=== PATIENT | female | born 1975 | race Two or more races ===

== ENCOUNTER 2020-03-31 09:43 | Outpatient (REF) | payer OTHER, SELFPAY ==
[2020-03-31 11:47] LABS: MANUAL DIFF FLAG NO
[2020-03-31 11:53] LABS: Basophils Absolute Auto 0.1 X10*3/uL (0.0-0.2); Basophils Percent Auto 0.8 % (0-2); Eosinophils Absolute Auto 0.2 X10*3/uL (0.0-0.4); Eosinophils Percent Auto 2.6 % (0-4); Hemoglobin 12.5 g/dl (12.0-16.0); Imm Gran Abs Auto 0.05 X10*3/uL (0.00-0.03); Imm Gran Pct Auto 0.7 % (0.0-0.4); Lymphocytes Absolute Auto 2.4 X10*3/uL (1.2-4.9); Lymphocytes Percent Auto 32.2 % (20-40); Mean Corpuscular HGB Conc 32.1 g/dl (31.0-35.0); Mean Corpuscular Hemoglobin 29.3 pg (27.0-33.0); Mean Corpuscular Volume 91.3 fL (80-98); Mean Platelet Volume 10.8 fL (9.4-12.3); Monocytes Absolute Auto 0.6 X10*3/uL (0.1-1.2); Monocytes Percent Auto 7.8 % (2-11); Neutrophils Absolute Auto 4.2 X10*3/uL (2.0-8.3); Neutrophils Percent Auto 55.9 % (45-73); Platelet Count 291 X10*3/uL (160-400); Red Blood Count 4.27 X10*6/uL (4.20-5.50); Red Cell Distribution Width 14.2 % (11.0-16.0); White Blood Count 7.6 X10*3/uL (4.8-10.8)
[2020-03-31 12:13] LABS: Glucose Urine UA NEG (NEG); Leukocyte Esterase Urine NEG (NEG); Nitrite Urine NEG (NEG); Specific Gravity - Urine 1.025 (1.005-1.025); Urine Blood NEG (NEG); Urine Ketones NEG (NEG); Urine Protein NEG (NEG-TRACE)
[2020-03-31 12:30] LABS: Albumin Level 4.3 g/dL (3.5-5.0); Anion Gap 12 (12-20); Blood Urea Nitrogen 9 mg/dL (9-16); Carbon Dioxide 25 mmol/L (22-29); Chloride 106 mmol/L (96-108); Estimated Glomerular Filt Rate > 60; Phosphorus 3.5 mg/dL (2.7-4.5); Potassium 4.1 mmol/l (3.3-5.1); Sodium 139 mmol/L (135-145)
[2020-03-31 12:37] LABS: Vitamin D 25-OH Total 35.5 ng/mL (>30)
[2020-03-31 12:44] LABS: Creatinine Urine 138.68 mg/dL; Protein/Creatinine Ratio, Ur 0.06 (<0.2); Total Protein Urine Random 8 mg/dL (<12)
[2020-03-31 12:46] LABS: Creatinine Urine 137.52 mg/dL; Microalbum/Creatinine Ratio Ur 9.4 ug/mg cr
[2020-03-31 12:49] LABS: Appearance Urine HAZY; Color Urine YELLOW
[2020-03-31 15:06] LABS: Bacteria Urine 1+ /LPF; Mucus Urine 1+ /LPF; RBC Urine 0 /HPF (0); Squamous Epithelial Cell Urine 2+ /LPF; WBC Urine 0-2 /HPF (0-4)
== END 2020-03-31 09:44 | disposition home or self-care (01) ==
LOC: HO.LAB 09:43
PROVIDERS: PCP Internal Medicine; Visit Provider Internal Medicine Nephrology
DX: Z90.5 Acquired absence of kidney (principal)
CPT/HCPCS: 36415; 80051; 81001; 82040; 82043; 82306; 82310; 82565; 83735; 84100; 84156; 84520; 85025

== ENCOUNTER 2020-05-08 15:06 | Outpatient (REF) | payer OTHER, SELFPAY | END 2020-05-08 15:07 | disposition home or self-care (01) | LOC: HO.LAB 15:06 | PROVIDERS: PCP Internal Medicine; Visit Provider Internal Medicine | DX: Z20.828 Contact with and (suspected) exposure to other viral communicable diseases (principal) | CPT/HCPCS: C9803; U0003 ==

== ENCOUNTER 2020-05-28 11:58 | Outpatient (REF) | payer OTHER, SELFPAY ==
[2020-05-28 13:29] LABS: MANUAL DIFF FLAG NO
[2020-05-28 13:40] LABS: Basophils Absolute Auto 0.1 X10*3/uL (0.0-0.2); Basophils Percent Auto 0.7 % (0-2); Eosinophils Absolute Auto 0.2 X10*3/uL (0.0-0.4); Eosinophils Percent Auto 2.3 % (0-4); Hematocrit 38.4 % (37-47); Hemoglobin 12.3 g/dl (12.0-16.0); Imm Gran Abs Auto 0.04 X10*3/uL (0.00-0.03); Imm Gran Pct Auto 0.6 % (0.0-0.4); Lymphocytes Absolute Auto 2.6 X10*3/uL (1.2-4.9); Lymphocytes Percent Auto 36.7 % (20-40); Mean Corpuscular Hemoglobin 29.1 pg (27.0-33.0); Mean Corpuscular Volume 90.8 fL (80-98); Monocytes Absolute Auto 0.6 X10*3/uL (0.1-1.2); Monocytes Percent Auto 8.9 % (2-11); Neutrophils Absolute Auto 3.6 X10*3/uL (2.0-8.3); Neutrophils Percent Auto 50.8 % (45-73); Platelet Count 298 X10*3/uL (160-400); Red Blood Count 4.23 X10*6/uL (4.20-5.50); Red Cell Distribution Width 14.1 % (11.0-16.0); White Blood Count 7.1 X10*3/uL (4.8-10.8)
[2020-05-28 14:10] LABS: Albumin Level 4.1 g/dL (3.5-5.0); Anion Gap 12 (12-20); Blood Urea Nitrogen 10 mg/dL (9-16); Calcium 8.9 mg/dL (8.4-10.2); Carbon Dioxide 26 mmol/L (22-29); Chloride 105 mmol/L (96-108); Estimated Glomerular Filt Rate > 60; Magnesium 1.9 mg/dL (1.6-2.6); Phosphorus 2.5 mg/dL (2.7-4.5); Sodium 139 mmol/L (135-145)
[2020-05-28 14:25] LABS: Glucose Urine UA NEG (NEG); Leukocyte Esterase Urine NEG (NEG); Nitrite Urine NEG (NEG); Specific Gravity - Urine 1.025 (1.005-1.025); Urine Blood NEG (NEG); Urine Ketones NEG (NEG); Urine Protein NEG (NEG-TRACE)
[2020-05-28 14:29] LABS: Appearance Urine HAZY; Color Urine YELLOW
[2020-05-28 14:32] LABS: Vitamin D 25-OH Total 40.2 ng/mL (>30)
[2020-05-28 14:37] LABS: Creatinine Urine 166.14 mg/dL; Microalbum/Creatinine Ratio Ur 40.9 ug/mg cr; Total Protein Urine Random 17 mg/dL (<12)
[2020-05-28 14:45] LABS: Mucus Urine 1+ /LPF; RBC Urine 0 /HPF (0); Squamous Epithelial Cell Urine 1+ /LPF; WBC Urine 0 /HPF (0-4)
[2020-05-28 15:43] LABS: Renal w Reflex Lab Use Only Order verified
[2020-05-29 09:20] LABS: Creatinine Urine 168.43 mg/dL; Total Protein Urine Random 17 mg/dL (<12)
[2020-05-29 18:57] LABS: Calcium (PTHI) 9.2 mg/dL (8.6-10.2); PTHI 29 pg/mL (14-64)
== END 2020-05-28 11:59 | disposition home or self-care (01) ==
LOC: HO.LAB 11:58
PROVIDERS: PCP Internal Medicine; Visit Provider Internal Medicine Nephrology
DX: Z90.5 Acquired absence of kidney (principal)
CPT/HCPCS: 36415; 80051; 81001; 82040; 82043; 82306; 82310; 82565; 83735; 83970; 84100; 84156; 84520; 85025

== ENCOUNTER 2020-06-03 08:52 | Outpatient (REF) | payer OTHER, SELFPAY ==
--- NOTE | 2020-06-03 | US_ITS ---
EXAMINATION: US RENAL ULTRASOUND AND RENAL DOPPLER CLINICAL INFORMATION: Rule out renal vein impingement. Previous right nephrectomy. COMPARISON: None. TECHNIQUE: Routine grayscale imaging of kidneys was performed. In addition arterial color ultrasound and Doppler imaging of the retroperitoneum performed. FINDINGS: The right kidney is surgically absent. The left kidney measures 13.5 cm in length, 6.28 cm in AP and 6.25 cm in transverse dimension. There is compensatory enlargement left kidney. Normal cortical thickness seen. No cardiac stones, cyst or hydronephrosis. On left renal Doppler imaging the left proximal renal vein measures 0.2 cm with and elevated velocity of 165 cm/second. An upright view of the left proximal renal vein is 0.4 cm with 110 cm/second velocity. SMA at the same level measures 0.8 cm in diameter and velocity of 24.7 cm/second The left distal renal vein measures 1.0 cm with velocity of 25.5 cm/second. The left gonadal vein is not seen. The angle estimated at the aorta is approximately 46.1 degrees. US/US renal doppler IMPRESSION: Compensatory enlargement of left kidney following right nephrectomy. The left kidney measures 13.5 cm. Mildly elevated proximal left renal vein velocity measuring 165 cm/second and distal renal vein has normal velocity of 25 cm/second. Compared to recent CT 05/17/2019, no obstructive etiology was seen along the course of the left renal vein. No obstructive etiology seen on the CT. Correlation with CT angiogram can be performed with attention to the left renal vein. The right kidney is surgically absent.
== END 2020-06-03 08:53 | disposition home or self-care (01) ==
LOC: HO.US 08:52
PROVIDERS: Visit Provider Internal Medicine Nephrology
DX: Z90.5 Acquired absence of kidney (principal)
CPT/HCPCS: 76775; 93975

== ENCOUNTER 2020-07-02 10:56 | Outpatient (REF) | payer OTHER, SELFPAY ==
[2020-07-03 09:12] LABS: BV Int Neg Control Negative (Negative); BV Int Pos Control Positive (Positive)
[2020-07-03 21:32] LABS: C. trachomatis RNA TMA NOT DETECTED (NOT DETECTED); N. gonorrhoeae RNA TMA NOT DETECTED (NOT DETECTED)
[2020-07-08 02:32] LABS: HPV mRNA E6/E7 rflx Not Detected (Not Detected)
== END 2020-07-02 10:57 | disposition home or self-care (01) ==
LOC: HO.LAB 10:56
PROVIDERS: PCP Internal Medicine; Visit Provider Advanced Practice Midwife
DX: N93.9 Abnormal uterine and vaginal bleeding, unspecified (principal); N92.6 Irregular menstruation, unspecified; R23.2 Flushing; R10.2 Pelvic and perineal pain; Z90.5 Acquired absence of kidney
CPT/HCPCS: 36415; 87480; 87491; 87510; 87591; 87624; 87660; 88141; 88142; 99212

== ENCOUNTER 2020-07-07 12:12 | Outpatient (REF) | payer OTHER, SELFPAY | END 2020-07-07 12:13 | disposition home or self-care (01) | LOC: HO.MAMMO 12:12 | PROVIDERS: Visit Provider Obstetrics & Gynecology | DX: Z13.89 Encounter for screening for other disorder (principal) ==

== ENCOUNTER 2020-07-07 15:19 | Emergency (ER) | payer OTHER, SELFPAY ==
[2020-07-07 18:14] VITALS: BP 126/68; PULSE 83; RESP 18; TEMP 36.1; O2SAT 96; BMI 34.9
[2020-07-07 18:39] LABS: MANUAL DIFF FLAG NO
[2020-07-07 18:41] LABS: Basophils Absolute Auto 0.1 X10*3/uL (0.0-0.2); Basophils Percent Auto 0.5 % (0-2); Eosinophils Absolute Auto 0.2 X10*3/uL (0.0-0.4); Eosinophils Percent Auto 1.8 % (0-4); Hematocrit 39.9 % (37-47); Hemoglobin 12.9 g/dl (12.0-16.0); Imm Gran Abs Auto 0.03 X10*3/uL (0.00-0.03); Imm Gran Pct Auto 0.3 % (0.0-0.4); Lymphocytes Absolute Auto 3.4 X10*3/uL (1.2-4.9); Lymphocytes Percent Auto 35.4 % (20-40); Mean Corpuscular HGB Conc 32.3 g/dl (31.0-35.0); Mean Corpuscular Hemoglobin 29.3 pg (27.0-33.0); Mean Corpuscular Volume 90.7 fL (80-98); Mean Platelet Volume 10.6 fL (9.4-12.3); Monocytes Absolute Auto 0.7 X10*3/uL (0.1-1.2); Monocytes Percent Auto 7.5 % (2-11); Neutrophils Absolute Auto 5.2 X10*3/uL (2.0-8.3); Neutrophils Percent Auto 54.5 % (45-73); Platelet Count 285 X10*3/uL (160-400); Red Cell Distribution Width 13.7 % (11.0-16.0); White Blood Count 9.5 X10*3/uL (4.8-10.8)
[2020-07-07 18:45] LABS: Glucose Urine UA NEG (NEG); Leukocyte Esterase Urine NEG (NEG); Nitrite Urine NEG (NEG); Urine Blood 1+ (NEG); Urine Ketones NEG (NEG); Urine Protein NEG (NEG-TRACE)
[2020-07-07 18:46] LABS: Appearance Urine CLEAR; Color Urine STRAW
[2020-07-07 18:51] LABS: Bacteria Urine 1+ /LPF; Squamous Epithelial Cell Urine 3+ /LPF; WBC Urine 0 /HPF (0-4)
[2020-07-07 19:02] LABS: Alanine Aminotransferase 57 U/L (0-31); Albumin Level 4.7 g/dL (3.5-5.0); Alkaline Phosphatase 75 U/L (39-117); Anion Gap 14 (12-20); Aspartate Amino Transferase 50 U/L (5-31); Bilirubin Total 0.3 mg/dL (0.0-1.0); Blood Urea Nitrogen 12 mg/dL (9-16); Calcium 9.5 mg/dL (8.4-10.2); Carbon Dioxide 25 mmol/L (22-29); Chloride 105 mmol/L (96-108); Creatinine Clr Calc Pharmacy 112.5; Estimated Glomerular Filt Rate > 60; Glucose Random 92 mg/dL (60-115); Sodium 140 mmol/L (135-145); Total Protein 8.1 g/dL (6.5-8.0)
[2020-07-07 21:44] VITALS: BP 113/55; PULSE 78; RESP 16; TEMP 36.5; O2SAT 99
--- NOTE | 2020-07-07 21:52 | ED_ITS ---
HPI - Abdominal Pain General Chief Complaint: Abdominal Pain Stated Complaint: dizziness Time Seen by Provider: 07/07/20 21:48 Source: patient Mode of arrival: ambulatory Limitations: no limitations History of Present Illness HPI narrative: 44-year-old female with a solitary left kidney (surgical right nephrectomy), patient with chronic left flank pain of unclear etiology, patient was seen by a residential treatment specialist who recommended to be seen by pain management. 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 Related Data Home Medications Medication Instructions Recorded Confirmed clonazepam 2 mg tablet 2 mg PO DAILY 06/30/20 potassium citrate 10 mEq (1,080 20 meq PO BID 06/30/20 mg) tablet,extended release tamsulosin 0.4 mg capsule 0.4 mg PO DAILY 06/30/20 Allergies Allergy/AdvReac Type Severity Reaction Status Date / Time citalopram Allergy Unknown palpitation Verified 07/07/20 18:13 s doxepin Allergy Unknown palpitation Verified 07/07/20 18:13 s quetiapine [Seroquel] Allergy Unknown weight gain Verified 07/07/20 18:13 trazodone Allergy Unknown palpitation Verified 07/07/20 18:13 s No Known Allergies Allergy Unverified 03/13/20 15:53 Review of Systems Review of Systems All other systems are reviewed and are negative Constitutional: Reports as per HPI and Reports no additional constitutional complaints Eyes: Reports as per HPI and Reports no additional eye complaints Reports system reviewed and no additional complaints, except as documented Cardiovascular: Reports as per HPI and Reports no additional cardiovascular complaints Respiratory: Reports as per HPI and Reports no additional respiratory complaints Gastrointestinal: Reports as per HPI and Reports no additional gastrointestinal complaints Genitourinary: Reports no additional female genitourinary complaints Musculoskeletal: Reports no additional musculoskeletal complaints Skin/Breast: Reports system reviewed and no additional complaints, except as d ocu Psychiatric: Reports no additional psychiatric complaints Endocrine: Reports no additional endocrine complaints Hematologic/Lymphatic: Reports no additional hematologic/lymphatic complaints Allergic/Immunologic: Reports no additional allergic/immunologic complaints Reports system reviewed and no additional complaints, except as documented and Reports Abnormal speech present Physical Exam Vital Signs: Vital Signs: Last Vital Signs Temp 97.7 F 07/07/20 21:44 Pulse 78 07/07/20 21:44 Resp 16 07/07/20 21:44 BP 113/55 L 07/07/20 21:44 Pulse Ox 99 07/07/20 21:44 Body Mass Index 34.9 Vital signs have been reviewed as normal and appeared to be correct. Blood pressure normal. Heart rate normal. Respiration rate normal. Temperature normal. Oxygen saturation normal. Appearance: Alert. Oriented X3. No acute distress. Head: Normal external exam. Normocephalic. Atraumatic. No Madden signs noted. No raccoon eyes noted Eyes: PERRLA. EOMI. Conjunctiva and sclera normal. Eyelids normal. ENT: EAC normal. TM's Normal. Pharynx normal. Uvula midline. Moist mucous membranes. No trismus noted. No drooling noted. No muffled voice noted. Neck: Normal inspection. Neck supple. FROM. No adenopathy. Thyroid Normal. No meningeal signs. No neck mass noted. CVS: Normal heart rate and rhythm. Heart sound normal. No murmurs noted. Pulses normal throughout. Respiratory: No respiratory distress. Painless inspiration. Breath sounds normal. No wheezes/rales/rhonchi noted. Chest nontender. No accessory muscle usage noted or decreased air movement noted. Abdomen: Soft and nontender. Bowel sounds normal in all 4 quadrants. No distention noted. No organomegaly noted. No visible injury noted. Back: No CVA tenderness. Full range of motion noted. Skin: Skin warm and dry. Normal skin color. Normal skin turgor. No rashes/lesions/lacerations noted. Extremities: No lower extremity edema. Extremities exhibit normal range of motion. Extremities nontender. Neuro: Oriented X 3. No motor deficit. No sensory deficit. Reflexes normal. Course Course Course Narrative: 44-year-old female with chronic left flank pain of unclear etiologies patient was evaluated by residential treatment specialist who recommended to follow-up with pain management to control his chronic pain, patient was driving her car when she started to have severe left flank pain made her feel dizzy symptoms improved after patient open the car window and had fresh air. Patient decided to come in for evaluation. Patient has unremarkable vital sign/physical exam, labs are unremarkable +1 rbc's in the urine. Impression: Chronic left flank pain cause the patient to feel dizzy all symptoms resolved no acute medical intervention is needed at this point findings were explained to the patient and patient was reassured. MDM - Abdominal Pain Lab Data Result diagrams: 07/07/20 18:33 07/07/20 18:33 Labs: Lab Results 07/07/20 07/07/20 07/07/20 Range/Units 18:33 18:33 18:33 WBC 9.5 (4.8-10.8) X10*3/uL RBC 4.40 (4.20-5.50) X10*6/uL Hgb 12.9 (12.0-16.0) g/dl Hct 39.9 (37-47) % MCV 90.7 (80-98) fL MCH 29.3 (27.0-33.0) pg MCHC 32.3 (31.0-35.0) g/dl RDW 13.7 (11.0-16.0) % Plt Count 285 (160-400) X10*3/uL MPV 10.6 (9.4-12.3) fL Immature Gran % (Auto) 0.3 (0.0-0.4) % Neut % (Auto) 54.5 (45-73) % Lymph % (Auto) 35.4 (20-40) % [place] % (Auto) 7.5 (2-11) % Eos % (Auto) 1.8 (0-4) % Baso % (Auto) 0.5 (0-2) % Lymph # (Auto) 3.4 (1.2-4.9) X10*3/uL [place] # (Auto) 0.7 (0.1-1.2) X10*3/uL Eos # (Auto) 0.2 (0.0-0.4) X10*3/uL Baso # (Auto) 0.1 (0.0-0.2) X10*3/uL Abs Immat Gran (auto) 0.03 (0.00-0.03) X10*3/uL Absolute Neuts (auto) 5.2 (2.0-8.3) X10*3/uL Absolute Nucleated RBC 0.000 (0.0-0.012) X10*3/uL Nucleated RBC % (auto) 0.0 (0.0-0.2) /100WBC Hold Blue Top SEE NOTE Sodium 140 (135-145) mmol/L Potassium 4.0 (3.3-5.1) mmol/l Chloride 105 (96-108) mmol/L Carbon Dioxide 25 (22-29) mmol/L Anion Gap 14 (12-20) BUN 12 (9-16) mg/dL Creatinine 0.72 (0.5-1.4) mg/dL Estim Creat Clear Calc 112.5 Estimated GFR > 60 Random Glucose 92 (60-115) mg/dL Calcium 9.5 D (8.4-10.2) mg/dL Total Bilirubin 0.3 (0.0-1.0) mg/dL AST 50 H (5-31) U/L ALT 57 H (0-31) U/L Alkaline Phosphatase 75 (39-117) U/L Total Protein 8.1 H (6.5-8.0) g/dL Albumin 4.7 (3.5-5.0) g/dL Urine Color Urine Appearance Urine pH (5.0-8.0) Ur Specific Gilbert (1.005-1.025) Urine Protein (NEG-TRACE) MG/DL Urine Glucose (UA) (NEG) MG/DL Urine Ketones (NEG) MG/DL Urine Blood (NEG) Urine Nitrite (NEG) Ur Leukocyte Esterase (NEG) Urine RBC (0) /HPF Urine WBC (0-4) /HPF Ur Squamous Epith Cells /LPF Urine Bacteria /LPF 07/07/20 Range/Units 18:33 WBC (4.8-10.8) X10*3/uL RBC (4.20-5.50) X10*6/uL Hgb (12.0-16.0) g/dl Hct (37-47) % MCV (80-98) fL MCH (27.0-33.0) pg MCHC (31.0-35.0) g/dl RDW (11.0-16.0) % Plt Count (160-400) X10*3/uL MPV (9.4-12.3) fL Immature Gran % (Auto) (0.0-0.4) % Neut % (Auto) (45-73) % Lymph % (Auto) (20-40) % [place] % (Auto) (2-11) % Eos % (Auto) (0-4) % Baso % (Auto) (0-2) % Lymph # (Auto) (1.2-4.9) X10*3/uL [place] # (Auto) (0.1-1.2) X10*3/uL Eos # (Auto) (0.0-0.4) X10*3/uL Baso # (Auto) (0.0-0.2) X10*3/uL Abs Immat Gran (auto) (0.00-0.03) X10*3/uL Absolute Neuts (auto) (2.0-8.3) X10*3/uL Absolute Nucleated RBC (0.0-0.012) X10*3/uL Nucleated RBC % (auto) (0.0-0.2) /100WBC Hold Blue Top Sodium (135-145) mmol/L Potassium (3.3-5.1) mmol/l Chloride (96-108) mmol/L Carbon Dioxide (22-29) mmol/L Anion Gap (12-20) BUN (9-16) mg/dL Creatinine (0.5-1.4) mg/dL Estim Creat Clear Calc Estimated GFR Random Glucose (60-115) mg/dL Calcium (8.4-10.2) mg/dL Total Bilirubin (0.0-1.0) mg/dL AST (5-31) U/L ALT (0-31) U/L Alkaline Phosphatase (39-117) U/L Total Protein (6.5-8.0) g/dL Albumin (3.5-5.0) g/dL Urine Color STRAW Urine Appearance CLEAR Urine pH 6.0 (5.0-8.0) Ur Specific Gilbert 1.010 (1.005-1.025) Urine Protein NEG (NEG-TRACE) MG/DL Urine Glucose (UA) NEG (NEG) MG/DL Urine Ketones NEG (NEG) MG/DL Urine Blood 1+ H (NEG) Urine Nitrite NEG (NEG) Ur Leukocyte Esterase NEG (NEG) Urine RBC 1-4 (0) /HPF Urine WBC 0 (0-4) /HPF Ur Squamous Epith Cells 3+ /LPF Urine Bacteria 1+ /LPF Discharge Plan Discharge Clinical Impression: History of right nephrectomy, Chronic flank pain Patient Disposition: Home, Self-Care Instructions: Flank Pain (ED) Referrals: Fallon Doyle MD [Primary Care Provider] - 2 days PMF Past Medical History Medical History Carpal tunnel syndrome Depression FH: throat cancer Insomnia Numerous moles Obesity Ovarian cyst Physical exam Surgical History History of loop electrical excision procedure (LEEP) History of removal of ovarian cyst History of right nephrectomy Family History Family History Maternal Grandmother Diabetes mellitus Maternal Grandfather Heart disease CVD (cardiovascular disease) Social History Social History Smoking Status: Never smoker Advance Directives: No Advance Directives Information Provided: Yes Gender identity: female
== END 2020-07-07 22:26 | disposition home or self-care (01) ==
PROVIDERS: Emergency Provider Emergency Medicine; PCP Internal Medicine
DX: R10.9 Unspecified abdominal pain (principal); Z90.5 Acquired absence of kidney
CPT/HCPCS: 36415; 80053; 81001; 85025; 99283

== ENCOUNTER 2020-07-14 11:20 | Outpatient (REF) | payer OTHER, SELFPAY ==
--- NOTE | 2020-07-14 | US_ITS ---
EXAMINATION: ULTRASOUND PELVIS COMPLETE CLINICAL INFORMATION: Right ovarian cyst. COMPARISON: Ultrasound pelvis 02/13/2019. TECHNIQUE: Transabdominal and transvaginal ultrasound of the pelvis is performed. FINDINGS: The uterus is anteverted and anteflexed measuring 12.1 cm in length, 6.2 cm in AP and 7.0 cm in transverse dimension. Previously visualized fibroid is not visualized at this time. The uterus is homogeneous in echotexture. The endometrial thickness is 1.4 cm. There are several nabothian cysts seen in the cervix. The right ovary measures 3.5 x 1.2 x 1.1 cm and volume 2.4 cm. It is unremarkable. The left ovary measures 2.7 x 1.5 x 3.4 cm and volume 7.2 mL. There are 2 anechoic cysts. The largest cyst measures 1.9 x 1.3 x by 1.5 cm and second lesion measures 1.3 x 0.6 x 1.0 cm. There is a trace amount of free fluid in the pelvis. US/US transvaginal IMPRESSION: Unremarkable anteverted uterus. No fibroids seen at this time. Nabothian cysts seen in the cervix. Two simple cysts in the left ovary.
--- NOTE | 2020-07-14 11:26 | US_ITS ---
EXAMINATION: ULTRASOUND PELVIS COMPLETE CLINICAL INFORMATION: Right ovarian cyst. COMPARISON: Ultrasound pelvis 02/13/2019. TECHNIQUE: Transabdominal and transvaginal ultrasound of the pelvis is performed. FINDINGS: The uterus is anteverted and anteflexed measuring 12.1 cm in length, 6.2 cm in AP and 7.0 cm in transverse dimension. Previously visualized fibroid is not visualized at this time. The uterus is homogeneous in echotexture. The endometrial thickness is 1.4 cm. There are several nabothian cysts seen in the cervix. The right ovary measures 3.5 x 1.2 x 1.1 cm and volume 2.4 cm. It is unremarkable. The left ovary measures 2.7 x 1.5 x 3.4 cm and volume 7.2 mL. There are 2 anechoic cysts. The largest cyst measures 1.9 x 1.3 x by 1.5 cm and second lesion measures 1.3 x 0.6 x 1.0 cm. There is a trace amount of free fluid in the pelvis. US/US pelvic complete IMPRESSION: Unremarkable anteverted uterus. No fibroids seen at this time. Nabothian cysts seen in the cervix. Two simple cysts in the left ovary.
== END 2020-07-14 11:21 | disposition home or self-care (01) ==
LOC: HO.US 11:20
PROVIDERS: Visit Provider Advanced Practice Midwife
DX: N83.201 Unspecified ovarian cyst, right side (principal)
CPT/HCPCS: 76830; 76856

== ENCOUNTER → 2020-07-17 09:26 | Outpatient (BNVA) | payer OTHER, SELFPAY | PROVIDERS: PCP Internal Medicine; Visit Provider Surgery Vascular Surgery | DX: I87.1 Compression of vein (principal) | CPT/HCPCS: 99202 ==

== ENCOUNTER 2020-07-17 23:39 | Emergency (ER) | payer OTHER, SELFPAY ==
[2020-07-17 23:58] VITALS: BP 142/53; PULSE 84; RESP 18; TEMP 36.4; O2SAT 99; BMI 42.2
--- NOTE | 2020-07-17 23:58 | ED.ABDPAIN ---
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 Pain is intermittent at times. Of note, the pain was seen for the same July 04 and had an unremarkable workup including ultrasound, labs, urine. Has been seen multiple times by nephrology in the past and had been referred to pain management. Seen [facility] and there was concern for left renal vein impingement on repeat US. Referred to vascular. Seen today in office by Dr Guzman at 930am. Noted to not have pain in the office their. CT angio abdomen ordered which patient is scheduled to have 07/29/20. Patient tells me at 1145 she started to have severe pain which feels just like previous episodes of pain unrelieved with home APAP. No associated nausea, vomiting, diarhea, urinary symptoms, fevers, chills. Currently on her menses. <SOMMER Brock Last Filed: 07/18/20 01:36> MD elicited complaint: abdominal pain <SOMMER Brock Last Filed: 07/18/20 01:36> Pain Consistency: intermittent <SOMMER Brock Last Filed: 07/18/20 01:36> Related Data Home Medications: Home Medications Medication Instructions Recorded Confirmed clonazepam 2 mg tablet 2 mg PO DAILY 06/30/20 07/09/20 potassium citrate 10 mEq (1,080 20 meq PO BID 06/30/20 07/09/20 mg) tablet,extended release tamsulosin 0.4 mg capsule 0.4 mg PO DAILY 06/30/20 07/09/20 cholecalciferol (vitamin D3) 10 10 mcg PO DAILY 07/22/20 mcg (400 unit) tablet <SOMMER Brock Last Filed: 07/18/20 01:36> Allergies/Adverse Reactions: Allergies Allergy/AdvReac Type Severity Reaction Status Date / Time citalopram Allergy Unknown palpitation Verified 07/24/20 14:31 s doxepin Allergy Unknown palpitation Verified 07/24/20 14:31 s quetiapine [Seroquel] Allergy Unknown weight gain Verified 07/24/20 14:31 trazodone Allergy Unknown palpitation Verified 07/24/20 14:31 s <SOMMER Brock Last Filed: 07/18/20 01:36> Review of Systems Review of Systems Yes all other systems are reviewed and are negative <SOMMER Brock Last Filed: 07/18/20 01:36> Constitutional: Reports no additional constitutional complaints, Denies body ache(s), Denies chills, Denies fever(s), Denies headache(s) and Denies weakness <SOMMER Brock Last Filed: 07/18/20 01:36> Eyes: Reports no additional eye complaints and Denies change in vision <SOMMER Brock Last Filed: 07/18/20 01:36> Reports system reviewed and no additional complaints, except as documented, Denies dizziness, Denies headache(s), Denies nasal congestion, Denies nasal discharge and Denies neck pain <SOMMER Brock Last Filed: 07/18/20 01:36> Cardiovascular: Reports no additional cardiovascular complaints, Denies chest pain, Denies leg edema and Denies dyspnea <SOMMER Brock Last Filed: 07/18/20 01:36> Respiratory: Reports no additional respiratory complaints, Denies cough and Denies dyspnea <SOMMER Brock Last Filed: 07/18/20 01:36> Gastrointestinal: Reports no additional gastrointestinal complaints, Reports abdominal pain, Denies diarrhea, Denies nausea and Denies vomiting <Jasmine Muller NP - Last Filed: 07/18/20 01:36> Genitourinary: Reports no additional female genitourinary complaints and Denies urinary incontinence <Jasmine Muller NP - Last Filed: 07/18/20 01:36> Musculoskeletal: Reports no additional musculoskeletal complaints, Reports back pain, Denies arthralgias, Denies joint swelling, Denies neck pain, Denies numbness and Denies tingling <Jasmine Muller NP - Last Filed: 07/18/20 01:36> Skin/Breast: Reports system reviewed and no additional complaints, except as docu and Denies rash <Jasmine Muller NP - Last Filed: 07/18/20 01:36> Reports system reviewed and no additional complaints, except as documented, Denies Abnormal speech present, Denies dizziness, Denies headache(s), Denies numbness, Denies tingling and Denies weakness <Jasmine Mulelr NP - Last Filed: 07/18/20 01:36> Physical Exam Vital Signs: Vital Signs: Last Vital Signs Temp 97.6 F 07/17/20 23:58 Pulse 81 07/18/20 01:09 Resp 18 07/18/20 01:09 BP 140/58 H 07/18/20 01:09 Pulse Ox 98 07/18/20 01:09 Body Mass Index 42.2 <Jasmine Muller NP - Last Filed: 07/18/20 01:36> Vital Signs: Last Vital Signs Temp 97.6 F 07/17/20 23:58 Pulse 81 07/18/20 01:09 Resp 18 07/18/20 01:09 BP 140/58 H 07/18/20 01:09 Pulse Ox 98 07/18/20 01:09 Body Mass Index 42.2 <Mckenzie Rubio MD - Last Filed: 07/18/20 03:25> Vital Signs: Last Vital Signs Temp 97.6 F 07/17/20 23:58 Pulse 81 07/18/20 01:09 Resp 18 07/18/20 01:09 BP 140/58 H 07/18/20 01:09 Pulse Ox 98 07/18/20 01:09 Body Mass Index 42.2 <James La MD - Last Filed: 07/30/20 07:46> Const: General: cooperative, healthy appearing, comfortable and no acute distress <Jasmine Muller NP - Last Filed: 07/18/20 01:36> Orientation/consciousness: patient oriented x3 <Jasmine Muller NP - Last Filed: 07/18/20 01:36> Limitations: no limitations <Jasmine Muller NP - Last Filed: 07/18/20 01:36> HENMT: Head: Yes normal to inspection <Jasmine Muller NP - Last Filed: 07/18/20 01:36> Ears: hearing grossly normal bilaterally <Jasmine Muller NP - Last Filed: 07/18/20 01:36> General nose exam: Normal external nose present <Jasmine Muller NP - Last Filed: 07/18/20 01:36> Face and sinus: Yes normal facial exam <Jasmine Muller NP - Last Filed: 07/18/20 01:36> Mouth: Normal oral and palatal mucosa present <Jasmine Muller NP - Last Filed: 07/18/20 01:36> Throat: Yes posterior oropharynx normal <Jasmine Muller NP - Last Filed: 07/18/20 01:36> Eyes: General: appearance normal, both eyes and all related structures <Jasmine Muller NP - Last Filed: 07/18/20 01:36> Pupils: Equal, round and reactive pupils present <Jasmine Muller NP - Last Filed: 07/18/20 01:36> Neck: Neck: Yes normal visual inspection <Jasmine Muller NP - Last Filed: 07/18/20 01:36> Chest: Chest palpation & inspection: normal inspection of the chest <Jasmine Muller NP - Last Filed: 07/18/20 01:36> Resp: Effort & Inspection: normal respiratory effort <SOMMER Brock Last Filed: 07/18/20 01:36> Auscultation: clear to auscultation bilaterally <Jasmine Muller NP - Last Filed: 07/18/20 01:36> Cardio: Rate: regular rate <Jasmine Muller NP - Last Filed: 07/18/20 01:36> Rhythm: regular rhythm <Jasmine Muller NP - Last Filed: 07/18/20 01:36> Peripheral pulses: Peripheral pulses 2+ throughout <Jasmine Muller NP - Last Filed: 07/18/20 01:36> GI: Inspection: Yes normal to inspection <Jasmine Muller NP - Last Filed: 07/18/20 01:36> Palpation (GI): Soft to palpation, Tenderness to palpation present (GI) in the LUQ; with no rebound tenderness and no guarding <Jasmine Muller NP - Last Filed: 07/18/20 01:36> Auscultation: normal bowel sounds <Jasmine Muller NP - Last Filed: 07/18/20 01:36> : General: Yes CVA tenderness (moderate) <Jasmine Muller NP - Last Filed: 07/18/20 01:36> Back/Spine/Pelvis: Back: CVA tenderness (moderate) <Jasmine Muller NP - Last Filed: 07/18/20 01:36> Thoracic/Lumbar Spine: thoracic and lumbar spine normal to inspection <Jasmine Muller NP - Last Filed: 07/18/20 01:36> Skin: General skin exam: no rashes or lesions noted <Jasmine Muller NP - Last Filed: 07/18/20 01:36> Neuro: General: patient oriented x3, no focal motor deficits and normal sensation to monofilament <Jasmine Muller NP - Last Filed: 07/18/20 01:36> Cranial nerves: Yes Equal, round and reactive pupils present <Jasmine Muller NP - Last Filed: 07/18/20 01:36> Cognition (Neuro): normal cognition <Jasmine Muller NP - Last Filed: 07/18/20 01:36> Speech: No Abnormal speech present <Jasmine Muller NP - Last Filed: 07/18/20 01:36> Gait exam (Neuro): Normal gait present <Jasmine Muller NP - Last Filed: 07/18/20 01:36> Motor exam (neuro): 5/5 motor strength present throughout <Jasmine Muller NP - Last Filed: 07/18/20 01:36> Extrem: General: Yes normal to inspection <Jasmine Muller NP - Last Filed: 07/18/20 01:36> Course Course Course Narrative: 44 yo female here with acute on chronic left abdomen/flank pain. Currently being worked up for left renal vein impingement by nephrology and vascular. Has upcoming CT angio abdomen. Pt here for worsening pain today. LUQ/left flank pain on exam. Will check labs, UA, CT angio. 0050-Per radiologist to eval renal vein Ct A/P with IV contrast is needed. 0130-Sign out to Dr Rubio pending above. <Jasmine Muller NP - Last Filed: 07/18/20 01:36> I received sign-out from SOMMER Deng, CT scan was limited due to motion artifact, however there is no appreciable abnormality of the left renal vein. Patient was instructed to call Dr. Guzman office this morning and follow-up with him as well. <Mckenzie Rubio MD - Last Filed: 07/18/20 03:25> I have reviewed the chart <James La MD - Last Filed: 07/30/20 07:46> MDM - Abdominal Pain Medical Records Attestation: I reviewed the patient's medical records. <Jasmine Muller NP - Last Filed: 07/18/20 01:36> Lab Data Attestation: I reviewed the patient's lab results. <Jasmine Muller NP - Last Filed: 07/18/20 01:36> Result diagrams: : 07/18/20 00:39 07/18/20 00:39 <Jasmine Muller NP - Last Filed: 07/18/20 01:36> Labs: Lab Results 07/18/20 07/18/20 07/18/20 Range/Units 00:39 00:39 00:39 WBC 9.0 (4.8-10.8) X10*3/uL RBC 3.93 L (4.20-5.50) X10*6/uL Hgb 11.6 L (12.0-16.0) g/dl Hct 35.7 L (37-47) % MCV 90.8 (80-98) fL MCH 29.5 (27.0-33.0) pg MCHC 32.5 (31.0-35.0) g/dl RDW 13.8 (11.0-16.0) % Plt Count 246 (160-400) X10*3/uL MPV 10.7 (9.4-12.3) fL Immature Gran % (Auto) 0.2 (0.0-0.4) % Neut % (Auto) 46.0 (45-73) % Lymph % (Auto) 41.6 H (20-40) % [place] % (Auto) 8.8 (2-11) % Eos % (Auto) 2.7 (0-4) % Baso % (Auto) 0.7 (0-2) % Lymph # (Auto) 3.7 (1.2-4.9) X10*3/uL [place] # (Auto) 0.8 (0.1-1.2) X10*3/uL Eos # (Auto) 0.2 (0.0-0.4) X10*3/uL Baso # (Auto) 0.1 (0.0-0.2) X10*3/uL Abs Immat Gran (auto) 0.02 (0.00-0.03) X10*3/uL Absolute Neuts (auto) 4.1 (2.0-8.3) X10*3/uL Absolute Nucleated RBC 0.000 (0.0-0.012) X10*3/uL Nucleated RBC % (auto) 0.0 (0.0-0.2) /100WBC Hold Blue Top SEE NOTE Sodium 138 (135-145) mmol/L Potassium 4.0 (3.3-5.1) mmol/l Chloride 104 (96-108) mmol/L Carbon Dioxide 25 (22-29) mmol/L Anion Gap 13 (12-20) BUN 11 (9-16) mg/dL Creatinine 0.71 (0.5-1.4) mg/dL Estim Creat Clear Calc 122.3 Estimated GFR > 60 Random Glucose 97 (60-115) mg/dL Calcium 8.9 D (8.4-10.2) mg/dL Total Bilirubin 0.3 (0.0-1.0) mg/dL Direct Bilirubin 0.2 (0.0-0.5) mg/dL AST 22 D (5-31) U/L ALT 24 (0-31) U/L Alkaline Phosphatase 65 (39-117) U/L Total Protein 7.0 (6.5-8.0) g/dL Albumin 4.1 (3.5-5.0) g/dL Urine Color Urine Appearance Urine pH (5.0-8.0) Ur Specific [place] (1.005-1.025) Urine Protein (NEG-TRACE) MG/DL Urine Glucose (UA) (NEG) MG/DL Urine Ketones (NEG) MG/DL Urine Blood (NEG) Urine Nitrite (NEG) Ur Leukocyte Esterase (NEG) Urine RBC (0) /HPF Urine WBC (0-4) /HPF Ur Squamous Epith Cells /LPF Urine Bacteria /LPF Urine Test (NEGATIVE) 07/18/20 Range/Units 00:41 WBC (4.8-10.8) X10*3/uL RBC (4.20-5.50) X10*6/uL Hgb (12.0-16.0) g/dl Hct (37-47) % MCV (80-98) fL MCH (27.0-33.0) pg MCHC (31.0-35.0) g/dl RDW (11.0-16.0) % Plt Count (160-400) X10*3/uL MPV (9.4-12.3) fL Immature Gran % (Auto) (0.0-0.4) % Neut % (Auto) (45-73) % Lymph % (Auto) (20-40) % [place] % (Auto) (2-11) % Eos % (Auto) (0-4) % Baso % (Auto) (0-2) % Lymph # (Auto) (1.2-4.9) X10*3/uL [place] # (Auto) (0.1-1.2) X10*3/uL Eos # (Auto) (0.0-0.4) X10*3/uL Baso # (Auto) (0.0-0.2) X10*3/uL Abs Immat Gran (auto) (0.00-0.03) X10*3/uL Absolute Neuts (auto) (2.0-8.3) X10*3/uL Absolute Nucleated RBC (0.0-0.012) X10*3/uL Nucleated RBC % (auto) (0.0-0.2) /100WBC Hold Blue Top Sodium (135-145) mmol/L Potassium (3.3-5.1) mmol/l Chloride (96-108) mmol/L Carbon Dioxide (22-29) mmol/L Anion Gap (12-20) BUN (9-16) mg/dL Creatinine (0.5-1.4) mg/dL Estim Creat Clear Calc Estimated GFR Random Glucose (60-115) mg/dL Calcium (8.4-10.2) mg/dL Total Bilirubin (0.0-1.0) mg/dL Direct Bilirubin (0.0-0.5) mg/dL AST (5-31) U/L ALT (0-31) U/L Alkaline Phosphatase (39-117) U/L Total Protein (6.5-8.0) g/dL Albumin (3.5-5.0) g/dL Urine Color YELLOW Urine Appearance CLEAR Urine pH 6.0 (5.0-8.0) Ur Specific [place] 1.010 (1.005-1.025) Urine Protein NEG (NEG-TRACE) MG/DL Urine Glucose (UA) NEG (NEG) MG/DL Urine Ketones NEG (NEG) MG/DL Urine Blood TRACE (NEG) Urine Nitrite NEG (NEG) Ur Leukocyte Esterase NEG (NEG) Urine RBC 0-2 (0) /HPF Urine WBC 0-2 (0-4) /HPF Ur Squamous Epith Cells 1+ /LPF Urine Bacteria 1+ /LPF Urine Test NEGATIVE (NEGATIVE) <Jasmine Muller NP - Last Filed: 07/18/20 01:36> Lab Results 07/18/20 07/18/20 07/18/20 Range/Units 00:39 00:39 00:39 WBC 9.0 (4.8-10.8) X10*3/uL RBC 3.93 L (4.20-5.50) X10*6/uL Hgb 11.6 L (12.0-16.0) g/dl Hct 35.7 L (37-47) % MCV 90.8 (80-98) fL MCH 29.5 (27.0-33.0) pg MCHC 32.5 (31.0-35.0) g/dl RDW 13.8 (11.0-16.0) % Plt Count 246 (160-400) X10*3/uL MPV 10.7 (9.4-12.3) fL Immature Gran % (Auto) 0.2 (0.0-0.4) % Neut % (Auto) 46.0 (45-73) % Lymph % (Auto) 41.6 H (20-40) % [place] % (Auto) 8.8 (2-11) % Eos % (Auto) 2.7 (0-4) % Baso % (Auto) 0.7 (0-2) % Lymph # (Auto) 3.7 (1.2-4.9) X10*3/uL [place] # (Auto) 0.8 (0.1-1.2) X10*3/uL Eos # (Auto) 0.2 (0.0-0.4) X10*3/uL Baso # (Auto) 0.1 (0.0-0.2) X10*3/uL Abs Immat Gran (auto) 0.02 (0.00-0.03) X10*3/uL Absolute Neuts (auto) 4.1 (2.0-8.3) X10*3/uL Absolute Nucleated RBC 0.000 (0.0-0.012) X10*3/uL Nucleated RBC % (auto) 0.0 (0.0-0.2) /100WBC Hold Blue Top SEE NOTE Sodium 138 (135-145) mmol/L Potassium 4.0 (3.3-5.1) mmol/l Chloride 104 (96-108) mmol/L Carbon Dioxide 25 (22-29) mmol/L Anion Gap 13 (12-20) BUN 11 (9-16) mg/dL Creatinine 0.71 (0.5-1.4) mg/dL Estim Creat Clear Calc 122.3 Estimated GFR > 60 Random Glucose 97 (60-115) mg/dL Calcium 8.9 D (8.4-10.2) mg/dL Total Bilirubin 0.3 (0.0-1.0) mg/dL Direct Bilirubin 0.2 (0.0-0.5) mg/dL AST 22 D (5-31) U/L ALT 24 (0-31) U/L Alkaline Phosphatase 65 (39-117) U/L Total Protein 7.0 (6.5-8.0) g/dL Albumin 4.1 (3.5-5.0) g/dL Urine Color Urine Appearance Urine pH (5.0-8.0) Ur Specific [place] (1.005-1.025) Urine Protein (NEG-TRACE) MG/DL Urine Glucose (UA) (NEG) MG/DL Urine Ketones (NEG) MG/DL Urine Blood (NEG) Urine Nitrite (NEG) Ur Leukocyte Esterase (NEG) Urine RBC (0) /HPF Urine WBC (0-4) /HPF Ur Squamous Epith Cells /LPF Urine Bacteria /LPF Urine Test (NEGATIVE) 07/18/20 Range/Units 00:41 WBC (4.8-10.8) X10*3/uL RBC (4.20-5.50) X10*6/uL Hgb (12.0-16.0) g/dl Hct (37-47) % MCV (80-98) fL MCH (27.0-33.0) pg MCHC (31.0-35.0) g/dl RDW (11.0-16.0) % Plt Count (160-400) X10*3/uL MPV (9.4-12.3) fL Immature Gran % (Auto) (0.0-0.4) % Neut % (Auto) (45-73) % Lymph % (Auto) (20-40) % [place] % (Auto) (2-11) % Eos % (Auto) (0-4) % Baso % (Auto) (0-2) % Lymph # (Auto) (1.2-4.9) X10*3/uL [place] # (Auto) (0.1-1.2) X10*3/uL Eos # (Auto) (0.0-0.4) X10*3/uL Baso # (Auto) (0.0-0.2) X10*3/uL Abs Immat Gran (auto) (0.00-0.03) X10*3/uL Absolute Neuts (auto) (2.0-8.3) X10*3/uL Absolute Nucleated RBC (0.0-0.012) X10*3/uL Nucleated RBC % (auto) (0.0-0.2) /100WBC Hold Blue Top Sodium (135-145) mmol/L Potassium (3.3-5.1) mmol/l Chloride (96-108) mmol/L Carbon Dioxide (22-29) mmol/L Anion Gap (12-20) BUN (9-16) mg/dL Creatinine (0.5-1.4) mg/dL Estim Creat Clear Calc Estimated GFR Random Glucose (60-115) mg/dL Calcium (8.4-10.2) mg/dL Total Bilirubin (0.0-1.0) mg/dL Direct Bilirubin (0.0-0.5) mg/dL AST (5-31) U/L ALT (0-31) U/L Alkaline Phosphatase (39-117) U/L Total Protein (6.5-8.0) g/dL Albumin (3.5-5.0) g/dL Urine Color YELLOW Urine Appearance CLEAR Urine pH 6.0 (5.0-8.0) Ur Specific [place] 1.010 (1.005-1.025) Urine Protein NEG (NEG-TRACE) MG/DL Urine Glucose (UA) NEG (NEG) MG/DL Urine Ketones NEG (NEG) MG/DL Urine Blood TRACE (NEG) Urine Nitrite NEG (NEG) Ur Leukocyte Esterase NEG (NEG) Urine RBC 0-2 (0) /HPF Urine WBC 0-2 (0-4) /HPF Ur Squamous Epith Cells 1+ /LPF Urine Bacteria 1+ /LPF Urine Test NEGATIVE (NEGATIVE) <Mckenzie Rubio MD - Last Filed: 07/18/20 03:25> Lab Results 07/18/20 07/18/2007/18/21 Range/Units 00:39 00:39 00:39 WBC 9.0 (4.8-10.8) X10*3/uL RBC 3.93 L (4.20-5.50) X10*6/uL Hgb 11.6 L (12.0-16.0) g/dl Hct 35.7 L (37-47) % MCV 90.8 (80-98) fL MCH 29.5 (27.0-33.0) pg MCHC 32.5 (31.0-35.0) g/dl RDW 13.8 (11.0-16.0) % Plt Count 246 (160-400) X10*3/uL MPV 10.7 (9.4-12.3) fL Immature Gran % (Auto) 0.2 (0.0-0.4) % Neut % (Auto) 46.0 (45-73) % Lymph % (Auto) 41.6 H (20-40) % [place] % (Auto) 8.8 (2-11) % Eos % (Auto) 2.7 (0-4) % Baso % (Auto) 0.7 (0-2) % Lymph # (Auto) 3.7 (1.2-4.9) X10*3/uL [place] # (Auto) 0.8 (0.1-1.2) X10*3/uL Eos # (Auto) 0.2 (0.0-0.4) X10*3/uL Baso # (Auto) 0.1 (0.0-0.2) X10*3/uL Abs Immat Gran (auto) 0.02 (0.00-0.03) X10*3/uL Absolute Neuts (auto) 4.1 (2.0-8.3) X10*3/uL Absolute Nucleated RBC 0.000 (0.0-0.012) X10*3/uL Nucleated RBC % (auto) 0.0 (0.0-0.2) /100WBC Hold Blue Top SEE NOTE Sodium 138 (135-145) mmol/L Potassium 4.0 (3.3-5.1) mmol/l Chloride 104 (96-108) mmol/L Carbon Dioxide 25 (22-29) mmol/L Anion Gap 13 (12-20) BUN 11 (9-16) mg/dL Creatinine 0.71 (0.5-1.4) mg/dL Estim Creat Clear Calc 122.3 Estimated GFR > 60 Random Glucose 97 (60-115) mg/dL Calcium 8.9 D (8.4-10.2) mg/dL Total Bilirubin 0.3 (0.0-1.0) mg/dL Direct Bilirubin 0.2 (0.0-0.5) mg/dL AST 22 D (5-31) U/L ALT 24 (0-31) U/L Alkaline Phosphatase 65 (39-117) U/L Total Protein 7.0 (6.5-8.0) g/dL Albumin 4.1 (3.5-5.0) g/dL Urine Color Urine Appearance Urine pH (5.0-8.0) Ur Specific [place] (1.005-1.025) Urine Protein (NEG-TRACE) MG/DL Urine Glucose (UA) (NEG) MG/DL Urine Ketones (NEG) MG/DL Urine Blood (NEG) Urine Nitrite (NEG) Ur Leukocyte Esterase (NEG) Urine RBC (0) /HPF Urine WBC (0-4) /HPF Ur Squamous Epith Cells /LPF Urine Bacteria /LPF Urine Test (NEGATIVE) 07/18/20 Range/Units 00:41 WBC (4.8-10.8) X10*3/uL RBC (4.20-5.50) X10*6/uL Hgb (12.0-16.0) g/dl Hct (37-47) % MCV (80-98) fL MCH (27.0-33.0) pg MCHC (31.0-35.0) g/dl RDW (11.0-16.0) % Plt Count (160-400) X10*3/uL MPV (9.4-12.3) fL Immature Gran % (Auto) (0.0-0.4) % Neut % (Auto) (45-73) % Lymph % (Auto) (20-40) % [place] % (Auto) (2-11) % Eos % (Auto) (0-4) % Baso % (Auto) (0-2) % Lymph # (Auto) (1.2-4.9) X10*3/uL [place] # (Auto) (0.1-1.2) X10*3/uL Eos # (Auto) (0.0-0.4) X10*3/uL Baso # (Auto) (0.0-0.2) X10*3/uL Abs Immat Gran (auto) (0.00-0.03) X10*3/uL Absolute Neuts (auto) (2.0-8.3) X10*3/uL Absolute Nucleated RBC (0.0-0.012) X10*3/uL Nucleated RBC % (auto) (0.0-0.2) /100WBC Hold Blue Top Sodium (135-145) mmol/L Potassium (3.3-5.1) mmol/l Chloride (96-108) mmol/L Carbon Dioxide (22-29) mmol/L Anion Gap (12-20) BUN (9-16) mg/dL Creatinine (0.5-1.4) mg/dL Estim Creat Clear Calc Estimated GFR Random Glucose (60-115) mg/dL Calcium (8.4-10.2) mg/dL Total Bilirubin (0.0-1.0) mg/dL Direct Bilirubin (0.0-0.5) mg/dL AST (5-31) U/L ALT (0-31) U/L Alkaline Phosphatase (39-117) U/L Total Protein (6.5-8.0) g/dL Albumin (3.5-5.0) g/dL Urine Color YELLOW Urine Appearance CLEAR Urine pH 6.0 (5.0-8.0) Ur Specific [place] 1.010 (1.005-1.025) Urine Protein NEG (NEG-TRACE) MG/DL Urine Glucose (UA) NEG (NEG) MG/DL Urine Ketones NEG (NEG) MG/DL Urine Blood TRACE (NEG) Urine Nitrite NEG (NEG) Ur Leukocyte Esterase NEG (NEG) Urine RBC 0-2 (0) /HPF Urine WBC 0-2 (0-4) /HPF Ur Squamous Epith Cells 1+ /LPF Urine Bacteria 1+ /LPF Urine Test NEGATIVE (NEGATIVE) <James La MD - Last Filed: 07/30/20 07:46> Discharge Plan Discharge Clinical Impression: Abdominal pain <Jasmine Muller NP - Last Filed: 07/18/20 01:36> Patient Disposition: Home, Self-Care <Jasmine Muller NP - Last Filed: 07/18/20 01:36> Instructions: Abdominal Pain (ED) <Jasmine Muller NP - Last Filed: 07/18/20 01:36> Additional Instructions: Please call Dr. Guzman office this morning. Please set him know about the CT scan that was done this morning. Please follow-up with your primary care physician tomorrow. If you have any worsening or new symptoms, please return to the emergency room or call 911 <Jasmine Muller NP - Last Filed: 07/18/20 01:36> Prescriptions: No Action clonazepam 2 mg tablet 2 mg PO DAILY RF: 0 tamsulosin 0.4 mg capsule 0.4 mg PO DAILY RF: 0 potassium citrate 10 mEq (1,080 mg) tablet extended release 20 meq PO BID RF: 0 cholecalciferol (vitamin D3) 10 mcg (400 unit) tablet 10 mcg PO DAILY RF: 0 <Jasmine Muller NP - Last Filed: 07/18/20 01:36> Stand Alone Forms: Work/School Release <Jasmine Muller NP - Last Filed: 07/18/20 01:36> Interventions: ED Discharge Assessment Last Done: 07/18/20 03:39 <Jasmine Muller NP - Last Filed: 07/18/20 01:36> Discharge Date/Time: 07/18/20 03:40 <Jasmine Muller NP - Last Filed: 07/18/20 01:36> Print Language: Urdu <Jasmine Muller NP - Last Filed: 07/18/20 01:36> PMFSH Past Medical History Source: old records reviewed and nursing notes reviewed <Jasmine Muller NP - Last Filed: 07/18/20 01:36> Medical History: Medical History (Updated 07/24/20 @ 16:59 by Fallon Garsia MD) Abdominal pain Abnormal abdominal ultrasound Carpal tunnel syndrome Depression FH: throat cancer Insomnia Numerous moles Obesity Ovarian cyst Pelvic pain Physical exam Transaminitis <SOMMER Brock Last Filed: 07/18/20 01:36> Surgical History: Surgical History History of loop electrical excision procedure (LEEP) History of removal of ovarian cyst History of right nephrectomy <Jasmine Muller NP - Last Filed: 07/18/20 01:36> Family History Family History: Family History Maternal Grandmother Diabetes mellitus Maternal Grandfather Heart disease CVD (cardiovascular disease) <Jasmine Muller NP - Last Filed: 07/18/20 01:36> Social History Social History: Social History Alcohol intake: never Smoking Status: Never smoker Gender identity: female <Jasmine Muller NP - Last Filed: 07/18/20 01:36>
[2020-07-18 00:48] LABS: Glucose Urine UA NEG (NEG); Leukocyte Esterase Urine NEG (NEG); Nitrite Urine NEG (NEG); Urine Blood TRACE (NEG); Urine Ketones NEG (NEG); Urine Protein NEG (NEG-TRACE)
--- NOTE | 2020-07-18 00:52 | CT_ITS ---
EXAMINATION: CT ABDOMEN AND PELVIS WITH CONTRAST CLINICAL INFORMATION: Left abdominal/flank pain, history of left renal vein impingement COMPARISON: 05/17/2019 TECHNIQUE: Multidetector volumetric images were obtained from the superior aspect of the liver through the pubic symphysis following administration 85 mL of Omnipaque 350 intravenous contrast. Sagittal and coronal reformatted images were obtained on the technologist's workstation. Oral contrast: No This CT examination was performed using dose optimization techniques as appropriate, variously including the following: *Automated exposure control *Adjustment of mA and/or kV according to patient size (this includes techniques or standardized protocols for targeted exams where dose is matched to indication/reason for exam; i.e. extremities or head) *Use of iterative reconstruction technique DLP: 865 mGy-cm FINDINGS: Limited evaluation in some regions due to motion artifact. LUNG BASES: The visualized lung bases are unremarkable. LIVER, GALLBLADDER, AND BILIARY TREE: The liver is normal in size, shape, and attenuation. No focal hepatic lesion or biliary ductal dilatation is identified. The gallbladder is unremarkable with no evidence of radiopaque gallstones, gallbladder wall thickening, or obvious pericholecystic inflammatory changes. PANCREAS: Unremarkable. SPLEEN: Unremarkable. ADRENAL GLANDS: Unremarkable. KIDNEYS AND URETERS: Status post right nephrectomy. There is compensatory hypertrophy of the left kidney which is suboptimally assessed due to motion artifact. Left renal vein appears patent and otherwise grossly unremarkable, with no significant impingement identified. No hydronephrosis or obstructing calculus. BLADDER: Unremarkable. GASTROINTESTINAL TRACT: The small and large bowel are unremarkable. The appendix is unremarkable. No free fluid or free air is seen. ABDOMINAL WALL: No significant hernia is appreciated. LYMPH NODES: No adenopathy identified. VASCULAR: Suboptimally assessed due to motion artifact. PELVIC VISCERA: Unremarkable. OSSEOUS STRUCTURES: There is degenerative change in the spine at L5-S1 with degenerative disc disease and surrounding endplate irregularity. CT/CT abdomen pelvis w con IMPRESSION: Partially limited assessment due to motion artifact. No appreciable abnormality of the left renal vein. Status post right nephrectomy.
[2020-07-18 00:53] LABS: Appearance Urine CLEAR; Color Urine YELLOW
[2020-07-18 00:54] LABS: UPreg QC Valid YES; Urine Pregnancy NEGATIVE (NEGATIVE)
[2020-07-18] MEDS: Morphine Sulfate 4 MG/ML CARTRIDGE IVPUSH (00:56)
[2020-07-18 00:58] LABS: Bacteria Urine 1+ /LPF; RBC Urine 0-2 /HPF (0); Squamous Epithelial Cell Urine 1+ /LPF; WBC Urine 0-2 /HPF (0-4)
[2020-07-18 00:58] LABS: MANUAL DIFF FLAG NO
[2020-07-18 01:01] LABS: Basophils Absolute Auto 0.1 X10*3/uL (0.0-0.2); Basophils Percent Auto 0.7 % (0-2); Eosinophils Absolute Auto 0.2 X10*3/uL (0.0-0.4); Eosinophils Percent Auto 2.7 % (0-4); Hematocrit 35.7 % (37-47); Hemoglobin 11.6 g/dl (12.0-16.0); Imm Gran Abs Auto 0.02 X10*3/uL (0.00-0.03); Imm Gran Pct Auto 0.2 % (0.0-0.4); Lymphocytes Absolute Auto 3.7 X10*3/uL (1.2-4.9); Lymphocytes Percent Auto 41.6 % (20-40); Mean Corpuscular HGB Conc 32.5 g/dl (31.0-35.0); Mean Corpuscular Hemoglobin 29.5 pg (27.0-33.0); Mean Corpuscular Volume 90.8 fL (80-98); Mean Platelet Volume 10.7 fL (9.4-12.3); Monocytes Absolute Auto 0.8 X10*3/uL (0.1-1.2); Monocytes Percent Auto 8.8 % (2-11); Neutrophils Absolute Auto 4.1 X10*3/uL (2.0-8.3); Platelet Count 246 X10*3/uL (160-400); Red Blood Count 3.93 X10*6/uL (4.20-5.50); Red Cell Distribution Width 13.8 % (11.0-16.0)
--- NOTE | 2020-07-18 01:07 | PC.NURSE ---
HL PLACED TO [facility], LABS DRAWN TO LAB. URINE SENT TO LAB. PT AWAITING FOR CT. PT A&OX3, SKIN W/D, PT C/O PAIN TO LEFT SIDE WHICH RADIATES TO LEFT UPPER BACK AREA. PT DENIES N/V AT THIS TIME.
[2020-07-18 01:09] VITALS: BP 140/58; PULSE 81; RESP 18; O2SAT 98
[2020-07-18 01:25] LABS: Alanine Aminotransferase 24 U/L (0-31); Albumin Level 4.1 g/dL (3.5-5.0); Alkaline Phosphatase 65 U/L (39-117); Anion Gap 13 (12-20); Aspartate Amino Transferase 22 U/L (5-31); Bilirubin Direct 0.2 mg/dL (0.0-0.5); Bilirubin Total 0.3 mg/dL (0.0-1.0); Blood Urea Nitrogen 11 mg/dL (9-16); Calcium 8.9 mg/dL (8.4-10.2); Carbon Dioxide 25 mmol/L (22-29); Chloride 104 mmol/L (96-108); Creatinine Clr Calc Pharmacy 122.3; Estimated Glomerular Filt Rate > 60; Glucose Random 97 mg/dL (60-115); Sodium 138 mmol/L (135-145)
[2020-07-18] MEDS: iohexoL 350 MG/ML 100 ML INFUS..BTL 85 ML IV (01:51)
--- NOTE | 2020-07-18 01:56 | PC.NURSE ---
PT IN CT AND STARTED FEELING HER HEART BEAT AND HER THROAT AND WAS HAVING DIFFICULTY BREATHING. PT STATES I WAS FEELING VERY NERVOUS WHEN THE DYE WENT INTO MY ARM . PT REFUSED TO FINISH THE CT SCAN. PT RETURNS TO ROOM IN NAD. AWARE.
== END 2020-07-18 03:40 | disposition home or self-care (01) ==
PROVIDERS: Nurse Practitioner Family; Emergency Provider Emergency Medicine; PCP Internal Medicine
DX: R10.9 Unspecified abdominal pain (principal)
CPT/HCPCS: 36415; 74177; 80048; 80076; 81001; 81025; 85025; 96374; 96375; 99284; J2270; Q9967

== ENCOUNTER 2020-07-22 15:23 | Outpatient (REF) | payer OTHER, SELFPAY ==
[2020-07-22 18:45] LABS: Blood Urea Nitrogen 8 mg/dL (9-16); Estimated Glomerular Filt Rate > 60
[2020-07-22 18:48] LABS: Alanine Aminotransferase 18 U/L (0-31); Aspartate Amino Transferase 18 U/L (5-31); Blood Urea Nitrogen 8 mg/dL (9-16); Estimated Glomerular Filt Rate > 60
[2020-07-23 09:06] LABS: HBc Num1 0.08 S/CO (0.00-0.79); Hepatitis B Core Antibody Nonreactive (Nonreactive); Hepatitis B Surface Antigen Negative (Negative); ~HepC Num1 0.13 S/CO (0.00-0.79); ~Hepatitis C Antibody Nonreactive (Nonreactive)
[2020-07-23 09:26] LABS: HBS Num1 0.31 mIU/mL (0-7.99); ~Hepatitis B Surface Antibody NONREACTIVE (Nonreactive)
[2020-07-23 09:45] LABS: Hepatitis A Antibody IgM 0.21 Index (0-0.79); ~Hepatitis A Antibody IgM Nonreactive (Nonreactive)
[2020-07-24 14:47] LABS: C. trachomatis RNA TMA NOT DETECTED (NOT DETECTED); N. gonorrhoeae RNA TMA NOT DETECTED (NOT DETECTED)
== END 2020-07-22 15:24 | disposition home or self-care (01) ==
LOC: HO.LAB 15:23
PROVIDERS: Surgery Vascular Surgery; PCP Internal Medicine; Visit Provider Obstetrics & Gynecology
DX: N93.9 Abnormal uterine and vaginal bleeding, unspecified (principal); R74.01 Elevation of levels of liver transaminase levels; I87.1 Compression of vein; N92.1 Excessive and frequent menstruation with irregular cycle
CPT/HCPCS: 36415; 58100; 81003; 81025; 82565; 84450; 84460; 84520; 86704; 86706; 86709; 86803; 87340; 87491; 87591; 88305; 99212

== ENCOUNTER 2020-07-24 13:42 | Outpatient (REF) | payer OTHER, SELFPAY ==
[2020-07-24 14:28] LABS: MANUAL DIFF FLAG NO
[2020-07-24 14:34] LABS: Basophils Absolute Auto 0.1 X10*3/uL (0.0-0.2); Basophils Percent Auto 0.8 % (0-2); Eosinophils Absolute Auto 0.1 X10*3/uL (0.0-0.4); Hematocrit 39.1 % (37-47); Hemoglobin 12.7 g/dl (12.0-16.0); Imm Gran Abs Auto 0.03 X10*3/uL (0.00-0.03); Imm Gran Pct Auto 0.4 % (0.0-0.4); Lymphocytes Absolute Auto 2.8 X10*3/uL (1.2-4.9); Lymphocytes Percent Auto 40.1 % (20-40); Mean Corpuscular HGB Conc 32.5 g/dl (31.0-35.0); Mean Corpuscular Hemoglobin 29.6 pg (27.0-33.0); Mean Corpuscular Volume 91.1 fL (80-98); Mean Platelet Volume 11.1 fL (9.4-12.3); Monocytes Absolute Auto 0.6 X10*3/uL (0.1-1.2); Monocytes Percent Auto 8.5 % (2-11); Neutrophils Absolute Auto 3.4 X10*3/uL (2.0-8.3); Neutrophils Percent Auto 48.2 % (45-73); Platelet Count 262 X10*3/uL (160-400); Red Blood Count 4.29 X10*6/uL (4.20-5.50); Red Cell Distribution Width 13.8 % (11.0-16.0); White Blood Count 7.1 X10*3/uL (4.8-10.8)
[2020-07-24 15:00] LABS: Alanine Aminotransferase 15 U/L (0-31); Albumin Level 4.4 g/dL (3.5-5.0); Alkaline Phosphatase 77 U/L (39-117); Anion Gap 12 (12-20); Aspartate Amino Transferase 16 U/L (5-31); Bilirubin Total 0.4 mg/dL (0.0-1.0); Blood Urea Nitrogen 11 mg/dL (9-16); Calcium 9.6 mg/dL (8.4-10.2); Carbon Dioxide 26 mmol/L (22-29); Chloride 104 mmol/L (96-108); Cholesterol 154 mg/dL; Estimated Glomerular Filt Rate > 60; Glucose Fasting 94 mg/dL (60-99); HDL Cholesterol 39 mg/dL; LDL Cholesterol Calculated 97 mg/dl; Potassium 4.4 mmol/l (3.3-5.1); Sodium 138 mmol/L (135-145); Total Protein 7.9 g/dL (6.5-8.0); Triglycerides 91 mg/dL
[2020-07-24 15:19] LABS: Estimated Average Glucose 105 mg/dL; Hemoglobin A1c % 5.3 %
[2020-07-24 15:23] LABS: TSH reflex Free T4 2.36 mIU/mL (0.32-4.0)
[2020-07-25 15:42] LABS: C. trachomatis RNA TMA NOT DETECTED (NOT DETECTED); N. gonorrhoeae RNA TMA NOT DETECTED (NOT DETECTED)
== END 2020-07-24 13:43 | disposition home or self-care (01) ==
LOC: HO.LAB 13:42
PROVIDERS: Nurse Practitioner Family; PCP Internal Medicine; Referring Provider Advanced Practice Midwife; Visit Provider Obstetrics & Gynecology
DX: Z00.00 Encounter for general adult medical examination without abnormal findings (principal); I87.1 Compression of vein; R10.2 Pelvic and perineal pain; N92.1 Excessive and frequent menstruation with irregular cycle; R10.9 Unspecified abdominal pain; Z88.8 Allergy status to other drugs, medicaments and biological substances; Z11.8 Encounter for screening for other infectious and parasitic diseases; Z11.3 Encounter for screening for infections with a predominantly sexual mode of transmission
CPT/HCPCS: 36415; 80053; 80061; 83036; 84443; 85025; 87491; 87591; 99212

== ENCOUNTER 2020-07-29 09:13 | Outpatient (REF) | payer OTHER, SELFPAY ==
--- NOTE | 2020-07-29 09:19 | US_ITS ---
EXAMINATION: US COMPLETE ABDOMEN WITH LIVER ELASTOGRAPHY CLINICAL INFORMATION: Elevated liver function tests. COMPARISON: CT abdomen and pelvis dated 07/18/2020; renal ultrasound dated 06/03/2020. TECHNIQUE: Real-time imaging of the abdominal viscera. Noninvasive ultrasound liver fibrosis assessment is performed using [place] ElastPQ point quantification shear wave elastography (pSWE) with a 5 MHz transducer. Multiple elastography samples are obtained. FINDINGS: PANCREAS: Normal. The visualized pancreatic head and body are normal in appearance. The remainder of the pancreas is obscured from visualization by the overlying bowel gas. LIVER: The liver demonstrates normal size, contour and is generally increased echogenicity. No focal lesion or intrahepatic biliary duct dilatation. The right lobe measures 17.1 cm in length. The left lobe measures 11.8 cm in length. There is hepatopedal portal venous flow. Shear wave elastography provides a median stiffness of 1.39 m/s (reference: normal median stiffness is 0.81 - 1.22 m/s). The IQR/median stiffness to assess sampling precision is 0.20 (reference: optimal IQR/median stiffness is under 0.3). GALLBLADDER: Normal. The gallbladder is physiologically distended without evidence of stones, sludge, polyps, wall thickening or pericholecystic fluid. COMMON BILE DUCT: Normal in caliber measuring 0.5 cm in diameter. RIGHT KIDNEY: Surgically absent. No abnormal mass or fluid collection is seen within the right renal bed. FREE FLUID: None. US/US abdomen plascencia w elastography IMPRESSION: 1. There is generalized increase in hepatic echotexture, consistent with fatty infiltration or hepatocellular disease. Please correlate clinically. No focal hepatic mass or intrahepatic biliary dilatation is seen. 2. Elastography: Liver elastography measurements are consistent with a moderate risk for clinically significant liver fibrosis (METAVIR Stage F2-F3). 3. The right kidney is surgically absent. No abnormal mass or fluid collection is seen within the right renal bed.
== END 2020-07-29 09:14 | disposition home or self-care (01) ==
LOC: HO.US 09:13
PROVIDERS: Visit Provider Internal Medicine
DX: R74.01 Elevation of levels of liver transaminase levels (principal)
CPT/HCPCS: 76705; 76981

== ENCOUNTER → 2020-08-05 11:17 | Outpatient (BNVA) | payer OTHER, SELFPAY | PROVIDERS: PCP Internal Medicine; Visit Provider Obstetrics & Gynecology ==

== ENCOUNTER 2020-08-13 13:41 | Emergency (ER) | payer OTHER, SELFPAY ==
--- NOTE | ~2020-08-13 | US_ITS ---
EXAMINATION: ULTRASOUND OF THE PELVIS CLINICAL INFORMATION: Pelvic pain.. COMPARISON: CT 07/18/2020. Ultrasound 07/14/2020.. TECHNIQUE: Transabdominal and transvaginal pelvic ultrasound. Doppler evaluation with spectral analysis was performed. A transvaginal study was performed in addition to the transabdominal study which did not yield an adequate examination of the uterus and ovaries due to superimposed distended gas-filled loops of bowel. FINDINGS: The uterus is normal in size and appearance, measuring 11.4 x 6.1 x 8 cm longitudinally, anteroposteriorly and transversely. The endometrial stripe thickness is prominent, measuring 1.7 cm in thickness. No focal myometrial mass is seen. Nabothian cysts at the cervix. The ovaries bilaterally are visualized, with the right ovary measuring 5.5 x 5.5 x 4.5 cm and the left ovary measuring 3.4 x 2.3 x 2.4 cm. There is a right ovarian cyst measuring 5.1 x 3.8 x 4.9 cm. There are normal arterial and venous spectral waveforms bilaterally. No adnexal mass or free fluid collection seen. US/US pelvic ovarian doppler IMPRESSION: No evidence of active ovarian torsion at this time. 5.1 cm right ovarian cyst..
--- NOTE | ~2020-08-13 | US_ITS ---
EXAMINATION: ULTRASOUND OF THE PELVIS CLINICAL INFORMATION: Pelvic pain.. COMPARISON: CT 07/18/2020. Ultrasound 07/14/2020.. TECHNIQUE: Transabdominal and transvaginal pelvic ultrasound. Doppler evaluation with spectral analysis was performed. A transvaginal study was performed in addition to the transabdominal study which did not yield an adequate examination of the uterus and ovaries due to superimposed distended gas-filled loops of bowel. FINDINGS: The uterus is normal in size and appearance, measuring 11.4 x 6.1 x 8 cm longitudinally, anteroposteriorly and transversely. The endometrial stripe thickness is prominent, measuring 1.7 cm in thickness. No focal myometrial mass is seen. Nabothian cysts at the cervix. The ovaries bilaterally are visualized, with the right ovary measuring 5.5 x 5.5 x 4.5 cm and the left ovary measuring 3.4 x 2.3 x 2.4 cm. There is a right ovarian cyst measuring 5.1 x 3.8 x 4.9 cm. There are normal arterial and venous spectral waveforms bilaterally. No adnexal mass or free fluid collection seen. US/US pelvic complete IMPRESSION: No evidence of active ovarian torsion at this time. 5.1 cm right ovarian cyst..
--- NOTE | ~2020-08-13 | US_ITS ---
EXAMINATION: ULTRASOUND OF THE PELVIS CLINICAL INFORMATION: Pelvic pain.. COMPARISON: CT 07/18/2020. Ultrasound 07/14/2020.. TECHNIQUE: Transabdominal and transvaginal pelvic ultrasound. Doppler evaluation with spectral analysis was performed. A transvaginal study was performed in addition to the transabdominal study which did not yield an adequate examination of the uterus and ovaries due to superimposed distended gas-filled loops of bowel. FINDINGS: The uterus is normal in size and appearance, measuring 11.4 x 6.1 x 8 cm longitudinally, anteroposteriorly and transversely. The endometrial stripe thickness is prominent, measuring 1.7 cm in thickness. No focal myometrial mass is seen. Nabothian cysts at the cervix. The ovaries bilaterally are visualized, with the right ovary measuring 5.5 x 5.5 x 4.5 cm and the left ovary measuring 3.4 x 2.3 x 2.4 cm. There is a right ovarian cyst measuring 5.1 x 3.8 x 4.9 cm. There are normal arterial and venous spectral waveforms bilaterally. No adnexal mass or free fluid collection seen. US/US transvaginal IMPRESSION: No evidence of active ovarian torsion at this time. 5.1 cm right ovarian cyst..
[2020-08-13 19:24] VITALS: BP 144/80; PULSE 88; RESP 16; TEMP 37.1; O2SAT 99; BMI 40.4
[2020-08-14 00:20] VITALS: BP 126/78; PULSE 94; RESP 18; O2SAT 97
[2020-08-14 00:49] LABS: MANUAL DIFF FLAG NO
[2020-08-14 00:51] LABS: Basophils Absolute Auto 0.1 X10*3/uL (0.0-0.2); Basophils Percent Auto 0.6 % (0-2); Eosinophils Absolute Auto 0.2 X10*3/uL (0.0-0.4); Eosinophils Percent Auto 1.6 % (0-4); Hematocrit 38.7 % (37-47); Hemoglobin 12.5 g/dl (12.0-16.0); Imm Gran Abs Auto 0.04 X10*3/uL (0.00-0.03); Imm Gran Pct Auto 0.4 % (0.0-0.4); Lymphocytes Absolute Auto 3.4 X10*3/uL (1.2-4.9); Lymphocytes Percent Auto 34.1 % (20-40); Mean Corpuscular HGB Conc 32.3 g/dl (31.0-35.0); Mean Corpuscular Hemoglobin 29.1 pg (27.0-33.0); Mean Corpuscular Volume 90.2 fL (80-98); Mean Platelet Volume 10.2 fL (9.4-12.3); Monocytes Absolute Auto 0.7 X10*3/uL (0.1-1.2); Monocytes Percent Auto 6.7 % (2-11); Neutrophils Absolute Auto 5.7 X10*3/uL (2.0-8.3); Neutrophils Percent Auto 56.6 % (45-73); Platelet Count 285 X10*3/uL (160-400); Red Blood Count 4.29 X10*6/uL (4.20-5.50); Red Cell Distribution Width 14.1 % (11.0-16.0); White Blood Count 10.1 X10*3/uL (4.8-10.8)
[2020-08-14 00:54] LABS: Glucose Urine UA NEG (NEG); Leukocyte Esterase Urine NEG (NEG); Nitrite Urine NEG (NEG); PH 5.5 (5.0-8.0); Urine Blood 3+ (NEG); Urine Ketones NEG (NEG); Urine Protein NEG (NEG-TRACE)
[2020-08-14 00:58] LABS: UPreg QC Valid YES; Urine Pregnancy NEGATIVE (NEGATIVE)
[2020-08-14 00:58] LABS: Appearance Urine HAZY; Color Urine YELLOW
[2020-08-14 01:15] LABS: Alanine Aminotransferase 15 U/L (0-31); Albumin Level 4.3 g/dL (3.5-5.0); Alkaline Phosphatase 70 U/L (39-117); Anion Gap 14 (12-20); Aspartate Amino Transferase 18 U/L (5-31); Bilirubin Total 0.4 mg/dL (0.0-1.0); Blood Urea Nitrogen 7 mg/dL (9-16); Calcium 8.7 mg/dL (8.4-10.2); Carbon Dioxide 22 mmol/L (22-29); Chloride 105 mmol/L (96-108); Creatinine Clr Calc Pharmacy 127.2; Estimated Glomerular Filt Rate > 60; Glucose Random 86 mg/dL (60-115); Potassium 3.7 mmol/L (3.3-5.1); Sodium 137 mmol/L (135-145); Total Protein 7.5 g/dL (6.5-8.0)
[2020-08-14 01:19] LABS: Delay - Chemistry DELAY
[2020-08-14 01:33] VITALS: BP 134/58; PULSE 90; RESP 18; O2SAT 97
--- NOTE | 2020-08-14 01:34 | ED_ITS ---
HPI - Abdominal Pain General Chief Complaint: Abdominal Pain <KEVIN Xavier Last Filed: 08/14/20 01:50> Stated Complaint: vaginal bleeding <KEVIN Xavier Last Filed: 08/14/20 01:50> Time Seen by Provider: 08/14/20 00:04 <KEVIN Xavier Last Filed: 08/14/20 01:50> Source: patient <KEVIN Xvaier Last Filed: 08/14/20 01:50> Mode of arrival: ambulatory <KEVIN Xavier Last Filed: 08/14/20 01:50> Limitations: no limitations <KEVIN Xavier Last Filed: 08/14/20 01:50> History of Present Illness HPI narrative: Patient presents to the ED for vaginal bleeding AND LOWER ABDOMINAL PAIN for 3 days. PATIENT STATES PRESENTLY SHE SHOULD NOT BE ON HER MENSTRUATION. Patient stays having dark blood clots from vaginal area. Patient states she is not . Patient states she has not been sexually active in years. Patient was referred by PCP for evaluation for ultrasound due to severe pain and left adnexal tenderness on evaluation today at [facility]. <KEVIN Xavier Last Filed: 08/14/20 01:50> Related Data Home Medications: Home Medications Medication Instructions Recorded Confirmed clonazepam 2 mg tablet 2 mg PO DAILY 06/30/20 07/09/20 potassium citrate 10 mEq (1,080 20 meq PO BID 06/30/20 07/09/20 mg) tablet,extended release tamsulosin 0.4 mg capsule 0.4 mg PO DAILY 06/30/20 07/09/20 cholecalciferol (vitamin D3) 10 10 mcg PO DAILY 07/22/20 mcg (400 unit) tablet Previous Rx's Medication Instructions Recorded medroxyprogesterone 10 mg tablet 10 mg PO DAILY 10 Days #10 tab 08/06/20 naproxen 500 mg PO BID PRN #20 tab 08/14/20 <KEVIN Xavier Last Filed: 08/14/20 01:50> Allergies/Adverse Reactions: Allergies Allergy/AdvReac Type Severity Reaction Status Date / Time citalopram Allergy Unknown palpitation Verified 08/05/20 11:18 s doxepin Allergy Unknown palpitation Verified 08/05/20 11:18 s quetiapine [Seroquel] Allergy Unknown weight gain Verified 08/05/20 11:18 trazodone Allergy Unknown palpitation Verified 08/05/20 11:18 s <KEVIN Xavier Last Filed: 08/14/20 01:50> Review of Systems Review of Systems Yes all other systems are reviewed and are negative <KEVIN Xavier Last Filed: 08/14/20 01:50> Constitutional: Reports as per HPI and Reports no additional constitutional complaints <KEVIN Xavier Last Filed: 08/14/20 01:50> Eyes: Reports as per HPI and Reports no additional eye complaints <KEVIN Xavier Last Filed: 08/14/20 01:50> Reports system reviewed and no additional complaints, except as documented and Reports as per HPI <KEVIN Xavier Last Filed: 08/14/20 01:50> Cardiovascular: Reports as per HPI and Reports no additional cardiovascular complaints <KEVIN Xavier Last Filed: 08/14/20 01:50> Respiratory: Reports as per HPI and Reports no additional respiratory complaints <KEVIN Xavier Last Filed: 08/14/20 01:50> Gastrointestinal: Reports as per HPI and Reports no additional gastrointestinal complaints <KEVIN Xavier Last Filed: 08/14/20 01:50> Genitourinary: Reports no additional female genitourinary complaints, Reports as per HPI and Reports abnormal vaginal bleeding <KEVIN Xavier Last Filed: 08/14/20 01:50> Comments: Pelvic pain <KEVIN Xavier Last Filed: 08/14/20 01:50> Musculoskeletal: Reports no additional musculoskeletal complaints and Reports as per HPI <KEVIN Xavier Last Filed: 08/14/20 01:50> Reports system reviewed and no additional complaints, except as documented and Reports as per HPI <KEVIN Xavier Last Filed: 08/14/20 01:50> Psychiatric: Reports no additional psychiatric complaints and Reports as per HPI <KEVIN Xavier Last Filed: 08/14/20 01:50> Physical Exam Vital Signs: Vital Signs: Last Vital Signs Temp 97.9 F 08/14/20 03:06 Pulse 80 08/14/20 03:06 Resp 16 08/14/20 03:06 BP 109/53 L 08/14/20 03:06 Pulse Ox 97 08/14/20 03:06 Body Mass Index 40.4 <KEVIN Xavier Last Filed: 08/14/20 01:50> Vital Signs: Last Vital Signs Temp 97.9 F 08/14/20 03:06 Pulse 80 08/14/20 03:06 Resp 16 08/14/20 03:06 BP 109/53 L 08/14/20 03:06 Pulse Ox 97 08/14/20 03:06 Body Mass Index 40.4 <Kirk Wong MD - Last Filed: 08/14/20 03:40> Const: General: cooperative, healthy appearing, comfortable, no acute distress, well developed, alert, awake and Physically active <KEVIN Xavier Last Filed: 08/14/20 01:50> Orientation/consciousness: patient oriented x3 <KEVIN Xavier Last Filed: 08/14/20 01:50> HENMT: Head: Yes normal to inspection and Yes No palpable skull fracture present <KEVIN Xavier Last Filed: 08/14/20 01:50> Eyes: General: appearance normal, both eyes and all related structures <KEVIN Xavier Last Filed: 08/14/20 01:50> Neck: Neck: Yes normal visual inspection, Yes full ROM, Yes no lymphadenopathy, Yes trachea midline, Yes supple and No tender <KEVNI Xavier Last Filed: 08/14/20 01:50> Chest: Chest palpation & inspection: normal inspection of the chest and normal palpation of entire chest wall <KEVIN Xavier Last Filed: 08/14/20 01:50> Resp: Effort & Inspection: normal respiratory effort and able to speak in complete sentences <KEVIN Xavier Last Filed: 08/14/20 01:50> Auscultation: clear to auscultation bilaterally <KEVIN Xavier Last Filed: 08/14/20 01:50> Cardio: Jugular venous distension: no JVD <KEVIN Xavier Last Filed: 08/14/20 01:50> Heart sounds: S1 normal heart sound present and S2 normal heart sound present <KEVIN Xavier Last Filed: 08/14/20 01:50> GI: Inspection: Yes normal to inspection <KEVIN Xavier Last Filed: 08/14/20 01:50> Palpation (GI): Soft to palpation, not firm, nontender, no guarding and not rigid <KEVIN Xavier - Last Filed: 08/14/20 01:50> : Other: pelvic exam: POSITIVE FOR RESIDUAL DARK BLOOD IN VAGINAL VAULT. NEGATIVE FOR ANY ACTIVE VAGINAL BLEEDING. NEGATIVE FOR ANY YELLOW/GREEN DISCHARGE FROM CERVIX. NEGATIVE CMT. POSITIVE FOR LEFT ADNEXA. NEGATIVE FOR ANY VAGINAL LESIONS. <KEVIN Xavier - Last Filed: 08/14/20 01:50> General: No CVA tenderness and Yes no CVA tenderness <KEVIN Xavier - Last Filed: 08/14/20 01:50> Back/Spine/Pelvis: Back: no CVA tenderness, No CVA tenderness and No back tenderness <KEVIN Xavier Last Filed: 08/14/20 01:50> Skin: General skin exam: no rashes or lesions noted and elasticity normal <KEVIN Xavier Last Filed: 08/14/20 01:50> Neuro: General: patient oriented x3, gait normal and CN's II-XI intact bilaterally <KEVIN Xavier - Last Filed: 08/14/20 01:50> Cranial nerves: Yes CN's II-XII intact bilaterally <KEVIN Xavier Last Filed: 08/14/20 01:50> Extrem: General: Yes normal to inspection and Yes full ROM <KEVIN Xavier Last Filed: 08/14/20 01:50> Psych: Appearance: grossly normal, well kempt and not disheveled <KEVIN Xavier Last Filed: 08/14/20 01:50> Course Course Course Narrative: PATIENT WILL BE SENT FOR ULTRASOUND TO RULE OUT ANY FIBROIDS, RUPTURE OVARIAN CYST, OR OVARIAN TORSION. PATIENT WILL HAVE BASIC LABS DRAWN. PATIENT WILL BE GIVEN FOR PELVIC PAIN. <KEVIN Xavier Last Filed: 08/14/20 01:50> Reevaluation(s) Reevaluation #1: PATIENT GIVEN TORADOL FOR PELVIC PAIN. sIGNED OUT TO dR. Wong <KEVIN Xavier - Last Filed: 08/14/20 01:50> Time: 01:41 <KEVIN Xavier - Last Filed: 08/14/20 01:50> MDM - Abdominal Pain MDM Narrative Medical decision making narrative: Pelvic pain <KEVIN Xavier - Last Filed: 08/14/20 01:50> Lab Data Result diagrams: : 08/14/20 00:40 08/14/20 00:40 <KEVIN Xavier - Last Filed: 08/14/20 01:50> Labs: Lab Results 08/14/20 08/14/20 08/14/20 Range/Units 00:24 00:33 00:40 WBC 10.1 (4.8-10.8) X10*3/uL RBC 4.29 (4.20-5.50) X10*6/uL Hgb 12.5 (12.0-16.0) g/dl Hct 38.7 (37-47) % MCV 90.2 (80-98) fL MCH 29.1 (27.0-33.0) pg MCHC 32.3 (31.0-35.0) g/dl RDW 14.1 (11.0-16.0) % Plt Count 285 (160-400) X10*3/uL MPV 10.2 (9.4-12.3) fL Immature Gran % (Auto) 0.4 (0.0-0.4) % Neut % (Auto) 56.6 (45-73) % Lymph % (Auto) 34.1 (20-40) % [place] % (Auto) 6.7 (2-11) % Eos % (Auto) 1.6 (0-4) % Baso % (Auto) 0.6 (0-2) % Lymph # (Auto) 3.4 (1.2-4.9) X10*3/uL [place] # (Auto) 0.7 (0.1-1.2) X10*3/uL Eos # (Auto) 0.2 (0.0-0.4) X10*3/uL Baso # (Auto) 0.1 (0.0-0.2) X10*3/uL Abs Immat Gran (auto) 0.04 H (0.00-0.03) X10*3/uL Absolute Neuts (auto) 5.7 (2.0-8.3) X10*3/uL Absolute Nucleated RBC 0.000 (0.0-0.012) X10*3/uL Nucleated RBC % (auto) 0.0 (0.0-0.2) /100WBC PT (10.8-13.0) SEC INR (0.9-1.1) APTT (24.1-38.0) SEC Sodium (135-145) mmol/L Potassium (3.3-5.1) mmol/L Chloride (96-108) mmol/L Carbon Dioxide (22-29) mmol/L Anion Gap (12-20) BUN (9-16) mg/dL Creatinine (0.5-1.4) mg/dL Estim Creat Clear Calc Estimated GFR Random Glucose (60-115) mg/dL Calcium (8.4-10.2) mg/dL Total Bilirubin (0.0-1.0) mg/dL AST (5-31) U/L ALT (0-31) U/L Alkaline Phosphatase (39-117) U/L Total Protein (6.5-8.0) g/dL Albumin (3.5-5.0) g/dL Beta HCG, Quant mIU/mL Specimen Comment Urine Color YELLOW Urine Appearance HAZY Urine pH 5.5 (5.0-8.0) Ur Specific [place] 1.020 (1.005-1.025) Urine Protein NEG (NEG-TRACE) MG/DL Urine Glucose (UA) NEG (NEG) MG/DL Urine Ketones NEG (NEG) MG/DL Urine Blood 3+ H (NEG) Urine Nitrite NEG (NEG) Ur Leukocyte Esterase NEG (NEG) Urine RBC 0-2 (0) /HPF Urine WBC 1-4 (0-4) /HPF Ur Squamous Epith Cells 2+ /LPF Urine Bacteria 1+ /LPF Urine Mucus 1+ /LPF Urine Test NEGATIVE (NEGATIVE) 08/14/20 08/14/20 08/14/20 Range/Units 00:40 00:40 01:19 WBC (4.8-10.8) X10*3/uL RBC (4.20-5.50) X10*6/uL Hgb (12.0-16.0) g/dl Hct (37-47) % MCV (80-98) fL MCH (27.0-33.0) pg MCHC (31.0-35.0) g/dl RDW (11.0-16.0) % Plt Count (160-400) X10*3/uL MPV (9.4-12.3) fL Immature Gran % (Auto) (0.0-0.4) % Neut % (Auto) (45-73) % Lymph % (Auto) (20-40) % [place] % (Auto) (2-11) % Eos % (Auto) (0-4) % Baso % (Auto) (0-2) % Lymph # (Auto) (1.2-4.9) X10*3/uL [place] # (Auto) (0.1-1.2) X10*3/uL Eos # (Auto) (0.0-0.4) X10*3/uL Baso # (Auto) (0.0-0.2) X10*3/uL Abs Immat Gran (auto) (0.00-0.03) X10*3/uL Absolute Neuts (auto) (2.0-8.3) X10*3/uL Absolute Nucleated RBC (0.0-0.012) X10*3/uL Nucleated RBC % (auto) (0.0-0.2) /100WBC PT (10.8-13.0) SEC INR (0.9-1.1) APTT (24.1-38.0) SEC Sodium 137 (135-145) mmol/L Potassium 3.7 (3.3-5.1) mmol/L Chloride 105 (96-108) mmol/L Carbon Dioxide 22 (22-29) mmol/L Anion Gap 14 (12-20) BUN 7 L (9-16) mg/dL Creatinine 0.69 (0.5-1.4) mg/dL Estim Creat Clear Calc 127.2 Estimated GFR > 60 Random Glucose 86 (60-115) mg/dL Calcium 8.7 D (8.4-10.2) mg/dL Total Bilirubin 0.4 (0.0-1.0) mg/dL AST 18 (5-31) U/L ALT 15 (0-31) U/L Alkaline Phosphatase 70 (39-117) U/L Total Protein 7.5 (6.5-8.0) g/dL Albumin 4.3 (3.5-5.0) g/dL Beta HCG, Quant < 2 mIU/mL Specimen Comment DELAY Urine Color Urine Appearance Urine pH (5.0-8.0) Ur Specific [place] (1.005-1.025) Urine Protein (NEG-TRACE) MG/DL Urine Glucose (UA) (NEG) MG/DL Urine Ketones (NEG) MG/DL Urine Blood (NEG) Urine Nitrite (NEG) Ur Leukocyte Esterase (NEG) Urine RBC (0) /HPF Urine WBC (0-4) /HPF Ur Squamous Epith Cells /LPF Urine Bacteria /LPF Urine Mucus /LPF Urine Test (NEGATIVE) 08/14/20 Range/Units 01:34 WBC (4.8-10.8) X10*3/uL RBC (4.20-5.50) X10*6/uL Hgb (12.0-16.0) g/dl Hct (37-47) % MCV (80-98) fL MCH (27.0-33.0) pg MCHC (31.0-35.0) g/dl RDW (11.0-16.0) % Plt Count (160-400) X10*3/uL MPV (9.4-12.3) fL Immature Gran % (Auto) (0.0-0.4) % Neut % (Auto) (45-73) % Lymph % (Auto) (20-40) % [place] % (Auto) (2-11) % Eos % (Auto) (0-4) % Baso % (Auto) (0-2) % Lymph # (Auto) (1.2-4.9) X10*3/uL [place] # (Auto) (0.1-1.2) X10*3/uL Eos # (Auto) (0.0-0.4) X10*3/uL Baso # (Auto) (0.0-0.2) X10*3/uL Abs Immat Gran (auto) (0.00-0.03) X10*3/uL Absolute Neuts (auto) (2.0-8.3) X10*3/uL Absolute Nucleated RBC (0.0-0.012) X10*3/uL Nucleated RBC % (auto) (0.0-0.2) /100WBC PT 13.8 H (10.8-13.0) SEC INR 1.2 H (0.9-1.1) APTT 41.0 H (24.1-38.0) SEC Sodium (135-145) mmol/L Potassium (3.3-5.1) mmol/L Chloride (96-108) mmol/L Carbon Dioxide (22-29) mmol/L Anion Gap (12-20) BUN (9-16) mg/dL Creatinine (0.5-1.4) mg/dL Estim Creat Clear Calc Estimated GFR Random Glucose (60-115) mg/dL Calcium (8.4-10.2) mg/dL Total Bilirubin (0.0-1.0) mg/dL AST (5-31) U/L ALT (0-31) U/L Alkaline Phosphatase (39-117) U/L Total Protein (6.5-8.0) g/dL Albumin (3.5-5.0) g/dL Beta HCG, Quant mIU/mL Specimen Comment Urine Color Urine Appearance Urine pH (5.0-8.0) Ur Specific [place] (1.005-1.025) Urine Protein (NEG-TRACE) MG/DL Urine Glucose (UA) (NEG) MG/DL Urine Ketones (NEG) MG/DL Urine Blood (NEG) Urine Nitrite (NEG) Ur Leukocyte Esterase (NEG) Urine RBC (0) /HPF Urine WBC (0-4) /HPF Ur Squamous Epith Cells /LPF Urine Bacteria /LPF Urine Mucus /LPF Urine Test (NEGATIVE) <KEVIN Xavier - Last Filed: 08/14/20 01:50> Lab Results 08/14/20 08/14/20 08/14/20 Range/Units 00:24 00:33 00:40 WBC 10.1 (4.8-10.8) X10*3/uL RBC 4.29 (4.20-5.50) X10*6/uL Hgb 12.5 (12.0-16.0) g/dl Hct 38.7 (37-47) % MCV 90.2 (80-98) fL MCH 29.1 (27.0-33.0) pg MCHC 32.3 (31.0-35.0) g/dl RDW 14.1 (11.0-16.0) % Plt Count 285 (160-400) X10*3/uL MPV 10.2 (9.4-12.3) fL Immature Gran % (Auto) 0.4 (0.0-0.4) % Neut % (Auto) 56.6 (45-73) % Lymph % (Auto) 34.1 (20-40) % [place] % (Auto) 6.7 (2-11) % Eos % (Auto) 1.6 (0-4) % Baso % (Auto) 0.6 (0-2) % Lymph # (Auto) 3.4 (1.2-4.9) X10*3/uL [place] # (Auto) 0.7 (0.1-1.2) X10*3/uL Eos # (Auto) 0.2 (0.0-0.4) X10*3/uL Baso # (Auto) 0.1 (0.0-0.2) X10*3/uL Abs Immat Gran (auto) 0.04 H (0.00-0.03) X10*3/uL Absolute Neuts (auto) 5.7 (2.0-8.3) X10*3/uL Absolute Nucleated RBC 0.000 (0.0-0.012) X10*3/uL Nucleated RBC % (auto) 0.0 (0.0-0.2) /100WBC PT (10.8-13.0) SEC INR (0.9-1.1) APTT (24.1-38.0) SEC Sodium (135-145) mmol/L Potassium (3.3-5.1) mmol/L Chloride (96-108) mmol/L Carbon Dioxide (22-29) mmol/L Anion Gap (12-20) BUN (9-16) mg/dL Creatinine (0.5-1.4) mg/dL Estim Creat Clear Calc Estimated GFR Random Glucose (60-115) mg/dL Calcium (8.4-10.2) mg/dL Total Bilirubin (0.0-1.0) mg/dL AST (5-31) U/L ALT (0-31) U/L Alkaline Phosphatase (39-117) U/L Total Protein (6.5-8.0) g/dL Albumin (3.5-5.0) g/dL Beta HCG, Quant mIU/mL Specimen Comment Urine Color YELLOW Urine Appearance HAZY Urine pH 5.5 (5.0-8.0) Ur Specific [place] 1.020 (1.005-1.025) Urine Protein NEG (NEG-TRACE) MG/DL Urine Glucose (UA) NEG (NEG) MG/DL Urine Ketones NEG (NEG) MG/DL Urine Blood 3+ H (NEG) Urine Nitrite NEG (NEG) Ur Leukocyte Esterase NEG (NEG) Urine RBC 0-2 (0) /HPF Urine WBC 1-4 (0-4) /HPF Ur Squamous Epith Cells 2+ /LPF Urine Bacteria 1+ /LPF Urine Mucus 1+ /LPF Urine Test NEGATIVE (NEGATIVE) 08/14/20 08/14/20 08/14/20 Range/Units 00:40 00:40 01:19 WBC (4.8-10.8) X10*3/uL RBC (4.20-5.50) X10*6/uL Hgb (12.0-16.0) g/dl Hct (37-47) % MCV (80-98) fL MCH (27.0-33.0) pg MCHC (31.0-35.0) g/dl RDW (11.0-16.0) % Plt Count (160-400) X10*3/uL MPV (9.4-12.3) fL Immature Gran % (Auto) (0.0-0.4) % Neut % (Auto) (45-73) % Lymph % (Auto) (20-40) % [place] % (Auto) (2-11) % Eos % (Auto) (0-4) % Baso % (Auto) (0-2) % Lymph # (Auto) (1.2-4.9) X10*3/uL [place] # (Auto) (0.1-1.2) X10*3/uL Eos # (Auto) (0.0-0.4) X10*3/uL Baso # (Auto) (0.0-0.2) X10*3/uL Abs Immat Gran (auto) (0.00-0.03) X10*3/uL Absolute Neuts (auto) (2.0-8.3) X10*3/uL Absolute Nucleated RBC (0.0-0.012) X10*3/uL Nucleated RBC % (auto) (0.0-0.2) /100WBC PT (10.8-13.0) SEC INR (0.9-1.1) APTT (24.1-38.0) SEC Sodium 137 (135-145) mmol/L Potassium 3.7 (3.3-5.1) mmol/L Chloride 105 (96-108) mmol/L Carbon Dioxide 22 (22-29) mmol/L Anion Gap 14 (12-20) BUN 7 L (9-16) mg/dL Creatinine 0.69 (0.5-1.4) mg/dL Estim Creat Clear Calc 127.2 Estimated GFR > 60 Random Glucose 86 (60-115) mg/dL Calcium 8.7 D (8.4-10.2) mg/dL Total Bilirubin 0.4 (0.0-1.0) mg/dL AST 18 (5-31) U/L ALT 15 (0-31) U/L Alkaline Phosphatase 70 (39-117) U/L Total Protein 7.5 (6.5-8.0) g/dL Albumin 4.3 (3.5-5.0) g/dL Beta HCG, Quant < 2 mIU/mL Specimen Comment DELAY Urine Color Urine Appearance Urine pH (5.0-8.0) Ur Specific [place] (1.005-1.025) Urine Protein (NEG-TRACE) MG/DL Urine Glucose (UA) (NEG) MG/DL Urine Ketones (NEG) MG/DL Urine Blood (NEG) Urine Nitrite (NEG) Ur Leukocyte Esterase (NEG) Urine RBC (0) /HPF Urine WBC (0-4) /HPF Ur Squamous Epith Cells /LPF Urine Bacteria /LPF Urine Mucus /LPF Urine Test (NEGATIVE) 08/14/20 Range/Units 01:34 WBC (4.8-10.8) X10*3/uL RBC (4.20-5.50) X10*6/uL Hgb (12.0-16.0) g/dl Hct (37-47) % MCV (80-98) fL MCH (27.0-33.0) pg MCHC (31.0-35.0) g/dl RDW (11.0-16.0) % Plt Count (160-400) X10*3/uL MPV (9.4-12.3) fL Immature Gran % (Auto) (0.0-0.4) % Neut % (Auto) (45-73) % Lymph % (Auto) (20-40) % [place] % (Auto) (2-11) % Eos % (Auto) (0-4) % Baso % (Auto) (0-2) % Lymph # (Auto) (1.2-4.9) X10*3/uL [place] # (Auto) (0.1-1.2) X10*3/uL Eos # (Auto) (0.0-0.4) X10*3/uL Baso # (Auto) (0.0-0.2) X10*3/uL Abs Immat Gran (auto) (0.00-0.03) X10*3/uL Absolute Neuts (auto) (2.0-8.3) X10*3/uL Absolute Nucleated RBC (0.0-0.012) X10*3/uL Nucleated RBC % (auto) (0.0-0.2) /100WBC PT 13.8 H (10.8-13.0) SEC INR 1.2 H (0.9-1.1) APTT 41.0 H (24.1-38.0) SEC Sodium (135-145) mmol/L Potassium (3.3-5.1) mmol/L Chloride (96-108) mmol/L Carbon Dioxide (22-29) mmol/L Anion Gap (12-20) BUN (9-16) mg/dL Creatinine (0.5-1.4) mg/dL Estim Creat Clear Calc Estimated GFR Random Glucose (60-115) mg/dL Calcium (8.4-10.2) mg/dL Total Bilirubin (0.0-1.0) mg/dL AST (5-31) U/L ALT (0-31) U/L Alkaline Phosphatase (39-117) U/L Total Protein (6.5-8.0) g/dL Albumin (3.5-5.0) g/dL Beta HCG, Quant mIU/mL Specimen Comment Urine Color Urine Appearance Urine pH (5.0-8.0) Ur Specific [place] (1.005-1.025) Urine Protein (NEG-TRACE) MG/DL Urine Glucose (UA) (NEG) MG/DL Urine Ketones (NEG) MG/DL Urine Blood (NEG) Urine Nitrite (NEG) Ur Leukocyte Esterase (NEG) Urine RBC (0) /HPF Urine WBC (0-4) /HPF Ur Squamous Epith Cells /LPF Urine Bacteria /LPF Urine Mucus /LPF Urine Test (NEGATIVE) <Kirk Wong MD - Last Filed: 08/14/20 03:40> Discharge Plan Discharge Clinical Impression: Pelvic pain in female, Abnormal uterine bleeding (AUB) <KEVIN Xavier - Last Filed: 08/14/20 01:50> Patient Disposition: Home, Self-Care <KEVIN Xavier - Last Filed: 08/14/20 01:50> Instructions: Dysfunctional Uterine Bleeding (ED), Pelvic Pain (ED) <KEVIN Xavier - Last Filed: 08/14/20 01:50> Additional Instructions: Return to the ED for worsening pelvic pain, worsening vaginal bleeding, weakness, dizziness, or any other concerning symptoms. <KEVIN Xavier - Last Filed: 08/14/20 01:50> Prescriptions: New naproxen 500 mg tablet 500 mg PO BID PRN (Reason: pain) Qty: 20 RF: 0 No Action medroxyprogesterone [Provera] 10 mg tablet 10 mg PO DAILY 10 Days Qty: 10 RF: 2 clonazepam 2 mg tablet 2 mg PO DAILY RF: 0 tamsulosin 0.4 mg capsule 0.4 mg PO DAILY RF: 0 potassium citrate 10 mEq (1,080 mg) tablet extended release 20 meq PO BID RF: 0 cholecalciferol (vitamin D3) 10 mcg (400 unit) tablet 10 mcg PO DAILY RF: 0 <KEVIN Xavier - Last Filed: 08/14/20 01:50> Referrals: Fallon Doyle MD [Primary Care Provider] - 2 days (Pelvic pain) Bao Sadler MD [Physician] - 2 days (pelvic pain. Dysfunctional uterine bleeding) <KEVIN Xavier - Last Filed: 08/14/20 01:50> Print Language: Syrian <KEVIN Xavier - Last Filed: 08/14/20 01:50> [facility] Past Medical History Medical History: Medical History (Updated 08/14/20 @ 01:45 by KEVIN Xavier) Abdominal pain Abnormal abdominal ultrasound Carpal tunnel syndrome FH: throat cancer Numerous moles Obesity Ovarian cyst Pelvic pain Physical exam Transaminitis <KEVIN Xavier - Last Filed: 08/14/20 01:50> Surgical History: Surgical History History of loop electrical excision procedure (LEEP) History of removal of ovarian cyst History of right nephrectomy <KEVIN Xavier - Last Filed: 08/14/20 01:50> Family History Family History: Family History Maternal Grandmother Diabetes mellitus Maternal Grandfather Heart disease CVD (cardiovascular disease) <KEVIN Xavier - Last Filed: 08/14/20 01:50> Social History Social History: Social History Alcohol intake: never Smoking Status: Never smoker Use of substances other than those prescribed or required for medical reasons: No Advance Directives: No Gender identity: female <KEVIN Xavier - Last Filed: 08/14/20 01:50>
[2020-08-14] MEDS: Ketorolac Tromethamine 30 MG/ML VIAL IVPUSH (01:36)
[2020-08-14 01:55] LABS: INTERNATIONAL NORM RATIO 1.2 (0.9-1.1); Prothrombin Time 13.8 SEC (10.8-13.0)
[2020-08-14 01:59] LABS: Bacteria Urine 1+ /LPF; Mucus Urine 1+ /LPF; RBC Urine 0-2 /HPF (0); Squamous Epithelial Cell Urine 2+ /LPF
[2020-08-14 02:00] LABS: UACC CULT YES
[2020-08-14 03:06] VITALS: BP 109/53; PULSE 80; RESP 16; TEMP 36.6; O2SAT 97
[2020-08-14 03:30] LABS: HCG Quantitative < 2 mIU/mL
== END 2020-08-14 03:57 | disposition home or self-care (01) ==
PROVIDERS: Physician Assistant; Emergency Provider Emergency Medicine Emergency Medical Services; PCP Internal Medicine
DX: N93.8 Other specified abnormal uterine and vaginal bleeding (principal); N83.201 Unspecified ovarian cyst, right side; Z90.5 Acquired absence of kidney
CPT/HCPCS: 36415; 76830; 76856; 80053; 81001; 81025; 84702; 85025; 85610; 85730; 87086; 93975; 96374; 99284; 99285; J1885

== ENCOUNTER → 2020-08-19 10:18 | Outpatient (BNVA) | payer OTHER, SELFPAY | PROVIDERS: PCP Internal Medicine; Visit Provider Obstetrics & Gynecology | DX: N83.209 Unspecified ovarian cyst, unspecified side (principal); N92.1 Excessive and frequent menstruation with irregular cycle; R31.29 Other microscopic hematuria | CPT/HCPCS: 99212 ==

== ENCOUNTER → 2020-08-26 11:28 | Outpatient (BNVA) | payer OTHER, SELFPAY | PROVIDERS: PCP Internal Medicine; Visit Provider Nurse Practitioner | DX: K59.01 Slow transit constipation (principal); A04.8 Other specified bacterial intestinal infections; R13.10 Dysphagia, unspecified; R14.0 Abdominal distension (gaseous); R19.02 Left upper quadrant abdominal swelling, mass and lump | CPT/HCPCS: 99202 ==

== ENCOUNTER → 2020-09-02 08:45 | Outpatient (BNVA) | payer OTHER, SELFPAY | PROVIDERS: PCP Internal Medicine; Visit Provider Physician Assistant | DX: M77.11 Lateral epicondylitis, right elbow (principal) | CPT/HCPCS: 20550; 20600; 99202; J1020 ==

== ENCOUNTER 2020-09-16 08:30 | Outpatient (REF) | payer OTHER, SELFPAY | END 2020-09-16 08:31 | disposition home or self-care (01) | LOC: HO.HOSX 08:30 | PROVIDERS: Visit Provider Physician Assistant | DX: Z13.89 Encounter for screening for other disorder (principal) ==

== ENCOUNTER → 2020-11-03 15:32 | Outpatient (BNVA) | payer OTHER, SELFPAY | PROVIDERS: PCP Internal Medicine; Visit Provider Nurse Practitioner ==

== ENCOUNTER → 2020-11-05 11:11 | Outpatient (BNVA) | payer OTHER, SELFPAY | PROVIDERS: PCP Internal Medicine; Visit Provider Obstetrics & Gynecology ==

== ENCOUNTER 2020-11-15 09:13 | Outpatient (REF) | payer OTHER, SELFPAY ==
--- NOTE | ~2020-11-15 | MM_ITS ---
EXAMINATION: MM SCREENING DIGITAL BREAST TOMOSYNTHESIS, BILATERAL CLINICAL INFORMATION: Screening. Asymptomatic. The lifetime risk of breast cancer based on the Tyrer-Cuzick Model is 6.4%. COMPARISON: Mammography: 02/16/2019 and studies dating back to 12/18/2014. TECHNIQUE: Digital breast tomosynthesis is performed in both the craniocaudal and mediolateral oblique views along with computer-aided detection (CAD). Synthesized 2D images are generated from the tomosynthesis. FINDINGS: The breasts are heterogeneously dense, which may obscure small masses (ACR BI-RADS breast composition Category c). There are now developed be some scattered and grouped calcifications about the right breast similar to left breast calcifications. There is a question of some of them changing in configuration between craniocaudal and mediolateral oblique projections and may represent milk of calcium within microcysts. Recommend patient return for magnification films of the right breast in craniocaudal and 90 degree mediolateral views. There is a stable intramammary lymph node within the deep upper outer aspect of the right breast. MM/MM tomosynthesis screening BI IMPRESSION: New developing right breast calcifications for further evaluation as described. ASSESSMENT: BI-RADS 0: Incomplete - Need Additional Imaging Evaluation RECOMMENDATION: 1. Additional views of the right breast. 2. Radiology department staff will contact the patient for additional imaging.
== END 2020-11-15 09:14 | disposition home or self-care (01) ==
LOC: HO.MAMMO 09:13
PROVIDERS: Visit Provider Internal Medicine
DX: Z12.31 Encounter for screening mammogram for malignant neoplasm of breast (principal)
CPT/HCPCS: 77063; 77067

== ENCOUNTER 2020-11-19 10:55 | Outpatient (REF) | payer OTHER, SELFPAY ==
--- NOTE | ~2020-11-19 | MM_ITS ---
EXAMINATION: MM DIAGNOSTIC DIGITAL MAMMOGRAPHY, RIGHT CLINICAL INFORMATION: Recall from screening for new calcifications right breast, possibly milk of calcium. No family history breast cancer. TC score 6%. COMPARISON: Mammography: 11/15/2020, 02/16/2019, 02/02/2018, 01/12/2017 TECHNIQUE: Digital mammography is performed in the following views: Magnification right ML, magnification right CC x3. FINDINGS: The breasts are heterogeneously dense, which may obscure small masses (ACR BI-RADS breast composition Category c). There are multiple regional calcifications central and central inner right breast. There are increased from prior exams. The calcifications in the central upper breast show layering milk of calcium types while others are mixed round of variable size. The non-layering calcifications are similar to those seen the contralateral left breast. This likely represents similar benign process as seen on the left. Management plan is for short interval six-month follow-up Results are discussed with the patient at time of visit, using an color worker. MM/MM added views RT IMPRESSION: Regional calcifications right breast, some showing milk of calcium layering on ML view. Others are round of variable size similar to calcifications contralateral left breast. ASSESSMENT: BI-RADS 3: Probably Benign RECOMMENDATION: Diagnostic right mammography in 6 months. This patient's information was entered into a reminder system with a target due date for their next mammogram.
== END 2020-11-19 10:56 | disposition home or self-care (01) ==
LOC: HO.MAMMO 10:55
PROVIDERS: PCP Internal Medicine; Visit Provider Internal Medicine
DX: R92.1 Mammographic calcification found on diagnostic imaging of breast (principal)
CPT/HCPCS: 77065

== ENCOUNTER 2020-11-21 06:21 | Day surgery (SDC) | payer OTHER, SELFPAY ==
[2020-09-17 09:11] VITALS: BMI 40.1
--- NOTE | 2020-11-19 12:37 | HO.ANESPROP2 ---
Documented by User: Abigail Buckleyney 11/20/20 12:27 HPI - Anesthesia Eval Consult details Narrative: 45yo F for Upper Endoscopy and Colonoscopy h/o combative with emergence PMFSH Active Problems Active Problems: All Active Problems (Updated 11/11/20 @ 08:41 by Fallon Garsia MD) Essential hypertension (Acute) Shortness of breath (Acute) Pelvic pain in female (Acute) Abnormal uterine bleeding (AUB) (Acute) Renal vein stenosis (Acute) Menometrorrhagia (Acute) Ovarian cyst (Acute) Microscopic hematuria (Acute) H. pylori infection (Acute) Dysphagia (Acute) Abdominal bloating (Acute) Abdominal mass, LUQ (left upper quadrant) (Acute) Lateral epicondylitis, right elbow (Acute) Ankle pain (Acute) Constipation by delayed colonic transit (Acute) Right elbow pain (Acute) Abdominal pain (Acute) Pelvic pain (Acute) Abnormal abdominal ultrasound (Acute) History of right nephrectomy (Acute) Numerous moles (Acute) FH: throat cancer (Acute) Physical exam (Acute) Obesity (Acute) Past Medical History Medical History (Updated 11/11/20 @ 08:41 by Fallon Garsia MD) Abdominal pain Abnormal abdominal ultrasound Carpal tunnel syndrome Constipation by delayed colonic transit Essential hypertension FH: throat cancer Numerous moles Obesity Ovarian cyst Pelvic pain Right elbow pain Transaminitis Family History Family History Maternal Grandmother Diabetes mellitus Maternal Grandfather Heart disease CVD (cardiovascular disease) Father Heart problem Sister Heart murmur Paternal Grandmother Heart problem Surgical History Surgical History History of loop electrical excision procedure (LEEP) History of removal of ovarian cyst (~2017) History of right nephrectomy Social History Social History Alcohol intake: current Alcohol intake frequency: holidays/special occasions only Are you DNR?: No Advance Directives: No Advance Directives Information Provided: No Advance Directives on File: No Current occupational status: employed 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 Gender identity: female Meds Allergies Allergy/AdvReac Type Severity Reaction Status Date / Time citalopram Allergy Intermediate palpitation Verified 11/11/20 08:27 s doxepin Allergy Intermediate palpitation Verified 11/11/20 08:27 s quetiapine [Seroquel] Allergy Intermediate weight gain Verified 11/11/20 08:27 trazodone Allergy Intermediate palpitation Verified 11/11/20 08:27 s Home Medications Medication Instructions Recorded Confirmed Last Taken Type tamsulosin 0.4 mg capsule 0.4 mg PO DAILY 06/30/20 11/11/20 Unknown History omeprazole 20 mg capsule,delayed 20 mg PO DAILY 10/01/20 11/11/20 Unknown History release Exam Exam Date and Time: November 19, 2020 1237 Height,Weight and Vital Signs: Height 5 ft 5 in Weight 109.316 kg Pertinent Lab Results Pertinent Lab Results: Laboratory Tests 08/14/20 08/14/20 00:40 00:40 WBC 10.1 Hgb 12.5 Hct 38.7 Plt Count 285 Sodium 137 Potassium 3.7 Chloride 105 Carbon Dioxide 22 BUN 7 L Creatinine 0.69 Assessment and Plan Assessment Anesthesia Assessment: Chart Reviewed Documented by User: Delores Sinclair 11/21/20 07:27 [facility] Past Medical History Medical History (Updated 11/11/20 @ 08:41 by Fallon Garsia MD) Abdominal pain Abnormal abdominal ultrasound Carpal tunnel syndrome Constipation by delayed colonic transit Essential hypertension FH: throat cancer Numerous moles Obesity Ovarian cyst Pelvic pain Right elbow pain Transaminitis Family History Family History Maternal Grandmother Diabetes mellitus Maternal Grandfather Heart disease CVD (cardiovascular disease) Father Heart problem Sister Heart murmur Paternal Grandmother Heart problem Surgical History Surgical History History of loop electrical excision procedure (LEEP) History of removal of ovarian cyst (~2016) History of right nephrectomy Social History Social History Alcohol intake: current Alcohol intake frequency: holidays/special occasions only Are you DNR?: No Advance Directives: No Advance Directives Information Provided: No Advance Directives on File: No Current occupational status: employed 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 Gender identity: female Meds Allergies Allergy/AdvReac Type Severity Reaction Status Date / Time citalopram Allergy Intermediate palpitation Verified 11/11/20 08:27 s doxepin Allergy Intermediate palpitation Verified 11/11/20 08:27 s quetiapine [Seroquel] Allergy Intermediate weight gain Verified 11/11/20 08:27 trazodone Allergy Intermediate palpitation Verified 11/11/20 08:27 s Home Medications Medication Instructions Recorded Confirmed Last Taken Type tamsulosin 0.4 mg capsule 0.4 mg PO DAILY 06/30/20 11/11/20 Unknown History omeprazole 20 mg capsule,delayed 20 mg PO DAILY 10/01/20 11/11/20 Unknown History release Exam Airway Mallampati Class: II TM Dist: >3cm Neck ROM: Full Heart: RrR Lungs: CTA Assessment and Plan Assessment Anesthesia Assessment: Anesthesia Plan Discussed and Chart Reviewed Final Anesthetic Review NPO: Yes ASA Class: II Final Preanesthetic Review: No Changes in Pt Med Stat and Consent Obtained/Reviewed Patient Risk: Intermediate Procedure Risk: Intermediate Anesthetic Plan Anesthetic Plan: MAC: Disposition: Standard PACU
[2020-11-21 06:45] LABS: UPreg QC Valid YES; Urine Pregnancy NEGATIVE (NEGATIVE)
[2020-11-21 07:00] VITALS: BP 127/63; PULSE 92; RESP 20; TEMP 37.1; O2SAT 97
--- NOTE | 2020-11-21 07:25 | PM.OP ---
Brief Operative Note Date of Service: 11/21/20 Pre-op diagnosis: bloating, abdominal pain, feeling full, constipation, dysphagia to solids and liquids Post-op diagnosis: other (Gastritis, colon polyp, diverticulosis) Procedure: FLEXIBLE TRANSORAL UPPER GASTROINTESTINAL ENDOSCOPY WITH BIOPSIES AND COLONOSCOPY CECUM WITH SNARE POLYPECTOMY UPPER ENDOSCOPY Consent: Indications for the procedure and potential complications of bleeding, perforation, reaction to medications and missed diagnosis were discussed with the patient and informed consent was obtained. Instrument: Olympus GIF H 190 mid size upper endoscope Monitoring: Vital signs and clinical assessment, continuous EKG monitoring, Pulse oximetry, Carbon Dioxide monitoring and blood pressure monitoring were done throughout the procedure. Procedure: The patient was placed in the left lateral decubitis position and pre-procedure medications were administered and a bite block was placed. The endoscope was inserted into the mouth and advanced under direct vision to the third part of duodenum. A careful inspection was made as the upper endoscope was withdrawn including a retroflexed examination of the proximal stomach; Findings and interventions are described below. Findings: Larynx: Normal Esophagus: Tortuous esophagus with increased tertiary contractions without stricture or ring. GE junction at 36 cms. No esophagitis or Kenny's. Stomach: Severe gastric erythema in the fundus and body of the stomach with submucosal hemorrhages - biopsies were obtained the gastric body and antrum. Grade 2 flap valve on retroflexed examination of the cardia. Duodenum: Normal bulb and descending duodenum. Biopsies were obtained from 3rd part of the duodenum to check for celiac sprue Intervention: Biopsies as noted above COLONOSCOPY PROCEDURE NOTE Consent: Indications for the procedure and potential complications of bleeding, perforation, reaction to medications and missed diagnosis were discussed with the patient and informed consent was obtained. Instrument: Olympus PCF H 190 L variable stiffness pediatric colonoscope Monitoring: Vital signs and clinical assessment, intermittent blood pressure monitoring, continuous EKG monitoring, Pulse oximetry and Carbon Dioxide monitoring were done throughout the procedure. Colon withdrawl time was 20 minutes. Procedure: The patient was placed in the left lateral decubitis position and pre-procedure medications were administered. After a digital rectal examination of the ano-rectum, the video colonoscope was inserted into the rectum and advanced through the colon to the cecum. The colonoscope was slowly withdrawn in a retrograde panoramic fashion and the colon mucosa was carefully examined including a retroflexed view of the rectum. Findings and interventions are described below. Procedure Difficulty: : Without difficulty Findings: Terminal Ileum: Not evaluated Cecum: Normal Ascending Colon: A 12-15 mm sessile polyp removed with a hot snare Transverse Colon: Normal Descending Colon: Moderate diverticulosis Sigmoid Colon: Moderate diverticulosis Rectum: Normal Ano-rectum: Moderate internal hemorrhoids Colon preparation: Good after some irrigation Impression and Post Procedure Diagnosis: Endoscopy Findings: ESOPHAGUS: Dysphagia likely due to esophageal motility disorder STOMACH: Severe gastritis. DUODENUM: Normal - biopsied to check for celiac. Colonoscopy Findings: One medium sized polyp removed. Random biopsies were obtained from the colon to check for microscopic colitis Moderate diverticulosis seen in the left colon Plan: Await pathology results Patient has an appointment on 12/11/20 in the GI [facility] with Tangela Fisher NP. If patient has continued dysphagia, consider further evaluation with a barium swallow Repeat Colonoscopy interval based on path results - in 3 years if polyp is adenomatous and 10 years if polyps are hyperplastic. Above findings were reviewed with the patient and Gastritis, colon polyps and diverticulosis handouts were given in the discharge area Surgeon: Gal Duran MD Anesthesia: MAC (Dr Cantu) Was an Public Message Service Supervisor used for this Procedure?: No Public Message Service Supervisor: Marco A Trejo Estimated blood loss (mL): 0 Pathology: other (A- SMALL BOWEL BXS R/O SPRU B- GASTRIC ANTRUM BXS R/O H. PYLORI C- GASTRIC BODY BXS R/O GASTRITIS D- ASCENDING COLON POLYP E RANDOM COLON BXS) Condition: stable Disposition: PACU
--- NOTE | 2020-11-21 07:26 | MHC.SHP ---
Pre-Procedural Eval Section A The patient is an INPATIENT: No The History & Physical has been completed within 30 days and I have reviewed it.: No Section B Chief Complaint: Abd Pain, GERD, Dysphagia Details of Present Illness: bloating, abdominal pain, feeling full, constipation Relevant Family History (Specify if Yes): No Relevant Social History: None Present Medications: see Short Stay Collaborative assessment Medical History: Significant History (Abdominal pain Abnormal abdominal ultrasound Carpal tunnel syndrome Constipation by delayed colonic transit FH: throat cancer Numerous moles Obesity Ovarian cyst Pelvic pain Physical exam Right elbow pain Transaminitis) History of Previous Operations: Relevant previous surgery/procedure and date(s) (History of loop electrical excision procedure (LEEP) History of removal of ovarian cyst (~2016) History of right nephrectomy) Allergies: Allergies Allergy/AdvReac Type Severity Reaction Status Date / Time citalopram Allergy Intermediate palpitation Verified 11/11/20 08:27 s doxepin Allergy Intermediate palpitation Verified 11/11/20 08:27 s quetiapine [Seroquel] Allergy Intermediate weight gain Verified 11/11/20 08:27 trazodone Allergy Intermediate palpitation Verified 11/11/20 08:27 s Review of Systems Sugical H&P ROS: Negative: Constitution, Cardiovascular and Respiratory and Yes, Specify: Gastrointestinal (abdominal pain the, constipation) Exam Surgical H&P Exam: Normal: Heart, Normal: Lungs, Normal: Extremities and Normal: Abdomen Plan Diagnosis/Plan: Unchanged I have reviewed the history and physical and performed a pertinent physical examination on my patient. No changes have occurred unless specified.
[2020-11-21] MEDS: Lactated Ringers 1,000 ML 100 ML IVCONT (07:48)
[2020-11-21 08:38] VITALS: BP 113/52; PULSE 84; RESP 16; TEMP 36.1; O2SAT 98
[2020-11-21 08:53] VITALS: BP 118/49; PULSE 78; RESP 17; TEMP 36.7; O2SAT 98
== END 2020-11-21 09:43 | disposition home or self-care (01) ==
PROVIDERS: Nurse Practitioner; PCP Internal Medicine; Visit Provider Internal Medicine Gastroenterology
PROC: (CPT 45385; principal; 2020-11-21 07:30)
DX: R10.9 Unspecified abdominal pain (principal); D12.2 Benign neoplasm of ascending colon; K57.30 Diverticulosis of large intestine without perforation or abscess without bleeding; K64.8 Other hemorrhoids; K59.00 Constipation, unspecified; K21.9 Gastro-esophageal reflux disease without esophagitis; R13.10 Dysphagia, unspecified; K29.50 Unspecified chronic gastritis without bleeding; B96.81 Helicobacter pylori [H. pylori] as the cause of diseases classified elsewhere; Z90.5 Acquired absence of kidney; Z79.899 Other long term (current) drug therapy; Z88.8 Allergy status to other drugs, medicaments and biological substances
CPT/HCPCS: 45385; 43239; 81025; 88305; 88342

== ENCOUNTER → 2020-12-11 15:12 | Outpatient (BNVA) | payer OTHER, SELFPAY | PROVIDERS: PCP Internal Medicine; Visit Provider Nurse Practitioner ==

== ENCOUNTER 2020-12-15 14:20 | Outpatient (REF) | payer OTHER, SELFPAY ==
--- NOTE | ~2020-12-15 | US_ITS ---
EXAMINATION: US RETROPERITONEAL LIMITED (RENAL ONLY) CLINICAL INFORMATION: Nephrolithiasis. COMPARISON: Ultrasound abdomen limited 07/29/2020. CT abdomen and pelvis 07/18/2020. Renal ultrasound 06/03/2020. TECHNIQUE: Real-time imaging of the solitary left kidney. FINDINGS: RIGHT KIDNEY: Surgically absent. LEFT KIDNEY: 13.5 x 6.8 x 6 cm (SAG x AP x TRV). The kidney is normal in size, contour, and echogenicity. Renal cortical thickness is normal. No calculi or focal parenchymal lesions. No hydronephrosis. US/US renal BI IMPRESSION: Unremarkable left renal ultrasound. The right kidney is surgically absent..
== END 2020-12-15 14:21 | disposition home or self-care (01) ==
LOC: HO.US 14:20
PROVIDERS: PCP Internal Medicine; Visit Provider Urology
DX: N20.0 Calculus of kidney (principal)
CPT/HCPCS: 76775

== ENCOUNTER 2020-12-19 12:16 | Emergency (ER) | payer OTHER, SELFPAY ==
--- NOTE | ~2020-12-19 | CT_ITS ---
EXAMINATION: CT CHEST WITHOUT CONTRAST CLINICAL INFORMATION: Left supraclavicular and upper extremity swelling. Evaluate for mass. COMPARISON: Previous chest x-ray March 2018 TECHNIQUE: Multidetector volumetric CT imaging of the chest was done. Axial MIP volume rendering provided. Sagittal and coronal reformatted images were obtained. This CT examination was performed using dose optimization techniques as appropriate, variously including the following: *Automated exposure control *Adjustment of mA and/or kV according to patient size (this includes techniques or standardized protocols for targeted exams where dose is matched to indication/reason for exam; i.e. 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 MEDIASTINUM: The visualized thyroid gland is unremarkable. There are no enlarged hilar or mediastinal lymph nodes. The heart does not appear enlarged and there is trace pericardial fluid or thickening. The thoracic aorta is normal in caliber. The stomach as is filled with air. PLEURA: There is no pleural effusion. No pleural mass or thickening. AXILLA: There are small left axillary lymph nodes. No enlarged lymph nodes or chest wall mass is seen. UPPER ABDOMEN: The left kidney appears prominent. The right kidney may been removed. OSSEOUS STRUCTURES: Unremarkable. CT/CT chest wo con IMPRESSION: No enlarged left axillary lymph nodes or chest wall mass seen.
--- NOTE | ~2020-12-19 | US_ITS ---
EXAMINATION: US VENOUS WITH DOPPLER UPPER EXTREMITY, LEFT CLINICAL INFORMATION: Swelling COMPARISON: None TECHNIQUE: Ultrasound of the upper extremity is performed using compression sonography and color and pulse Doppler flow with assessment of augmentation of flow. There is also imaging and Doppler assessment of the jugular and subclavian veins. Spectral analysis with color-flow imaging is performed. FINDINGS: Respiratory variation, normal compression, and augmented flow are noted throughout the upper extremity including the axillary, brachial, cubital, and radial and ulnar veins. There is normal flow in the internal jugular and subclavian veins. There is no visible deep or superficial thrombophlebitis. If the patient's symptoms progress, a followup ultrasound in 5 -7 days might be of value to exclude proximal propagation from a nonvisualized distal arm vein. US/US venous duplex UE LT IMPRESSION: No DVT demonstrated in the left upper extremity
[2020-12-19 12:25] VITALS: BP 119/58; PULSE 89; RESP 18; TEMP 36.8; O2SAT 99; BMI 41.5
--- NOTE | 2020-12-19 13:11 | ED.GENADULT ---
HPI - General Adult General Chief complaint: General Medical Stated complaint: left side facial and side pain Time Seen by Provider: 12/19/20 13:06 Source: patient Mode of arrival: ambulatory Limitations: no limitations History of Present Illness HPI narrative: 45 yo female with hx of HTN, h pylori infection (has been on her treatment x 1 week), s/p R nephrectomy here with c/o L neck/chest region and LUE swelling she noticed it 3 days ago and thought maybe it was in her head, her left side of her head started to hurt, her sister saw her today and noted she was swelling, she feels winded and has chest tightness at times MD complaint: L sided swelling of chest and UE Onset (ago): day(s) (3) Location: head, chest, left and upper extremity Radiation: non-radiation Severity: moderate Quality: aching Pain Consistency: constant Relieving factors: none Exacerbating factors: none Associated symptoms: chest pain and shortness of breath Treatments prior to arrival: none Related Data Home Medications Medication Instructions Recorded Confirmed tamsulosin 0.4 mg capsule 0.4 mg PO DAILY 06/30/20 11/11/20 Previous Rx's Medication Instructions Recorded albuterol sulfate 2.5 mg INHALATION Q4-6H PRN 30 10/08/20 Days #75 ml albuterol sulfate 90 mcg/actuation 2 puff INHALATION Q6H PRN 30 Days 10/08/20 aerosol inhaler #6.7 g fluticasone propionate 44 2 puff INHALATION BID 30 Days 10/08/20 mcg/actuation HFA aerosol inhaler #10.6 g clonazepam 1 mg tablet 1 mg PO BEDTIME 30 Days #30 tab 11/11/20 hydrochlorothiazide 12.5 mg tablet 12.5 mg PO DAILY 90 Days #90 tab 11/11/20 loratadine 10 mg tablet 10 mg PO DAILY 90 Days #90 tab 11/11/20 amoxicillin 500 mg capsule 1,000 mg PO Q12H 14 Days #56 cap 12/11/20 bismuth subsalicylate 262 mg 2 tab PO QID 14 Days #112 tab 12/11/20 chewable tablet levofloxacin 500 mg tablet 500 mg PO DAILY 14 Days #14 tab 12/11/20 linaclotide 145 mcg capsule 145 mcg PO QAM 30 Days #30 cap 12/11/20 ondansetron HCl 4 mg tablet 4 mg PO BID-TID PRN 14 Days #10 tab 12/11/20 Allergies Allergy/AdvReac Type Severity Reaction Status Date / Time citalopram Allergy Intermediate palpitation Verified 12/19/20 12:25 s doxepin Allergy Intermediate palpitation Verified 12/19/20 12:25 s quetiapine [Seroquel] Allergy Intermediate weight gain Verified 12/19/20 12:25 trazodone Allergy Intermediate palpitation Verified 12/19/20 12:25 s Review of Systems Review of Systems: Constitutional : No Weight loss, No Fever, No Chills ENT/Mouth : No sore throat, No Rhinorrhea Eyes: No Eye Pain, No Swelling Cardiovascular : pos Chest Pain, pos SOB, no Dyspnea on Exertion, No Orthopnea, pos Edema, No Palpitations Respiratory : No Cough, No Sputum Gastrointestinal : no Nausea, No Vomiting, No Diarrhea, No abdominal Pain, No Hematochezia, No Melena Genitourinary : No Dysuria, No Urinary Frequency Musculoskeletal : No joint pain, No Myalgias, pos Joint Swelling Skin : No Skin Lesions, No rash Neuro : No Weakness, No Numbness, No Dizziness, pos Headache Psych : No Anxiety/Panic, No Depression Heme/Lymph: No Bruising, No Lymphadenopathy Endocrine : No Polyuria, No Polydipsia All other systems reviewed and are negative [facility] Past Medical History Attestation statement: The following information was validated with the patient. Medical History Abdominal pain Abnormal abdominal ultrasound Carpal tunnel syndrome Essential hypertension FH: throat cancer Numerous moles Obesity Ovarian cyst Pelvic pain Right elbow pain Transaminitis Surgical History History of loop electrical excision procedure (LEEP) History of removal of ovarian cyst (~2017) History of right nephrectomy Family History Family History Maternal Grandmother Diabetes mellitus Maternal Grandfather Heart disease CVD (cardiovascular disease) Father Heart problem Sister Heart murmur Paternal Grandmother Heart problem Social History Social History Alcohol intake: current Alcohol intake frequency: does not drink Patient Tobacco Use Status: Never used Tobacco Use of substances other than those prescribed or required for medical reasons: No Advance Directives: Yes Advance Directives Information Provided: No Advance Directives on File: No Patient : No Current occupational status: employed 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 Oriented X3. No acute distress. Eyes: Pupils equal, round and reactive to light. ENT: Pharynx normal. Neck: Normal inspection. Neck supple. no mass seen CVS: Normal heart rate and rhythm. Pulses normal. Chest: swelling in L supraclavicular area Respiratory: No respiratory distress. Breath sounds normal. Abdomen: Soft and nontender. Skin: Skin warm and dry. Normal skin color. Normal skin turgor. Extremities: No lower extremity edema. No calf ttp LUE appears more swollen than R - normal pulses, non pitting Neuro: Oriented X 3. No motor deficit. No sensory deficit. Course Course Course Narrative: during IV insertion her HR went up to 160s improved with time, tried some vagal maneuvers it looked to be a sinus tach on monitor p waves were seen, no prior events for her like this in the past doing better post ativan patient aware we are looking for a mass in chest - refuses IV contrast at this time no mass seen at this time will need US to r/o DVT signed out to Dr. Méndez Medical Decision Making [facility] Narrative Medical decision making narrative: 45 yo female with hx of HTN, h pylori infection (has been on her treatment x 1 week), s/p R nephrectomy here with c/o L neck/chest region and LUE swelling she noticed it 3 days ago and thought maybe it was in her head, her left side of her head started to hurt, her sister saw her today and noted she was swelling, she feels winded and has chest tightness at times at this time there is a noticeable swelling difference in her L supraclavicular area and her LUE she is NV intact, concern is obviously for a compressive lesion - labs, CT chest, EKG ordered, may need possible DVT study of LE if negative Lab Data Result diagrams: 12/19/20 14:13 12/19/20 14:13 Labs: Lab Results 12/19/20 12/19/20 12/19/20 Range/Units 14:02 14:13 14:13 WBC 8.5 (4.8-10.8) X10*3/uL RBC 4.05 L (4.20-5.50) X10*6/uL Hgb 11.5 L (12.0-16.0) g/dl Hct 35.6 L (37-47) % MCV 87.9 (80-98) fL MCH 28.4 (27.0-33.0) pg MCHC 32.3 (31.0-35.0) g/dl RDW 14.0 (11.0-16.0) % Plt Count 288 (160-400) X10*3/uL MPV 10.4 (9.4-12.3) fL Immature Gran % (Auto) 0.7 H (0.0-0.4) % Neut % (Auto) 48.8 (45-73) % Lymph % (Auto) 39.3 (20-40) % [place] % (Auto) 8.8 (2-11) % Eos % (Auto) 2.0 (0-4) % Baso % (Auto) 0.4 (0-2) % Lymph # (Auto) 3.4 (1.2-4.9) X10*3/uL [place] # (Auto) 0.8 (0.1-1.2) X10*3/uL Eos # (Auto) 0.2 (0.0-0.4) X10*3/uL Baso # (Auto) 0.0 (0.0-0.2) X10*3/uL Abs Immat Gran (auto) 0.06 H (0.00-0.03) X10*3/uL Absolute Neuts (auto) 4.2 (2.0-8.3) X10*3/uL Absolute Nucleated RBC 0.000 (0.0-0.012) X10*3/uL Nucleated RBC % (auto) 0.0 (0.0-0.2) /100WBC Sodium 139 (135-145) mmol/L Potassium 4.1 (3.3-5.1) mmol/L Chloride 107 (96-108) mmol/L Carbon Dioxide 22 (22-29) mmol/L Anion Gap 14 (12-20) BUN 7 L (9-16) mg/dL Creatinine 0.63 (0.5-1.4) mg/dL Estim Creat Clear Calc 140.0 Estimated GFR > 60 Random Glucose 87 (60-115) mg/dL Calcium 9.6 D (8.4-10.2) mg/dL Magnesium 2.1 (1.6-2.6) mg/dL Total Bilirubin 0.4 (0.0-1.0) mg/dL Direct Bilirubin 0.2 (0.0-0.5) mg/dL AST 17 (5-31) U/L ALT 8 (0-31) U/L Alkaline Phosphatase 66 (39-117) U/L B-Natriuretic Peptide (<100) pg/mL Total Protein 7.1 (6.5-8.0) g/dL Albumin 4.0 (3.5-5.0) g/dL Lipase 10 (8-78) U/L Urine Test NEGATIVE (NEGATIVE) 12/19/20 Range/Units 14:13 WBC (4.8-10.8) X10*3/uL RBC (4.20-5.50) X10*6/uL Hgb (12.0-16.0) g/dl Hct (37-47) % MCV (80-98) fL MCH (27.0-33.0) pg MCHC (31.0-35.0) g/dl RDW (11.0-16.0) % Plt Count (160-400) X10*3/uL MPV (9.4-12.3) fL Immature Gran % (Auto) (0.0-0.4) % Neut % (Auto) (45-73) % Lymph % (Auto) (20-40) % [place] % (Auto) (2-11) % Eos % (Auto) (0-4) % Baso % (Auto) (0-2) % Lymph # (Auto) (1.2-4.9) X10*3/uL [place] # (Auto) (0.1-1.2) X10*3/uL Eos # (Auto) (0.0-0.4) X10*3/uL Baso # (Auto) (0.0-0.2) X10*3/uL Abs Immat Gran (auto) (0.00-0.03) X10*3/uL Absolute Neuts (auto) (2.0-8.3) X10*3/uL Absolute Nucleated RBC (0.0-0.012) X10*3/uL Nucleated RBC % (auto) (0.0-0.2) /100WBC Sodium (135-145) mmol/L Potassium (3.3-5.1) mmol/L Chloride (96-108) mmol/L Carbon Dioxide (22-29) mmol/L Anion Gap (12-20) BUN (9-16) mg/dL Creatinine (0.5-1.4) mg/dL Estim Creat Clear Calc Estimated GFR Random Glucose (60-115) mg/dL Calcium (8.4-10.2) mg/dL Magnesium (1.6-2.6) mg/dL Total Bilirubin (0.0-1.0) mg/dL Direct Bilirubin (0.0-0.5) mg/dL AST (5-31) U/L ALT (0-31) U/L Alkaline Phosphatase (39-117) U/L B-Natriuretic Peptide 18 (<100) pg/mL Total Protein (6.5-8.0) g/dL Albumin (3.5-5.0) g/dL Lipase (8-78) U/L Urine Test (NEGATIVE) ECG Data Attestation: I personally reviewed and interpreted this ECG as follows: Interpretation: Rate: 83 Rhythm: NSR Stanley: normal Normal P waves. Normal KYAW. Normal QRS complex. ST T wave : normal no COLEEN qTC: normal prior studies: no acute ischemia The study has been interpreted contemporaneously by me. . Discharge Plan Discharge Clinical Impression: Anxiety, Sinus tachycardia, Left upper extremity swelling Prescriptions: No Action albuterol sulfate [ProAir HFA] 90 mcg/actuation HFA aerosol inhaler 2 puff inhalation Q6H PRN (Reason: shortness of breath or wheezing) 30 Days Qty: 6.7 RF: 6 albuterol sulfate 2.5 mg /3 mL (0.083 %) solution for nebulization 2.5 mg inhalation Q4-6H PRN (Reason: shortness of breath or wheezing) 30 Days Qty: 75 RF: 6 Flovent HFA 44 mcg/actuation HFA aerosol inhaler 2 puff inhalation BID 30 Days Qty: 10.6 RF: 6 tamsulosin 0.4 mg capsule 0.4 mg PO DAILY RF: 0 loratadine 10 mg tablet 10 mg PO DAILY 90 Days Qty: 90 RF: 1 clonazepam 1 mg tablet 1 mg PO BEDTIME 30 Days Qty: 30 RF: 0 hydrochlorothiazide 12.5 mg tablet 12.5 mg PO DAILY 90 Days Qty: 90 RF: 0 Linzess 145 mcg capsule 145 mcg PO QAM 30 Days Qty: 30 RF: 3 amoxicillin 500 mg capsule 1,000 mg PO Q12H 14 Days Qty: 56 RF: 0 levofloxacin 500 mg tablet 500 mg PO DAILY 14 Days Qty: 14 RF: 0 bismuth subsalicylate [Bismuth] 262 mg tablet,chewable 2 tab PO QID 14 Days Qty: 112 RF: 0 ondansetron HCl [Zofran] 4 mg tablet 4 mg PO BID-TID PRN (Reason: nausea and vomiting) 14 Days Qty: 10 RF: 0
--- NOTE | 2020-12-19 13:24 | ECG_ITS ---
Test Reason : WEAKNESS Blood Pressure : / mmHG Vent. Rate : 083 BPM Atrial Rate : 083 BPM P-R Int : 176 ms QRS Dur : 094 ms QT Int : 404 ms P-R-T Axes : 055 025 036 degrees QTc Int : 474 ms Normal sinus rhythm Normal ECG When compared with ECG of 17-MAY-2019 17:36, No significant changes seen Referred By: Marika Stein Electronically Signed By:Ariel Fierro
[2020-12-19 14:14] LABS: UPreg QC Valid YES; Urine Pregnancy NEGATIVE (NEGATIVE)
--- NOTE | 2020-12-19 14:17 | PC.NURSE ---
While placing IV this nurse noted HR increasing to 160 with pt reporting not feeling good and head feeling cold. Dr Stein to bedside for assist and vagal maneuvers with effect, HR down to low 100s at this time.
[2020-12-19 14:18] VITALS: BP 142/52; PULSE 103; RESP 22; O2SAT 100
[2020-12-19 14:18] LABS: MANUAL DIFF FLAG NO
[2020-12-19 14:20] LABS: Basophils Percent Auto 0.4 % (0-2); Eosinophils Absolute Auto 0.2 X10*3/uL (0.0-0.4); Hematocrit 35.6 % (37-47); Hemoglobin 11.5 g/dl (12.0-16.0); Imm Gran Abs Auto 0.06 X10*3/uL (0.00-0.03); Imm Gran Pct Auto 0.7 % (0.0-0.4); Lymphocytes Absolute Auto 3.4 X10*3/uL (1.2-4.9); Lymphocytes Percent Auto 39.3 % (20-40); Mean Corpuscular HGB Conc 32.3 g/dl (31.0-35.0); Mean Corpuscular Hemoglobin 28.4 pg (27.0-33.0); Mean Corpuscular Volume 87.9 fL (80-98); Mean Platelet Volume 10.4 fL (9.4-12.3); Monocytes Absolute Auto 0.8 X10*3/uL (0.1-1.2); Monocytes Percent Auto 8.8 % (2-11); Neutrophils Absolute Auto 4.2 X10*3/uL (2.0-8.3); Neutrophils Percent Auto 48.8 % (45-73); Platelet Count 288 X10*3/uL (160-400); Red Blood Count 4.05 X10*6/uL (4.20-5.50); White Blood Count 8.5 X10*3/uL (4.8-10.8)
--- NOTE | 2020-12-19 14:25 | PC.NURSE ---
Pt alert and oriented x3. Pt states she has been having lightheadedness and unbalanced when walking. This started 3 days ago and has gotten progressively worse. She also states that this morning when she woke up this morning she noticed her LUE was swollen, denies pain. No c/o pain at this time. Pt requests medication for anxiety. No apparent distress noted.
[2020-12-19] MEDS: LORazepam 2 MG/ML VIAL 1 MG IVPUSH (14:51)
[2020-12-19 14:53] LABS: Alanine Aminotransferase 8 U/L (0-31); Alkaline Phosphatase 66 U/L (39-117); Anion Gap 14 (12-20); Aspartate Amino Transferase 17 U/L (5-31); Bilirubin Direct 0.2 mg/dL (0.0-0.5); Bilirubin Total 0.4 mg/dL (0.0-1.0); Blood Urea Nitrogen 7 mg/dL (9-16); Calcium 9.6 mg/dL (8.4-10.2); Carbon Dioxide 22 mmol/L (22-29); Chloride 107 mmol/L (96-108); Estimated Glomerular Filt Rate > 60; Glucose Random 87 mg/dL (60-115); Lipase 10 U/L (8-78); Magnesium 2.1 mg/dL (1.6-2.6); Potassium 4.1 mmol/L (3.3-5.1); Sodium 139 mmol/L (135-145); Total Protein 7.1 g/dL (6.5-8.0)
[2020-12-19 14:54] LABS: B Type Natriuretic Peptide 18 pg/mL (<100)
[2020-12-19 17:12] VITALS: BP 116/53; PULSE 91; RESP 18; TEMP 37.1; O2SAT 97
== END 2020-12-19 19:57 | disposition home or self-care (01) ==
PROVIDERS: Emergency Medicine; Emergency Provider Internal Medicine; PCP Internal Medicine
DX: F41.9 Anxiety disorder, unspecified (principal); M79.89 Other specified soft tissue disorders; M79.602 Pain in left arm; R00.0 Tachycardia, unspecified; R06.02 Shortness of breath; A04.8 Other specified bacterial intestinal infections; I10 Essential (primary) hypertension; Z79.899 Other long term (current) drug therapy; Z90.5 Acquired absence of kidney
CPT/HCPCS: 36415; 71250; 80048; 80076; 81025; 83690; 83735; 83880; 85025; 93005; 93971; 96374; 99284; 99285; J2060

== ENCOUNTER → 2020-12-26 08:43 | Outpatient (BNVA) | payer OTHER, SELFPAY | PROVIDERS: Visit Provider Nurse Practitioner ==

== ENCOUNTER → 2021-01-02 09:04 | Outpatient (BNVA) | payer OTHER, SELFPAY | PROVIDERS: Visit Provider Nurse Practitioner ==

== ENCOUNTER → 2021-01-27 14:51 | Outpatient (BNVA) | payer OTHER, SELFPAY | PROVIDERS: PCP Internal Medicine ==

== ENCOUNTER → 2021-03-10 08:43 | Outpatient (BNVA) | payer OTHER, SELFPAY | PROVIDERS: PCP Internal Medicine; Visit Provider Nurse Practitioner ==

== ENCOUNTER 2021-03-31 14:21 | Outpatient (REF) | payer OTHER, SELFPAY ==
--- NOTE | ~2021-03-31 | CT_ITS ---
EXAMINATION: CT HEAD WITHOUT CONTRAST CLINICAL INFORMATION: New onset of headache x 2 months. COMPARISON: None TECHNIQUE: Contiguous axial imaging was performed from the skull base to vertex without intravenous administration of contrast. This CT examination was performed using dose optimization techniques as appropriate, variously including the following: *Automated exposure control *Adjustment of mA and/or kV according to patient size (this includes techniques or standardized protocols for targeted exams where dose is matched to indication/reason for exam; i.e. extremities or head) *Use of iterative reconstruction technique DLP: 666 mGy-cm FINDINGS: There is no evidence of acute intracranial hemorrhage or territorial infarction. No abnormal mass effect or midline shift is seen. Ferreira to white matter differentiation is well preserved. No extra-axial fluid collections are identified. The ventricles are normal in size. There is no abnormal attenuation within the brain parenchyma. The osseous structures and soft tissues are normal. The mastoid air cells and visualized portions of the paranasal sinuses are well aerated. CT/CT head/brain wo con IMPRESSION: No acute intracranial process seen.
== END 2021-03-31 14:22 | disposition home or self-care (01) ==
LOC: HO.CT 14:21
PROVIDERS: PCP Internal Medicine; Visit Provider Psychiatry & Neurology Neurology
DX: G44.209 Tension-type headache, unspecified, not intractable (principal)
CPT/HCPCS: 70450

== ENCOUNTER 2021-04-24 15:12 | Outpatient (REF) | payer OTHER, SELFPAY | END 2021-04-24 15:13 | disposition home or self-care (01) | LOC: HO.LNP 15:12 | PROVIDERS: Visit Provider Nurse Practitioner | DX: A04.8 Other specified bacterial intestinal infections (principal); K59.01 Slow transit constipation; R13.10 Dysphagia, unspecified; R19.02 Left upper quadrant abdominal swelling, mass and lump; N39.0 Urinary tract infection, site not specified | CPT/HCPCS: 87086; 87338 ==

== ENCOUNTER 2021-04-29 13:34 | Outpatient (REF) | payer OTHER, SELFPAY ==
--- NOTE | ~2021-04-29 | US_ITS ---
EXAMINATION: ULTRASOUND OF THE PELVIS CLINICAL INFORMATION: Ovarian cyst. COMPARISON: 08/14/2020. TECHNIQUE: Transabdominal and transvaginal pelvic ultrasound. Doppler evaluation with spectral analysis was performed. A transvaginal study was performed in addition to the transabdominal study which did not yield an adequate examination of the uterus and ovaries due to superimposed distended gas-filled loops of bowel. FINDINGS: The uterus is normal in size and appearance, measuring 11 x 6.5 x 7 cm longitudinally, anteroposteriorly and transversely. The endometrial stripe thickness is normal, measuring 1.2 cm in thickness. No focal myometrial mass is seen. The ovaries bilaterally are visualized and appear normal, with the right ovary measuring 2.7 x 1.7 x 1.5 cm and the left ovary measuring 2.2 x 1.2 x 1.3 cm. Resolution of the previous right ovarian cyst. No adnexal mass or free fluid collection seen. US/US pelvic complete IMPRESSION: Resolution of the prior right ovarian cyst. Normal pelvic ultrasound..
--- NOTE | ~2021-04-29 | US_ITS ---
EXAMINATION: US RETROPERITONEAL LIMITED (RENAL ONLY) CLINICAL INFORMATION: Acquired absence of kidney. COMPARISON: Renal ultrasound 12/15/2020. Ultrasound abdomen limited 07/29/2020. CT abdomen and pelvis 07/18/2020. TECHNIQUE: Real-time imaging of the kidneys. FINDINGS: RIGHT KIDNEY: Surgically absent. LEFT KIDNEY: 12.5 x 6.8 x 6.0 cm (SAG x AP x TRV). The kidney is normal in size, contour, and echogenicity. Renal cortical thickness is normal. No focal parenchymal lesions or hydronephrosis. Multiple small echogenic foci are seen throughout the kidney without posterior shadowing. This may represent renal sinus fat, as no calculi have been seen at this location on previous imaging. US/US renal BI IMPRESSION: Absent right kidney. Unremarkable left kidney..
== END 2021-04-29 13:35 | disposition home or self-care (01) ==
LOC: HO.US 13:34
PROVIDERS: PCP Internal Medicine
DX: N83.209 Unspecified ovarian cyst, unspecified side (principal); Z90.5 Acquired absence of kidney
CPT/HCPCS: 76775; 76856

== ENCOUNTER → 2021-05-06 15:37 | Outpatient (BNVA) | payer OTHER, SELFPAY | PROVIDERS: Visit Provider Obstetrics & Gynecology ==

== ENCOUNTER 2021-06-03 14:34 | Outpatient (REF) | payer OTHER, SELFPAY ==
--- NOTE | ~2021-06-03 | MM_ITS ---
EXAMINATION: MM DIAGNOSTIC DIGITAL BREAST TOMOSYNTHESIS, RIGHT CLINICAL INFORMATION: Six-month follow up right breast calcifications. The lifetime risk of breast cancer based on the Tyrer-Cuzick Model is 6.7%. COMPARISON: Mammography: 11/19/2020 and studies dating back to 12/18/2014. TECHNIQUE: Digital breast tomosynthesis is performed in both the craniocaudal and mediolateral oblique views along with computer-aided detection (CAD). Synthesized 2D images are generated from the tomosynthesis. Additional spot magnification views in craniocaudal and 90-degree mediolateral views performed. FINDINGS: The breasts are heterogeneously dense, which may obscure small masses (ACR BI-RADS breast composition Category c). No new suspicious abnormal dominant mass is appreciated. The calcifications which are seen within the medial superior aspect appear similar to previous study. There does appear to be a change in configuration of many of the calcifications representing milk of calcium within microcysts.Recommend 6 month bilateral mammography with right spot magnification views at that time. Results are provided to the patient at time of visit by the technologist. MM/MM tomosynthesis diagnostic RT IMPRESSION: There are no significant changes from prior study. ASSESSMENT: BI-RADS 3: Probably Benign. RECOMMENDATION: Diagnostic mammography in 6 months. This patient's information was entered into a reminder system with a target due date for their next mammogram.
--- NOTE | 2021-06-03 15:51 | ECG_ITS ---
Test Reason : PALPITATIONS Blood Pressure : / mmHG Vent. Rate : 084 BPM Atrial Rate : 084 BPM P-R Int : 176 ms QRS Dur : 088 ms QT Int : 366 ms P-R-T Axes : 053 029 038 degrees QTc Int : 432 ms Normal sinus rhythm Normal ECG When compared with ECG of 19-DEC-2020 13:34, No significant change was found Referred By: Fallon Garsia Electronically Signed By:Ariel Fierro
== END 2021-06-03 14:35 | disposition home or self-care (01) ==
LOC: HO.MAMMO 14:34
PROVIDERS: PCP Internal Medicine; Visit Provider Internal Medicine
DX: R92.1 Mammographic calcification found on diagnostic imaging of breast (principal); R00.2 Palpitations
CPT/HCPCS: 77061; 77065; 93005

== ENCOUNTER → 2021-06-16 13:20 | Outpatient (BNVA) | payer OTHER, SELFPAY | PROVIDERS: PCP Internal Medicine ==

== ENCOUNTER 2021-06-26 09:20 | Outpatient (REF) | payer OTHER, SELFPAY ==
[2021-06-26 09:38] LABS: MANUAL DIFF FLAG NO
[2021-06-26 09:56] LABS: Basophils Absolute Auto 0.1 X10*3/uL (0.0-0.2); Basophils Percent Auto 0.9 % (0-2); Eosinophils Absolute Auto 0.1 X10*3/uL (0.0-0.4); Eosinophils Percent Auto 2.4 % (0-4); Hematocrit 40.2 % (37.0-47.0); Hemoglobin 12.7 g/dl (12.0-16.0); Imm Gran Abs Auto 0.01 X10*3/uL (0.00-0.03); Imm Gran Pct Auto 0.2 % (0.0-0.4); Lymphocytes Absolute Auto 2.2 X10*3/uL (1.2-4.9); Lymphocytes Percent Auto 37.6 % (20-40); Mean Corpuscular HGB Conc 31.6 g/dl (31.0-35.0); Mean Corpuscular Hemoglobin 28.4 pg (27.0-33.0); Mean Corpuscular Volume 89.9 fL (80.0-98.0); Mean Platelet Volume 10.6 fL (9.4-12.3); Monocytes Absolute Auto 0.5 X10*3/uL (0.1-1.2); Monocytes Percent Auto 7.8 % (2-11); Neutrophils Absolute Auto 2.9 x10*3/uL (2.0-8.3); Neutrophils Percent Auto 51.1 % (45-73); Platelet Count 277 X10*3/uL (160-400); Red Blood Count 4.47 X10*6/uL (4.20-5.50); Red Cell Distribution Width 14.3 % (11.0-16.0); White Blood Count 5.7 X10*3/uL (4.8-10.8)
[2021-06-26 10:22] LABS: Alanine Aminotransferase 11 U/L (0-31); Albumin Level 4.1 g/dL (3.5-5.0); Alkaline Phosphatase 71 U/L (39-117); Anion Gap 9 (12-20); Aspartate Amino Transferase 14 U/L (5-31); Bilirubin Total 0.5 mg/dL (0.0-1.0); Blood Urea Nitrogen 10 mg/dL (9-16); Calcium 9.3 mg/dL (8.4-10.2); Carbon Dioxide 27 mmol/L (22-29); Chloride 107 mmol/L (96-108); Cholesterol 163 mg/dL; Estimated Glomerular Filt Rate > 60; Glucose Fasting 102 mg/dL (60-99); HDL Cholesterol 36 mg/dL; LDL Cholesterol Calculated 105 mg/dl; Potassium 4.1 mmol/L (3.3-5.1); Sodium 139 mmol/L (135-145); Total Protein 7.5 g/dL (6.5-8.0); Triglycerides 112 mg/dL
[2021-06-26 10:40] LABS: Thyroid Stimulating Hormone 1.48 uIU/mL (0.32-4.0)
[2021-06-30 16:36] LABS: Vitamin D 25-OH, D2 <4 ng/mL; Vitamin D 25-OH, D3 26 ng/mL; Vitamin D 25-OH, Total 26 ng/mL (30-100)
== END 2021-06-26 09:21 | disposition home or self-care (01) ==
LOC: HO.LAB 09:20
PROVIDERS: PCP Internal Medicine; Visit Provider Internal Medicine
DX: E78.5 Hyperlipidemia, unspecified (principal); I10 Essential (primary) hypertension; R00.2 Palpitations; E55.9 Vitamin D deficiency, unspecified; D64.9 Anemia, unspecified; K21.9 Gastro-esophageal reflux disease without esophagitis
CPT/HCPCS: 36415; 80053; 80061; 82306; 84443; 85025

== ENCOUNTER → 2021-07-20 14:50 | Outpatient (REF) | payer OTHER, SELFPAY ==
--- NOTE | 2021-07-20 15:21 | HM_ITS ---
Total monitoring time 13 days and 2 hours. Underlying rhythm is sinus. Minimum heart rate 66/Min. Maximum 141/Min. Average 83/min. No atrial fibrillation or flutter or any blocks or pauses. Rare supraventricular ventricular ectopy with minimal burden. No patient events. MTDD
== END ==
LOC: HO.CARD 14:50
PROVIDERS: Visit Provider Internal Medicine
DX: R00.2 Palpitations (principal)
CPT/HCPCS: 93242

== ENCOUNTER 2021-07-21 08:26 | Outpatient (REF) | payer OTHER, SELFPAY ==
[2021-07-21 08:48] LABS: Binax Internal Control QC Valid; Binax Now Covid-19 Ag Negative (Negative)
== END 2021-07-21 08:27 | disposition home or self-care (01) ==
LOC: HO.LAB 08:26
PROVIDERS: PCP Internal Medicine; Visit Provider Internal Medicine
DX: Z20.822 Contact with and (suspected) exposure to COVID-19 (principal)
CPT/HCPCS: C9803

== ENCOUNTER 2021-07-22 13:39 | Outpatient (REF) | payer OTHER, SELFPAY ==
[2021-07-22 14:35] LABS: Appearance Urine CLEAR; Color Urine YELLOW; Glucose Urine UA NEG (NEG); Leukocyte Esterase Urine NEG (NEG); Nitrite Urine NEG (NEG); PH 5.5 (5.0-8.0); Specific Gravity - Urine >= 1.030 (1.005-1.025); Urine Blood NEG (NEG); Urine Ketones NEG (NEG); Urine Protein NEG (NEG-TRACE)
== END 2021-07-22 13:40 | disposition home or self-care (01) ==
LOC: HO.LNP 13:39
PROVIDERS: Nurse Practitioner Family; Visit Provider Nurse Practitioner
DX: M54.9 Dorsalgia, unspecified (principal); A04.8 Other specified bacterial intestinal infections
CPT/HCPCS: 81003; 87338

== ENCOUNTER → 2021-08-25 12:34 | Outpatient (BNVA) | payer OTHER, SELFPAY | PROVIDERS: PCP Nurse Practitioner Family; Referring Provider Internal Medicine; Visit Provider Nurse Practitioner | DX: A04.8 Other specified bacterial intestinal infections (principal); K59.04 Chronic idiopathic constipation; K64.9 Unspecified hemorrhoids | CPT/HCPCS: 99212 ==

== ENCOUNTER 2021-08-31 14:54 | Outpatient (REF) | payer OTHER, SELFPAY ==
--- NOTE | ~2021-08-31 | US_ITS ---
EXAMINATION: ULTRASOUND OF THE SOFT TISSUES EXTREMITY NONVASCULAR CLINICAL INFORMATION: This is a 45-year-old female with localized swelling, mass and lump, unspecified in the left mid back COMPARISON: None TECHNIQUE: Ultrasound was directed towards the left mid lateral lumbar area. This was directed by the patient into the area of concern. FINDINGS: No cyst is seen in the subcutaneous tissues. No masses are seen in the area of concern. No palpable abnormality can be demonstrated by ultrasound. If there is still clinical concern for soft tissue abnormality then MRI would be more sensitive and specific for definition of a mass. US/US extremity nonvascular IMPRESSION: 1. No abnormality is seen by ultrasound.
== END 2021-08-31 14:55 | disposition home or self-care (01) ==
LOC: HO.US 14:54
PROVIDERS: PCP Nurse Practitioner Family; Visit Provider Nurse Practitioner Family
DX: R22.2 Localized swelling, mass and lump, trunk (principal)
CPT/HCPCS: 76882

== ENCOUNTER 2021-09-02 13:26 | Outpatient (REF) | payer OTHER, SELFPAY ==
[2021-09-04 15:37] LABS: TS Negative Control Passed; TS Panel A 0; TS Panel B 0; TS Positive Control Passed; TSpotTB Negative (Negative)
== END 2021-09-02 13:27 | disposition home or self-care (01) ==
LOC: HO.LAB 13:26
PROVIDERS: Absent Provider Internal Medicine; PCP Internal Medicine; Visit Provider Nurse Practitioner
DX: Z11.1 Encounter for screening for respiratory tuberculosis (principal)
CPT/HCPCS: 36415; 86481

== ENCOUNTER 2021-11-04 11:29 | Outpatient (REF) | payer OTHER, SELFPAY ==
--- NOTE | ~2021-11-04 | US_ITS ---
EXAMINATION: US RETROPERITONEAL LIMITED (RENAL ONLY) CLINICAL INFORMATION: Acquired absence of kidney. COMPARISON: US retroperitoneal limited (renal only) 04/29/2021 and 12/15/2020. CT abdomen and pelvis with contrast 07/18/2020. TECHNIQUE: Real-time imaging of the solitary left kidney. FINDINGS: RIGHT KIDNEY: Surgically absent. LEFT KIDNEY: 13.7 x 7.2 x 6.7 cm (SAG x AP x TRV). The kidney is normal in size, contour, and echogenicity. Renal cortical thickness is normal. No calculi or focal parenchymal lesions. No hydronephrosis. US/US renal BI IMPRESSION: Right kidney surgically absent. Unremarkable left kidney..
== END 2021-11-04 11:30 | disposition home or self-care (01) ==
LOC: HO.US 11:29
DX: Z90.5 Acquired absence of kidney (principal)
CPT/HCPCS: 76775

== ENCOUNTER 2021-11-06 12:34 | Outpatient (REF) | payer OTHER, SELFPAY ==
[2021-11-06 13:22] LABS: Alanine Aminotransferase 14 U/L (0-31); Albumin Level 4.4 g/dL (3.5-5.0); Alkaline Phosphatase 78 U/L (39-117); Anion Gap 14 (12-20); Aspartate Amino Transferase 17 U/L (5-31); Bilirubin Total 0.4 mg/dL (0.0-1.0); Blood Urea Nitrogen 10 mg/dL (9-16); Calcium 9.9 mg/dL (8.4-10.2); Carbon Dioxide 25 mmol/L (22-29); Chloride 104 mmol/L (96-108); Estimated Glomerular Filt Rate > 60; Glucose Random 91 mg/dL (60-115); Sodium 139 mmol/L (135-145)
[2021-11-06 13:26] LABS: B Type Natriuretic Peptide < 10 pg/mL (<100)
[2021-11-06 13:45] LABS: TSH reflex Free T4 1.25 uIU/mL (0.32-4.0)
[2021-11-06 13:51] LABS: Erythrocyte Sedimentation Rate 19 MM/HR (0-20)
== END 2021-11-06 12:35 | disposition home or self-care (01) ==
LOC: HO.LAB 12:34
PROVIDERS: PCP Internal Medicine; Visit Provider Nurse Practitioner Family
DX: R60.0 Localized edema (principal)
CPT/HCPCS: 36415; 80053; 83880; 84443; 85652

== ENCOUNTER 2021-11-12 14:44 | Emergency (ER) | payer OTHER, SELFPAY ==
--- NOTE | ~2021-11-12 | XR_ITS ---
EXAMINATION: CHEST 2 VIEWS CLINICAL INFORMATION: sob . COMPARISON: 04/18/2018. TECHNIQUE: PA and lateral views of the chest obtained. FINDINGS: The lungs are well expanded. No focal infiltrate, effusion, edema, or pneumothorax. Cardiac and mediastinal silhouettes are within normal limits for technique. No acute bony abnormality seen XR/XR chest 2V IMPRESSION: No evidence of acute disease
[2021-11-12 15:04] VITALS: BP 123/49; PULSE 74; RESP 20; TEMP 36.9; O2SAT 99; BMI 40.9
[2021-11-12 15:20] LABS: MANUAL DIFF FLAG NO
[2021-11-12 15:25] LABS: Basophils Percent Auto 0.6 % (0-2); Eosinophils Absolute Auto 0.2 X10*3/uL (0.0-0.4); Eosinophils Percent Auto 2.4 % (0-4); Hematocrit 39.9 % (37.0-47.0); Hemoglobin 12.9 g/dl (12.0-16.0); Imm Gran Abs Auto 0.04 X10*3/uL (0.00-0.03); Imm Gran Pct Auto 0.6 % (0.0-0.4); Lymphocytes Absolute Auto 2.6 X10*3/uL (1.2-4.9); Lymphocytes Percent Auto 36.9 % (20-40); Mean Corpuscular HGB Conc 32.3 g/dl (31.0-35.0); Mean Corpuscular Hemoglobin 28.8 pg (27.0-33.0); Mean Corpuscular Volume 89.1 fL (80.0-98.0); Monocytes Absolute Auto 0.7 X10*3/uL (0.1-1.2); Monocytes Percent Auto 9.3 % (2-11); Neutrophils Absolute Auto 3.6 x10*3/uL (2.0-8.3); Neutrophils Percent Auto 50.2 % (45-73); Platelet Count 267 X10*3/uL (160-400); Red Blood Count 4.48 X10*6/uL (4.20-5.50); Red Cell Distribution Width 13.5 % (11.0-16.0); White Blood Count 7.1 X10*3/uL (4.8-10.8)
[2021-11-12 15:38] LABS: Anion Gap 11 (12-20); Blood Urea Nitrogen 11 mg/dL (9-16); Calcium 9.5 mg/dL (8.4-10.2); Carbon Dioxide 23 mmol/L (22-29); Chloride 107 mmol/L (96-108); Creatinine Clr Calc Pharmacy 120.2; Estimated Glomerular Filt Rate > 60; Glucose Random 93 mg/dL (60-115); Potassium 4.2 mmol/L (3.3-5.1); Sodium 137 mmol/L (135-145)
[2021-11-12 15:44] LABS: B Type Natriuretic Peptide 37 pg/mL (<100)
--- NOTE | 2021-11-12 19:07 | ECG_ITS ---
Test Reason : SOB Blood Pressure : / mmHG Vent. Rate : 076 BPM Atrial Rate : 076 BPM P-R Int : 190 ms QRS Dur : 094 ms QT Int : 390 ms P-R-T Axes : 052 015 016 degrees QTc Int : 438 ms Normal sinus rhythm Normal ECG When compared with ECG of 03-JUN-2021 15:57, No significant change was found Referred By: Cornelia Winkler Electronically Signed By:TULIO TIPTON
--- NOTE | 2021-11-12 19:08 | ED_ITS ---
HPI - General Adult General Chief complaint: Dyspnea Stated complaint: face hand feet swelling diff breathing Time Seen by Provider: 11/12/21 14:49 Source: patient Mode of arrival: ambulatory Limitations: language barrier (Gibraltarian-speaking director of medical staff services utilized) History of Present Illness HPI narrative: Patient reports to the emergency department for evaluation of increased edema. She states that she has been noticing swelling to her bilateral lower extremities, bilateral upper extremities and face over the past few months. She spoke to her primary care doctor about this, states that she had blood work done to look at her heart, single kidney, has not received any results from this yet. She reports that she was placed on a water pill but this did not help and she stopped taking it. She is uncertain of the name of this medication, however when reviewing her medication list noted to have hydrochlorothiazide on that, but again she is not certain whether she is currently taking this. She compl ains of an intermittent headache, arthralgias, orthopnea, intermittent shortness of breath. Denies fevers, chills, neck pain, neck stiffness, chest pain, difficulty breathing, nausea, vomiting abdominal pain, dysuria, urinary frequency urgency, numbness or tingling the extremities, generalized weakness. Related Data Home Medications Medication Instructions Recorded Confirmed amitriptyline 25 mg tablet 0 mg PO 06/16/21 11/04/21 Previous Rx's Medication Instructions Recorded albuterol sulfate 2.5 mg (3 mL) INHALATION Q4-6H PRN 10/08/20 30 Days #75 ml albuterol sulfate 90 mcg/actuation 2 puff INHALATION Q6H PRN 30 Days 10/08/20 aerosol inhaler (ProAir HFA) #6.7 g fluticasone propionate 44 2 puff INHALATION BID 30 Days 10/08/20 mcg/actuation HFA aerosol inhaler #10.6 g (Flovent HFA) fluticasone propionate 50 1 spray INTRANASAL DAILY 14 Days 07/15/21 mcg/actuation nasal #150 ml spray,suspension (Flonase Allergy Relief) diclofenac sodium 1 % topical gel 2 g TOPICAL QID PRN #100 g 08/11/21 (Arthritis Pain (diclofenac)) famotidine 40 mg tablet (Pepcid) 40 mg PO BID #60 tab 08/25/21 lubiprostone 24 mcg capsule 24 mcg PO BID 30 Days #60 cap 08/25/21 (Amitiza) Proctosol HC 2.5 % topical cream 1 appl MI BID g NS 08/31/21 perineal applicator (hydrocortisone) hydrochlorothiazide 12.5 mg tablet 12.5 mg PO DAILY 90 Days #90 tab 09/04/21 loratadine 10 mg tablet 10 mg PO DAILY 90 Days #90 tab 09/04/21 clonazepam 1 mg tablet 1 mg PO BEDTIME PRN 30 Days #30 tab 11/09/21 zolpidem 5 mg tablet 5 mg PO BEDTIME PRN 30 Days #30 tab 11/10/21 Allergies Allergy/AdvReac Type Severity Reaction Status Date / Time citalopram Allergy Intermediate palpitation Verified 11/04/21 16:10 s doxepin Allergy Intermediate palpitation Verified 11/04/21 16:10 s quetiapine [Seroquel] Allergy Intermediate weight gain Verified 11/04/21 16:10 trazodone Allergy Intermediate palpitation Verified 11/04/21 16:10 s Review of Systems Review of Systems: Constitutional: No weight loss. No fever. No chills. No w eakness. No fatigue. Eye: No swelling. No redness. ENT: No sore throat. No rhinorrhea. No nasal congestion. No sore throat. No difficulty swallowing. Skin: No rash. No itching. Cardiovascular: No chest pain. No chest pressure. Positive palpitations. Positive pedal edema. Respiratory: Positive shortness of breath. No cough. No sputum production. Gastrointestinal: No anorexia. No nausea. No vomiting. No diarrhea. No abdominal pain. No blood in stool. Genitourinary: No burning micturition. No urinary frequency. No incontinence. Neurologic: Positive headache. No dizziness. No pre-syncope/ syncope. No unilateral weakness. No ataxia. No numbness. No tingling. No change in bowel or bladder control. Musculoskeletal: Positive arthralgias. No back pain. No stiffness. Hematologic: No bleeding. No bruising. Lymphatics: No enlarged lymph nodes. Psychiatric:No depression. No anxiety. Endocrine: No polyuria. No polydipsia. Yes all other systems are reviewed and are negative PMFSH Past Medical History Attestation statement: The following information was validated with the patient. Source: old records reviewed Medical History Abdominal pain Abnormal abdominal ultrasound Absence of kidney Carpal tunnel syndrome Essential hypertension Essential hypertension FH: throat cancer YARITZA (generalized anxiety disorder) Migraines Mild recurrent major depression Moderate asthma Morbidly obese Numerous moles Obesity PATRIC (obstructive sleep apnea) Ovarian cyst Palpitations Pelvic pain Primary insomnia Right elbow pain Transaminitis Surgical History History of loop electrical excision procedure (LEEP) History of removal of ovarian cyst (~2017) History of right nephrectomy Family History Family History Maternal Grandmother Diabetes mellitus Maternal Grandfather Heart disease CVD (cardiovascular disease) Father Heart problem Sister Heart murmur Paternal Grandmother Heart problem Social History Social History Housing: Apartment Alcohol intake: never Patient Tobacco Use Status: Never used Tobacco e-Cigarette/Vaping Use: Never Used Second Hand Smoke Exposure: No Advance Directives: No Advance Directives Information Provided: Yes service: No Current occupational status: unemployed 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 Blood pressure normal.? Heart rate normal.? Respiration rate normal. Temperature normal.? Oxygen saturation normal. Appearance: Alert.?Oriented to person, place and time. No acute distress.?Normal affect. Head: Face appears normal, does not appear swollen, no angioedema, orbital swelling. Eyes: Pupils equal, round and reactive to light.? ENT: Pharynx normal.?? Neck: Normal inspection.? Neck supple.?? CVS: Heart sounds normal. Normal heart rate and rhythm.? Pulses normal.? No JVD. Respiratory: No respiratory distress.? Lung sounds clear to auscultation bilaterally?? Abdomen: Soft and non-tender. Normoactive bowel sounds. Skin: Skin warm and dry.? Normal skin color.? ? Extremities: Bilateral 2+ pitting pedal edema No calf ttp? Neuro: Moves all extremities spontaneously. Sensation intact bilaterally. CN II- XII intact. No focal neuro deficits. Ambulates with normal steady gait. Course Course Course Narrative: Patient is a 46-year-old female with past medical history of solitary kidney, carpal tunnel syndrome, hypertension, anxiety, migraines, depression, asthma, obesity, obstructive sleep apnea presenting to the emergency department for evaluation of generalized edema. This is been ongoing for months, has been seen by her primary care provider for the same, but feels that it is worse over the past few days. There is associated intermittent shortness breath. Will obtain CBC to evaluate for leukocytosis/ anemia, CMP to evaluate for abnormal electrolytes /abnormal renal function/ abnormal hepatic/ function, EKG and troponin to evaluate for ischemia/ACS. Chest x-ray to evaluate for pulmonary congestion. Disposition pending results. Reevaluation(s) Reevaluation #1: CBC and CMP are overall unremarkable. BNP is normal, 37. Chest x-ray reveals no infiltrate, effusion, edema, or pneumothorax. Troponin <3.5, EKG reveals normal sinus rhythm, no acute ischemic changes, unlikely ACS. On physical exam does not appear clinically to be in fluid overload, has no tachycardia hypoxia or tachypnea, No facial swelling, no pitting edema to the upper extremities. Not consistent with congestive heart failure. Discussed with patient that is difficult to consider adjustments to her medications as she is uncertain which medication she is currently taking. Advised patient to contact primary care provider to schedule a follow-up visit regarding concerns of edema over the past few months. Discussed reasons that she should return back to the emergency department. All questions were answered, and patient was discharged home in stable condition. Time: 20:38 Medical Decision Making Medical Records Medical records reviewed: Yes I reviewed the patient's medical records. Lab Data Lab results reviewed: Yes I reviewed the patient's lab results. Result diagrams: 11/12/21 15:16 11/12/21 15:16 Labs: Lab Results 11/12/21 11/12/21 11/12/21 Range/Units 15:16 15:16 15:16 WBC 7.1 (4.8-10.8) X10*3/uL RBC 4.48 (4.20-5.50) X10*6/uL Hgb 12.9 (12.0-16.0) g/dl Hct 39.9 (37.0-47.0) % MCV 89.1 (80.0-98.0) fL MCH 28.8 (27.0-33.0) pg MCHC 32.3 (31.0-35.0) g/dl RDW 13.5 (11.0-16.0) % Plt Count 267 (160-400) X10*3/uL MPV 10.0 (9.4-12.3) fL Immature Gran % (Auto) 0.6 H (0.0-0.4) % Neut % (Auto) 50.2 (45-73) % Lymph % (Auto) 36.9 (20-40) % [place] % (Auto) 9.3 (2-11) % Eos % (Auto) 2.4 (0-4) % Baso % (Auto) 0.6 (0-2) % Lymph # (Auto) 2.6 (1.2-4.9) X10*3/uL [place] # (Auto) 0.7 (0.1-1.2) X10*3/uL Eos # (Auto) 0.2 (0.0-0.4) X10*3/uL Baso # (Auto) 0.0 (0.0-0.2) X10*3/uL Abs Immat Gran (auto) 0.04 H (0.00-0.03) X10*3/uL Absolute Neuts (auto) 3.6 (2.0-8.3) x10*3/uL Absolute Nucleated RBC 0.000 (0.0-0.012) X10*3/uL Nucleated RBC % (auto) 0.0 (0.0-0.2) /100WBC Sodium 137 (135-145) mmol/L Potassium 4.2 (3.3-5.1) mmol/L Chloride 107 (96-108) mmol/L Carbon Dioxide 23 (22-29) mmol/L Anion Gap 11 L (12-20) BUN 11 (9-16) mg/dL Creatinine 0.72 (0.5-1.4) mg/dL Estim Creat Clear Calc 120.2 Estimated GFR > 60 Random Glucose 93 (60-115) mg/dL Calcium 9.5 (8.4-10.2) mg/dL Total Bilirubin 0.3 (0.0-1.0) mg/dL Direct Bilirubin < 0.2 (0.0-0.5) mg/dL AST 19 (5-31) U/L ALT 14 (0-31) U/L Alkaline Phosphatase 74 (39-117) U/L Troponin I High Sens < 3.5 (<3.5-17.0) ng/L B-Natriuretic Peptide 37 (<100) pg/mL Total Protein 7.6 (6.5-8.0) g/dL Albumin 4.1 (3.5-5.0) g/dL Imaging Data Chest x-ray: Radiologist's impression: FINDINGS: The lungs are well expanded. No focal infiltrate, effusion, edema, or pneumothorax. Cardiac and mediastinal silhouettes are within normal limits for technique. No acute bony abnormality seen XR/XR chest 2V IMPRESSION: No evidence of acute disease ECG Data Attestation: I personally reviewed and interpreted this ECG as follows: Prior ECG tracings: not available for review Interpretation: Rate: 76 Rhythm:? Normal sinus rhythm [place]:? Normal Normal P waves.? Normal [place].?? Normal QRS complex.?? ST T wave :??No ST elevation, no ST depression, no T-wave inversion qTC: 438 The study has been interpreted contemporaneously by me. Discharge Plan Discharge Clinical Impression: Edema Patient Disposition: Home, Self-Care Instructions: Leg Edema (ED), Edema (ED) Additional Instructions: As we discussed, it is important to check what medications you are currently taking when you get home. It is unclear whether you are currently taking a diuretic/water pill. Please contact your primary care provider to schedule a follow-up visit, as you may need to have some changes made to your medica tions/dosages. You can return to the emergency department any new or worsening symptoms or concerns. Breanna comentamos, es importante verificar qu? medicamentos est? tomando actualmente cuando llegue a casa. No est? lalo si actualmente est? tomando un diur?tara/p?ldora de agua. Comun?quese con singh proveedor de atenci?n primaria para programar jana visita de seguimiento, ya que es posible que deba realizar algunos cambios en adri medicamentos/dosis. Puede regresar al departamento de rajinder rgencias ante cualquier s?ntoma o inquietud nueva o que empeore. Prescriptions: No Action albuterol sulfate [ProAir HFA] 90 mcg/actuation HFA aerosol inhaler 2 puff inhalation Q6H PRN (Reason: shortness of breath or wheezing) 30 Days Qty: 6.7 6RF albuterol sulfate 2.5 mg /3 mL (0.083 %) solution for nebulization 2.5 mg inhalation Q4-6H PRN (Reason: shortness of breath or wheezing) 30 Days Qty: 75 6RF Flovent HFA 44 mcg/actuation HFA aerosol inhaler 2 puff inhalation BID 30 Days Qty: 10.6 6RF Rx Instructions: administer with spacer diclofenac sodium [Arthritis Pain (diclofenac)] 1 % gel 2 g topical QID PRN (Reason: pain) Qty: 100 0RF Rx Instructions: apply to single elbow, wrist or hand; for hand includes palm/fingers/back of hand hydrocortisone [Proctosol HC] 2.5 % cream with perineal applicator 1 appl MI BID 3RF loratadine 10 mg tablet 10 mg PO DAILY 90 Days Qty: 90 1RF hydrochlorothiazide 12.5 mg tablet 12.5 mg PO DAILY 90 Days Qty: 90 0RF clonazepam 1 mg tablet 1 mg PO BEDTIME PRN (Reason: anxiety) 30 Days Qty: 30 0RF Rx Instructions: administer 30 minutes before bedtime zolpidem 5 mg tablet 5 mg PO BEDTIME PRN (Reason: sleep) 30 Days Qty: 30 0RF fluticasone propionate [Flonase Allergy Relief] 50 mcg/actuation spray,suspension 1 spray intranasal DAILY 14 Days Qty: 150 0RF Rx Instructions: administer into each nostril lubiprostone [Amitiza] 24 mcg capsule 24 mcg PO BID 30 Days Qty: 60 3RF famotidine [Pepcid] 40 mg tablet 40 mg PO BID Qty: 60 6RF amitriptyline 25 mg tablet 0 mg PO 0RF Referrals: Fallon Doyle MD [Primary Care Provider] - 1 week Stand Alone Forms: Work/School Release Interventions: ED Discharge Assessment Last Done: 11/12/21 21:16 Discharge Date/Time: 11/12/21 21:18 Print Language: [place]tarian
[2021-11-12 19:32] VITALS: BP 114/43; PULSE 74; RESP 20; TEMP 36.7; O2SAT 99
[2021-11-12 19:41] LABS: Alanine Aminotransferase 14 U/L (0-31); Albumin Level 4.1 g/dL (3.5-5.0); Alkaline Phosphatase 74 U/L (39-117); Aspartate Amino Transferase 19 U/L (5-31); Bilirubin Direct < 0.2 mg/dL (0.0-0.5); Bilirubin Total 0.3 mg/dL (0.0-1.0); Total Protein 7.6 g/dL (6.5-8.0)
[2021-11-12 19:47] LABS: Troponin-I High Sensitivity < 3.5 ng/L (<3.5-17.0)
== END 2021-11-12 21:18 | disposition home or self-care (01) ==
PROVIDERS: Nurse Practitioner Family; Emergency Provider Internal Medicine; PCP Internal Medicine
DX: R60.0 Localized edema (principal); R06.02 Shortness of breath; I10 Essential (primary) hypertension; F33.1 Major depressive disorder, recurrent, moderate; Z79.899 Other long term (current) drug therapy
CPT/HCPCS: 36415; 71046; 80048; 80076; 83880; 84484; 85025; 93005; 99283; 99284

== ENCOUNTER 2021-12-02 15:35 | Outpatient (REF) | payer OTHER, SELFPAY | END 2021-12-02 15:36 | disposition home or self-care (01) | LOC: HO.LAB 15:35 | PROVIDERS: Visit Provider Obstetrics & Gynecology | DX: R10.2 Pelvic and perineal pain (principal); R35.0 Frequency of micturition; R31.29 Other microscopic hematuria; I10 Essential (primary) hypertension; Z90.5 Acquired absence of kidney; E66.9 Obesity, unspecified; Z68.41 Body mass index [BMI] 40.0-44.9, adult | CPT/HCPCS: 87086; 99212 ==

== ENCOUNTER 2021-12-04 14:53 | Outpatient (REF) | payer OTHER, SELFPAY ==
--- NOTE | ~2021-12-04 | US_ITS ---
EXAMINATION: US PELVIS CLINICAL INFORMATION: Pain COMPARISON: Previous pelvic ultrasound April 2021 TECHNIQUE: Ultrasound of the pelvis is performed using both transabdominal and transvaginal transducers along with Doppler. Transvaginal imaging is performed due to inadequate visualization transabdominally. FINDINGS: The uterus is anteverted and measures 10.5 x 5.6 x 6.4 cm in dimension. There is a 2.1 x 1.65 1.7 cm hyperechoic area in the left fundus of the uterus questionable for a fibroid. No other focal uterine lesion is seen. Endometrial thickness is normal measuring 0.7 cm. There are nabothian cysts in the cervix. The ovaries are normal. The right ovary measures 3.3 x 2.4 x 1.2 cm. The left ovary measures 2.3 x 1.7 x 1.7 cm. There is no fluid in the pelvis. US/US pelvic and transvaginal IMPRESSION: Question small left fundal uterine fibroid. Otherwise unremarkable exam.
== END 2021-12-04 14:54 | disposition home or self-care (01) ==
LOC: HO.US 14:53
PROVIDERS: PCP Internal Medicine; Visit Provider Obstetrics & Gynecology
DX: R10.2 Pelvic and perineal pain (principal)
CPT/HCPCS: 76830; 76856

== ENCOUNTER 2021-12-05 07:32 | Emergency (ER) | payer OTHER, SELFPAY ==
--- NOTE | ~2021-12-05 | CT_ITS ---
EXAMINATION: CT ABDOMEN AND PELVIS WITHOUT CONTRAST CLINICAL INFORMATION: Microscopic hematuria and left flank pain. Mild dilatation of the left renal pelvis on ultrasound from earlier the same day. History of right nephrectomy. COMPARISON: Renal ultrasound from earlier the same day previous CT of the abdomen and pelvis June 2020 TECHNIQUE: Multidetector volumetric imaging was performed from the superior aspect of the liver through the pubic symphysis. Sagittal and coronal reformatted images were obtained on the technologist's workstation. This CT examination was performed using dose optimization techniques as appropriate, variously including the following: *Automated exposure control *Adjustment of mA and/or kV according to patient size (this includes techniques or standardized protocols for targeted exams where dose is matched to indication/reason for exam; i.e. extremities or head) *Use of iterative reconstruction technique DLP: 98 mGy-cm FINDINGS: LUNG BASES: The visualized lung bases are clear. There is a small pericardial effusion. LIVER, GALLBLADDER, AND BILIARY TREE: The liver is normal in size, shape, and attenuation. No focal hepatic lesion or biliary ductal dilatation is present. The gallbladder is unremarkable with no evidence of radiopaque gallstones, gallbladder wall thickening, or obvious pericholecystic inflammatory changes. PANCREAS: Unremarkable. SPLEEN: Unremarkable. ADRENAL GLANDS: Unremarkable. KIDNEYS AND URETERS: The right kidney is been removed. No soft tissue mass in the right renal fossa is seen. There is compensatory hypertrophy of the left kidney. No left renal stone or hydronephrosis is seen. The left ureter does not appear dilated. No left ureteral stone is seen. BLADDER: Unremarkable. GASTROINTESTINAL TRACT: The small and large bowel are unremarkable. The appendix is unremarkable. ABDOMINAL WALL: No significant hernia is appreciated. LYMPH NODES: Normal. VASCULAR: Unremarkable. PELVIC VISCERA: Unremarkable. OSSEOUS STRUCTURES: There is degenerative disc disease at L5-S1.. CT/CT abdomen pelvis wo con IMPRESSION: Compensatory hypertrophy of the left kidney. No left renal stone or hydronephrosis.. Fleischner guidelines were followed.
--- NOTE | ~2021-12-05 | US_ITS ---
EXAMINATION: ULTRASOUND RENAL LEFT CLINICAL INFORMATION: Microscopic hematuria and left flank pain. History of right nephrectomy COMPARISON: Previous renal ultrasound 11/04/[address] of the abdomen and pelvis June 2020 TECHNIQUE: Grayscale color and Doppler imaging of the left kidney FINDINGS: There is compensatory hypertrophy of the left kidney. The left kidney measures 13.6 x 7.4 x 6.7 cm in dimension. No renal stone, or mass is seen. No calyceal dilatation is seen. There is mild dilatation of the left renal pelvis. Left ureteral jet is identified in the bladder. US/US renal LT IMPRESSION: No stone or definite hydronephrosis seen. There is mild dilatation of the left renal pelvis new from previous exams. Left ureteral jet is seen in the bladder.
[2021-12-05 07:40] VITALS: BP 131/62; PULSE 86; RESP 19; TEMP 36.7; O2SAT 98
[2021-12-05 07:47] VITALS: BMI 40.6
--- NOTE | 2021-12-05 08:15 | ED.FEMALEGU ---
HPI - Female Genitourinary General Chief complaint: Urogenital-Female Stated complaint: kidney pain Time Seen by Provider: 12/05/21 08:14 Source: patient Mode of arrival: ambulatory History of Present Illness HPI Narrative: 46-year-old female with a past medical history of solitary kidney function s/p right nephrectomy, chronic left flank pain, kidney stones, HTN, anxiety, depression obesity, sleep apnea, presenting to the ED c/o left flank/low back pain radiating to lower abdomen and down bilateral LE x a few days. Admits pain is acute on chronic however worsening. Admits a OBGYN a few days ago, had outpatient ultrasound yesterday. Reports vaginal spotting previously, none at present. Denies fever, dysuria, hematuria, abdominal pain, numbness, tingling, weakness, vaginal bleeding, vaginal discharge Related Data Home Medications Medication Instructions Recorded Confirmed amitriptyline 25 mg tablet 0 mg PO 06/16/21 11/25/21 Previous Rx's Medication Instructions Recorded albuterol sulfate 2.5 mg (3 mL) inhalation Q4-6H PRN 10/08/20 shortness of breath or wheezing 30 days #75 mL albuterol sulfate 90 mcg/actuation 2 puff inhalation Q6H PRN 10/08/20 aerosol inhaler (ProAir HFA) shortness of breath or wheezing 30 days #6.7 grams fluticasone propionate 44 2 puff inhalation BID 30 days 10/08/20 mcg/actuation HFA aerosol inhaler #10.6 grams (Flovent HFA) fluticasone propionate 50 1 spray intranasal DAILY 14 days 07/15/21 mcg/actuation nasal #150 mL spray,suspension (Flonase Allergy Relief) diclofenac sodium 1 % topical gel 2 g topical QID PRN pain #100 grams 08/11/21 (Arthritis Pain (diclofenac)) famotidine 40 mg tablet (Pepcid) 40 mg PO BID #60 tabs 08/25/21 lubiprostone 24 mcg capsule 24 mcg PO BID 30 days #60 caps 08/25/21 (Amitiza) Proctosol HC 2.5 % topical cream 1 appl [place] BID hemorrhoids 08/31/21 perineal applicator (hydrocortisone) loratadine 10 mg tablet 10 mg PO DAILY 90 days #90 tabs 09/04/21 clonazepam 1 mg tablet 1 mg PO BEDTIME PRN anxiety 30 11/09/21 days #30 tabs zolpidem 5 mg tablet 5 mg PO BEDTIME PRN sleep 30 days 11/10/21 #30 tabs hydrochlorothiazide 12.5 mg tablet 12.5 mg PO DAILY 90 days #90 tabs 12/01/21 cyclobenzaprine 5 mg tablet 5 mg PO Q8H PRN pain (scale score 12/05/21 7-10) 5 days #14 tabs lidocaine 5 % topical patch 1 patch topical DAILY PRN pain #30 12/05/21 (Lidoderm) ea Allergies Allergy/AdvReac Type Severity Reaction Status Date / Time citalopram Allergy Intermediate palpitation Verified 12/02/21 15:28 s doxepin Allergy Intermediate palpitation Verified 12/02/21 15:28 s quetiapine [Seroquel] Allergy Intermediate weight gain Verified 12/02/21 15:28 trazodone Allergy Intermediate palpitation Verified 12/02/21 15:28 s Review of Systems Review of Systems: Constitutional: No Fever, No Chills, No Fatigue, No Malaise ENT/Mouth: No Ear Pain, No Nasal Congestion, No sore throat, No Rhinorrhea, No Swallowing Difficulty Eyes: No Eye Pain, No Swelling, No Redness Cardiovascular: No Chest Pain, No SOB, No Palpitations Respiratory: No Cough, No Sputum, No Dyspnea Gastrointestinal: No Nausea, No Vomiting, No Diarrhea, No Constipation, + Abdominal pain Genitourinary: No Dysuria, No Urinary Frequency, No Hematuria, No Urinary Incontinence/retention, +Flank Pain, No Urinary Flow Changes Musculoskeletal: + back pain, No Myalgias, No Joint Swelling Skin: No Skin Lesions, No rash Neuro: No Weakness, No Numbness, No Paresthesias, No Dizziness, No Headache Yes all other systems are reviewed and are negative Neurologic: Denies Sensory deficit (Neuro) [facility] Past Medical History Attestation statement: The following information was validated with the patient. Medical History Abdominal pain Abnormal abdominal ultrasound Absence of kidney Carpal tunnel syndrome Essential hypertension Essential hypertension FH: throat cancer YARITZA (generalized anxiety disorder) Migraines Mild recurrent major depression Moderate asthma Morbidly obese Numerous moles Obesity PATRIC (obstructive sleep apnea) Ovarian cyst Palpitations Pelvic pain Primary insomnia Right elbow pain Transaminitis Surgical History History of loop electrical excision procedure (LEEP) History of removal of ovarian cyst (~2017) History of right nephrectomy Family History Family History Maternal Grandmother Diabetes mellitus Maternal Grandfather Heart disease CVD (cardiovascular disease) Father Heart problem Sister Heart murmur Paternal Grandmother Heart problem Social History Social History Housing: Apartment Alcohol intake: never Patient Tobacco Use Status: Never used Tobacco e-Cigarette/Vaping Use: Never Used Second Hand Smoke Exposure: No Use of substances other than those prescribed or required for medical reasons: No Advance Directives: No Advance Directives Information Provided: No Patient : No service: No Current occupational status: unemployed 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 Current occupational exposures/hazards: No Gender identity: Female Cognitive needs: No Hearing needs: No Vision needs: No Physical Exam Vital Signs: Vital Signs: Last Vital Signs Temp 98.0 F 12/05/21 07:40 Pulse 69 12/05/21 10:23 Resp 16 12/05/21 10:23 BP 113/42 L 12/05/21 10:23 Pulse Ox 98 12/05/21 10:23 O2 Del Method 12/05/21 10:23 BMI result Body Mass Index 40.6 Const: General: cooperative, healthy appearing, no acute distress, alert and awake Orientation/consciousness: patient oriented x3 Limitations: no limitations HEENT: Head: Yes normal to inspection and Yes atraumatic Ears: hearing grossly normal bilaterally General nose exam: Normal external nose present Face and sinus: Yes normal facial exam Eyes: General: appearance normal, both eyes and all related structures EOM: EOMs intact bilaterally Neck: Neck: Yes normal visual inspection and Yes no meningeal signs Resp: Effort & Inspection: normal respiratory effort and no respiratory distress Auscultation: clear to auscultation bilaterally, no rhonchi and no wheezes Cardio: Rate: regular rate Heart sounds: S1 normal heart sound present and S2 normal heart sound present GI: Inspection: Yes normal to inspection Palpation (GI): Soft to palpation, Tenderness to palpation present (GI) suprapubicly, no guarding and not rigid : General: Yes CVA tenderness on the left Back/Spine/Pelvis: Other: No midline thoracic/lumbar spinous tenderness/step-off or deformity. + left-sided lower lumbar MSK tenderness to palpation Back: CVA tenderness Thoracic/Lumbar Spine: thoracic and lumbar spine normal to inspection Skin: Rashes: no rashes Wounds: no wounds Neuro: Other: Strength intact throughout. No saddle anesthesia. Sensation intact to light touch. Neurovascular intact distally General: patient oriented x3, tone normal, moves all extremities, no meningeal signs and no focal motor deficits Gait exam (Neuro): Normal gait present Sensory Exam: No Sensory deficit (Neuro) Extrem: General: Yes normal to inspection Course Course Course Narrative: -1046--labs unremarkable, UA negative, negative US pelvic and transvaginal IMPRESSION: Question small left fundal uterine fibroid. Otherwise unremarkable exam. US renal LT IMPRESSION: No stone or definite hydronephrosis seen. There is mild dilatation of the left renal pelvis new from previous exams. Left ureteral jet is seen in the bladder.? >>Will obtain CT for further evaluation/rule out obstruction CT abdomen pelvis wo con IMPRESSION: Compensatory hypertrophy of the left kidney. No left renal stone or hydronephrosis..? ? Fleischner guidelines were followed. >> results discussed with patient including needed follow-up with PCP/security systems technician. Discussed worrisome signs and symptoms and strict return precautions. She verbalized understanding and feels safe for discharge home at this time MDM - Female Genitourinary MDM Narrative Medical decision making narrative: 46-year-old female with a past medical history of solitary kidney function s/p right nephrectomy, chronic left flank pain, kidney stones, HTN, anxiety, depression obesity, sleep apnea, presenting to the ED c/o left flank/low back pain radiating to lower abdomen and down bilateral LE x a few days. Admits pain is acute on chronic however worsening. Admits a OBGYN a few days ago, had outpatient ultrasound yesterday. On exam vital signs stable, NAD/nontoxic appearing, abdomen soft with mild suprapubic tenderness, no rebound or guarding, left CVA tenderness noted. Left MSK back pain also elicited, no focal neuro deficits, no red flag symptoms/midline spinous tenderness. Concern for MSK pain/strain/sciatica vs kidney stone vs pyelo/UTI vs uterine pathology. Lower concern for ovarian torsion Plan: Obtain report from pelvic ultrasound that patient had yesterday, labs, UA, renal ultrasound, re-evaluate Differential Diagnosis Differential diagnosis: Likely urinary tract infection Medical Records Attestation: I reviewed the patient's medical records. Lab Data Attestation: I reviewed the patient's lab results. Result diagrams: 12/05/21 09:25 12/05/21 09:25 Labs: Lab Results 12/05/21 12/05/21 12/05/21 Range/Units 08:11 09:19 09:25 WBC 6.2 (4.8-10.8) X10*3/uL RBC 4.54 (4.20-5.50) X10*6/uL Hgb 13.2 (12.0-16.0) g/dl Hct 40.8 (37.0-47.0) % MCV 89.9 (80.0-98.0) fL MCH 29.1 (27.0-33.0) pg MCHC 32.4 (31.0-35.0) g/dl RDW 14.0 (11.0-16.0) % Plt Count 258 (160-400) X10*3/uL MPV 10.2 (9.4-12.3) fL Immature Gran % (Auto) 0.3 (0.0-0.4) % Neut % (Auto) 45.6 (45-73) % Lymph % (Auto) 39.9 (20-40) % [place] % (Auto) 10.5 (2-11) % Eos % (Auto) 2.9 (0-4) % Baso % (Auto) 0.8 (0-2) % Lymph # (Auto) 2.5 (1.2-4.9) X10*3/uL [place] # (Auto) 0.7 (0.1-1.2) X10*3/uL Eos # (Auto) 0.2 (0.0-0.4) X10*3/uL Baso # (Auto) 0.1 (0.0-0.2) X10*3/uL Abs Immat Gran (auto) 0.02 (0.00-0.03) X10*3/uL Absolute Neuts (auto) 2.8 (2.0-8.3) x10*3/uL Absolute Nucleated RBC 0.000 (0.0-0.012) X10*3/uL Nucleated RBC % (auto) 0.0 (0.0-0.2) /100WBC Sodium (135-145) mmol/L Potassium (3.3-5.1) mmol/L Chloride (96-108) mmol/L Carbon Dioxide (22-29) mmol/L Anion Gap (12-20) BUN (9-16) mg/dL Creatinine (0.5-1.4) mg/dL Estim Creat Clear Calc Estimated GFR Random Glucose (60-115) mg/dL Calcium (8.4-10.2) mg/dL Total Bilirubin (0.0-1.0) mg/dL Direct Bilirubin (0.0-0.5) mg/dL AST (5-31) U/L ALT (0-31) U/L Alkaline Phosphatase (39-117) U/L Total Protein (6.5-8.0) g/dL Albumin (3.5-5.0) g/dL Urine Color YELLOW Urine Appearance CLEAR Urine pH 6.0 (5.0-8.0) Ur Specific [place] 1.025 (1.005-1.025) Urine Protein NEG (NEG-TRACE) MG/DL Urine Glucose (UA) NEG (NEG) MG/DL Urine Ketones NEG (NEG) MG/DL Urine Blood NEG (NEG) Urine Nitrite NEG (NEG) Ur Leukocyte Esterase NEG (NEG) Urine Test NEGATIVE (NEGATIVE) 12/05/21 Range/Units 09:25 WBC (4.8-10.8) X10*3/uL RBC (4.20-5.50) X10*6/uL Hgb (12.0-16.0) g/dl Hct (37.0-47.0) % MCV (80.0-98.0) fL MCH (27.0-33.0) pg MCHC (31.0-35.0) g/dl RDW (11.0-16.0) % Plt Count (160-400) X10*3/uL MPV (9.4-12.3) fL Immature Gran % (Auto) (0.0-0.4) % Neut % (Auto) (45-73) % Lymph % (Auto) (20-40) % Norman % (Auto) (2-11) % Eos % (Auto) (0-4) % Baso % (Auto) (0-2) % Lymph # (Auto) (1.2-4.9) X10*3/uL [place] # (Auto) (0.1-1.2) X10*3/uL Eos # (Auto) (0.0-0.4) X10*3/uL Baso # (Auto) (0.0-0.2) X10*3/uL Abs Immat Gran (auto) (0.00-0.03) X10*3/uL Absolute Neuts (auto) (2.0-8.3) x10*3/uL Absolute Nucleated RBC (0.0-0.012) X10*3/uL Nucleated RBC % (auto) (0.0-0.2) /100WBC Sodium 140 (135-145) mmol/L Potassium 4.2 (3.3-5.1) mmol/L Chloride 107 (96-108) mmol/L Carbon Dioxide 25 (22-29) mmol/L Anion Gap 12 (12-20) BUN 10 (9-16) mg/dL Creatinine 0.72 (0.5-1.4) mg/dL Estim Creat Clear Calc 119.6 Estimated GFR > 60 Random Glucose 97 (60-115) mg/dL Calcium 9.7 (8.4-10.2) mg/dL Total Bilirubin 0.4 (0.0-1.0) mg/dL Direct Bilirubin 0.2 (0.0-0.5) mg/dL AST 15 (5-31) U/L ALT 12 (0-31) U/L Alkaline Phosphatase 79 (39-117) U/L Total Protein 7.9 (6.5-8.0) g/dL Albumin 4.3 (3.5-5.0) g/dL Urine Color Urine Appearance Urine pH (5.0-8.0) Ur Specific [place] (1.005-1.025) Urine Protein (NEG-TRACE) MG/DL Urine Glucose (UA) (NEG) MG/DL Urine Ketones (NEG) MG/DL Urine Blood (NEG) Urine Nitrite (NEG) Ur Leukocyte Esterase (NEG) Urine Test (NEGATIVE) Discharge Plan Discharge Clinical Impression: Flank pain, Low back pain, Sciatic leg pain, Fibroid, uterine Patient Disposition: Home, Self-Care Instructions: Sciatica (ED), Abdominal Pain (ED), Back Pain (ED) Additional Instructions: Your blood work and imaging studies were reassuring today in the emergency department. Your pelvic ultrasound from yesterday shows uterine fibroid. It is important for you to follow-up with her primary care doctor and OBGYN as scheduled If symptoms persist or worsen, pain becomes unbearable, you have fever please return to the emergency department/call 911 Your leg pain is likely musculoskeletal Flexeril is a muscle relaxer, take at night as it makes you drowsy, do not drive, drink alcohol, or operate machinery while taking it Lidoderm patches are numbing patches, apply to painful area In addition take Tylenol at home If symptoms persist or worsen, pain becomes unbearable, you developed urinary retention or incontinence, or weakness return to the ED Prescriptions: New lidocaine [Lidoderm] 5 % adhesive patch,medicated 1 patch topical DAILY MDD remove after 12 hours PRN (Reason: pain) Qty: 30 0RF Rx Instructions: leave on most painful area for up to 12 hrs cyclobenzaprine 5 mg tablet 5 mg PO Q8H PRN (Reason: pain (scale score 7-10)) 5 Days Qty: 14 0RF No Action albuterol sulfate [ProAir HFA] 90 mcg/actuation HFA aerosol inhaler 2 puff inhalation Q6H PRN (Reason: shortness of breath or wheezing) 30 Days Qty: 6.7 6RF albuterol sulfate 2.5 mg /3 mL (0.083 %) solution for nebulization 2.5 mg inhalation Q4-6H PRN (Reason: shortness of breath or wheezing) 30 Days Qty: 75 6RF Flovent HFA 44 mcg/actuation HFA aerosol inhaler 2 puff inhalation BID 30 Days Qty: 10.6 6RF Rx Instructions: administer with spacer diclofenac sodium [Arthritis Pain (diclofenac)] 1 % gel 2 g topical QID PRN (Reason: pain) Qty: 100 0RF Rx Instructions: apply to single elbow, wrist or hand; for hand includes palm/fingers/back of hand hydrocortisone [Proctosol HC] 2.5 % cream with perineal applicator 1 appl [place] BID 3RF loratadine 10 mg tablet 10 mg PO DAILY 90 Days Qty: 90 1RF clonazepam 1 mg tablet 1 mg PO BEDTIME PRN (Reason: anxiety) 30 Days Qty: 30 0RF Rx Instructions: administer 30 minutes before bedtime zolpidem 5 mg tablet 5 mg PO BEDTIME PRN (Reason: sleep) 30 Days Qty: 30 0RF hydrochlorothiazide 12.5 mg tablet 12.5 mg PO DAILY 90 Days Qty: 90 3RF fluticasone propionate [Flonase Allergy Relief] 50 mcg/actuation spray,suspension 1 spray intranasal DAILY 14 Days Qty: 150 0RF Rx Instructions: administer into each nostril lubiprostone [Amitiza] 24 mcg capsule 24 mcg PO BID 30 Days Qty: 60 3RF famotidine [Pepcid] 40 mg tablet 40 mg PO BID Qty: 60 6RF amitriptyline 25 mg tablet 0 mg PO Referrals: Fallon Doyle MD [Primary Care Provider] - Bao Sadler MD [Physician] -
[2021-12-05 08:18] LABS: Appearance Urine CLEAR; Color Urine YELLOW; Glucose Urine UA NEG (NEG); Leukocyte Esterase Urine NEG (NEG); Nitrite Urine NEG (NEG); Specific Gravity - Urine 1.025 (1.005-1.025); Urine Blood NEG (NEG); Urine Ketones NEG (NEG); Urine Protein NEG (NEG-TRACE)
[2021-12-05] MEDS: Cyclobenzaprine HCl 10 MG TABLET PO (09:20)
[2021-12-05 09:28] LABS: MANUAL DIFF FLAG NO
[2021-12-05 09:31] LABS: UPreg QC Valid YES; Urine Pregnancy NEGATIVE (NEGATIVE)
[2021-12-05 09:35] LABS: Basophils Absolute Auto 0.1 X10*3/uL (0.0-0.2); Basophils Percent Auto 0.8 % (0-2); Eosinophils Absolute Auto 0.2 X10*3/uL (0.0-0.4); Eosinophils Percent Auto 2.9 % (0-4); Hematocrit 40.8 % (37.0-47.0); Hemoglobin 13.2 g/dl (12.0-16.0); Imm Gran Abs Auto 0.02 X10*3/uL (0.00-0.03); Imm Gran Pct Auto 0.3 % (0.0-0.4); Lymphocytes Absolute Auto 2.5 X10*3/uL (1.2-4.9); Lymphocytes Percent Auto 39.9 % (20-40); Mean Corpuscular HGB Conc 32.4 g/dl (31.0-35.0); Mean Corpuscular Hemoglobin 29.1 pg (27.0-33.0); Mean Corpuscular Volume 89.9 fL (80.0-98.0); Mean Platelet Volume 10.2 fL (9.4-12.3); Monocytes Absolute Auto 0.7 X10*3/uL (0.1-1.2); Monocytes Percent Auto 10.5 % (2-11); Neutrophils Absolute Auto 2.8 x10*3/uL (2.0-8.3); Neutrophils Percent Auto 45.6 % (45-73); Platelet Count 258 X10*3/uL (160-400); Red Blood Count 4.54 X10*6/uL (4.20-5.50); White Blood Count 6.2 X10*3/uL (4.8-10.8)
[2021-12-05 09:48] LABS: Alanine Aminotransferase 12 U/L (0-31); Albumin Level 4.3 g/dL (3.5-5.0); Alkaline Phosphatase 79 U/L (39-117); Anion Gap 12 (12-20); Aspartate Amino Transferase 15 U/L (5-31); Bilirubin Direct 0.2 mg/dL (0.0-0.5); Bilirubin Total 0.4 mg/dL (0.0-1.0); Blood Urea Nitrogen 10 mg/dL (9-16); Calcium 9.7 mg/dL (8.4-10.2); Carbon Dioxide 25 mmol/L (22-29); Chloride 107 mmol/L (96-108); Creatinine Clr Calc Pharmacy 119.6; Estimated Glomerular Filt Rate > 60; Glucose Random 97 mg/dL (60-115); Potassium 4.2 mmol/L (3.3-5.1); Sodium 140 mmol/L (135-145); Total Protein 7.9 g/dL (6.5-8.0)
[2021-12-05 10:23] VITALS: BP 113/42; PULSE 69; RESP 16; O2SAT 98
[2021-12-05] MEDS: Lidocaine 4 % Patch ADH..PATCH 1 PATCH TRANSDERMA (11:41)
[2021-12-05] MEDS: Acetaminophen 325 MG TABLET 650 MG PO (11:41)
[2021-12-05 13:33] LABS: CT PCR NOT DETECTED (Not Detect.); NG PCR NOT DETECTED (Not Detect.)
== END 2021-12-05 13:27 | disposition home or self-care (01) ==
PROVIDERS: Physician Assistant; Emergency Provider Emergency Medicine; PCP Internal Medicine
DX: R10.9 Unspecified abdominal pain (principal); M54.40 Lumbago with sciatica, unspecified side; D25.9 Leiomyoma of uterus, unspecified; I10 Essential (primary) hypertension; Z87.442 Personal history of urinary calculi; Z90.5 Acquired absence of kidney
CPT/HCPCS: 36415; 74176; 76775; 80048; 80076; 81003; 81025; 85025; 87491; 87591; 99284

== ENCOUNTER 2021-12-14 13:00 | Outpatient (REF) | payer OTHER, SELFPAY ==
--- NOTE | ~2021-12-14 | MM_ITS ---
EXAMINATION: MM DIAGNOSTIC DIGITAL BREAST TOMOSYNTHESIS, BILATERAL CLINICAL INFORMATION: Due for yearly. Also follow-up calcifications right breast. No known family history breast cancer. TC score 6%. COMPARISON: Mammography: 06/03/2021, 11/19/2020, 11/15/2020 (BI-RADS 0, right), 02/16/2019, 07/21/2018, 02/02/2018, 07/15/2017, 01/14/2017, 01/12/2017 (BI-RADS 0, left). TECHNIQUE: Digital breast tomosynthesis is performed in both the craniocaudal and mediolateral oblique views along with computer-aided detection (CAD). Synthesized 2D images are generated from the tomosynthesis. Magnification views are obtained in the right CC x2 and right MLO projections. FINDINGS: The breasts are heterogeneously dense, which may obscure small masses (ACR BI-RADS breast composition Category c). Parenchymal pattern is similar to prior exams and there is no developing density or architectural abnormality. There is an intramammary node again seen posterior upper outer right breast. The axilla are unremarkable. The skin contours are smooth. Right breast calcifications for follow-up are stable from prior diagnostic right mammography. No focal increasing calcifications or ductal distribution. The right calcifications are similar in appearance to previously followed contralateral left breast calcifications. The bilateral involvement suggests underlying benign process. Right breast calcifications will be reassessed again in 6 months. Results are provided to the patient at time of visit by the technologist. MM/MM tomosynthesis diagnostic BI IMPRESSION: -No significant changes from prior studies. -Right calcifications similar to prior diagnostic exam and similar to previous with contralateral left breast calcifications. ASSESSMENT: BI-RADS 3: Probably Benign RECOMMENDATION: Diagnostic right mammography in 6 months. This patient's information was entered into a reminder system with a target due date for their next mammogram.
== END 2021-12-14 13:01 | disposition home or self-care (01) ==
LOC: HO.MAMMO 13:00
PROVIDERS: Visit Provider Internal Medicine
DX: R92.1 Mammographic calcification found on diagnostic imaging of breast (principal)
CPT/HCPCS: 77062; 77066

== ENCOUNTER → 2022-01-04 13:42 | Outpatient (BNVA) | payer OTHER, SELFPAY | PROVIDERS: PCP Internal Medicine; Visit Provider Obstetrics & Gynecology | DX: R10.2 Pelvic and perineal pain (principal); R31.29 Other microscopic hematuria; D25.9 Leiomyoma of uterus, unspecified | CPT/HCPCS: 99212 ==

== ENCOUNTER 2022-02-07 15:36 | Emergency (ER) | payer OTHER, SELFPAY ==
[2022-02-07 15:59] VITALS: BP 121/52; PULSE 76; RESP 18; TEMP 36.4; O2SAT 98; BMI 39.6
[2022-02-07 16:18] LABS: MANUAL DIFF FLAG NO
[2022-02-07 16:21] LABS: Basophils Absolute Auto 0.1 X10*3/uL (0.0-0.2); Basophils Percent Auto 0.7 % (0-2); Eosinophils Absolute Auto 0.2 X10*3/uL (0.0-0.4); Eosinophils Percent Auto 2.2 % (0-4); Hematocrit 38.4 % (37.0-47.0); Hemoglobin 12.4 g/dl (12.0-16.0); Imm Gran Abs Auto 0.02 X10*3/uL (0.00-0.03); Imm Gran Pct Auto 0.3 % (0.0-0.4); Lymphocytes Absolute Auto 2.6 X10*3/uL (1.2-4.9); Lymphocytes Percent Auto 37.5 % (20-40); Mean Corpuscular HGB Conc 32.3 g/dl (31.0-35.0); Mean Corpuscular Hemoglobin 28.9 pg (27.0-33.0); Mean Corpuscular Volume 89.5 fL (80.0-98.0); Mean Platelet Volume 10.2 fL (9.4-12.3); Monocytes Absolute Auto 0.7 X10*3/uL (0.1-1.2); Monocytes Percent Auto 10.7 % (2-11); Neutrophils Absolute Auto 3.3 x10*3/uL (2.0-8.3); Neutrophils Percent Auto 48.6 % (45-73); Platelet Count 256 X10*3/uL (160-400); Red Blood Count 4.29 X10*6/uL (4.20-5.50); Red Cell Distribution Width 13.5 % (11.0-16.0); White Blood Count 6.8 X10*3/uL (4.8-10.8)
[2022-02-07 16:40] LABS: Alanine Aminotransferase 10 U/L (0-31); Albumin Level 4.1 g/dL (3.5-5.0); Alkaline Phosphatase 72 U/L (39-117); Anion Gap 12 (12-20); Aspartate Amino Transferase 12 U/L (5-31); Bilirubin Total 0.2 mg/dL (0.0-1.0); Blood Urea Nitrogen 10 mg/dL (9-16); Calcium 9.2 mg/dL (8.4-10.2); Carbon Dioxide 26 mmol/L (22-29); Chloride 106 mmol/L (96-108); Creatinine Clr Calc Pharmacy 119.6; Estimated Glomerular Filt Rate > 60; Glucose Random 113 mg/dL (60-115); Potassium 3.9 mmol/L (3.3-5.1); Sodium 140 mmol/L (135-145); Total Protein 7.2 g/dL (6.5-8.0)
[2022-02-07 22:46] VITALS: BP 118/47; PULSE 72; RESP 16; TEMP 36.4; O2SAT 98
--- NOTE | 2022-02-07 22:50 | PC.NURSE ---
pt a&ox3, vss, pt took 1000mg of tylenol in the waiting room for 10/10 left flank pain, pt reports pain is now a 5/10. left flank/kidney pain starting 2 d ago w bilateral ankle swelling and pain, pt had right kidney removed. stock transfer clerk used, ed provider in room.
--- NOTE | 2022-02-07 22:57 | ED_ITS ---
HPI - General Adult General Chief complaint: General Medical Stated complaint: urination problems/Leg swelling Time Seen by Provider: 02/07/22 21:38 Source: patient Mode of arrival: ambulatory Limitations: no limitations History of Present Illness HPI narrative: Patient comes to the emergency room complaining of difficulty urinating. Patient states that it almost feels like a UTI, states that her urine has a str grace smell. Patient has been told in the past that she has chronic hematuria, states that she was told that she needs to follow-up with urology. Denies any flank pain, patient has mild dysuria. Patient also complaining of bilateral lower extremity edema which has been present for 3 days. Patient denies calf pain, chest pain or shortness of breath, no orthopnea. Related Data Home Medications Medication Instructions Recorded Confirmed amitriptyline 25 mg tablet 0 mg PO 06/16/21 01/07/22 Previous Rx's Medication Instructions Recorded albuterol sulfate 2.5 mg/3 mL 2.5 mg (3 mL) inhalation Q4-6H PRN 10/08/20 (0.083 %) solution for nebulization shortness of breath or wheezing 30 days #75 mL albuterol sulfate 90 mcg/actuation 2 puff inhalation Q6H PRN 10/08/20 aerosol inhaler (ProAir HFA) shortness of breath or wheezing 30 days #6.7 grams fluticasone propionate 44 2 puff inhalation BID 30 days 10/08/20 mcg/actuation HFA aerosol inhaler #10.6 grams (Flovent HFA) fluticasone propionate 50 1 spray intranasal DAILY 14 days 07/15/21 mcg/actuation nasal #150 mL spray,suspension (Flonase Allergy Relief) diclofenac sodium 1 % topical gel 2 g topical QID PRN pain #100 grams 08/11/21 (Arthritis Pain (diclofenac)) famotidine 40 mg tablet (Pepcid) 40 mg PO BID #60 tabs 08/25/21 lubiprostone 24 mcg capsule 24 mcg PO BID 30 days #60 caps 08/25/21 (Amitiza) Proctosol HC 2.5 % topical cream 1 appl [place] BID hemorrhoids 08/31/21 perineal applicator (hydrocortisone) loratadine 10 mg tablet 10 mg PO DAILY 90 days #90 tabs 09/04/21 hydrochlorothiazide 12.5 mg tablet 12.5 mg PO DAILY 90 days #90 tabs 12/01/21 lidocaine 5 % topical patch 1 patch topical DAILY PRN pain #30 12/05/21 (Lidoderm) ea amoxicillin 875 mg-potassium 1 tab PO BID 7 days #14 tabs 01/07/22 clavulanate 125 mg tablet clonazepam 1 mg tablet 1 mg PO BEDTIME PRN anxiety 30 02/06/22 days #30 tabs zolpidem 5 mg tablet 5 mg PO BEDTIME PRN sleep 30 days 02/06/22 #30 tabs furosemide 20 mg tablet (Lasix) 20 mg PO DAILY #5 tabs 02/08/22 Allergies Allergy/AdvReac Type Severity Reaction Status Date / Time citalopram Allergy Intermediate palpitation Verified 02/07/22 15:59 s doxepin Allergy Intermediate palpitation Verified 02/07/22 15:59 s quetiapine [Seroquel] Allergy Intermediate weight gain Verified 02/07/22 15:59 trazodone Allergy Intermediate palpitation Verified 02/07/22 15:59 s Review of Systems Review of Systems: Constitutional : No Weight loss, No Fever, No Chills, No Night Sweats, No Fatigue, No Malaise ENT/Mouth : No Hearing loss, No Ear Pain, No Nasal Congestion, No Sinus Pain, No Hoarseness, No sore throat, No Rhinorrhea, No Swallowing Difficulty Eyes: No Eye Pain, No Swelling, No Redness, No Foreign Body, No Discharge, No Vision Changes Cardiovascular : No Chest Pain, No SOB, No Dyspnea on Exertion, No Orthopnea, No Edema, No Palpitations Respiratory : No Cough, No Sputum, No Wheezing, No Smoke Exposure, No Dyspnea Gastrointestinal : No Nausea, No Vomiting, No Diarrhea, No Constipation, No abdominal Pain, No Hematochezia, No Melena Genitourinary : no irregular bleeding, complaining of mild Dysuria, complaining of decreased amount of urine No Urinary Frequency, has had chronic microscopic hematuria Hematuria, No Urinary Incontinence, No Urgency, No Flank Pain, No Urinary Flow Changes, No Hesitancy Musculoskeletal : No joint pain, No Myalgias, No Joint Swelling Skin : No Skin Lesions, No rash Neuro : No Weakness, No Numbness, No Paresthesias, No Loss of Consciousness, No Dizziness, No Headache Psych : No Anxiety/Panic, No Depression, No SI/HI/AH/VH, No Social Issues, Heme/Lymph: No Bruising, No Bleeding,No Lymphadenopathy Endocrine : No Polyuria, No Polydipsia, No Temperature Intolerance FOR[facility]LY [facility] Past Medical History Medical History Abdominal pain Abnormal abdominal ultrasound Absence of kidney Carpal tunnel syndrome Essential hypertension Essential hypertension FH: throat cancer YARITZA (generalized anxiety disorder) Migraines Mild recurrent major depression Moderate asthma Morbidly obese Numerous moles Obesity PATRIC (obstructive sleep apnea) Ovarian cyst Palpitations Pelvic pain Primary insomnia Right elbow pain Transaminitis Surgical History History of loop electrical excision procedure (LEEP) History of removal of ovarian cyst (~2017) History of right nephrectomy Family History Family History Maternal Grandmother Diabetes mellitus Maternal Grandfather Heart disease CVD (cardiovascular disease) Father Heart problem Sister Heart murmur Paternal Grandmother Heart problem Social History Social History Housing: Apartment Alcohol intake: never Patient Tobacco Use Status: Never used Tobacco e-Cigarette/Vaping Use: Never Used Second Hand Smoke Exposure: No Use of substances other than those prescribed or required for medical reasons: No Advance Directives: No Advance Directives Information Provided: No Patient : No service: No Current occupational status: unemployed 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 Oriented X3. No acute distress. Well appearing Eyes: Pupils equal, round and reactive to light. ENT: Pharynx normal. Neck: Normal inspection. Neck supple. No lymph nodes noted. No crepitus CVS: Normal heart rate and rhythm. Pulses normal. Normal S1 and S2 Respiratory: No respiratory distress. Breath sounds normal. No Wheezing. No rales Abdomen: Soft and nontender. No rigidity. No distention. Skin: Skin warm and dry. Normal skin color. Normal skin turgor. Extremities: Mild nonpitting edema, more noticeable around the ankles, no calf tenderness Neuro: Oriented X 3. No motor deficit. No sensory deficit. Moving all extremities. No slurred speech. CN 2 through 12 grossly intact Psych: calm, cooperative, normal affect Course Course Course Narrative: Patient's white blood cell count normal. BMP pending, urinalysis pending. Patient does not have any abdominal pain or suprapubic discomfort. Urinalysis negative for UTI. Bladder scan shows 156 mL of urine Patient instructed to take Lasix for couple of days, use compression stockings in sleep with elevated leg Medical Decision Making Lab Data Result diagrams: 02/07/22 Unknown 02/07/22 Unknown Labs: Lab Results 02/07/22 02/07/22 02/07/22 Range/Units 23:28 Unknown Unknown WBC 6.8 (4.8-10.8) X10*3/uL RBC 4.29 (4.20-5.50) X10*6/uL Hgb 12.4 (12.0-16.0) g/dl Hct 38.4 (37.0-47.0) % MCV 89.5 (80.0-98.0) fL MCH 28.9 (27.0-33.0) pg MCHC 32.3 (31.0-35.0) g/dl RDW 13.5 (11.0-16.0) % Plt Count 256 (160-400) X10*3/uL MPV 10.2 (9.4-12.3) fL Immature Gran % (Auto) 0.3 (0.0-0.4) % Neut % (Auto) 48.6 (45-73) % Lymph % (Auto) 37.5 (20-40) % Stark % (Auto) 10.7 (2-11) % Eos % (Auto) 2.2 (0-4) % Baso % (Auto) 0.7 (0-2) % Lymph # (Auto) 2.6 (1.2-4.9) X10*3/uL Stark # (Auto) 0.7 (0.1-1.2) X10*3/uL Eos # (Auto) 0.2 (0.0-0.4) X10*3/uL Baso # (Auto) 0.1 (0.0-0.2) X10*3/uL Abs Immat Gran (auto) 0.02 (0.00-0.03) X10*3/uL Absolute Neuts (auto) 3.3 (2.0-8.3) x10*3/uL Absolute Nucleated RBC 0.000 (0.0-0.012) X10*3/uL Nucleated RBC % (auto) 0.0 (0.0-0.2) /100WBC Sodium 140 (135-145) mmol/L Potassium 3.9 (3.3-5.1) mmol/L Chloride 106 (96-108) mmol/L Carbon Dioxide 26 (22-29) mmol/L Anion Gap 12 (12-20) BUN 10 (9-16) mg/dL Creatinine 0.71 (0.5-1.4) mg/dL Estim Creat Clear Calc 119.6 Estimated GFR > 60 Random Glucose 113 (60-115) mg/dL Calcium 9.2 (8.4-10.2) mg/dL Total Bilirubin 0.2 (0.0-1.0) mg/dL AST 12 (5-31) U/L ALT 10 (0-31) U/L Alkaline Phosphatase 72 (39-117) U/L Total Protein 7.2 (6.5-8.0) g/dL Albumin 4.1 (3.5-5.0) g/dL Urine Color YELLOW Urine Appearance CLEAR Urine pH 7.0 (5.0-8.0) Ur Specific Ramona 1.010 (1.005-1.025) Urine Protein NEG (NEG-TRACE) MG/DL Urine Glucose (UA) NEG (NEG) MG/DL Urine Ketones NEG (NEG) MG/DL Urine Blood NEG (NEG) Urine Nitrite NEG (NEG) Ur Leukocyte Esterase NEG (NEG) Discharge Plan Discharge Clinical Impression: Edema of both lower extremities, Dysuria Patient Disposition: Home, Self-Care Instructions: Leg Edema (ED), Dysuria (ED) Additional Instructions: Please follow-up with your primary care physician tomorrow. If you have any worsening or new symptoms, please return to the emergency room or call 911 Prescriptions: New furosemide [Lasix] 20 mg tablet 20 mg PO DAILY Qty: 5 0RF No Action albuterol sulfate [ProAir HFA] 90 mcg/actuation HFA aerosol inhaler 2 puff inhalation Q6H PRN (Reason: shortness of breath or wheezing) 30 Days Qty: 6.7 6RF albuterol sulfate 2.5 mg /3 mL (0.083 %) solution for nebulization 2.5 mg inhalation Q4-6H PRN (Reason: shortness of breath or wheezing) 30 Days Qty: 75 6RF Flovent HFA 44 mcg/actuation HFA aerosol inhaler 2 puff inhalation BID 30 Days Qty: 10.6 6RF Rx Instructions: administer with spacer diclofenac sodium [Arthritis Pain (diclofenac)] 1 % gel 2 g topical QID PRN (Reason: pain) Qty: 100 0RF Rx Instructions: apply to single elbow, wrist or hand; for hand includes palm/fingers/back of hand hydrocortisone [Proctosol HC] 2.5 % cream with perineal applicator 1 appl OH BID 3RF loratadine 10 mg tablet 10 mg PO DAILY 90 Days Qty: 90 1RF hydrochlorothiazide 12.5 mg tablet 12.5 mg PO DAILY 90 Days Qty: 90 3RF clonazepam 1 mg tablet 1 mg PO BEDTIME PRN (Reason: anxiety) 30 Days Qty: 30 0RF Rx Instructions: administer 30 minutes before bedtime zolpidem 5 mg tablet 5 mg PO BEDTIME PRN (Reason: sleep) 30 Days Qty: 30 0RF lidocaine [Lidoderm] 5 % adhesive patch,medicated 1 patch topical DAILY MDD remove after 12 hours PRN (Reason: pain) Qty: 30 0RF Rx Instructions: leave on most painful area for up to 12 hrs fluticasone propionate [Flonase Allergy Relief] 50 mcg/actuation spray,suspension 1 spray intranasal DAILY 14 Days Qty: 150 0RF Rx Instructions: administer into each nostril amoxicillin-pot clavulanate 875-125 mg tablet 1 tab PO BID 7 Days Qty: 14 0RF lubiprostone [Amitiza] 24 mcg capsule 24 mcg PO BID 30 Days Qty: 60 3RF famotidine [Pepcid] 40 mg tablet 40 mg PO BID Qty: 60 6RF amitriptyline 25 mg tablet 0 mg PO
[2022-02-07 23:38] LABS: Appearance Urine CLEAR; Color Urine YELLOW; Glucose Urine UA NEG (NEG); Leukocyte Esterase Urine NEG (NEG); Nitrite Urine NEG (NEG); Urine Blood NEG (NEG); Urine Ketones NEG (NEG); Urine Protein NEG (NEG-TRACE)
[2022-02-08 00:03] LABS: UPreg QC Valid YES; Urine Pregnancy NEGATIVE (NEGATIVE)
== END 2022-02-08 01:18 | disposition home or self-care (01) ==
PROVIDERS: Emergency Provider Emergency Medicine; PCP Internal Medicine
DX: R30.0 Dysuria (principal); R60.0 Localized edema; Z79.899 Other long term (current) drug therapy
CPT/HCPCS: 36415; 51798; 80053; 81003; 81025; 85025; 99284

== ENCOUNTER → 2022-02-17 08:41 | Outpatient (REF) | payer OTHER, SELFPAY ==
--- NOTE | 2022-02-17 08:44 | CA_ITS ---
Transthoracic Echocardiogram Patient (Last, First, Middle): Ana Maria Elmore, Gender: Female Date of : 1975 Age: 46 Procedure Date: 02/17/2022 Procedure Type: Transthoracic Echocardiogram Location: OP Height: 165.1 cm Weight: 107.96 kg BSA: 2.13 m2 Heart Rate: 67 bpm BP: 128 / 68 mmHg Clothes Presser: SB Referring MD: Wanda Choe EXECUTIVE MEETING MANAGER Symptoms: R00.2 - Palpitations Study Quality: Adequate ECG Rhythm: Sinus Conclusions: - The left ventricular systolic function is normal. The visually estimated ejection fraction is between 55-60%. - No obvious valvular pathology seen on this study. - There is a small loculated pericardial effusion overlying the left ventricle. Findings Left Ventricle Normal left ventricular cavity size. There is normal left ventricular wall thickness. The left ventricular systolic function is normal. The visually estimated ejection fraction is between 55-60%. There is no evidence of regional wall motion abnormalities. Diastolic function is normal for age. Right Ventricle Normal right ventricular cavity size and systolic function. Atria Both atria are normal in size. Aortic Valve There is a normal trileaflet aortic valve. There is no aortic valve stenosis. There is no aortic valve regurgitation. Mitral Valve The mitral valve appears normal. There is no mitral valve regurgitation. There is no mitral valve stenosis. Pulmonic Valve The pulmonic valve is likely normal. Tricuspid Valve Rheumatic tricuspid valve is noted. There is trace tricuspid valve regurgitation. Tricuspid regurgitation envelope is inadequate for calculation of right ventricular systolic pressure. Great Vessels The asc aorta is normal in size. Venous The inferior vena cava is normal in size and collapses greater than 50% with inspiration. Pericardium/Pleural There is a small loculated pericardial effusion overlying the left ventricle. Prior Study Comparison No prior study available for comparison. Recommendations, Care & Conclusions No obvious valvular pathology seen on this study. Measurements 2D Linear Measurements IVSd: 0.82 0.6-0.9/0.6-1.0 cm LVIDd: 5.37 3.9-5.3/4.2-5.9 cm LVIDd Index: 2.52 2.4-3.2/2.2-3.1 cm/m2 LVIDs: 3.35 2.0-3.6 cm LVPWd: 1.13 0.7-1.1 cm LA Diam: 3.80 2.7-3.8/3.0-4.0 cm LAIDs Index: 1.78 1.5-2.3 cm/m2 LV Mass: 246.53 67-162/88-224 g LV Mass Index: 115.74 43-95/49-115 g/m2 LVOT Diam: 2.20 3.0+(-)1.3 cm 2D Systolic Function EF 4C: 47.70 >55% EF 2C: 62.70 >55% EF BiP: 53.80 >55% Mitral Valve MV Pk E: 1.02 MV PK A: 0.74 MV Decel Time: 184.00 E/A: 1.40 E'Lateral: 9.90 E'Medial: 5.66 E/E' Med: 18.00 E/E' Lat: 10.30 PHT: 54.00 MVA PHT: 4.07 Decel [place]: 5.56 Aortic Valve AoV Pk Dieter: 1.19 AoV Mn Dieter: 0.81 AoV VTI: 0.27 AoV Pk Grad: 6.00 Aov Mn Grad: 3.00 SHAKILA Cont.VTI: 3.69 LVOT LVOT Pk Dieter: 1.11 LVOT Mn Dieter: 0.81 LVOT VTI: 0.26 LVOT Pk Grad: 5.00 LVOT Mn Grad: 3.00 LVOT Diam: 2.20 LVOT Area: 3.80 Diastolic Function MV Pk E: 1.02 MV Pk A: 0.74 E/A: 1.40 E'Medial: 5.66 E/E' Med: 18.00 E' Laterial: 9.90 E/E' Lat: 10.30 Right Ventricle TAPSE (mm): 23.80 TVS' Dieter: 13.20 Tricuspid Valve RA Press: 3.00 Great Vessels Aorta Sinus of Valsalva: 2.80 2.0-3.5 cm Ao Asc: 2.80 2.1-3.4 cm Pulmonary Veins Pulm Vein S/D 1.20 Pulmonary Valve PV Pk Dieter: 0.92 Peak PV Grad: 3.00 Updated in Other Vendor System with Status of Final Nato Morris MD electronically signed on 02/18/2022 10:34:58 AM with status of Final
== END ==
LOC: HO.CARD 08:41
PROVIDERS: Visit Provider Nurse Practitioner Family
DX: R00.2 Palpitations (principal); R60.0 Localized edema; A04.8 Other specified bacterial intestinal infections; K59.04 Chronic idiopathic constipation; K21.9 Gastro-esophageal reflux disease without esophagitis; R10.2 Pelvic and perineal pain
CPT/HCPCS: 93306; 99212

== ENCOUNTER 2022-02-19 11:54 | Outpatient (REF) | payer OTHER, SELFPAY ==
[2022-02-19 14:00] LABS: Rheumatoid Factor < 15.0 IU/mL (<15.0)
[2022-02-25 12:07] LABS: Anti Nuclear Antibody Screen POSITIVE (NEGATIVE)
== END 2022-02-19 11:55 | disposition home or self-care (01) ==
LOC: HO.LAB 11:54
PROVIDERS: PCP Internal Medicine; Visit Provider Nurse Practitioner Family
DX: I31.3 Pericardial effusion (noninflammatory) (principal)
CPT/HCPCS: 36415; 86038; 86039; 86431

== ENCOUNTER 2022-03-09 16:10 | Outpatient (REF) | payer OTHER, SELFPAY ==
[2022-03-09 16:38] LABS: MANUAL DIFF FLAG NO
[2022-03-09 17:27] LABS: Basophils Percent Auto 0.7 % (0-2); Eosinophils Absolute Auto 0.1 X10*3/uL (0.0-0.4); Eosinophils Percent Auto 1.5 % (0-4); Hemoglobin 13.6 g/dl (12.0-16.0); Imm Gran Abs Auto 0.03 X10*3/uL (0.00-0.03); Imm Gran Pct Auto 0.5 % (0.0-0.4); Mean Corpuscular HGB Conc 31.6 g/dl (31.0-35.0); Mean Corpuscular Hemoglobin 28.3 pg (27.0-33.0); Mean Corpuscular Volume 89.6 fL (80.0-98.0); Mean Platelet Volume 10.6 fL (9.4-12.3); Monocytes Absolute Auto 0.6 X10*3/uL (0.1-1.2); Monocytes Percent Auto 11.6 % (2-11); Neutrophils Absolute Auto 2.7 x10*3/uL (2.0-8.3); Neutrophils Percent Auto 49.7 % (45-73); Platelet Count 281 X10*3/uL (160-400); Red Cell Distribution Width 13.8 % (11.0-16.0); White Blood Count 5.5 X10*3/uL (4.8-10.8)
[2022-03-09 17:53] LABS: Appearance Urine Clear; Color Urine Yellow; Glucose Urine UA Negative (Negative); Leukocyte Esterase Urine Negative (Negative); Nitrite Urine Negative (Negative); PH 6.5 (5.0-9.0); Specific Gravity - Urine <= 1.005 (1.005-1.025); Urine Blood Negative (Negative); Urine Ketones Negative (Negative); Urine Protein Negative (Neg-Trace)
[2022-03-09 17:55] LABS: Bacteria Urine None Seen (None Seen); Hyaline Casts Urine 0-2 /LPF (0-2); RBC Urine 0-2 /HPF (0-2); Squamous Epithelial Cell Urine 0-2 /HPF (0-2); WBC Urine 0-5 /HPF (0-5)
[2022-03-09 17:57] LABS: Alanine Aminotransferase 15 U/L (0-31); Albumin Level 4.3 g/dL (3.5-5.0); Alkaline Phosphatase 70 U/L (39-117); Anion Gap 16 (12-20); Aspartate Amino Transferase 19 U/L (5-31); Bilirubin Total < 0.2 mg/dL (0.0-1.0); Blood Urea Nitrogen 8 mg/dL (9-16); C Reactive Protein 0.86 mg/dL (< or = 0.50); Calcium 9.7 mg/dL (8.4-10.2); Carbon Dioxide 25 mmol/L (22-29); Chloride 103 mmol/L (96-108); Estimated Glomerular Filt Rate > 60; Glucose Random 84 mg/dL (60-115); Sodium 140 mmol/L (135-145); Total Protein 7.9 g/dL (6.5-8.0)
[2022-03-09 18:11] LABS: Erythrocyte Sedimentation Rate 28 MM/HR (0-20)
[2022-03-09 18:38] LABS: Creatinine Urine 19.06 mg/dL; Total Protein Urine Random < 7 mg/dL (<12)
[2022-03-11 15:46] LABS: Complement C3 162 mg/dL (83-193)
[2022-03-12 13:08] LABS: Anti DNA DS Antibody 1 IU/mL; Antibody to SS-A Antigen <1.0 NEG AI (<1.0 NEG); Antibody to SS-B Antigen <1.0 NEG AI (<1.0 NEG); SM/Ribonucleoprotein Ab <1.0 NEG AI (<1.0 NEG); Scleroderma 70 Antibody <1.0 NEG AI (<1.0 NEG); Smith Protein <1.0 NEG AI (<1.0 NEG)
[2022-03-15 13:52] LABS: Anti-Centromere B Antibodies <1.0 NEG AI (<1.0 NEG)
[2022-03-16 13:21] LABS: Angiotensin Converting Enzyme 28.8 U/L (9-67)
== END 2022-03-09 16:11 | disposition home or self-care (01) ==
LOC: HO.LAB 16:10
PROVIDERS: PCP Internal Medicine; Visit Provider Student in an Organized Health Care Education/Training Program
DX: I31.3 Pericardial effusion (noninflammatory) (principal); R76.8 Other specified abnormal immunological findings in serum
CPT/HCPCS: 36415; 80053; 81001; 82164; 82550; 84156; 85025; 85652; 86038; 86140; 86160; 86225; 86235; 99202

== ENCOUNTER → 2022-03-11 13:20 | Outpatient (BNVA) | payer OTHER, SELFPAY | PROVIDERS: PCP Internal Medicine; Referring Provider Internal Medicine; Visit Provider Internal Medicine | DX: I31.3 Pericardial effusion (noninflammatory) (principal); R00.2 Palpitations | CPT/HCPCS: 99202 ==

== ENCOUNTER 2022-05-25 09:20 | Outpatient (REF) | payer OTHER, SELFPAY ==
[2022-05-25 11:10] LABS: Alanine Aminotransferase 14 U/L (0-31); Albumin Level 4.3 g/dL (3.5-5.0); Alkaline Phosphatase 59 U/L (39-117); Anion Gap 12 (12-20); Aspartate Amino Transferase 17 U/L (5-31); Bilirubin Total 0.4 mg/dL (0.0-1.0); Blood Urea Nitrogen 9 mg/dL (9-16); Calcium 9.5 mg/dL (8.4-10.2); Carbon Dioxide 25 mmol/L (22-29); Chloride 107 mmol/L (96-108); Estimated Glomerular Filt Rate > 60; Glucose Random 104 mg/dL (60-115); Sodium 140 mmol/L (135-145); Total Protein 7.4 g/dL (6.5-8.0)
== END 2022-05-25 09:21 | disposition home or self-care (01) ==
LOC: HO.LAB 09:20
PROVIDERS: PCP Internal Medicine; Visit Provider Internal Medicine
DX: L98.9 Disorder of the skin and subcutaneous tissue, unspecified (principal)
CPT/HCPCS: 36415; 80053

== ENCOUNTER → 2022-07-29 15:02 | Outpatient (REF) | payer OTHER, SELFPAY ==
--- NOTE | 2022-07-29 15:08 | CA_ITS ---
Transthoracic Echocardiogram Limited Patient (Last, First, Middle): Ana Maria Elmore, Gender: Female Date of : 1975 Age: 46 Procedure Date: 07/29/2022 Procedure Type: Transthoracic Echocardiogram Limited Location: OP Height: 162.56 cm Weight: 99.79 kg BSA: 2.04 m2 Heart Rate: 89 bpm BP: 122 / 78 mmHg Production Planner: SB Referring MD: Nato Morris MD Trommel Tender: Tripp Gamble MD Symptoms: I31.3 - Pericardial effusion (noninflammatory) Limited Study Quality: Adequate ECG Rhythm: Sinus Conclusions: - Trace pericardial effusion Findings Pericardium/Pleural There is a trivial circumferential pericardial effusion. There are no definitive echocardiographic findings of tamponade physiology. There are no definitive echocardiographic findings of constrictive physiology. Prior Study Comparison No significant change compared to prior study. Measurements 2D Linear Measurements IVSd: 0.95 0.6-0.9/0.6-1.0 cm LVIDd: 5.03 3.9-5.3/4.2-5.9 cm LVIDd Index: 2.47 2.4-3.2/2.2-3.1 cm/m2 LVIDs: 3.21 2.0-3.6 cm LVPWd: 1.23 0.7-1.1 cm LV Mass: 257.93 67-162/88-224 g LV Mass Index: 126.44 43-95/49-115 g/m2 Mitral Valve MV Pk E: 0.95 MV PK A: 0.86 MV Decel Time: 160.00 E/A: 1.10 E'Lateral: 10.10 E'Medial: 7.07 E/E' Med: 13.40 E/E' Lat: 9.40 PHT: 47.00 MVA PHT: 4.68 Decel Harney: 5.90 Diastolic Function MV Pk E: 0.95 MV Pk A: 0.86 E/A: 1.10 E'Medial: 7.07 E/E' Med: 13.40 E' Laterial: 10.10 E/E' Lat: 9.40 Tricuspid Valve RA Press: 3.00 Updated in Other Vendor System with Status of Final Tripp Gamble MD electronically signed on 07/30/2022 11:57:20 AM with status of Final
== END ==
LOC: HO.CARD 15:02
PROVIDERS: PCP Internal Medicine; Visit Provider Internal Medicine
DX: I31.39 Other pericardial effusion (noninflammatory) (principal)
CPT/HCPCS: 93308

== ENCOUNTER → 2022-08-23 08:16 | Outpatient (BNVA) | payer OTHER, SELFPAY | PROVIDERS: PCP Internal Medicine; Referring Provider Internal Medicine; Visit Provider Internal Medicine | DX: I31.39 Other pericardial effusion (noninflammatory) (principal); R00.2 Palpitations | CPT/HCPCS: 99212 ==

== ENCOUNTER 2022-09-02 02:54 | Emergency (ER) | payer OTHER, SELFPAY ==
--- NOTE | ~2022-09-02 | CT_ITS ---
EXAMINATION: CT ABDOMEN AND PELVIS WITHOUT CONTRAST CLINICAL INFORMATION: Left pyelonephritis COMPARISON: 12/05/2021 and 11/23/2014 TECHNIQUE: Multidetector volumetric imaging was performed from the superior aspect of the liver through the pubic symphysis. Sagittal and coronal reformatted images were obtained on the technologist's workstation. This CT examination was performed using dose optimization techniques as appropriate, variously including the following: *Automated exposure control *Adjustment of mA and/or kV according to patient size (this includes techniques or standardized protocols for targeted exams where dose is matched to indication/reason for exam; i.e. extremities or head) *Use of iterative reconstruction technique DLP: 763 mGy-cm FINDINGS: IMAGED THORAX:: The visualized lung bases are unremarkable. LIVER, GALLBLADDER, AND BILIARY TREE: The liver is normal in size, shape, and attenuation. No focal hepatic lesion or biliary ductal dilatation is present. Gallbladder unremarkable. PANCREAS: Unremarkable. SPLEEN: Unremarkable. ADRENAL GLANDS: Unremarkable. KIDNEYS AND URETERS: Right nephrectomy. There is a small amount of soft tissue in the surgical bed, with associated linear hyperdensity (surgical material). There is compensatory hypertrophy of the left kidney. No urinary calculi, hydronephrosis or perinephric abnormalities. BLADDER: Unremarkable. GASTROINTESTINAL TRACT: The small and large bowel are unremarkable. The appendix is unremarkable. ABDOMINAL WALL: No significant hernia is appreciated. LYMPH NODES: Normal. VASCULAR: Unremarkable. PELVIC VISCERA: Uterus is somewhat prominent and globular in morphology. No adnexal abnormalities. OSSEOUS STRUCTURES: No acute or suspicious osseous abnormalities. Discogenic degenerative disease at L5-S1, with endplate osteophytes and facet arthropathy leading to at least moderate bilateral neural foraminal narrowing. CT/CT abdomen pelvis wo IV con IMPRESSION: * Status post right nephrectomy with compensatory hypertrophy of the left kidney. 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 Pyelonephritis cannot be excluded in the absence of intravenous contrast. * Uterus is somewhat prominent and globular in morphology. This could be compatible with adenomyosis. Consider nonemergent pelvic ultrasound for further evaluation. Fleischner guidelines were followed.
[2022-09-02 03:02] VITALS: BP 106/56; PULSE 87; RESP 16; TEMP 36.6; O2SAT 97; BMI 36.0
--- NOTE | 2022-09-02 03:13 | ED_ITS ---
HPI - Abdominal Pain General Chief Complaint: Abdominal Pain Stated Complaint: intense kidney pain, PT has 1 kidney Time Seen by Provider: 09/02/22 03:10 Source: patient Mode of arrival: ambulatory Limitations: no limitations History of Present Illness HPI narrative: Patient has chronic left flank pain since right nephrectomy in [address] scans which were negative for kidney stone comes here for pain in the left flank for last 6 days as she with nausea no vomiting pain is not going away and is sharp patient had CT scan 12/16 for similar pain which showed no kidney stone compensated hypertrophy of left kidney.patient denied urinary symptoms Related Data Previous Rx's Medication Instructions Recorded albuterol sulfate 90 mcg/actuation 2 puff inhalation Q6H PRN 03/09/22 aerosol inhaler (ProAir HFA) shortness of breath or wheezing 30 days #6.7 grams hydrochlorothiazide 12.5 mg tablet 12.5 mg PO DAILY 90 days #90 tabs 08/20/22 clonazepam 1 mg tablet 1 mg PO BEDTIME PRN anxiety 30 08/30/22 days #30 tabs zolpidem 5 mg tablet 5 mg PO BEDTIME PRN sleep 30 days 08/30/22 #30 tabs cefuroxime axetil 250 mg tablet 250 mg PO BID 10 days #20 tabs 09/02/22 oxycodone 5 mg tablet 5 mg PO Q6H PRN pain #20 tabs 09/02/22 Allergies Allergy/AdvReac Type Severity Reaction Status Date / Time citalopram Allergy Intermediate palpitation Verified 09/02/22 03:07 s doxepin Allergy Intermediate palpitation Verified 09/02/22 03:07 s quetiapine [Seroquel] Allergy Intermediate weight gain Verified 09/02/22 03:07 trazodone Allergy Intermediate palpitation Verified 09/02/22 03:07 s Review of Systems Review of Systems Constitutional : No Weight loss, No Fever, No Chills ENT/Mouth : No sore throat, No Rhinorrhea Eyes: No Eye Pain, No Swelling Cardiovascular : No Chest Pain, no palpitations Respiratory : No Cough, No Sputum, no shortness of breath Gastrointestinal : no Nausea, No Vomiting, No Diarrhea, No abdominal Pain, no black stools Genitourinary : No Dysuria, No Urinary Frequency Musculoskeletal : No joint pain, No Myalgias, No Joint Swelling Skin : No Skin Lesions, No rash Neuro : No Weakness, No Numbness, No Dizziness, No Headache Psych : No Anxiety/Panic, No Depression Heme/Lymph: No Bruising, No Lymphadenopathy Endocrine : No Polyuria, No Polydipsia All other systems reviewed and are negative Yes all other systems are reviewed and are negative REPLACED BY [facility] Past Medical History Medical History Abdominal pain Abnormal abdominal ultrasound Absence of kidney Carpal tunnel syndrome Essential hypertension Essential hypertension FH: throat cancer YARITZA (generalized anxiety disorder) Migraines Mild recurrent major depression Moderate asthma Morbidly obese Numerous moles Obesity PATRIC (obstructive sleep apnea) Ovarian cyst Palpitations Pelvic pain Pericardial effusion Pericarditis Primary insomnia Right elbow pain Transaminitis Surgical History H/O colonoscopy History of esophagogastroduodenoscopy (EGD) History of loop electrical excision procedure (LEEP) History of removal of ovarian cyst (~2016) History of right nephrectomy Family History Family History Maternal Grandmother Diabetes mellitus Maternal Grandfather Heart disease CVD (cardiovascular disease) Father Heart problem Sister Heart murmur Paternal Grandmother Heart problem Mother Thyroid disease Social History Social History Housing: Apartment Alcohol intake: unknown Patient Tobacco Use Status: Never used Tobacco Smoked in Last 30 Days: No e-Cigarette/Vaping Use: Never Used Second Hand Smoke Exposure: No Use of substances other than those prescribed or required for medical reasons: Unknown Advance Directives: No Patient : No service: No Current occupational status: unemployed 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 Oriented X3. In moderate distress. Eyes: PERRLA, No Nystagmus ENT: Pharynx normal. Oral Mucosa moist Neck: Normal inspection. Neck supple. CVS: Normal heart rate and rhythm. Pulses normal. Respiratory: No respiratory distress. Equal air entry bilateral, no wheezin g/rales/rhonchi Abdomen: Soft and nontender. Bowel sounds are present, no mass palpable, no CVA tenderness Skin: Skin warm and dry. Normal skin color. Normal skin turgor. Extremities: No lower extremity edema. No calf tenderness Neuro: Oriented X 3. No motor deficit. Medical Decision Making Medical Decision Making [facility] Narrative: Patient with chronic left flank pain noticed to have UTI CT scan negative for stone or perinephric stranding patient received IV Rocephin in the ER WBC counts are normal. Will discharge patient home on Ceftin Lab Data [facility] Lab Attestation statement: I reviewed the patient's lab results. 09/02/22 03:19 09/02/22 03:19 Labs: Lab Results 09/02/22 09/02/22 09/02/22 Range/Units 03:19 03:19 03:19 WBC 8.4 (4.8-10.8) X10*3/uL RBC 4.55 (4.20-5.50) X10*6/uL Hgb 13.2 (12.0-16.0) g/dl Hct 39.8 (37.0-47.0) % MCV 87.5 (80.0-98.0) fL MCH 29.0 (27.0-33.0) pg MCHC 33.2 (31.0-35.0) g/dl RDW 13.3 (11.0-16.0) % Plt Count 281 (160-400) X10*3/uL MPV 10.0 (9.4-12.3) fL Immature Gran % (Auto) 0.2 (0.0-0.4) % Neut % (Auto) 50.2 (45-73) % Lymph % (Auto) 38.8 (20-40) % [place] % (Auto) 8.5 (2-11) % Eos % (Auto) 1.8 (0-4) % Baso % (Auto) 0.5 (0-2) % Lymph # (Auto) 3.2 (1.2-4.9) X10*3/uL [place] # (Auto) 0.7 (0.1-1.2) X10*3/uL Eos # (Auto) 0.2 (0.0-0.4) X10*3/uL Baso # (Auto) 0.0 (0.0-0.2) X10*3/uL Abs Immat Gran (auto) 0.02 (0.00-0.03) X10*3/uL Absolute Neuts (auto) 4.2 (2.0-8.3) x10*3/uL Absolute Nucleated RBC 0.000 (0.0-0.012) X10*3/uL Nucleated RBC % (auto) 0.0 (0.0-0.2) /100WBC Sodium 141 (135-145) mmol/L Potassium 3.6 (3.3-5.1) mmol/L Chloride 107 (96-108) mmol/L Carbon Dioxide 23 (22-29) mmol/L Anion Gap 15 (12-20) BUN 11 (9-16) mg/dL Creatinine 0.78 (0.5-1.4) mg/dL Estim Creat Clear Calc 99.8 Estimated GFR > 60 Random Glucose 101 (60-115) mg/dL Calcium 9.3 (8.4-10.2) mg/dL Total Bilirubin 0.3 (0.0-1.0) mg/dL AST 13 (5-31) U/L ALT 10 (0-31) U/L Alkaline Phosphatase 52 (39-117) U/L Total Protein 7.2 (6.5-8.0) g/dL Albumin 4.3 (3.5-5.0) g/dL Lipase 27 (8-78) U/L Urine Color Yellow Urine Appearance Cloudy Urine pH 5.5 (5.0-9.0) Ur Specific [place] 1.020 (1.005-1.025) Urine Protein Trace (Neg-Trace) mg/dL Urine Glucose (UA) Negative (Negative) mg/dL Urine Ketones Trace (Negative) mg/dL Urine Blood Small (1+) H (Negative) Urine Nitrite Negative (Negative) Ur Leukocyte Esterase Moderate (2+) H (Negative) Urine RBC 3-5 H (0-2) /HPF Urine WBC >50 H (0-5) /HPF Ur Squamous Epith Cells 11-20 (0-2) /HPF Urine Bacteria 3+ (None Seen) Hyaline Casts 0-2 (0-2) /LPF Radiology Impression Discussion of test interpretation with radiology: I have reviewed the radiologist's reading. Radiologist Impression: CT/CT abdomen pelvis wo IV con IMPRESSION: *? Status post right nephrectomy with compensatory hypertrophy of the left kidney. 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 No urinary calculi, hydronephrosis or perinephric abnormalities. Pyelonephritis cannot be excluded in the absence of intravenous contrast. *? Uterus is somewhat prominent and globular in morphology. This could be compatible with adenomyosis. Consider nonemergent pelvic ultrasound for further evaluation. ? Fleischner guidelines were followed Medications Administered Discontinued Medications Generic Name Dose Route Start Last Admin Trade Name Freq PRN Reason Stop Dose Admin Sodium Chloride 1,000 mls @ 999 mls/hr 09/02/22 03:20 09/02/22 04:22 Ns IV 09/02/22 04:20 Infused .Q1H1M ONE Infusion Ceftriaxone Sodium 1 gm/ 50 mls @ 100 mls/hr 09/02/22 04:36 09/02/22 05:03 Sodium Chloride IV 09/02/22 05:05 Infused ONCE ONE Infusion Morphine Sulfate 4 mg 09/02/22 03:20 09/02/22 03:27 Morphine Sulfate 4 Mg/Ml Cartridge IVPUSH 09/02/22 03:21 4 mg ONCE ONE Administration Protocol Ondansetron HCl 4 mg 09/02/22 03:20 09/02/22 03:27 Ondansetron Hcl 4 Mg/2 Ml Vial IVPUSH 09/02/22 03:21 4 mg ONCE ONE Administration Discharge Plan Discharge Clinical Impression: Renal colic on left side, UTI (urinary tract infection) Patient Disposition: Home, Self-Care Instructions: Urinary Tract Infection in Women (ED), Renal Colic (ED) Additional Instructions: Drink plenty of fluids Take Antibiotics as prescribed Pain medication as prescribed Report to the ER if increased vomiting/fever/pain Prescriptions: New cefuroxime axetil 250 mg tablet 250 mg PO BID 10 Days Qty: 20 0RF oxycodone 5 mg tablet 5 mg PO Q6H PRN (Reason: pain) Qty: 20 0RF Rx Instructions: Partial Fill upon patient request. No Action albuterol sulfate [ProAir HFA] 90 mcg/actuation HFA aerosol inhaler 2 puff inhalation Q6H PRN (Reason: shortness of breath or wheezing) 30 Days Qty: 6.7 6RF hydrochlorothiazide 12.5 mg tablet 12.5 mg PO DAILY 90 Days Qty: 90 0RF clonazepam 1 mg tablet 1 mg PO BEDTIME PRN (Reason: anxiety) 30 Days Qty: 30 0RF Rx Instructions: administer 30 minutes before bedtime zolpidem 5 mg tablet 5 mg PO BEDTIME PRN (Reason: sleep) 30 Days Qty: 30 0RF Stand Alone Forms: Work/School Release Interventions: ED Discharge Assessment Last Done: 09/02/22 06:43 Discharge Date/Time: 09/02/22 06:47
[2022-09-02 03:23] LABS: Basophils Percent Auto 0.5 % (0-2); Eosinophils Absolute Auto 0.2 X10*3/uL (0.0-0.4); Eosinophils Percent Auto 1.8 % (0-4); Hematocrit 39.8 % (37.0-47.0); Hemoglobin 13.2 g/dl (12.0-16.0); Imm Gran Abs Auto 0.02 X10*3/uL (0.00-0.03); Imm Gran Pct Auto 0.2 % (0.0-0.4); Lymphocytes Absolute Auto 3.2 X10*3/uL (1.2-4.9); Lymphocytes Percent Auto 38.8 % (20-40); MANUAL DIFF FLAG NO; Mean Corpuscular HGB Conc 33.2 g/dl (31.0-35.0); Mean Corpuscular Volume 87.5 fL (80.0-98.0); Monocytes Absolute Auto 0.7 X10*3/uL (0.1-1.2); Monocytes Percent Auto 8.5 % (2-11); Neutrophils Absolute Auto 4.2 x10*3/uL (2.0-8.3); Neutrophils Percent Auto 50.2 % (45-73); Platelet Count 281 X10*3/uL (160-400); Red Blood Count 4.55 X10*6/uL (4.20-5.50); Red Cell Distribution Width 13.3 % (11.0-16.0); White Blood Count 8.4 X10*3/uL (4.8-10.8)
[2022-09-02 03:24] LABS: Appearance Urine Cloudy; Color Urine Yellow; Glucose Urine UA Negative (Negative); Leukocyte Esterase Urine Moderate (2+) (Negative); Nitrite Urine Negative (Negative); PH 5.5 (5.0-9.0); UMIC TRIGGER UACC YES; Urine Blood Small (1+) (Negative); Urine Ketones Trace mg/dL (Negative); Urine Protein Trace mg/dL (Neg-Trace)
[2022-09-02] MEDS: Morphine Sulfate 4 MG/ML CARTRIDGE IVPUSH (03:27)
[2022-09-02] MEDS: ondansetron HCL 4 MG/2 ML VIAL IVPUSH (03:27)
[2022-09-02] MEDS: 0.9 % Sodium Chloride 1,000 ML 999 ML IV (03:27)
[2022-09-02 03:35] LABS: Bacteria Urine 3+ (None Seen); Hyaline Casts Urine 0-2 /LPF (0-2); UACC Culture Trigger YES; WBC Urine >50 /HPF (0-5)
[2022-09-02 03:43] LABS: Alanine Aminotransferase 10 U/L (0-31); Albumin Level 4.3 g/dL (3.5-5.0); Alkaline Phosphatase 52 U/L (39-117); Anion Gap 15 (12-20); Aspartate Amino Transferase 13 U/L (5-31); Bilirubin Total 0.3 mg/dL (0.0-1.0); Blood Urea Nitrogen 11 mg/dL (9-16); Calcium 9.3 mg/dL (8.4-10.2); Carbon Dioxide 23 mmol/L (22-29); Chloride 107 mmol/L (96-108); Creatinine Clr Calc Pharmacy 99.8; Estimated Glomerular Filt Rate > 60; Glucose Random 101 mg/dL (60-115); Lipase 27 U/L (8-78); Potassium 3.6 mmol/L (3.3-5.1); Sodium 141 mmol/L (135-145); Total Protein 7.2 g/dL (6.5-8.0)
[2022-09-02] MEDS: cefTRIAXone sodium 1 GM in 0.9 % Sodium Chloride 50 ML IV (04:44)
[2022-09-02 06:10] VITALS: BP 108/47; PULSE 67; RESP 17; TEMP 36.9; O2SAT 98
== END 2022-09-02 06:47 | disposition home or self-care (01) ==
PROVIDERS: Emergency Provider Internal Medicine; PCP Internal Medicine
DX: N23 Unspecified renal colic (principal); N39.0 Urinary tract infection, site not specified; Z79.899 Other long term (current) drug therapy
CPT/HCPCS: 36415; 74176; 80053; 81001; 83690; 85025; 87086; 96361; 96365; 96375; 99284; J0696; J2270; J2405

== ENCOUNTER 2022-10-22 14:58 | Outpatient (REF) | payer OTHER, SELFPAY ==
--- NOTE | ~2022-10-22 | MM_ITS ---
EXAMINATION: MM DIAGNOSTIC DIGITAL BREAST TOMOSYNTHESIS, BILATERAL CLINICAL INFORMATION: Right breast six-month follow-up for calcifications. Yearly left breast study. COMPARISON: Mammography: 12/14/2021 and studies dating back to 12/18/2014. TECHNIQUE: Digital breast tomosynthesis is performed in both the craniocaudal and mediolateral oblique views along with computer-aided detection (CAD). Synthesized 2D images are generated from the tomosynthesis. Additional spot magnification views of the right breast in craniocaudal and 90 degree mediolateral views performed. FINDINGS: The breasts are heterogeneously dense, which may obscure small masses (ACR BI-RADS breast composition Category c). There is again noted to be multiplicity and bilaterality of scattered and grouped calcifications. There is a stable parenchymal pattern bilaterally. No new abnormal dominant mass identified. The groupings of calcifications appear similar and stable. Some of the calcifications on craniocaudal view within the right breast have a rounded smudgy appearance with some of them on 90 degree mediolateral view having the appearance of tea-cupping such as calcifications within microcysts. Recommend return to yearly screening mammography. Results are provided to the patient at time of visit by the technologist. MM/MM tomosynthesis diagnostic BI IMPRESSION: There are no significant changes from prior study. ASSESSMENT: BI-RADS 2: Benign RECOMMENDATION: Routine annual mammography screening due in 12 months. This patient's information was entered into a reminder system with a target due date for their next mammogram.
== END 2022-10-22 14:59 | disposition home or self-care (01) ==
LOC: HO.MAMMO 14:58
PROVIDERS: Visit Provider Internal Medicine
DX: R92.1 Mammographic calcification found on diagnostic imaging of breast (principal)
CPT/HCPCS: 77062; 77066

== ENCOUNTER 2023-01-14 08:33 | Outpatient (AMB) | payer OTHER, SELFPAY ==
[2023-01-14 08:36] VITALS: BP 118/53; PULSE 83; BMI 40.3
--- NOTE | 2023-01-14 08:36 | MHC.OFFVIS ---
Intake Vital Signs 01/14/23 08:36 Height 5 ft 4 in Weight 235 lb BMI 40.3 BP 118/53 L Blood Pressure Location Rt brachial Position Sitting Pulse 83 Intake Visit Reasons: medication renewal Intake Note: Patient returns to in office follow up of upper abdominal pain. CC: Patient reports having acid reflux, a lot gas, bloating, abdominal pain, constipation, and occasional nausea. Branch Operation Evaluation Manager Required: Yes Branch Operation Evaluation Manager Name: Fallon Russell Accompanied by: Self / Same As Patient Allergies citalopram Allergy (Intermediate, Verified 01/14/23 08:39) palpitations doxepin Allergy (Intermediate, Verified 01/14/23 08:39) palpitations quetiapine [Seroquel] Allergy (Intermediate, Verified 01/14/23 08:39) weight gain trazodone Allergy (Intermediate, Verified 01/14/23 08:39) palpitations zolpidem Adverse Reaction (Verified 01/14/23 08:39) blurry vision HPI medication renewal HPI Details Assessment & Plan (1) H. pylori infection: ?Code(s): A04.8 - Other specified bacterial intestinal infections ?Plan: Turkish #[id number] ,Aleksandar Her upper GI sx persist and have worsened with upper abd pain and burning with severe GERD. She had some trouble reported with the leva/amox rescue therapy, but she says she completed the course. She wants to go forward with re treatment, so I will send rifabutin/flagyl. Also, adding Dexilant to her famotidine bid for comfort. She is having CIC, did not tolerated the stronger meds including amitiza, sending MOM. ROV 4 weeks. (2) Chronic idiopathic constipation: ?Code(s): K59.04 - Chronic idiopathic constipation (3) GERD (gastroesophageal reflux disease): ?Code(s): K21.9 - Gastro-esophageal reflux disease without esophagitis ? ? ? Medications: New magnesium hydroxid e (Milk Of Magnesi a Concentrated) 10 mL? PO BEDTIME PRN 1,000 mL 6RF constipation K59.04 - Chronic i diopathic constipa tion ? rifabutin 300 mg (2 x 150 m g) PO DAILY 14 day s 28 caps 0RF A04.8 - Other spec ified bacterial in testinal infection s ? metronidazole 1,000 mg (2 x 500 mg) PO BID 14 day s 56 tabs 0RF ? ? dexlansoprazole (D exilant) 60 mg? PO .qamac 30 days 30 caps 6R F A04.8 - Other spec ified bacterial in testinal infection s, K21.9 - Gastro- esophageal reflux disease without es ophagitis, K59.04 - Chronic idiopath ic constipation ? Discontinued lubiprostone (Pablo chanell) ?? Discontinu ed Reason:? Doctor 's Order 24 mcg? PO BID 30 days 60 caps 3RF D K59.04 - Chronic i diopathic constipa tion ?Patient Instructions: Ana Maria Flores Dado que la H. pylori probablemente todav?a est? activa, ordeno otro conjunto de antibi?ticos: rifabutina y metronidazol janes 14 d?as. Contin?e con singh famotidina y estoy agregando un medicamento llamado Dexilant para eduardo por la ma?fallon para el ?cido. Adem?s, estoy enviando Leche de Magnesia para el estre?imiento ya que es m?s suave para el est?leslie. Quiero verte en 4 semanas. Si lo desea, puede eduardo un antibi?tara janes 2 semanas y luego comenzar inmediatamente con el jasbir antibi?tara janes 2 semanas, por lo que se necesitan 4 semanas para completar los antibi?ticos. TODAY'S VISIT This patient has been lost to follow-up since 01/2022. Turkish #[id number] (but she quickly declined the toe closing machine tender saying that she was rude) we continued in broken [place]. Her only new health concern is that she may be prediabetic and may be going through menopause. She is having a lot of burning in her stomach and chest, but she has been out of the Dexilant r/t lack of follow up and she was okay when she had it. She is also agreeable to having a repeat HP stool test to confirm eradication with the rifabutin/flagyl rescue therapy. She is agreeable. She still has CIC but she is managing it well with mangos and [facility] does not want medications at this time. ROV 6 weeks. PFSH Medical History Abdominal pain Abnormal abdominal ultrasound Absence of kidney Carpal tunnel syndrome Essential hypertension Essential hypertension FH: throat cancer YARITZA (generalized anxiety disorder) Migraines Mild recurrent major depression Moderate asthma Morbidly obese Numerous moles Obesity PATRIC (obstructive sleep apnea) Ovarian cyst Palpitations Pelvic pain Pericardial effusion Pericarditis Primary insomnia Right elbow pain Transaminitis Surgical History H/O colonoscopy History of esophagogastroduodenoscopy (EGD) History of loop electrical excision procedure (LEEP) History of removal of ovarian cyst (~2017) History of right nephrectomy Family History Maternal Grandmother Diabetes mellitus Maternal Grandfather Heart disease CVD (cardiovascular disease) Father Heart problem Sister Heart murmur Paternal Grandmother Heart problem Mother Thyroid disease Social History Housing: Apartment Alcohol intake: unknown Patient Tobacco Use Status: Never used Tobacco e-Cigarette/Vaping Use: Never Used Second Hand Smoke Exposure: No service: No Current occupational status: unemployed 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 Current occupational exposures/hazards: No Gender identity: Female Cognitive needs: No Hearing needs: No Vision needs: Yes Female Reproductive History Menstrual Age of Menarche: 12 Review of Systems Const Denies fatigue, Denies fever(s), Denies night sweats, Denies poor appetite and Denies weight loss ENT Reports Normal hearing present, Denies dental pain, Denies dysphagia, Denies hearing loss, Denies mouth pain, Denies odynophagia, Denies throat swelling, Denies tongue swelling and Reports other (Dentition adequate) Card Reports no additional complaints Resp Reports no additional complaints GI Denies abdominal pain, Denies melena, Denies bloating, Denies hematochezia, Reports constipation, Denies GI cramping, Denies dysphagia, Denies excessive flatus, Denies early satiety, Reports heartburn, Denies diarrhea, Denies nausea, Denies odynophagia, Denies vomiting and Denies hematemesis Skin/Breast Denies pruritus, Denies lesions, Denies rash and Denies jaundice Neuro Reports Normal hearing present and Denies Abnormal speech present Endo Denies fatigue Aller/Immun Denies throat swelling and Denies tongue swelling Physical Exam Vital Signs: Last Vital Signs Pulse 83 01/14/23 08:36 BP 118/53 L 01/14/23 08:36 BMI result Body Mass Index 40.3 Const General: cooperative, no acute distress, well developed and well groomed Nutritional Appearance: well nourished and obese Orientation/consciousness: oriented to person, oriented to place and oriented to time Limitations: language barrier HEENT Head: Yes normocephalic and Yes atraumatic Eyes General: appearance normal, both eyes and all related structures Pupils: Equal, round and reactive pupils present Neck Neck: Yes normal visual inspection and Yes no lymphadenopathy Thyroid: Thyroid normal Resp Effort & Inspection: normal respiratory effort and able to speak in complete sentences Auscultation: clear to auscultation bilaterally Cardio Rate: regular rate Rhythm: regular rhythm Heart sounds: Normal, physiologic split S2 sound present Peripheral pulses: radial pulses present and posterior tibial pulses present GI Inspection: No distended, Yes Abdominal panniculus present and Yes obesity Palpation (GI): Soft to palpation, nontender, no guarding, not rigid and No hepatosplenomegaly present Percussion: Yes normal to percussion Auscultation: normal bowel sounds Rectal Exam - Female: deferred Skin General skin exam: no rashes or lesions noted, turgor normal, skin not dry, no jaundice, No spider nevi and no striae Rashes: no rashes Nails: normal Neuro General: oriented to person, oriented to place and oriented to time Cranial nerves: Yes Equal, round and reactive pupils present and Yes Normal hearing present Speech: No Abnormal speech present Extrem General: Yes normal to inspection, No clubbing, No cyanosis and No edema Psych Appearance: grossly normal and well kempt Mental Status: mental status grossly normal Speech and movement: Normal speech and movement present Affect: normal affect Attitude: cooperative Thought process: Normal thought process present and not confabulating Thought content: Normal thought content present Insight: Limited insight present (Psych) Judgement: Limited judgement present (Psych) Assessment & Plan Assessment & Plan (1) GERD (gastroesophageal reflux disease): Code(s): K21.9 - Gastro-esophageal reflux disease without esophagitis Plan: This patient has been lost to follow-up since 01/2022. Turkish #[id number] (but she quickly declined the toe closing machine tender saying that she was rude) we continued in broken [place]. Her only new health concern is that she may be prediabetic and may be going through menopause. She is having a lot of burning in her stomach and chest, but she has been out of the Dexilant r/t lack of follow up and she was okay when she had it. She is also agreeable to having a repeat HP stool test to confirm eradication with the rifabutin/flagyl rescue therapy. She is agreeable. She still has CIC but she is managing it well with mangos and [facility] does not want medications at this time. ROV 6 weeks. (2) Chronic idiopathic constipation: Code(s): K59.04 - Chronic idiopathic constipation (3) Abdominal bloating: Code(s): R14.0 - Abdominal distension (gaseous) (4) H. pylori infection: Code(s): A04.8 - Other specified bacterial intestinal infections Orders: Orders H pylori Ag Stool Today A04.8 - Other specified bacterial intestinal infections Medications: New dexlansoprazole (Dexilant) 60 mg PO DAILY 30 days 30 caps 0RF A04.8 - Other specified bacterial intestinal infections famotidine 40 mg PO BID 30 tabs 6RF Coding Level of Care Code Est Pt Level 3 (35828) Diagnoses GERD (gastroesophageal reflux disease) K21.9 Chronic idiopathic constipation K59.04 Abdominal bloating R14.0 H. pylori infection A04.8
== END 2023-01-14 09:05 | disposition home or self-care (01) ==
PROVIDERS: PCP Internal Medicine; Visit Provider Nurse Practitioner
DX: K21.9 Gastro-esophageal reflux disease without esophagitis (principal); K59.04 Chronic idiopathic constipation; R14.0 Abdominal distension (gaseous); A04.8 Other specified bacterial intestinal infections
CPT/HCPCS: 99213

== ENCOUNTER → 2023-01-14 08:33 | Outpatient (BNVA) | payer OTHER, SELFPAY | PROVIDERS: PCP Internal Medicine; Visit Provider Nurse Practitioner | DX: A04.8 Other specified bacterial intestinal infections (principal); K21.9 Gastro-esophageal reflux disease without esophagitis; K59.04 Chronic idiopathic constipation; R14.0 Abdominal distension (gaseous) | CPT/HCPCS: 99212 ==

== ENCOUNTER 2023-01-14 11:26 | Outpatient (REF) | payer OTHER, SELFPAY | END 2023-01-14 11:27 | disposition home or self-care (01) | LOC: HO.LNP 11:26 | PROVIDERS: Visit Provider Nurse Practitioner | DX: K21.9 Gastro-esophageal reflux disease without esophagitis (principal); R10.10 Upper abdominal pain, unspecified; R11.0 Nausea; K59.04 Chronic idiopathic constipation; R14.0 Abdominal distension (gaseous); A04.8 Other specified bacterial intestinal infections; Z76.0 Encounter for issue of repeat prescription | CPT/HCPCS: 87338 ==

== ENCOUNTER 2023-01-20 16:14 | Outpatient (AMB) | payer OTHER, SELFPAY ==
--- NOTE | 2023-01-20 16:08 | MHC.OFFWIV ---
Intake Vital Signs 01/20/23 16:18 BP 130/90 H Blood Pressure Location Lt brachial Position Sitting Pulse 70 Pulse Source Pulse Oximeter Pulse Oximetry (%) 99 Oxygen Delivery Method Room Air Intake Visit Reasons: EST/right eye irritation Intake Note: Patient here for right eye irritation which started about 3 days ago. pt denies any discharge. Patient Tobacco Use Status: Never used Tobacco Allergies citalopram Allergy (Intermediate, Verified 01/20/23 16:17) palpitations doxepin Allergy (Intermediate, Verified 01/20/23 16:17) palpitations quetiapine [Seroquel] Allergy (Intermediate, Verified 01/20/23 16:17) weight gain trazodone Allergy (Intermediate, Verified 01/20/23 16:17) palpitations zolpidem Adverse Reaction (Verified 01/20/23 16:17) blurry vision Do you need a note to return to daycare/school/sports/work: No HPI HPI Comments History of Present Illness Details 47-year-old female who presents for right eyelid swelling. Swelling is going present for approximately 3 days mild discharge no fevers chills vision changes. [facility] Medical History Abdominal pain Abnormal abdominal ultrasound Absence of kidney Carpal tunnel syndrome Essential hypertension Essential hypertension FH: throat cancer YARITZA (generalized anxiety disorder) Migraines Mild recurrent major depression Moderate asthma Morbidly obese Numerous moles Obesity PATRIC (obstructive sleep apnea) Ovarian cyst Palpitations Pelvic pain Pericardial effusion Pericarditis Primary insomnia Right elbow pain Transaminitis Surgical History H/O colonoscopy History of esophagogastroduodenoscopy (EGD) History of loop electrical excision procedure (LEEP) History of removal of ovarian cyst (~2017) History of right nephrectomy Family History Maternal Grandmother Diabetes mellitus Maternal Grandfather Heart disease CVD (cardiovascular disease) Father Heart problem Sister Heart murmur Paternal Grandmother Heart problem Mother Thyroid disease Social History Housing: Apartment Alcohol intake: unknown Patient Tobacco Use Status: Never used Tobacco e-Cigarette/Vaping Use: Never Used Second Hand Smoke Exposure: No service: No Current occupational status: unemployed 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 Current occupational exposures/hazards: No Gender identity: Female Cognitive needs: No Hearing needs: No Vision needs: Yes Female Reproductive History Menstrual Age of Menarche: 12 Review of Systems Const All systems reviewed & are unremarkable except as noted in HPI and below Reports as per HPI Eyes Details: Right upper eyelids wound to Physical Exam Vital Signs: Last Vital Signs Pulse 70 01/20/23 16:18 BP 130/90 H 01/20/23 16:18 Pulse Ox 99 01/20/23 16:18 Oxygen Delivery Method Room Air 01/20/23 16:18 Const General: cooperative, healthy appearing, comfortable and alert Eyes Other: Not swelling and erythema to the right upper eyelid with the medial canthus no visible. I Assessment & Plan Assessment & Plan (1) Blepharitis: Code(s): H01.009 - Unspecified blepharitis unspecified eye, unspecified eyelid Plan 47-year-old female who presents for right eyelid swelling. Exam notable for the above findings symptoms consistent with blepharitis will prescribe erythromycin ointment as well as month compresses. Discharge instructions, follow up and treatment are discussed with patient in my usual fashion. Alternatives in treatment are also discussed. The patient will return for worsening symptoms or as needed. Advised that any labs/imaging ordered will be followed up on and contact made if further treatment needed. Counseled that patient's condition may require further evaluation and/or treatment. Symptoms of concern for worsening disorder discussed in detail in my customary manner. Patient does verbalize understanding of the plan, there are no apparent barriers to communication. The patient is given the opportunity to ask questions and have them answered to his/her satisfaction Medications: New erythromycin 0.5 inches ophthalmic (eye) BID 3.5 grams 0RF Coding Level of Care Code Est Pt Level 3 (67532) Diagnoses Blepharitis H01.009
[2023-01-20 16:18] VITALS: BP 130/90; PULSE 70; O2SAT 99
== END 2023-01-20 16:41 | disposition home or self-care (01) ==
PROVIDERS: PCP Internal Medicine; Visit Provider Physician Assistant
DX: H01.009 Unspecified blepharitis unspecified eye, unspecified eyelid (principal)
CPT/HCPCS: 99213

== ENCOUNTER 2023-02-15 10:57 | Outpatient (AMB) | payer OTHER, SELFPAY ==
--- NOTE | 2023-02-15 10:59 | AM.OFFVISNUR ---
Intake Intake Visit Reasons: tb Allergies citalopram Allergy (Intermediate, Verified 01/20/23 16:17) palpitations doxepin Allergy (Intermediate, Verified 01/20/23 16:17) palpitations quetiapine [Seroquel] Allergy (Intermediate, Verified 01/20/23 16:17) weight gain trazodone Allergy (Intermediate, Verified 01/20/23 16:17) palpitations zolpidem Adverse Reaction (Verified 01/20/23 16:17) blurry vision Office Meds tuberculin PPD Performing Provider: Fallon Garsia MD Administered by: Faviola Duenas RN on 02/15/23 11:06 Dose Route Admin Location Lot Number Expiration Date NDC Care Director Rn 0.1 mL intradermal left forearm [id number] 04/26/26 [id number] [employer] Coding Diagnoses Assessment & Plan Assessment & Plan Orders: Orders AMB PPD Planted Today Z11.1 - Encounter for screening for respiratory tuberculosis Medications: Refilled albuterol sulfate 90 mcg/actuation (ProAir HFA) 2 puffs inhalation Q6H PRN 6.7 grams 6RF shortness of breath or wheezing 30 days
== END 2023-02-15 11:07 | disposition home or self-care (01) ==
LOC: HO.HMGH 10:57
PROVIDERS: PCP Internal Medicine; Visit Provider Internal Medicine
DX: Z11.1 Encounter for screening for respiratory tuberculosis (principal)
CPT/HCPCS: 86580

== ENCOUNTER 2023-02-23 08:16 | Outpatient (AMB) | payer OTHER, SELFPAY ==
--- NOTE | 2023-02-23 08:25 | MHC.OFFVIS ---
Intake Vital Signs 02/23/23 08:29 Height 5 ft 4 in Weight 239 lb 2 oz BMI 41.0 BP 146/84 H Blood Pressure Location Rt brachial Position Sitting Pulse 88 Pulse Source Pulse Oximeter Intake Visit Reasons: GERD, CIC, HP Intake Note: Pt presents to the office today for GERD,CIC,HP. Pt states she gets stomach pains and nauseau throughout the day. She states the meds that were given to her helped in the beginning but now she is having more severe stomach pain. She states whenever she eats she gets stomach pain in her upper abdomen. Allergies citalopram Allergy (Intermediate, Verified 03/23/23 10:11) palpitations doxepin Allergy (Intermediate, Verified 03/23/23 10:11) palpitations quetiapine [Seroquel] Allergy (Intermediate, Verified 03/23/23 10:11) weight gain trazodone Allergy (Intermediate, Verified 03/23/23 10:11) palpitations venlafaxine Adverse Reaction (Intermediate, Verified 03/23/23 10:11) tachycardia zolpidem Adverse Reaction (Verified 03/23/23 10:11) blurry vision HPI GERD, CIC, HP HPI Details Assessment & Plan (1) GERD (gastroesophageal reflux disease): ?Code(s): K21.9 - Gastro-esophageal reflux disease without esophagitis ?Plan: This patient has been lost to follow-up since 01/2022. 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 Her only new health concern is that she may be prediabetic and may be going through menopause. She is having a lot of burning in her stomach and chest, but she has been out of the Dexilant r/t lack of follow up and she was okay when she had it. She is also agreeable to having a repeat HP stool test to confirm eradication with the rifabutin/flagyl rescue therapy. She is agreeable. She still has CIC but she is managing it well with mangos and [facility] does not want medications at this time. ROV 6 weeks. (2) Chronic idiopathic constipation: ?Code(s): K59.04 - Chronic idiopathic constipation (3) Abdominal bloating: ?Code(s): R14.0 - Abdominal distension (gaseous) (4) H. pylori infection: ?Code(s): A04.8 - Other specified bacterial intestinal infections ? ? ? Orders: Orders H pylori Ag StoolA Today A04.8 - Other spec ified bacterial in testinal infection s ? Medications: New dexlansoprazole (D exilant) 60 mg? PO DAILY 30 days 30 caps 0RF F A04.8 - Other spec ified bacterial in testinal infection s ? famotidine 40 mg? PO BID 30 t abs 6RF ? ? LABS: Laboratory Tests 01/14/23 09:25 Stool H. pylori Ag positive (she continues to be positive for H pylori I treated her with Levaquin amoxicillin rescue therapy since she failed a prior round of antibiotics by her primary care provider that is unknown. However she developed abdominal pain in the ER provider told her to stop. I what had wanted her to go for allergy testing in 2020 so we could determine a different rescue strategy. She is not sure if with the Levaquin of the Flagyl it caused her problems.) TODAY'S VISIT Swiss #declines She is uncertain what medication she is taking so this makes it difficult for me to proceed forward to try to address her symptoms. She continues to have heartburn and bloating with constipation. Will continue her on her Dexilant and also give her famotidine that she can take twice a day for breakthrough. I will represcribed Linzess at 72 micro g to get her bowels moving and provoke better bowel motility. Return office visit in 4 weeks. [facility] Medical History Pericardial effusion Pericarditis Primary insomnia Palpitations Essential hypertension Mild recurrent major depression PATRIC (obstructive sleep apnea) Migraines Morbidly obese Moderate asthma Absence of kidney YARITZA (generalized anxiety disorder) Essential hypertension Right elbow pain Abdominal pain Pelvic pain Abnormal abdominal ultrasound Transaminitis Numerous moles FH: throat cancer Obesity Carpal tunnel syndrome Ovarian cyst Surgical History History of esophagogastroduodenoscopy (EGD) H/O colonoscopy History of removal of ovarian cyst (~2017) History of right nephrectomy History of loop electrical excision procedure (LEEP) Family History Maternal Grandmother Diabetes mellitus Maternal Grandfather Heart disease CVD (cardiovascular disease) Father Heart problem Sister Heart murmur Paternal Grandmother Heart problem Mother Thyroid disease Social History Housing: Apartment Alcohol intake: unknown Patient Tobacco Use Status: Never used Tobacco e-Cigarette/Vaping Use: Never Used Second Hand Smoke Exposure: No service: No Current occupational status: unemployed 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 Current occupational exposures/hazards: No Gender identity: Female Cognitive needs: No Hearing needs: No Vision needs: Yes Female Reproductive History Menstrual Age of Menarche: 12 Review of Systems Const Denies fatigue, Denies fever(s), Denies night sweats, Denies poor appetite and Denies weight loss ENT Reports Normal hearing present, Denies dental pain, Denies dysphagia, Denies hearing loss, Denies mouth pain, Denies odynophagia, Denies throat swelling, Denies tongue swelling and Reports other (Dentition adequate) Card Reports no additional complaints Resp Reports no additional complaints GI Reports abdominal pain, Denies melena, Denies bloating, Denies hematochezia, Reports constipation, Denies GI cramping, Denies dysphagia, Denies excessive flatus, Denies early satiety, Reports heartburn, Denies diarrhea, Denies nausea, Denies odynophagia, Denies vomiting and Denies hematemesis Skin/Breast Denies pruritus, Denies lesions, Denies rash and Denies jaundice Neuro Reports Normal hearing present and Denies Abnormal speech present Endo Denies fatigue Aller/Immun Denies throat swelling and Denies tongue swelling Physical Exam Vital Signs: Last Vital Signs Pulse 88 02/23/23 08:29 BP 146/84 H 02/23/23 08:29 BMI result Body Mass Index 41.0 Const General: cooperative, no acute distress, well developed and well groomed Nutritional Appearance: well nourished and obese Orientation/consciousness: oriented to person, oriented to place and oriented to time Limitations: language barrier HEENT Head: Yes normocephalic and Yes atraumatic Eyes General: appearance normal, both eyes and all related structures Pupils: Equal, round and reactive pupils present Neck Neck: Yes normal visual inspection and Yes no lymphadenopathy Thyroid: Thyroid normal Resp Effort & Inspection: normal respiratory effort and able to speak in complete sentences Auscultation: clear to auscultation bilaterally Cardio Rate: regular rate Rhythm: regular rhythm Heart sounds: Normal, physiologic split S2 sound present Peripheral pulses: radial pulses present and posterior tibial pulses present GI Inspection: No distended, Yes Abdominal panniculus present and Yes obesity Palpation (GI): Soft to palpation, nontender, no guarding, not rigid and No hepatosplenomegaly present Percussion: Yes normal to percussion Auscultation: normal bowel sounds Rectal Exam - Female: deferred Skin General skin exam: no rashes or lesions noted, turgor normal, skin not dry, no jaundice, No spider nevi and no striae Rashes: no rashes Nails: normal Neuro General: oriented to person, oriented to place and oriented to time Cranial nerves: Yes Equal, round and reactive pupils present and Yes Normal hearing present Speech: No Abnormal speech present Extrem General: Yes normal to inspection, No clubbing, No cyanosis and No edema Psych Appearance: grossly normal and well kempt Mental Status: mental status grossly normal Speech and movement: Normal speech and movement present Affect: normal affect Attitude: cooperative Thought process: Normal thought process present and not confabulating Thought content: Normal thought content present Insight: Limited insight present (Psych) Judgement: Limited judgement present (Psych) Results Reviewed Results Reviewed: Netta Flores Quiero estar seguro de que est?s tomando los siguientes medicamentos, si no los consigues ll?ginger: 1. Dexilante (deslanzoprazol) todas las ma?anas 2. Linzess 72 mcg todas las ma?anas. 3. Puede continuar tomando famotidina dos veces al d?a si es necesario. Quiero verte 4 semanas para ajustar la medicaci?n para el estre?imiento y [place] c?mo se siente tu est?leslie. Assessment & Plan Assessment & Plan (1) GERD (gastroesophageal reflux disease): Code(s): K21.9 - Gastro-esophageal reflux disease without esophagitis Plan: Swiss #declines She is uncertain what medication she is taking so this makes it difficult for me to proceed forward to try to address her symptoms. She continues to have heartburn and bloating with constipation. Will continue her on her Dexilant and also give her famotidine that she can take twice a day for breakthrough. I will represcribed Linzess at 72 micro g to get her bowels moving and provoke better bowel motility. Return office visit in 4 weeks. (2) Chronic idiopathic constipation: Code(s): K59.04 - Chronic idiopathic constipation (3) H. pylori infection: Comment: (she continues to be positive for H pylori I treated her with Levaquin amoxicillin rescue therapy since she failed a prior round of antibiotics by her primary care provider that is unknown. However she developed abdominal pain in the ER provider told her to stop. I what had wanted her to go for allergy testing in 2020 so we could determine a different rescue strategy. She is not sure if with the Levaquin of the Flagyl it caused her problems.) Code(s): A04.8 - Other specified bacterial intestinal infections Medications: New linaclotide (Linzess) 72 mcg PO QAM 30 caps 3RF K59.04 - Chronic idiopathic constipation Refilled dexlansoprazole (Dexilant) 60 mg PO DAILY 30 caps 6RF 30 days A04.8 - Other specified bacterial intestinal infections Coding Level of Care Code Est Pt Level 3 (47492) Diagnoses GERD (gastroesophageal reflux disease) K21.9 Chronic idiopathic constipation K59.04 H. pylori infection A04.8
[2023-02-23 08:29] VITALS: BP 146/84; PULSE 88; BMI 41.0
== END 2023-02-23 09:26 | disposition home or self-care (01) ==
PROVIDERS: PCP Internal Medicine; Visit Provider Nurse Practitioner
DX: K21.9 Gastro-esophageal reflux disease without esophagitis (principal); K59.04 Chronic idiopathic constipation; A04.8 Other specified bacterial intestinal infections
CPT/HCPCS: 99213

== ENCOUNTER → 2023-02-23 08:16 | Outpatient (BNVA) | payer OTHER, SELFPAY | PROVIDERS: PCP Internal Medicine; Visit Provider Nurse Practitioner | DX: K21.9 Gastro-esophageal reflux disease without esophagitis (principal); K59.04 Chronic idiopathic constipation; R14.0 Abdominal distension (gaseous); A04.8 Other specified bacterial intestinal infections; E66.9 Obesity, unspecified; Z68.41 Body mass index [BMI] 40.0-44.9, adult | CPT/HCPCS: 99212 ==

== ENCOUNTER 2023-03-17 09:27 | Outpatient (AMB) | payer OTHER, SELFPAY ==
[2023-03-17 09:33] VITALS: BP 136/78; BMI 41.0
--- NOTE | 2023-03-17 09:33 | MHC.PC.OV ---
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 Accompanied by: Self / Same As Patient Allergies citalopram Allergy (Intermediate, Verified 03/17/23 09:39) palpitations doxepin Allergy (Intermediate, Verified 03/17/23 09:39) palpitations quetiapine [Seroquel] Allergy (Intermediate, Verified 03/17/23 09:39) weight gain trazodone Allergy (Intermediate, Verified 03/17/23 09:39) palpitations venlafaxine Adverse Reaction (Intermediate, Verified 03/17/23 10:05) tachycardia zolpidem Adverse Reaction (Verified 03/17/23 09:39) blurry vision Medication List - Last Reconciled 03/17/23 by Fallon Garsia MD albuterol sulfate 90 mcg/actuation (ProAir HFA) 2 puffs inhalation Q6H PRN 30 days clonazepam 1 mg PO BEDTIME PRN 30 days dexlansoprazole (Dexilant) 60 mg PO DAILY 30 days erythromycin 0.5 inches ophthalmic (eye) BID famotidine 40 mg PO BID hydrochlorothiazide 12.5 mg PO DAILY 90 days linaclotide (Linzess) 72 mcg PO QAM semaglutide (Ozempic) 0.25 mg (0.368 mL) subcut QWEEK 30 days zolpidem 5 mg PO BEDTIME Tobacco use date assessed: 07/21/22 Dental Screening Dental Screen Date: 03/17/23 Did you have a dental visit in the last 12 months?: Yes Did you have a dental problem in the last 6 months where you did not have access to dental care?: No Was dental information given to patient?: Patient has dentist HPI HPI Comments History of Present Illness Details This is a 47-year-old female with mild recurrent major depression and morbid obesity that comes today complaining of right ankle pain that has been present for few weeks with full active range of motion. No previous trauma. She also has hypertension that has been well controlled with hydrochlorothiazide. Stop taking venlafaxine for depression due to palpitations and depression is in remission. She is morbidly obese with a BMI of 41 and declines weight loss surgery. She wants to try Ozempic but her last fasting blood glucose was normal. [facility] Medical History (Updated 03/17/23 @ 10:02 by Fallon Garsia MD) Pericardial effusion Pericarditis Primary insomnia Palpitations Essential hypertension Mild recurrent major depression PATRIC (obstructive sleep apnea) Migraines Morbidly obese Moderate asthma Absence of kidney YARITZA (generalized anxiety disorder) Essential hypertension Right elbow pain Abdominal pain Pelvic pain Abnormal abdominal ultrasound Transaminitis Numerous moles FH: throat cancer Obesity Carpal tunnel syndrome Ovarian cyst Surgical History History of esophagogastroduodenoscopy (EGD) H/O colonoscopy History of removal of ovarian cyst (~2017) History of right nephrectomy History of loop electrical excision procedure (LEEP) Family History Maternal Grandmother Diabetes mellitus Maternal Grandfather Heart disease CVD (cardiovascular disease) Father Heart problem Sister Heart murmur Paternal Grandmother Heart problem Mother Thyroid disease Social History Housing: Apartment Alcohol intake: unknown Patient Tobacco Use Status: Never used Tobacco e-Cigarette/Vaping Use: Never Used Second Hand Smoke Exposure: No service: No Current occupational status: unemployed 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 Benjamin Wilson, Maria A Elder, Pastor Melvin and colleagues, with an educational teddy from [employer]. Review of Systems Const All systems reviewed & are unremarkable except as noted in HPI and below Eyes Reports no additional complaints, Denies change in vision and Denies other visual disturbances Card Denies chest pain at rest, Denies chest pain with activity, Denies edema, Denies irregular heart rhythm, Denies claudication, Denies dyspnea, Denies dyspnea on exertion, Denies orthopnea, Denies paroxysmal nocturnal dyspnea and Denies slow heart rate Resp Denies cough, Denies dyspnea and Denies dyspnea on exertion GI Denies abdominal pain, Denies change in bowel habits, Denies excessive flatus, Denies nausea and Denies vomiting Denies urinary incontinence, Denies urinary hesitancy and Denies urinary urgency Musc Denies abnormal gait, Denies atrophy, Denies deformity and Denies limited range of motion Skin/Breast Denies bleeding lesions, Denies changing lesions and Denies rash Neuro Denies abnormal gait and Denies lack of coordination Physical exam (Primary Care) BMI result Body Mass Index 41.0 Tobacco/Smoking Status: Tobacco use Status Tobacco use date assessed 07/21/22 03/17/23 09:37 Patient Tobacco Use Status Never used Tobacco 03/17/23 09:37 e-Cigarette/Vaping Use Never Used 03/17/23 09:37 Thrive Assessment: Date of Thrive Assessment Date Thrive assessed 07/21/22 03/17/23 09:37 Eyes General: appearance normal, both eyes and all related structures Eyelids: Yes eyelids normal Conjunctivae: conjunctivae normal Neck Neck: Yes normal visual inspection and Yes supple Resp Effort & Inspection: normal respiratory effort Auscultation: clear to auscultation bilaterally Cardio Jugular venous distension: no JVD Rate: regular rate Rhythm: regular rhythm Heart sounds: S1 normal heart sound present and S2 normal heart sound present Extrem General: Yes full ROM Assessment and Plan Assessment & Plan (1) Essential hypertension: Code(s): I10 - Essential (primary) hypertension Plan: Continue hydrochlorothiazide. Blood pressure goal is equal or less than 130/80. (2) Right ankle pain: Code(s): M25.571 - Pain in right ankle and joints of right foot Plan: X-ray ordered. (3) Mild recurrent major depression: Code(s): F33.0 - Major depressive disorder, recurrent, mild Plan: In remission. (4) Morbidly obese: Code(s): E66.01 - Morbid (severe) obesity due to excess calories Plan: Start Ozempic if insurance approved. Orders: Orders Comprehensive Met. Panel Today I10 - Essential (primary) hypertension XR ankle RT 2V Today M25.571 - Pain in right ankle and joints of right foot Referrals Dermatology Referral L98.9 - Disorder of the skin and subcutaneous tissue, unspecified Medications: New semaglutide (Ozempic) for 4 weeks 0.25 mg (0.368 mL) subcut QWEEK 30 days 1.84 mL 0RF E66.01 - Morbid (severe) obesity due to excess calories Coding Level of Care Code Est Pt Level 4 (84511) Diagnoses Essential hypertension I10 Right ankle pain M25.571 Mild recurrent major depression F33.0 Morbidly obese E66.01 Time Spent (min) 24
== END 2023-03-17 10:02 | disposition home or self-care (01) ==
PROVIDERS: Visit Provider Internal Medicine
DX: I10 Essential (primary) hypertension (principal); F33.0 Major depressive disorder, recurrent, mild; E66.01 Morbid (severe) obesity due to excess calories; Z68.41 Body mass index [BMI] 40.0-44.9, adult; M25.571 Pain in right ankle and joints of right foot
CPT/HCPCS: 99214

== ENCOUNTER 2023-03-17 10:13 | Outpatient (REF) | payer OTHER, SELFPAY ==
--- NOTE | ~2023-03-17 | XR_ITS ---
EXAMINATION: XR ANKLE, RIGHT CLINICAL INFORMATION: Pain. COMPARISON: None available. TECHNIQUE: AP, lateral, and mortise views of the right ankle. FINDINGS: No acute fracture or dislocation. Ankle mortise is maintained. Prominence at the dorsal aspect of the talar head. No osseous erosion. No abnormal soft tissue calcification. No significant joint effusion. Mild circumferential subcutaneous edema. XR/XR ankle RT 2V IMPRESSION: No acute osseous abnormality. Mild circumferential subcutaneous edema.
[2023-03-17 11:43] LABS: Alanine Aminotransferase 11 U/L (0-31); Albumin Level 4.1 g/dL (3.5-5.0); Alkaline Phosphatase 67 U/L (39-117); Anion Gap 12 (12-20); Aspartate Amino Transferase 16 U/L (5-31); Bilirubin Total 0.5 mg/dL (0.0-1.0); Blood Urea Nitrogen 8 mg/dL (9-16); Calcium 9.4 mg/dL (8.4-10.2); Carbon Dioxide 24 mmol/L (22-29); Chloride 108 mmol/L (96-108); Estimated Glomerular Filt Rate > 60; Glucose Random 97 mg/dL (60-115); Sodium 140 mmol/L (135-145); Total Protein 7.7 g/dL (6.5-8.0)
== END 2023-03-17 10:14 | disposition home or self-care (01) ==
LOC: HO.LAB 10:13
PROVIDERS: PCP Internal Medicine; Visit Provider Internal Medicine
DX: I10 Essential (primary) hypertension (principal); M25.571 Pain in right ankle and joints of right foot
CPT/HCPCS: 36415; 73600; 80053

== ENCOUNTER 2023-03-23 09:59 | Outpatient (AMB) | payer OTHER, SELFPAY ==
[2023-03-23 10:05] VITALS: BP 126/72; PULSE 84; BMI 41.4
--- NOTE | 2023-03-23 10:05 | MHC.OFFVIS ---
Intake Vital Signs 03/23/23 10:05 Height 5 ft 4 in Weight 241 lb 2.971 oz BMI 41.4 BP 126/72 Blood Pressure Location Rt brachial Position Sitting Pulse 84 Intake Visit Reasons: follow up 4 weeks Intake Note: Patient presents to in office visit today in follow up of CIC. Patient states she received Linzess yesterday. CC: Patient reports she has been taking hot water with nez perce and other home remedies to be able to have a BM. Occasional abdominal pain. 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 Dexilante (deslanzoprazol) todas las ma?anas 2. Linzess 72 mcg todas las ma?anas. 3. Puede continuar tomando famotidina dos veces al d?a si es necesario. Quiero verte 4 semanas para ajustar la medicaci?n para el estre?imiento y kings[place] c?mo se siente tu est?leslie. I want to make sure you are taking the following medications, if you can't get them call me: 1. Dexilant (deslanzoprazole) every morning 2. Linzess 72 mcg every morning. 3. You can continue taking famotidine twice a day if necessary. I want to see you for 4 weeks to adjust your constipation medication and see how your stomach feels. Assessment & Plan Assessment & Plan (1) H. pylori infection: Code(s): A04.8 - Other specified bacterial intestinal infections (2) Chronic idiopathic constipation: Code(s): K59.04 - Chronic idiopathic constipation (3) GERD (gastroesophageal reflux disease): Code(s): K21.9 - Gastro-esophageal reflux disease without esophagitis Medications: New linaclotide (Linze ss) 72 mcg PO QAM 30 caps 3RF K59.04 - Chronic i diopathic constipa tion Refilled dexlansoprazole (D exilant) 60 mg PO DAILY 30 days 30 caps 6RF A04.8 - Other spec ified bacterial in testinal infection s CORRESPONDENCE On 02/23/23 @ 11:19 Rachel Whiting Wrote To Phillip Per pharmacist Pt is getting dexanloprazole last picked up on 02/11/23. On 02/23/23 @ 09:39 Valentina Aguilera Wrote To Phillip this should go to an MA On 02/23/23 @ 08:43 PhillipSeptember Wrote To [facility] Please call pts pharmacy and see if she is getting Dexilant. TODAY'S VISIT Cymraes #declines (she continues to be positive for H pylori I treated her with Levaquin amoxicillin rescue therapy since she failed a prior round of antibiotics by her primary care provider that is unknown. However she developed abdominal pain in the ER provider told her to stop. I what had wanted her to go for allergy testing in 2020 so we could determine a different rescue strategy. She is not sure if with the Levaquin of the Flagyl it caused her problems.) She does not feeling different but then again she did not get the Linzess until yesterday. She is waiting till her day off to take it since sometimes it will be in all day process the 1st day 1 were clearing out the initial stool burden. She continues on her Dexilant. She is asking about Wegovy for weight loss. I tell her that we do not prescribe that here but we will refer her to weight management. She does have a BMI over 40 with 2 comorbid conditions [place] and hypertension so she would be a candidate under most insurance plans but I am not familiar with all of the coverage parameters. She says she does not want have weight loss surgery because her sister had an had quite a lot of bad side effects. Return office visit in 4 weeks to evaluate when she starts the Linzess. [facility], [facility] Medical History Pericardial effusion Pericarditis Primary insomnia Palpitations Essential hypertension Mild recurrent major depression PATRIC (obstructive sleep apnea) Migraines Morbidly obese Moderate asthma Absence of kidney YARITZA (generalized anxiety disorder) Essential hypertension Right elbow pain Abdominal pain Pelvic pain Abnormal abdominal ultrasound Transaminitis Numerous moles FH: throat cancer Obesity Carpal tunnel syndrome Ovarian cyst Surgical History History of esophagogastroduodenoscopy (EGD) H/O colonoscopy History of removal of ovarian cyst (~2017) History of right nephrectomy History of loop electrical excision procedure (LEEP) Family History Maternal Grandmother Diabetes mellitus Maternal Grandfather Heart disease CVD (cardiovascular disease) Father Heart problem Sister Heart murmur Paternal Grandmother Heart problem Mother Thyroid disease Social History Housing: Apartment Alcohol intake: unknown Patient Tobacco Use Status: Never used Tobacco e-Cigarette/Vaping Use: Never Used Second Hand Smoke Exposure: No service: No Current occupational status: unemployed 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 Current occupational exposures/hazards: No Gender identity: Female Cognitive needs: No Hearing needs: No Vision needs: Yes Female Reproductive History Menstrual Age of Menarche: 12 Review of Systems Const Denies fatigue, Denies fever(s), Denies night sweats, Denies poor appetite and Denies weight loss ENT Reports Normal hearing present, Denies dental pain, Denies dysphagia, Denies hearing loss, Denies mouth pain, Denies odynophagia, Denies throat swelling, Denies tongue swelling and Reports other (Dentition adequate) Card Reports no additional complaints Resp Reports no additional complaints GI Reports abdominal pain, Denies melena, Denies bloating, Denies hematochezia, Reports constipation, Denies GI cramping, Denies dysphagia, Denies excessive flatus, Denies early satiety, Reports dyspepsia, Reports heartburn, Denies diarrhea, Denies nausea, Denies odynophagia, Denies vomiting and Denies hematemesis Skin/Breast Denies pruritus, Denies lesions, Denies rash and Denies jaundice Neuro Reports Normal hearing present and Denies Abnormal speech present Endo Denies fatigue Aller/Immun Denies throat swelling and Denies tongue swelling Physical Exam Vital Signs: Last Vital Signs Pulse 84 03/23/23 10:05 BP 126/72 03/23/23 10:05 BMI result Body Mass Index 41.4 Const General: cooperative, no acute distress, well developed and well groomed Nutritional Appearance: well nourished and obese morbidly obese Orientation/consciousness: oriented to person, oriented to place and oriented to time Limitations: No language barrier HEENT Head: Yes normocephalic and Yes atraumatic Eyes General: appearance normal, both eyes and all related structures Pupils: Equal, round and reactive pupils present Neck Neck: Yes normal visual inspection and Yes no lymphadenopathy Thyroid: Thyroid normal Resp Effort & Inspection: normal respiratory effort and able to speak in complete sentences Auscultation: clear to auscultation bilaterally Cardio Rate: regular rate Rhythm: regular rhythm Heart sounds: Normal, physiologic split S2 sound present Peripheral pulses: radial pulses present and posterior tibial pulses present GI Inspection: No distended, Yes Abdominal panniculus present and Yes obesity Palpation (GI): Soft to palpation, nontender, no guarding, not rigid and No hepatosplenomegaly present Percussion: Yes normal to percussion Auscultation: normal bowel sounds Rectal Exam - Female: deferred Skin General skin exam: no rashes or lesions noted, turgor normal, skin not dry, no jaundice, No spider nevi and no striae Rashes: no rashes Nails: normal Neuro General: oriented to person, oriented to place and oriented to time Cranial nerves: Yes Equal, round and reactive pupils present and Yes Normal hearing present Speech: No Abnormal speech present Extrem General: Yes normal to inspection, No clubbing, No cyanosis and No edema Psych Appearance: grossly normal and well kempt Mental Status: mental status grossly normal Speech and movement: Normal speech and movement present Affect: normal affect Attitude: cooperative Thought process: Normal thought process present and not confabulating Thought content: Normal thought content present Insight: Limited insight present (Psych) Judgement: Limited judgement present (Psych) Assessment & Plan Assessment & Plan (1) Chronic idiopathic constipation: Code(s): K59.04 - Chronic idiopathic constipation Plan: Cymraes #declines (she continues to be positive for H pylori I treated her with Levaquin amoxicillin rescue therapy since she failed a prior round of antibiotics by her primary care provider that is unknown. However she developed abdominal pain in the ER provider told her to stop. I what had wanted her to go for allergy testing in 2020 so we could determine a different rescue strategy. She is not sure if with the Levaquin of the Flagyl it caused her problems.) She does not feeling different but then again she did not get the Linzess until yesterday. She is waiting till her day off to take it since sometimes it will be in all day process the 1st day 1 were clearing out the initial stool burden. She continues on her Dexilant. She is asking about Wegovy for weight loss. I tell her that we do not prescribe that here but we will refer her to weight management. She does have a BMI over 40 with 2 comorbid conditions [place] and hypertension so she would be a candidate under most insurance plans but I am not familiar with all of the coverage parameters. She says she does not want have weight loss surgery because her sister had an had quite a lot of bad side effects. Return office visit in 4 weeks to evaluate when she starts the Linzess... (2) GERD (gastroesophageal reflux disease): Code(s): K21.9 - Gastro-esophageal reflux disease without esophagitis (3) H. pylori infection: Code(s): A04.8 - Other specified bacterial intestinal infections (4) History of right nephrectomy: Code(s): Z90.5 - Acquired absence of kidney (5) Morbidly obese: Code(s): E66.01 - Morbid (severe) obesity due to excess calories (6) Diarrhea: Comment: she thinks she has a gluten rash. Code(s): R19.7 - Diarrhea, unspecified (7) Transaminitis: Code(s): R74.01 - Elevation of levels of liver transaminase levels (8) Essential hypertension: Code(s): I10 - Essential (primary) hypertension Orders: Orders Transglutaminase IgA Today R19.7 - Diarrhea, unspecified Transglutaminase Ab IgG Today R19.7 - Diarrhea, unspecified Referrals Medical Weight Management Referral E66.01 - Morbid (severe) obesity due to excess calories, I10 - Essential (primary) hypertension, R74.01 - Elevation of levels of liver transaminase levels Coding Level of Care Code Est Pt Level 3 (66263) Diagnoses Chronic idiopathic constipation K59.04 GERD (gastroesophageal reflux disease) K21.9 H. pylori infection A04.8 History of right nephrectomy Z90.5 Morbidly obese E66.01 Diarrhea R19.7 Transaminitis R74.01 Essential hypertension I10
== END 2023-03-23 10:39 | disposition home or self-care (01) ==
PROVIDERS: PCP Internal Medicine; Visit Provider Nurse Practitioner
DX: K59.04 Chronic idiopathic constipation (principal); K21.9 Gastro-esophageal reflux disease without esophagitis; A04.8 Other specified bacterial intestinal infections; Z90.5 Acquired absence of kidney; E66.01 Morbid (severe) obesity due to excess calories; R19.7 Diarrhea, unspecified; R74.01 Elevation of levels of liver transaminase levels; I10 Essential (primary) hypertension
CPT/HCPCS: 99213

== ENCOUNTER → 2023-03-23 09:59 | Outpatient (BNVA) | payer OTHER, SELFPAY | PROVIDERS: PCP Internal Medicine; Visit Provider Nurse Practitioner | DX: K59.04 Chronic idiopathic constipation (principal); K21.9 Gastro-esophageal reflux disease without esophagitis; A04.8 Other specified bacterial intestinal infections; E66.01 Morbid (severe) obesity due to excess calories; R19.7 Diarrhea, unspecified; R74.01 Elevation of levels of liver transaminase levels; I10 Essential (primary) hypertension; Z90.5 Acquired absence of kidney; Z68.41 Body mass index [BMI] 40.0-44.9, adult | CPT/HCPCS: 99212 ==

== ENCOUNTER 2023-04-19 13:12 | Outpatient (REF) | payer OTHER, SELFPAY ==
[2023-04-19 14:53] LABS: Alanine Aminotransferase 10 U/L (0-31); Albumin Level 4.3 g/dL (3.5-5.0); Alkaline Phosphatase 73 U/L (39-117); Anion Gap 12 (12-20); Aspartate Amino Transferase 17 U/L (5-31); Bilirubin Total 0.5 mg/dL (0.0-1.0); Blood Urea Nitrogen 7 mg/dL (9-16); Calcium 9.6 mg/dL (8.4-10.2); Carbon Dioxide 23 mmol/L (22-29); Chloride 109 mmol/L (96-108); Estimated Glomerular Filt Rate > 60; Glucose Fasting 99 mg/dL (60-99); Potassium 3.8 mmol/L (3.3-5.1); Sodium 140 mmol/L (135-145); Total Protein 7.9 g/dL (6.5-8.0)
[2023-04-21 13:04] LABS: Transglutaminase Ab IgG <1.0 U/mL; Transglutaminase IgA <1.0 U/mL
== END 2023-04-19 13:13 | disposition home or self-care (01) ==
LOC: HO.LAB 13:12
PROVIDERS: Absent Provider Nurse Practitioner; PCP Internal Medicine; Visit Provider Internal Medicine
DX: R19.7 Diarrhea, unspecified (principal); R60.0 Localized edema
CPT/HCPCS: 36415; 80053; 86364

== ENCOUNTER 2023-05-09 | Outpatient (REF) | payer OTHER, SELFPAY | END 2023-05-09 00:01 | disposition home or self-care (01) | LOC: HO.LNP | PROVIDERS: Visit Provider Nurse Practitioner | DX: A04.8 Other specified bacterial intestinal infections (principal) | CPT/HCPCS: 87338 ==

== ENCOUNTER 2023-05-12 12:33 | Outpatient (AMB) | payer OTHER, SELFPAY ==
--- NOTE | 2023-05-12 12:36 | A.OFFVIS_ITS ---
Intake Vital Signs 05/12/23 12:39 Height 5 ft 4 in Weight 242 lb 15.19 oz BMI 41.7 BP 143/63 H Blood Pressure Location Lt brachial Position Sitting Pulse 97 Intake Visit Reasons: Follow up GERD, CIC Intake Note: Patient presents to in office visit today in follow up of H pylori. CC: Patient c/o a lot of gas, and constipation. She states that she would like to have gastric balloon procedure but was advised that she needs to have H pylori bacteria eradicated first. 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 Allergies citalopram Allergy (Intermediate, Verified 05/12/23 12:47) palpitations doxepin Allergy (Intermediate, Verified 05/12/23 12:47) palpitations quetiapine [Seroquel] Allergy (Intermediate, Verified 05/12/23 12:47) weight gain trazodone Allergy (Intermediate, Verified 05/12/23 12:47) palpitations venlafaxine Adverse Reaction (Intermediate, Verified 05/12/23 12:47) tachycardia zolpidem Adverse Reaction (Verified 05/12/23 12:47) blurry vision HPI Follow up GERD, CIC HPI Details Assessment & Plan (1) Chronic idiopathic constipation: Code(s): K59.04 - Chronic idiopathic constipation Plan: [place] #declines (she continues to be positive for H pylo ri I treated her with Levaquin amoxicillin rescue therapy since she failed a prior round of antibiotics by her primary care provider that is unknown. However she developed abdominal pain in the ER provider told her to stop. I what had wanted her to go for allergy testing in 2020 so we could determine a different rescue strategy. She is not sure if with the Levaquin of the Flagyl it caused her problems.) She does not feeling different but then again she did not get the Linzess until yesterday. She is waiting till her day off to take it since sometimes it will be in all day process the 1st day 1 were clearing out the initial stool burden. She continues on her Dexilant. She is asking about Wegovy for weight loss. I tell her that we do not prescribe that here but we will refer her to weight management. She does have a BMI over 40 with 2 comorbid conditions [place] and hypertension so she would be a candidate under most insurance plans but I am not familiar with all of the coverage parameters. She says she does not want have weight loss surgery because her sister had an had quite a lot of bad side effects. Return office visit in 4 weeks to evaluate when she starts the Linzess... (2) GERD (gastroesophageal reflux diseas e): Code(s): K21.9 - Gastro-esophageal reflux disease without esophagitis (3) H. pylori infection: Code(s): A04.8 - Other specified bacterial intestinal infections (4) History of right nephrectomy: Code(s): Z90.5 - Acquired absence of kidney (5) Morbidly obese: Code(s): E66.01 - Morbid (severe) obesity due to excess calories (6) Diarrhea: Comment: she thinks she has a gluten rash. Code(s): R19.7 - Diarrhea, unspecified (7) Transaminitis: Code(s): R74.01 - Elevation of levels of liver transaminase levels (8) Essential hypertension: Code(s): I10 - Essential (primary) hypertension Orders: Orders Transglutaminase I gA Today R19.7 - Diarrhea, unspecified Transglutaminase A b IgG Today R19.7 - Diarrhea, unspecified Referrals Medical Weight Man agement Referral E66.01 - Morbid (s evere) obesity due to excess calorie s, I10 - Essential (primary) hyperte nsion, R74.01 - El evation of levels of liver transamin ase levels LABS: Laboratory Tests 04/19/23 05/09/23 13:39 12:02 Stool H. pylori Ag POSITIVE Tiss Transglutamin IgG <1.0 Tiss Transglutamin IgA <1.0 TODAY'S VISIT [place] #declines (she continues to be positive for H pylo ri I treated her with Levaquin amoxicillin rescue therapy since she failed a prior round of antibiotics by her primary care provider that is unknown. However she developed abdominal pain in the ER provider told her to stop. I what had wanted her to go for allergy testing in 2020 so we could determine a different rescue strategy. She is not sure if with the Levaquin of the Flagyl it caused her problems. She has also failed treatment with rifabutin and amoxicillin and quadruple therapy.) She says she has not been feeling terribly well. She has been having a lot of gas and bloating. At times she feels it moving form back to front. She admits she is not passing gas well and not moving her bowels well. She has again expressed concern regarding my kidneys and she does not want to take too many medicines. I again explain that the reason I chose LInzess is that it is not metabolized through the blood stream and the renal system. I will also give her simethicone for gas as this is a surfactant and also is not systemically metabolized. She will try taking the LInzess qod. She did use the Linzess and 72 mcg she uses it intermittently for fear of having diarrhea when she is out of the house. However for the moment she satisfied using it this way. She wants to get the balloon for weight loss and she called some providers /Clinics to get advice and they said she needs to have the H pylori eradicating before they will consider this. This could be a problem because to date she has failed quadruple therapy, was unable to tolerate Levaquin and amoxicillin therapy and we did not know which was the problem, and she has also failed rifabutin/amoxicillin therapy. The only 1 left is amoxicillin/clarithromycin and we will try this. She continues on Dexilant. We review the results celiac testing which I did run because of her gas and bloating and is negative. We done H pylori stool sample on the off chance the partial Levaquin/amoxicillin rescue therapy eradicated the H pylori but it did not. ROV 6 weeks. [facility] Medical History (Updated 05/12/23 @ 16:33 by LENKA [place]) Right ankle pain UTI (urinary tract infection) Insomnia Physical exam Pericardial effusion Palpitations Ankle pain Abdominal mass, LUQ (left upper quadrant) Dysphagia Right elbow pain Abdominal pain Pelvic pain Abnormal abdominal ultrasound Abnormal uterine bleeding (AUB) FH: throat cancer Pericardial effusion Pericarditis Primary insomnia Essential hypertension Mild recurrent major depression PATRIC (obstructive sleep apnea) Migraines Morbidly obese Moderate asthma Absence of kidney YARITZA (generalized anxiety disorder) Essential hypertension Transaminitis Numerous moles Obesity Carpal tunnel syndrome Ovarian cyst Surgical History (Updated 05/12/23 @ 16:33 by LENKA [place]) History of right nephrectomy History of esophagogastroduodenoscopy (EGD) H/O colonoscopy History of removal of ovarian cyst (~2017) History of loop electrical excision procedure (LEEP) Family History Maternal Grandmother Diabetes mellitus Maternal Grandfather Heart disease CVD (cardiovascular disease) Father Heart problem Sister Heart murmur Paternal Grandmother Heart problem Mother Thyroid disease Social History Housing: Apartment Alcohol intake: unknown Patient Tobacco Use Status: Never used Tobacco e-Cigarette/Vaping Use: Never Used Second Hand Smoke Exposure: No service: No Current occupational status: unemployed 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 [employer] Current occupational exposures/hazards: No Gender identity: Female Cognitive needs: No Hearing needs: No Vision needs: Yes Female Reproductive History Menstrual Age of Menarche: 12 Review of Systems Const Denies fatigue, Denies fever(s), Denies night sweats, Denies poor appetite and Denies weight loss ENT Reports Normal hearing present, Denies dental pain, Denies dysphagia, Denies hearing loss, Denies mouth pain, Denies odynophagia, Denies throat swelling, Denies tongue swelling and Reports other (Dentition adequate) Card Reports no additional complaints Resp Reports no additional complaints GI Denies abdominal pain, Denies melena, Reports bloating, Denies hematochezia, Reports constipation, Denies GI cramping, Denies dysphagia, Denies excessive flatus, Denies early satiety, Reports heartburn, Denies diarrhea, Denies nausea, Denies odynophagia, Denies vomiting and Denies hematemesis Skin/Breast Denies pruritus, Denies lesions, Denies rash and Denies jaundice Neuro Reports Normal hearing present and Denies Abnormal speech present Endo Denies fatigue Aller/Immun Denies throat swelling and Denies tongue swelling Physical Exam Vital Signs: Last Vital Signs Pulse 97 05/12/23 12:39 BP 143/63 H 05/12/23 12:39 BMI result Body Mass Index 41.7 Const General: cooperative, no acute distress, well developed and well groomed Nutritional Appearance: well nourished and obese Orientation/consciousness: oriented to person, oriented to place and oriented to time Limitations: language barrier HEENT Head: Yes normocephalic and Yes atraumatic Eyes General: appearance normal, both eyes and all related structures Pupils: Equal, round and reactive pupils present Neck Neck: Yes normal visual inspection and Yes no lymphadenopathy Thyroid: Thyroid normal Resp Effort & Inspection: normal respiratory effort and able to speak in complete sentences Auscultation: clear to auscultation bilaterally Cardio Rate: regular rate Rhythm: regular rhythm Heart sounds: Normal, physiologic split S2 sound present Peripheral pulses: radial pulses present and posterior tibial pulses present GI Inspection: No distended, No Abdominal panniculus present and Yes obesity Palpation (GI): Soft to palpation, nontender, no guarding, not rigid and No hepatosplenomegaly present Percussion: Yes normal to percussion Auscultation: normal bowel sounds Rectal Exam - Female: deferred Skin General skin exam: no rashes or lesions noted, turgor normal, skin not dry, no jaundice, No spider nevi and no striae Rashes: no rashes Nails: normal Neuro General: oriented to person, oriented to place and oriented to time Cranial nerves: Yes Equal, round and reactive pupils present and Yes Normal hearing present Speech: No Abnormal speech present Extrem General: Yes normal to inspection, No clubbing, No cyanosis and No edema Psych Appearance: grossly normal and well kempt Mental Status: mental status grossly normal Speech and movement: Normal speech and movement present Affect: normal affect Attitude: cooperative Thought process: Normal thought process present and not confabulating Thought content: Normal thought content present Insight: Limited insight present (Psych) and Poor insight present (Psych) Judgement: Limited judgement present (Psych) and Poor judgement present (Psych) Assessment & Plan Assessment & Plan (1) H. pylori infection: Comment: (she continues to be positive for H pylori I treated her with Levaquin amoxicillin rescue therapy since she failed a prior round of antibiotics by her primary care provider that is unknown. However she developed abdominal pain in the ER provider told her to stop. I what had wanted her to go for allergy testing in 2020 so we could determine a different rescue strategy. She is not sure if with the Levaquin of the Flagyl it caused her problems.) Code(s): A04.8 - Other specified bacterial intestinal infections Plan: [place] #declines (she continues to be positive for H pylori I treated her with Levaquin amoxicillin rescue therapy since she failed a prior round of antibiotics by her primary care provider that is unknown. However she developed abdominal pain in the ER provider told her to stop. I what had wanted her to go for allergy roberto ting in 2020 so we could determine a different rescue strategy. She is not sure if with the Levaquin of the Flagyl it caused her problems. She has also failed treatment with rifabutin and amoxicillin and quadruple therapy.) She says she has not been feeling terribly well. She has been having a lot of gas and bloating. At times she feels it moving form back to front. She admits she is not passing gas well and not moving her bowels well. She has again expressed concern regarding my kidneys and she does not want to take too many medicines. I again explain that the reason I chose LInzess is that it is not metabolized through the blood stream and the renal system. I will also give her simethicone for gas as this is a surfactant and also is not systemically metabolized. She will try taking the LInzess qod. She did use the Linzess and 72 mcg she uses it intermittently for fear of having diarrhea when she is out of the house. However for the moment she satisfied using it this way. She wants to get the balloon for weight loss and she called some providers/Clinics to get advice and they said she needs to have the H pylori eradicating before they will consider this. This could be a problem because to date she has failed quadruple therapy, was unable to tolerate Levaquin and amoxicillin therapy and we did not know which was the problem, and she has also failed rifabutin/amoxicillin therapy. The only 1 left is amoxicillin/clarithromycin and we will try this. She continues on Dexilant. We review the results celiac testing which I did run because of her gas and bloating and is negative. We done H pylori stool sample on the off chance the partial Levaquin/amoxicillin rescue therapy eradicated the H pylori but it did not. ROV 6 weeks. (2) Allergic reaction caused by a drug: Comment: FACIAL SWELLING well taking amoxicillin on Levaquin referred allergy to tease out which antibiotic may have been the causative factor Code(s): T78.40XA - Allergy, unspecified, initial encounter (3) Chronic idiopathic constipation: Code(s): K59.04 - Chronic idiopathic constipation (4) GERD (gastroesophageal reflux disease): Code(s): K21.9 - Gastro-esophageal reflux disease without esophagitis Medications: New simethicone after meals 180 mg PO QID 30 days 120 caps 3RF amoxicillin 1,000 mg (2 x 500 mg) PO Q12H 14 days 56 caps 0RF clarithromycin 500 mg PO BID 14 days 28 tabs 0RF Coding Level of Care Code Est Pt Level 3 (09979) Diagnoses H. pylori infection A04.8 Allergic reaction caused by a drug T78.40XA Chronic idiopathic constipation K59.04 GERD (gastroesophageal reflux disease) K21.9
[2023-05-12 12:39] VITALS: BP 143/63; PULSE 97; BMI 41.7
== END 2023-05-12 13:24 | disposition home or self-care (01) ==
PROVIDERS: PCP Internal Medicine; Visit Provider Nurse Practitioner
DX: A04.8 Other specified bacterial intestinal infections (principal); T78.40XA Allergy, unspecified, initial encounter; K59.04 Chronic idiopathic constipation; K21.9 Gastro-esophageal reflux disease without esophagitis
CPT/HCPCS: 99213

== ENCOUNTER → 2023-05-12 12:33 | Outpatient (BNVA) | payer OTHER, SELFPAY | PROVIDERS: PCP Internal Medicine; Visit Provider Nurse Practitioner | DX: K59.04 Chronic idiopathic constipation (principal); K21.9 Gastro-esophageal reflux disease without esophagitis; A04.8 Other specified bacterial intestinal infections; T78.40XD Allergy, unspecified, subsequent encounter | CPT/HCPCS: 99212 ==

== ENCOUNTER 2023-09-07 09:58 | Emergency (ER) | payer OTHER, SELFPAY ==
--- NOTE | 2023-09-07 | ECG_ITS ---
Test Reason : DIZZINESS Blood Pressure : / mmHG Vent. Rate : 073 BPM Atrial Rate : 073 BPM P-R Int : 192 ms QRS Dur : 096 ms QT Int : 410 ms P-R-T Axes : 050 014 025 degrees QTc Int : 451 ms Normal sinus rhythm Normal ECG When compared with ECG of 12-NOV-2021 19:21, No significant change was found Referred By: Generic ED Physician Electronically Signed By:ROSA MERCEDES MD
--- NOTE | ~2023-09-07 | CT_ITS ---
EXAMINATION: CT HEAD WITHOUT CONTRAST CLINICAL INFORMATION: Dizziness left arm numbness COMPARISON: CT head from 03/31/2021 TECHNIQUE: Contiguous axial imaging was performed from the skull base to vertex without intravenous administration of contrast. This CT examination was performed using dose optimization techniques as appropriate, variously including the following: *Automated exposure control *Adjustment of mA and/or kV according to patient size (this includes techniques or standardized protocols for targeted exams where dose is matched to indication/reason for exam; i.e. extremities or head) *Use of iterative reconstruction technique DLP: 616 mGy-cm FINDINGS: There is no evidence of acute intracranial hemorrhage or territorial infarction. No abnormal mass effect or midline shift is seen. Ferreira to white matter differentiation is well preserved. No extra-axial fluid collections are identified. The ventricles are normal in size. There is no abnormal attenuation within the brain parenchyma. The osseous structures and soft tissues are normal. The mastoid air cells and visualized portions of the paranasal sinuses are well aerated. CT/CT head/brain wo IV con IMPRESSION: No acute intracranial pathology.
[2023-09-07 10:06] VITALS: BP 135/72; PULSE 77; RESP 18; TEMP 36.6; O2SAT 97; BMI 40.8
--- NOTE | 2023-09-07 14:10 | ED.GENADULT ---
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 She describes this as the room is spinning and like she is going to fall over. Associated nausea. Also complains of left flank pain and states that she feels dehydrated. Numbness/tingling to left arm for 2 days. Denies chest pain, palpitations, dyspnea. Denies abdominal pain, vomiting, diarrhea, constipation. Denies dysuria, frequency, hematuria or other urinary symptoms. Denies fevers. Denies hematochezia or melena. Denies recent fall or other trauma. MD complaint: dizzy, left arm numbness, flank pain Onset (ago): day(s) Treatments prior to arrival: none Related Data Previous Rx's Medication Instructions Recorded clonazepam 1 mg tablet 1 mg PO BEDTIME PRN anxiety 30 11/08/22 days #30 tabs hydrochlorothiazide 12.5 mg tablet 12.5 mg PO DAILY 90 days #90 tabs 12/27/22 albuterol sulfate 90 mcg/actuation 2 puff inhalation Q6H PRN 02/15/23 aerosol inhaler (ProAir HFA) shortness of breath or wheezing 30 days #6.7 grams linaclotide 72 mcg capsule 72 mcg PO QAM #30 caps 02/23/23 (Linzess) dexlansoprazole 60 mg 60 mg PO DAILY 30 days #30 caps 02/25/23 capsule,biphase delayed release (Dexilant) famotidine 40 mg tablet 40 mg PO BID #180 tabs 04/25/23 amoxicillin 500 mg capsule 1,000 mg (2 x 500 mg) PO Q12H 14 05/12/23 days #56 caps clarithromycin 500 mg tablet 500 mg PO BID 14 days #28 tabs 05/12/23 simethicone 180 mg capsule 180 mg PO QID 30 days #120 caps 05/12/23 zolpidem 5 mg tablet 5 mg PO BEDTIME 30 days #30 tabs 08/23/23 Allergies Allergy/AdvReac Type Severity Reaction Status Date / Time citalopram Allergy Intermediate palpitation Verified 09/07/23 10:10 s doxepin Allergy Intermediate palpitation Verified 09/07/23 10:10 s quetiapine [Seroquel] Allergy Intermediate weight gain Verified 09/07/23 10:10 trazodone Allergy Intermediate palpitation Verified 09/07/23 10:10 s venlafaxine AdvReac Intermediate tachycardia Verified 09/07/23 10:10 zolpidem AdvReac blurry Verified 09/07/23 10:10 vision Review of Systems Review of Systems: As per HPI. Yes all other systems are reviewed and are negative Constitutional: Constitutional: Reports as per HPI [facility] Past Medical History Medical History (Updated 09/07/23 @ 18:48 by Ori Masterson) Right ankle pain UTI (urinary tract infection) Insomnia Physical exam Pericardial effusion Palpitations Ankle pain Abdominal mass, LUQ (left upper quadrant) Dysphagia Right elbow pain Abdominal pain Pelvic pain Abnormal abdominal ultrasound Abnormal uterine bleeding (AUB) FH: throat cancer Pericardial effusion Pericarditis Primary insomnia Essential hypertension Mild recurrent major depression PATRIC (obstructive sleep apnea) Migraines Morbidly obese Moderate asthma Absence of kidney YARITZA (generalized anxiety disorder) Essential hypertension Transaminitis Numerous moles Obesity Carpal tunnel syndrome Ovarian cyst Surgical History (Updated 05/12/23 @ 16:33 by LENKA [place]) History of right nephrectomy History of esophagogastroduodenoscopy (EGD) H/O colonoscopy History of removal of ovarian cyst (~2016) History of loop electrical excision procedure (LEEP) Family History Family History Maternal Grandmother Diabetes mellitus Maternal Grandfather Heart disease CVD (cardiovascular disease) Father Heart problem Sister Heart murmur Paternal Grandmother Heart problem Mother Thyroid disease Social History Social History Housing: Apartment Alcohol intake: unknown Patient Tobacco Use Status: Never used Tobacco e-Cigarette/Vaping Use: Never Used Second Hand Smoke Exposure: No Advance Directives: No Advance Directives Information Provided: No service: No Current occupational status: unemployed Current occupation: [employer] Current occupational exposures/hazards: No Gender identity: Female Cognitive needs: No Hearing needs: No Vision needs: Yes Physical Exam ED Vital Signs: Vital Signs - 24 hr 09/07/23 10:06 09/07/23 14:56 Temperature 97.9 F 97.5 F Pulse Rate 77 65 Respiratory Rate 18 14 Blood Pressure 135/72 128/57 L Pulse Oximetry 97 97 Oxygen Delivery Method Room Air Room Air BMI result Body Mass Index 40.8 Vital signs have been reviewed and appear to be correct. Blood pressure normal. Heart rate normal. Respiratory rate normal. Temperature normal. Oxygen saturation normal. Const General: cooperative, healthy appearing and no acute distress Orientation/consciousness: oriented to person, oriented to place, oriented to time and patient oriented x3 Limitations: no limitations HENMT Head: Yes normocephalic and Yes atraumatic Ears: external ears normal, TM's normal bilaterally and EAC's normal General nose exam: Normal external nose present Face and sinus: Yes face symmetric Mouth: oropharynx normal and moist mucous membranes Throat: Yes uvula midline Eyes Pupils: Equal, round and reactive pupils present EOM: EOMs intact bilaterally and No Nystagmus present Neck Neck: Yes normal visual inspection, Yes no meningeal signs and Yes supple Resp Effort & Inspection: normal respiratory effort and able to speak in complete sentences Auscultation: clear to auscultation bilaterally Cardio Rate: regular rate Rhythm: regular rhythm Heart sounds: S1 normal heart sound present and S2 normal heart sound present GI Palpation (GI): Soft to palpation and nontender Auscultation: normoactive bowel sounds General: Yes no CVA tenderness Back/Spine/Pelvis Back: no CVA tenderness Skin General skin exam: elasticity normal and turgor normal Neuro General: oriented to person, oriented to place, oriented to time, patient oriented x3, gait normal, tone normal, moves all extremities, Normal light touch and pain sensation, no meningeal signs, no focal motor deficits, CN's II-XI intact bilaterally, deep tendon reflexes 2+ bilaterally and No [place] (negative bilaterally) Cranial nerves: Yes Equal, round and reactive pupils present and No Nystagmus present Cognition (Neuro): normal cognition Gait exam (Neuro): Normal gait present Motor exam (neuro): 5/5 motor strength present throughout, Normal motor muscle tone present throughout and Motor abnormalities not present Sensory Exam: Normal double simultaneous stimulation for sensation Extrem General: Yes full ROM, Yes no pedal edema and Yes no calf tenderness Psych Mental Status: mental status grossly normal Affect: normal affect Thought process: Normal thought process present NIH Stroke Scale Internal: Initial- Upon Arrival Time: 14:51 Level of Consciousness: Alert Level of Consciousness Questions: Answers both questions correctly Level of Consciousness Commands: Performs both tasks correctly Best Gaze: Normal Visual: No visual loss Facial Palsy: Normal Motor Arm (Right): No drift Motor Arm (Left): No drift Motor Leg (Right): No drift Motor Leg (Left): No drift Limb Ataxia: Absent Sensory: Normal Best Language: No aphasia Dysarthia: Normal Extinction and Inattention: No abnormality Score: 0 Course Reevaluation(s) Reevaluation #1: Patient received in sign-out at change of shift pending CT scan, UA both of which were unremarkable. I discussed with the patient, her symptoms are most likely related to vertigo. Patient was offered meclizine but states ?I want to talk my doctor 1st because I only have 1 kidney. ? She be referred to Neurology and PCP Time: 18:44 Medical Decision Making Medical Decision Making [facility] Narrative: Patient is a 47-year-old [place]an-speaking female with history of right nephrectomy presenting to the emergency department with complaint of brief intermittent episodes of dizziness since yesterday. On exam patient is awake, A+Ox3, VS WNL, afebrile, normal neurological exam without focal deficits, physical exam findings as above. Given reported symptoms and physical exam findings, initial differential includes BPPV, vestibular neuritis, ICH/CVA, UTI/pyelonephritis, cardiac arrythmia, anemia, electrolyte abnormality, dehydration. Labs notable for no leukocytosis, no anemia, no significant electrolyte abnormalities, no evidence of OLIVIER. EKG shows normal sinus rhythm. Patient signed out to KEVIN Bright pending CT and UA results. Differential Diagnosis Differential Diagnoses: The differential diagnosis associated with the presentation includes As per [facility] Admission/Observation Consideration of admission/observation: Escalation of care including admission/observation considered Patient would have been admitted to the hospital had their work up had any findings where hospital admission was appropriate and their clinical presentation warranted hospital admission. Lab Data [facility] Lab Attestation statement: I reviewed the patient's lab results. As per [facility]. 09/07/23 14:46 09/07/23 14:46 Labs: Lab Results 09/07/23 09/07/23 09/07/23 Range/Units 14:46 14:53 16:44 WBC 6.4 (4.8-10.8) X10*3/uL RBC 4.54 (4.20-5.50) X10*6/uL Hgb 13.3 (12.0-16.0) g/dl Hct 40.0 (37.0-47.0) % MCV 88.1 (80.0-98.0) fL MCH 29.3 (27.0-33.0) pg MCHC 33.3 (31.0-35.0) g/dl RDW 14.0 (11.0-16.0) % Plt Count 265 (160-400) X10*3/uL MPV 10.3 (9.4-12.3) fL Immature Gran % (Auto) 0.3 (0.0-0.4) % Neut % (Auto) 51.0 (45-73) % Lymph % (Auto) 36.9 (20-40) % [place] % (Auto) 9.1 (2-11) % Eos % (Auto) 1.9 (0-4) % Baso % (Auto) 0.8 (0-2) % Lymph # (Auto) 2.4 (1.2-4.9) X10*3/uL [place] # (Auto) 0.6 (0.1-1.2) X10*3/uL Eos # (Auto) 0.1 (0.0-0.4) X10*3/uL Baso # (Auto) 0.1 (0.0-0.2) X10*3/uL Abs Immat Gran (auto) 0.02 (0.00-0.03) X10*3/uL Absolute Neuts (auto) 3.3 (2.0-8.3) x10*3/uL Absolute Nucleated RBC 0.000 (0.0-0.012) X10*3/uL Nucleated RBC % (auto) 0.0 (0.0-0.2) /100WBC Sodium 140 (135-145) mmol/L Potassium 4.0 (3.3-5.1) mmol/L Chloride 106 (96-108) mmol/L Carbon Dioxide 24 (22-29) mmol/L Anion Gap 14 (12-20) BUN 7 L (9-16) mg/dL Creatinine 0.65 (0.5-1.4) mg/dL Estim Creat Clear Calc 131.4 Estimated GFR > 60 POC Glucose 87 (60-115) mg/dL Random Glucose 81 (60-115) mg/dL Calcium 10.0 (8.4-10.2) mg/dL Total Bilirubin 0.4 (0.0-1.0) mg/dL Direct Bilirubin 0.1 (0.0-0.5) mg/dL AST 25 (5-31) U/L ALT 16 (0-31) U/L Alkaline Phosphatase 74 (39-117) U/L Troponin I High Sens < 2.7 (<3.5-17.0) ng/L Total Protein 8.6 H (6.5-8.0) g/dL Albumin 4.3 (3.5-5.0) g/dL Lipase 16 (8-78) U/L Beta HCG, Quant < 2 mIU/mL Urine Color Yellow Urine Appearance Clear Urine pH 6.5 (5.0-9.0) Ur Specific [place] <= 1.005 (1.005-1.025) Urine Protein Negative (Neg-Trace) mg/dL Urine Glucose (UA) Negative (Negative) mg/dL Urine Ketones Negative (Negative) mg/dL Urine Blood Negative (Negative) Urine Nitrite Negative (Negative) Ur Leukocyte Esterase Negative (Negative) Urine RBC 0-2 (0-2) /HPF Urine WBC 0-5 (0-5) /HPF Ur Squamous Epith Cells 0-2 (0-2) /HPF Urine Bacteria None Seen (None Seen) Hyaline Casts 0-2 (0-2) /LPF Independent Interpretation I performed an independent interpretation of an: EKG (normal sinus rhythm, rate 73 bpm, normal NC interval and QTc) External Record Review External record reviewed: Inpatient record, Office record and Outpatient record Discharge Plan Discharge Clinical Impression: Dizziness Patient Disposition: Home, Self-Care Instructions: Vertigo (ED) Additional Instructions: Your workup in the ER today was reassuring. This includes your CT scan, blood work, EKG and urinalysis Your symptoms are likely related to vertigo Follow up your primary doctor as well as Dr. Reyes, neurology Return for new or worsening symptoms Prescriptions: No Action clonazepam 1 mg tablet 1 mg PO BEDTIME PRN (Reason: anxiety) 30 Days Qty: 30 0RF Rx Instructions: administer 30 minutes before bedtime hydrochlorothiazide 12.5 mg tablet 12.5 mg PO DAILY 90 Days Qty: 90 0RF dexlansoprazole [Dexilant] 60 mg capsule,biphase delayed releas 60 mg PO DAILY 30 Days Qty: 30 6RF famotidine 40 mg tablet 40 mg PO BID Qty: 180 1RF zolpidem 5 mg tablet 5 mg PO BEDTIME 30 Days Qty: 30 0RF albuterol sulfate [ProAir HFA] 90 mcg/actuation HFA aerosol inhaler 2 puff inhalation Q6H PRN (Reason: shortness of breath or wheezing) 30 Days Qty: 6.7 6RF Linzess 72 mcg capsule 72 mcg PO QAM Qty: 30 3RF amoxicillin 500 mg capsule 1,000 mg PO Q12H 14 Days Qty: 56 0RF clarithromycin 500 mg tablet 500 mg PO BID 14 Days Qty: 28 0RF simethicone 180 mg capsule 180 mg PO QID 30 Days Qty: 120 3RF Rx Instructions: after meals Referrals: Michelle Reyes MD [Physician] - (Vertigo)
[2023-09-07 14:51] LABS: MANUAL DIFF FLAG NO
[2023-09-07 14:56] VITALS: BP 128/57; PULSE 65; RESP 14; TEMP 36.4; O2SAT 97
[2023-09-07 14:56] LABS: Basophils Absolute Auto 0.1 X10*3/uL (0.0-0.2); Basophils Percent Auto 0.8 % (0-2); Eosinophils Absolute Auto 0.1 X10*3/uL (0.0-0.4); Eosinophils Percent Auto 1.9 % (0-4); Hemoglobin 13.3 g/dl (12.0-16.0); Imm Gran Abs Auto 0.02 X10*3/uL (0.00-0.03); Imm Gran Pct Auto 0.3 % (0.0-0.4); Lymphocytes Absolute Auto 2.4 X10*3/uL (1.2-4.9); Lymphocytes Percent Auto 36.9 % (20-40); Mean Corpuscular HGB Conc 33.3 g/dl (31.0-35.0); Mean Corpuscular Hemoglobin 29.3 pg (27.0-33.0); Mean Corpuscular Volume 88.1 fL (80.0-98.0); Mean Platelet Volume 10.3 fL (9.4-12.3); Monocytes Absolute Auto 0.6 X10*3/uL (0.1-1.2); Monocytes Percent Auto 9.1 % (2-11); Neutrophils Absolute Auto 3.3 x10*3/uL (2.0-8.3); Platelet Count 265 X10*3/uL (160-400); Red Blood Count 4.54 X10*6/uL (4.20-5.50); White Blood Count 6.4 X10*3/uL (4.8-10.8)
[2023-09-07 15:01] LABS: Glucose, Whole Blood 87 mg/dL (60-115)
[2023-09-07 15:22] LABS: Alanine Aminotransferase 16 U/L (0-31); Albumin Level 4.3 g/dL (3.5-5.0); Alkaline Phosphatase 74 U/L (39-117); Anion Gap 14 (12-20); Aspartate Amino Transferase 25 U/L (5-31); Bilirubin Direct 0.1 mg/dL (0.0-0.5); Bilirubin Total 0.4 mg/dL (0.0-1.0); Blood Urea Nitrogen 7 mg/dL (9-16); Carbon Dioxide 24 mmol/L (22-29); Chloride 106 mmol/L (96-108); Creatinine Clr Calc Pharmacy 131.4; Estimated Glomerular Filt Rate > 60; Glucose Random 81 mg/dL (60-115); HCG Quantitative < 2 mIU/mL; Lipase 16 U/L (8-78); Sodium 140 mmol/L (135-145); Total Protein 8.6 g/dL (6.5-8.0); Troponin-I High Sensitivity < 2.7 ng/L (<3.5-17.0)
[2023-09-07 17:08] LABS: Appearance Urine Clear; Color Urine Yellow; Glucose Urine UA Negative (Negative); Leukocyte Esterase Urine Negative (Negative); Nitrite Urine Negative (Negative); PH 6.5 (5.0-9.0); Specific Gravity - Urine <= 1.005 (1.005-1.025); Urine Blood Negative (Negative); Urine Ketones Negative (Negative); Urine Protein Negative (Neg-Trace)
[2023-09-07 17:10] LABS: Bacteria Urine None Seen (None Seen); Hyaline Casts Urine 0-2 /LPF (0-2); RBC Urine 0-2 /HPF (0-2); Squamous Epithelial Cell Urine 0-2 /HPF (0-2); WBC Urine 0-5 /HPF (0-5)
== END 2023-09-07 19:24 | disposition home or self-care (01) ==
PROVIDERS: Physician Assistant; Registered Nurse Emergency; Emergency Provider Emergency Medicine Emergency Medical Services; PCP Internal Medicine
DX: R42 Dizziness and giddiness (principal); R20.0 Anesthesia of skin; E86.0 Dehydration; R11.0 Nausea; R10.9 Unspecified abdominal pain; Z79.899 Other long term (current) drug therapy
CPT/HCPCS: 36415; 70450; 80053; 81001; 82248; 82947; 83690; 84484; 84702; 85025; 93005; 99284

== ENCOUNTER → 2023-09-07 14:10 | Outpatient (BNV) | payer OTHER, SELFPAY | PROVIDERS: Emergency Provider Emergency Medicine Emergency Medical Services; PCP Internal Medicine; Visit Provider Internal Medicine Cardiovascular Disease | DX: R42 Dizziness and giddiness (principal) | CPT/HCPCS: 93010 ==

== ENCOUNTER 2023-11-03 12:51 | Outpatient (REF) | payer OTHER, SELFPAY ==
[2023-11-03 14:45] LABS: Anion Gap 12 (12-20); Blood Urea Nitrogen 7 mg/dL (9-16); Calcium 9.5 mg/dL (8.4-10.2); Carbon Dioxide 24 mmol/L (22-29); Chloride 107 mmol/L (96-108); Estimated Glomerular Filt Rate > 60; Glucose Random 96 mg/dL (60-115); Sodium 139 mmol/L (135-145)
[2023-11-04 11:09] LABS: Complement C3 83 mg/dL (83-193)
[2023-11-04 22:28] LABS: Anti DNA DS Antibody <1 IU/mL
[2023-11-07 11:53] LABS: Anti Nuclear Antibody Screen POSITIVE (NEGATIVE); Anti Nuclear Antibody Titer 1:40 titer
[2023-11-08 13:38] LABS: Vitamin D 25-OH, D2 <4 ng/mL; Vitamin D 25-OH, D3 17 ng/mL; Vitamin D 25-OH, Total 17 ng/mL (30-100)
== END 2023-11-03 12:52 | disposition home or self-care (01) ==
LOC: HO.LAB 12:51
PROVIDERS: PCP Internal Medicine; Visit Provider Internal Medicine Hypertension Specialist
DX: I10 Essential (primary) hypertension (principal); R31.9 Hematuria, unspecified; N20.0 Calculus of kidney
CPT/HCPCS: 36415; 80048; 82306; 86038; 86039; 86160; 86225; 99202

== ENCOUNTER 2023-11-03 12:51 | Outpatient (AMB) | payer OTHER, SELFPAY ==
--- NOTE | 2023-11-03 13:03 | HO.NEPHOV_ITS ---
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 [age] year old woman with a history of solitary left kidney he is here for evaluation of left flank pain. He has had the chronic left flank pain for few years. She has a history of kidney stones but recent imaging did not reveal any kidney stones. She was in the ER in August with similar pain at that time urinalysis showed microhematuria with some leukocytes. However urine culture was essentially negative. She was not treated with antibiotics. Subsequent urinalysis was essentially unremarkable. She has a history of right nephrectomy for renal stones/infection and it was a nonfunctioning kidney as per patient. Renal function has been stable with a EGFR of 130 NM mild per minute and serum creatinine 0.65. She has hyper filtration in the solitary functioning kidney which is not unusual. Today she has no dysuria, urgency or hematuria. She has left loin pain which is nonradiating not colicky. No leg edema no fever no rash. She was seeing a different sap technical architect prior to this and she is decided to switch providers for better care. [facility] Medical History (Updated 11/03/23 @ 13:43 by Stefano Tierney MD) Right ankle pain UTI (urinary tract infection) Insomnia Physical exam Pericardial effusion Palpitations Ankle pain Abdominal mass, LUQ (left upper quadrant) Dysphagia Right elbow pain Abdominal pain Pelvic pain Abnormal abdominal ultrasound Abnormal uterine bleeding (AUB) FH: throat cancer Pericardial effusion Pericarditis Primary insomnia Essential hypertension Mild recurrent major depression PATRIC (obstructive sleep apnea) Migraines Morbidly obese Moderate asthma Absence of kidney YARITZA (generalized anxiety disorder) Essential hypertension Transaminitis Numerous moles Obesity Carpal tunnel syndrome Ovarian cyst Surgical History History of right nephrectomy History of esophagogastroduodenoscopy (EGD) H/O colonoscopy History of removal of ovarian cyst (~2017) History of loop electrical excision procedure (LEEP) Family History Maternal Grandmother Diabetes mellitus Maternal Grandfather Heart disease CVD (cardiovascular disease) Father Heart problem Sister Heart murmur Paternal Grandmother Heart problem Mother Thyroid disease Social History Housing: Apartment Alcohol intake: unknown Patient Tobacco Use Status: Never used Tobacco e-Cigarette/Vaping Use: Never Used Second Hand Smoke Exposure: No service: No Current occupational status: unemployed 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 Current occupational exposures/hazards: No Gender identity: Female Cognitive needs: No Hearing needs: No Vision needs: Yes Female Reproductive History Menstrual Age of Menarche: 12 Physical Exam Vital Signs: Last Vital Signs Pulse 85 11/03/23 13:04 BP 110/76 11/03/23 13:04 Pulse Ox 98 11/03/23 13:04 Oxygen Delivery Method Room Air 11/03/23 13:04 BMI result Body Mass Index 40.4 Const General: comfortable Nutritional Appearance: well nourished Orientation/consciousness: patient oriented x3 HEENT Head: No normal to inspection Mouth: moist mucous membranes Neck Neck: Yes supple and Yes no JVD Resp Auscultation: clear to auscultation bilaterally, no rales and rub present Cardio Jugular venous distension: no JVD Palpation: no palpable S3 and no palpable S4 Heart sounds: no rubs GI Palpation (GI): Soft to palpation and nontender Percussion: No Fluid wave present General: Yes no CVA tenderness Back/Spine/Pelvis Back: no CVA tenderness Skin General skin exam: no rashes or lesions noted Neuro General: patient oriented x3 Extrem General: Yes no pedal edema and No clubbing Results Reviewed Nephrology Results: Hgb 13.3 g/dl (12.0-16.0) 09/07/23 WBC 6.4 X10*3/uL (4.8-10.8) 09/07/23 Plt Count 265 X10*3/uL (160-400) 09/07/23 Sodium 140 mmol/L (135-145) 09/07/23 Potassium 4.0 mmol/L (3.3-5.1) 09/07/23 Chloride 106 mmol/L (96-108) 09/07/23 Carbon Dioxide 24 mmol/L (22-29) 09/07/23 BUN 7 mg/dL (9-16) L 09/07/23 Creatinine 0.65 mg/dL (0.5-1.4) 09/07/23 Calcium 10.0 mg/dL (8.4-10.2) 09/07/23 Urine Protein Negative mg/dL (Neg-Trace) 09/07/23 Assessment & Plan Assessment & Plan (1) Essential hypertension: Code(s): I10 - Essential (primary) hypertension Category: Medical Plan . 48-year-old woman with a history of solitary left kidney and status post left nephrectomy has chronic left flank pain. No hematuria. No evidence of renal stones by imaging done about a year ago. Renal ultrasound in 2021 showed mild dilatation of the left renal pelvis; nutcracker syndrome is a possibility. No significant hematuria therefore line pain hematuria syndrome is unlikely. Plan Obtain urinalysis if the urine culture. Twenty-four urine collection for stone studies Renal ultrasonogram Based on this we may have to repeat renal Doppler again. The meantime encouraged her to take simple analgesics like Tylenol as needed. Further workup will be based on the above investigations I reassured her and will follow closely with the team Orders: Orders Basic Metabolic Panel Today I10 - Essential (primary) hypertension, N20.0 - Ca lculus of kidney Sodium, 24Hr Urine Group Today I10 - Essential (primary) hypertension, N20.0 - Calculus of kidney Oxalate, 24 Hr Today I10 - Essential (primary) hypertension, N20.0 - Calculus of kidney SONALI Reflex Titer and Pattern Today R31.9 - Hematuria, unspecified Complement C4 Today R31.9 - Hematuria, unspecified UA and rflx microscopic Today I10 - Essential (primary) hypertension, N20.0 - Calculus of kidney Urine Culture Today I10 - Essential (primary) hypertension, N20.0 - Calculus of kidney Creatinine, 24 Hr Group Today I10 - Essential (primary) hypertension, N20.0 - Calculus of kidney Calcium, 24 Hr Ur Today I10 - Essential (primary) hypertension, N20.0 - Calculus of kidney Citric Acid 24hr Urine Today I10 - Essential (primary) hypertension, N20.0 - Calculus of kidney Uric Acid, 24Hr Urine Group Today I10 - Essential (primary) hypertension, N20.0 - Calculus of kidney Vitamin D 25-OH (D2 and D3) Today I10 - Essential (primary) hypertension, N20.0 - Calculus of kidney Anti DNA DS Antibody Today R31.9 - Hematuria, unspecified Complement C3 Today R31.9 - Hematuria, unspecified US renal BI Today M54.50 - Low back pain, unspecified, R31.9 - Hematuria, unspecified Coding Level of Care Code New Pt Level 5 (80033) Diagnoses Essential hypertension I10
[2023-11-03 13:04] VITALS: BP 110/76; PULSE 85; O2SAT 98; BMI 40.4
== END 2023-11-03 13:44 | disposition home or self-care (01) ==
PROVIDERS: PCP Internal Medicine; Visit Provider Internal Medicine Hypertension Specialist
DX: I10 Essential (primary) hypertension (principal); Z90.5 Acquired absence of kidney
CPT/HCPCS: 99204

== ENCOUNTER 2023-11-14 11:26 | Outpatient (REF) | payer OTHER, SELFPAY ==
--- NOTE | ~2023-11-14 | US_ITS ---
EXAMINATION: US RETROPERITONEAL LIMITED (RENAL ONLY) CLINICAL INFORMATION: Low back pain, unspecified. COMPARISON: CT abdomen and pelvis 09/02/2022. Renal ultrasound 12/05/2021 and 11/04/2021. TECHNIQUE: Real-time imaging of the solitary left kidney. Limited visualization due to bowel gas. FINDINGS: RIGHT KIDNEY: Surgically absent. LEFT KIDNEY: 13.6 x 6.9 x 5.0 cm (SAG x AP x TRV). No hydronephrosis. Tiny echogenic foci in the [id number] pole may represent artifact, vascular calcifications and/or tiny nonobstructive calculi. No urinary calculi were identified on CT abdomen and pelvis of 09/02/2022 or renal ultrasound 12/05/2021. Left kidney is enlarged, characteristic of compensatory hypertrophy. Renal cortical thickness is normal. Limited visualization. US/US renal BI IMPRESSION: 1. Right kidney surgically absent. 2. Tiny echogenic foci in the left renal [id number] pole may represent artifact, vascular calcifications and/or tiny nonobstructive calculi. No urinary calculi were identified on CT abdomen and pelvis of 09/02/2022 or renal ultrasound 12/05/2021.
== END 2023-11-14 11:27 | disposition home or self-care (01) ==
LOC: HO.US 11:26
PROVIDERS: PCP Internal Medicine; Visit Provider Internal Medicine Hypertension Specialist
DX: M54.50 Low back pain, unspecified (principal); R31.9 Hematuria, unspecified
CPT/HCPCS: 76775

== ENCOUNTER 2023-11-24 11:57 | Outpatient (AMB) | payer OTHER, SELFPAY ==
--- NOTE | 2023-11-24 11:57 | HO.NEPHOV_ITS ---
Vital Signs 11/24/23 11:58 Height 5 ft 5 in Weight 245 lb BMI 40.8 BP 114/72 Blood Pressure Location Rt brachial Position Sitting Pulse 85 Pulse Source Pulse Oximeter Pulse Oximetry (%) 98 Oxygen Delivery Method Room Air Intake Visit Reasons: Essential hypertension/ 2 weeks fu Program Support Specialist Required: No Accompanied by: Self / Same As Patient Allergies citalopram Allergy (Intermediate, Verified 11/24/23 12:01) palpitations doxepin Allergy (Intermediate, Verified 11/24/23 12:01) palpitations quetiapine [Seroquel] Allergy (Intermediate, Verified 11/24/23 12:01) weight gain trazodone Allergy (Intermediate, Verified 11/24/23 12:01) palpitations venlafaxine Adverse Reaction (Intermediate, Verified 11/24/23 12:01) tachycardia zolpidem Adverse Reaction (Verified 11/24/23 12:01) blurry vision HPI Comments Details: . [age] year old woman with a history of solitary left kidney he is here for evaluation of left flank pain. He has had the chronic left flank pain for few years. She has a history of kidney stones but recent imaging did not reveal any kidney stones. She was in the ER in August with similar pain at that time urinalysis showed microhematuria with some leukocytes. However urine culture was essentially negative. She was not treated with antibiotics. Subsequent urinalysis was essentially unremarkable. She has a history of right nephrectomy for renal stones/infection and it was a nonfunctioning kidney as per patient. Renal function has been stable with a EGFR of 130 NM mild per minute and serum creatinine 0.65. She has hyper filtration in the solitary functioning kidney which is not unusual. Today she has no dysuria, urgency or hematuria. She has left loin pain which is nonradiating not colicky. No leg edema no fever no rash. She was seeing a different beer brewer prior to this and she is decided to switch providers for better care. 11/24/23 c/o Back pain going down her legs Pain is chronic No urinary symptoms [facility] Medical History (Updated 11/03/23 @ 13:43 by Stefano Tierney MD) Right ankle pain UTI (urinary tract infection) Insomnia Physical exam Pericardial effusion Palpitations Ankle pain Abdominal mass, LUQ (left upper quadrant) Dysphagia Right elbow pain Abdominal pain Pelvic pain Abnormal abdominal ultrasound Abnormal uterine bleeding (AUB) FH: throat cancer Pericardial effusion Pericarditis Primary insomnia Essential hypertension Mild recurrent major depression PATRIC (obstructive sleep apnea) Migraines Morbidly obese Moderate asthma Absence of kidney YARITZA (generalized anxiety disorder) Essential hypertension Transaminitis Numerous moles Obesity Carpal tunnel syndrome Ovarian cyst Surgical History History of right nephrectomy History of esophagogastroduodenoscopy (EGD) H/O colonoscopy History of removal of ovarian cyst (~2017) History of loop electrical excision procedure (LEEP) Family History Maternal Grandmother Diabetes mellitus Maternal Grandfather Heart disease CVD (cardiovascular disease) Father Heart problem Sister Heart murmur Paternal Grandmother Heart problem Mother Thyroid disease Social History Housing: Apartment Alcohol intake: unknown Patient Tobacco Use Status: Never used Tobacco e-Cigarette/Vaping Use: Never Used Second Hand Smoke Exposure: No service: No Current occupational status: unemployed 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 Current occupational exposures/hazards: No Gender identity: Female Cognitive needs: No Hearing needs: No Vision needs: Yes Female Reproductive History Menstrual Age of Menarche: 12 Physical Exam Vital Signs: Last Vital Signs Pulse 85 11/24/23 11:58 BP 114/72 11/24/23 11:58 Pulse Ox 98 11/24/23 11:58 Oxygen Delivery Method Room Air 11/24/23 11:58 BMI result Body Mass Index 40.8 Const General: comfortable Nutritional Appearance: well nourished Orientation/consciousness: patient oriented x3 HEENT Head: No normal to inspection Mouth: moist mucous membranes Neck Neck: Yes supple and Yes no JVD Resp Auscultation: clear to auscultation bilaterally, no rales and rub present Cardio Jugular venous distension: no JVD Palpation: no palpable S3 and no palpable S4 Heart sounds: no rubs GI Palpation (GI): Soft to palpation and nontender Percussion: No Fluid wave present General: Yes no CVA tenderness Back/Spine/Pelvis Back: no CVA tenderness Skin General skin exam: no rashes or lesions noted Neuro General: patient oriented x3 Extrem General: Yes no pedal edema and No clubbing Results Reviewed Nephrology Results: Hgb 13.3 g/dl (12.0-16.0) 09/07/23 WBC 6.4 X10*3/uL (4.8-10.8) 09/07/23 Plt Count 265 X10*3/uL (160-400) 09/07/23 Sodium 139 mmol/L (135-145) 11/03/23 Potassium 4.0 mmol/L (3.3-5.1) 11/03/23 Chloride 107 mmol/L (96-108) 11/03/23 Carbon Dioxide 24 mmol/L (22-29) 11/03/23 BUN 7 mg/dL (9-16) L 11/03/23 Creatinine 0.67 mg/dL (0.5-1.4) 11/03/23 Calcium 9.5 mg/dL (8.4-10.2) 11/03/23 Urine Protein Negative mg/dL (Neg-Trace) 09/07/23 Renal US 11/14/23 Assessment & Plan Assessment & Plan (1) Essential hypertension: Code(s): I10 - Essential (primary) hypertension Category: Medical (2) Microscopic hematuria: Code(s): R31.29 - Other microscopic hematuria Category: Medical Plan . 48-year-old woman with a history of solitary left kidney and status post left nephrectomy has chronic left flank pain. No hematuria. No evidence of renal stones by imaging done about a year ago. Renal ultrasound in 2021 showed mild dilatation of the left renal pelvis; n utcracker syndrome is a possibility. No significant hematuria therefore line pain hematuria syndrome is unlikely. Plan Urinalysis- benign Renal ultrasonogram - unremarkable. encouraged her to take simple analgesics like Tylenol as needed. No further renal work up is needed at this time Orders: Orders UA and rflx microscopic 11 Months R31.29 - Other microscopic hematuria Basic Metabolic Panel 11 Months R31.29 - Other microscopic hematuria Coding Level of Care Code Est Pt Level 3 (25631) Diagnoses Essential hypertension I10 Microscopic hematuria R31.29
[2023-11-24 11:58] VITALS: BP 114/72; PULSE 85; O2SAT 98; BMI 40.8
== END 2023-11-24 12:11 | disposition home or self-care (01) ==
PROVIDERS: PCP Internal Medicine; Visit Provider Internal Medicine Hypertension Specialist
DX: I10 Essential (primary) hypertension (principal); R31.29 Other microscopic hematuria
CPT/HCPCS: 99213

== ENCOUNTER → 2023-11-24 11:57 | Outpatient (BNVA) | payer OTHER, SELFPAY | PROVIDERS: PCP Internal Medicine; Visit Provider Internal Medicine Hypertension Specialist | DX: I10 Essential (primary) hypertension (principal); R31.29 Other microscopic hematuria | CPT/HCPCS: 99212 ==

== ENCOUNTER 2023-12-07 08:59 | Outpatient (AMB) | payer OTHER, SELFPAY ==
[2023-12-07 09:01] VITALS: BP 122/80; BMI 40.1
--- NOTE | 2023-12-07 09:01 | MHC.PC.OV ---
Vital Signs 12/07/23 09:01 Height 5 ft 5 in Weight 241 lb BMI 40.1 BP 122/80 Blood Pressure Location Lt brachial Position Sitting Intake Visit Reasons: Annual Exam Intake Note: Patient here for an annual physical exam, multiple concerns [employer] Agent Required: No Accompanied by: Self / Same As Patient Allergies citalopram Allergy (Intermediate, Verified 12/07/23 09:22) palpitations doxepin Allergy (Intermediate, Verified 12/07/23 09:22) palpitations quetiapine [Seroquel] Allergy (Intermediate, Verified 12/07/23 09:22) weight gain trazodone Allergy (Intermediate, Verified 12/07/23 09:22) palpitations venlafaxine Adverse Reaction (Intermediate, Verified 12/07/23 09:22) tachycardia zolpidem Adverse Reaction (Verified 12/07/23 09:22) blurry vision Medication List - Last Reconciled 12/07/23 by Fallon Garsia MD albuterol sulfate 90 mcg/actuation (ProAir HFA) 2 puffs inhalation Q6H PRN 30 days clonazepam 1 mg PO BEDTIME PRN 30 days dexlansoprazole (Dexilant) 60 mg PO DAILY PRN famotidine 40 mg PO BID hydrochlorothiazide 12.5 mg PO DAILY PRN linaclotide (Linzess) 72 mcg PO QAM simethicone 180 mg PO QID 30 days zolpidem 5 mg PO BEDTIME 30 days Tobacco use date assessed: 12/07/23 Dental Screening Dental Screen Date: 12/07/23 Did you have a dental visit in the last 12 months?: No Did you have a dental problem in the last 6 months where you did not have access to dental care?: No Was dental information given to patient?: Patient has dentist HPI HPI Comments History of Present Illness Details This is a 48-year-old female with mild major depression and morbid obesity that comes for her physical exam. Depression stable with counseling and psychiatry. She is morbidly obese with a BMI of 40.1 and has tried diet and exercise with no significant improvement. Declines weight loss surgery. I will start her on Wegovy. Last mammogram was 10/14/2022 and she will call to schedule another mammogram. Last colonoscopy was 2020 showing tubular adenoma and she is aware she should have a colonoscopy this year. She changed Gastroenterology from [facility] to [facility]. Last Pap smear was 2020. She also change from [facility] to [facility]. No chest pain or shortness on breath. Complains of left leg pain that radiates up worse to the lower back. Will be referred to pain management and will have ultrasound of the leg to rule out DVT. [facility] Medical History (Updated 12/07/23 @ 10:26 by Fallon Garsia MD) Physical exam Right ankle pain UTI (urinary tract infection) Insomnia Pericardial effusion Palpitations Ankle pain Abdominal mass, LUQ (left upper quadrant) Dysphagia Right elbow pain Abdominal pain Pelvic pain Abnormal abdominal ultrasound Abnormal uterine bleeding (AUB) FH: throat cancer Pericardial effusion Pericarditis Primary insomnia Essential hypertension Mild recurrent major depression PATRIC (obstructive sleep apnea) Migraines Morbidly obese Moderate asthma Absence of kidney YARITZA (generalized anxiety disorder) Essential hypertension Transaminitis Numerous moles Obesity Carpal tunnel syndrome Ovarian cyst Surgical History History of right nephrectomy History of esophagogastroduodenoscopy (EGD) H/O colonoscopy History of removal of ovarian cyst (~2016) History of loop electrical excision procedure (LEEP) Family History Maternal Grandmother Diabetes mellitus Maternal Grandfather Heart disease CVD (cardiovascular disease) Father Heart problem Sister Heart murmur Paternal Grandmother Heart problem Mother Thyroid disease Social History Housing: Apartment Alcohol intake: unknown Patient Tobacco Use Status: Never used Tobacco e-Cigarette/Vaping Use: Never Used Second Hand Smoke Exposure: No service: No Current occupational status: unemployed 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 1. Little interest or pleasure in doing things: not at all 2. Feeling down, depressed, or hopeless: several days 3. Trouble falling or staying asleep, or sleeping too much: several days 4. Feeling tired or having little energy: several days 5. Poor appetite or overeating: several days 6. Feeling bad about yourself - or that you are a failure or have let yourself or your family down: several days 7. Trouble concentrating on things, such as reading the newspaper or watching television: not at all 8. Moving or speaking so slowly that other people could have noticed. Or the opposite - being so fidgety or restless that you have been moving around a lot more than usual: not at all 9. Thoughts that you would be better off or of hurting yourself in some way: not at all Total score: 5 Depression Screening Interpretation: Positive Depression Screening Follow-up: Existing condition, In treatment, Community Mental Health Worker F/U and Follow-up Visit Requested Depression Screening Done: Yes 55411 - PHQ-9 Billing: Yes Source: Developed by Drs. Benjamin Wilson, Maria A Elder, Pastor Melvin and colleagues, with an educational teddy from [employer]. Thrive Questionnaire Date Thrive assessed: 12/07/23 I am a: Patient What is your living situation today?: I have a steady place to live Within the past 12 months, did the food you bought not last and you didn't have the money to get more?: Never true Within the past 12 months, did you worry whether your food would run out before you got money to buy more?: Never true Do you have trouble paying for medicines?: No Do you have trouble getting transportation to medical appointments?: No Do you have trouble paying your heating and electricity bill?: No Do you have trouble taking care of your child, family member or friend?: No Do you have trouble with day-to-day activities such as bathing, preparing meals, shopping, managing finances, etc.?: No Are you currently unemployed and looking for a job?: No Are you interested in more education?: No Please select the resources that you would like help with: None Currently or been in a relationship where the following occur: no concerns reported THRIVE Score: 0 AUDIT C Alcohol Use Questionnaire (AUDIT-C) 1. How often do you have a drink containing alcohol?: Never Total Score: 0 YARITZA-7 AMB Questionnaire YARITZA-7 Date YARITZA - 7 assessed: 12/07/23 Feeling nervous, anxious, or on edge: 1 = Several days Not being able to stop or control worryin = Not at all Worrying too much about different things: 1 = Several days Trouble relaxin = Not at all Being so restless that it is hard to sit still: 0 = Not at all Becoming easily annoyed or irritable: 1 = Several days Feeling afraid as if something awful might happen: 0 = Not at all Total YARITZA-7 score (0-4 normal; 5-9 mild; 10-14 moderate; 15-21 severe): 3 Source: Developed by Drs. Benjamin Wilson, Maria A Elder, Pastor Melvin and colleagues, with an educational teddy from [employer]. YARITZA-7 Assessment Billing YARITZA-7 Assessment Tool: YARITZA-7 Assessment 22744 Review of Systems Const All systems reviewed & are unremarkable except as noted in HPI and below Eyes Reports no additional complaints, Denies change in vision and Denies other visual disturbances Card Denies chest pain at rest, Denies chest pain with activity, Denies edema, Denies irregular heart rhythm, Denies claudication, Denies dyspnea, Denies dyspnea on exertion, Denies orthopnea, Denies paroxysmal nocturnal dyspnea and Denies slow heart rate Resp Denies cough, Denies dyspnea and Denies dyspnea on exertion Neuro Denies confusion Psych Denies confusion Physical exam (Primary Care) Vital Signs: Last Vital Signs BP 122/80 12/07/23 09:01 BMI result Body Mass Index 40.1 BMI Assessment/Plan discussion: High BMI High, discussed plan: lifestyle, weight reduction, dietary and physical activity Tobacco/Smoking Status: Tobacco use Status Tobacco use date assessed 12/07/23 12/07/23 09:11 Patient Tobacco Use Status Never used Tobacco 12/07/23 09:11 e-Cigarette/Vaping Use Never Used 12/07/23 09:11 PHQ-9: PHQ-9 Score PHQ-9: Total score 5 12/07/23 09:38 Depression Screening Interpretation: Positive Depression Screening Follow-up: Existing condition, In treatment, Community Mental Health Worker F/U and Follow-up Visit Requested Thrive Assessment: Date of Thrive Assessment Date Thrive assessed 12/07/23 12/07/23 09:11 Currently or been in a relationship where the following occur: no concerns reported Const General: No confusion Orientation/consciousness: No confusion HENMT Head: Yes normal to inspection, Yes normocephalic and Yes atraumatic Ears: external ears normal Eyes General: appearance normal, both eyes and all related structures Eyelids: Yes eyelids normal Conjunctivae: conjunctivae normal Neck Neck: Yes normal visual inspection and Yes supple Resp Effort & Inspection: normal respiratory effort Auscultation: clear to auscultation bilaterally Cardio Jugular venous distension: no JVD Rate: regular rate Rhythm: regular rhythm Heart sounds: S1 normal heart sound present and S2 normal heart sound present GI Inspection: Yes normal to inspection Palpation (GI): Soft to palpation and nontender Auscultation: normal bowel sounds Skin General skin exam: no rashes or lesions noted Neuro General: no focal motor deficits and No confusion Extrem General: Yes full ROM Psych Appearance: grossly normal Assessment and Plan Assessment & Plan (1) Physical exam: Code(s): Z00.00 - Encounter for general adult medical examination without abnormal findings Plan: Repeat in a year. (2) Mild recurrent major depression: Code(s): F33.0 - Major depressive disorder, recurrent, mild Plan: Follow-up with psychiatry. (3) Morbidly obese: Code(s): E66.01 - Morbid (severe) obesity due to excess calories Plan: Start Wegovy. BMI goal is less than 30. Orders: Orders US venous duplex LE LT Today M79.605 - Pain in left leg Lipid Panel Today E78.5 - Hyperlipidemia, unspecified Referrals Pain Management Referral M54.32 - Sciatica, left side Medications: New semaglutide (weight loss) (Wegovy) administer weeks 1 through 4 of therapy 0.25 mg (0.5 mL) subcut QWEEK 2 mL 0RF 4 weeks cholecalciferol (vitamin D3) 50 mcg PO DAILY 90 caps 0RF 90 days Coding Level of Care Code Est Pt Prev Care 40-64y(39485) Diagnoses Physical exam Z00.00 Mild recurrent major depression F33.0 Morbidly obese E66.01 Additional Codes YARITZA-7 Assessment Billing - YARITZA-7 Assessment Tool: YARITZA-7 Assessment [id number] ([id number]) Time Spent (min) 33
== END 2023-12-07 09:40 | disposition home or self-care (01) ==
PROVIDERS: PCP Internal Medicine; Visit Provider Internal Medicine
DX: Z00.00 Encounter for general adult medical examination without abnormal findings (principal); F33.0 Major depressive disorder, recurrent, mild; E66.01 Morbid (severe) obesity due to excess calories; Z68.41 Body mass index [BMI] 40.0-44.9, adult
CPT/HCPCS: 99396

== ENCOUNTER 2023-12-07 09:59 | Outpatient (REF) | payer OTHER, SELFPAY ==
--- NOTE | ~2023-12-07 | US_ITS ---
EXAMINATION: US VENOUS ULTRASOUND WITH DOPPLER LOWER EXTREMITY, LEFT CLINICAL INFORMATION: Pain in left leg rule out DVT COMPARISON: None available. TECHNIQUE: Ultrasound of the deep veins is performed from the hip to the calf with compression sonography and color and pulse Doppler assessment. Spectral analysis with color-flow imaging is performed. FINDINGS: There is normal venous compression and respiratory variation and augmented flow. The visualized common femoral vein, superficial femoral vein, profunda femoral vein, popliteal vein, and the trifurcation region shows no evidence of deep venous thrombosis. There is no significant popliteal fossa cyst. There are 2 reactive appearing lymph nodes in left groin measured 1.0 x 0.5 x 0.7 cm and 1.1 x 0.7 x 0.6 cm If the patient's symptoms persist, followup ultrasound in 5 days 7 days might be of value to exclude proximal propagation from a non-visualized calf vein. US/US venous duplex LE IMPRESSION: No DVT demonstrated in the left lower extremity.
== END 2023-12-07 10:00 | disposition home or self-care (01) ==
LOC: HO.US 09:59
PROVIDERS: PCP Internal Medicine; Visit Provider Internal Medicine
DX: M79.605 Pain in left leg (principal)
CPT/HCPCS: 93971

== ENCOUNTER 2023-12-28 10:14 | Outpatient (AMB) | payer OTHER, SELFPAY ==
--- NOTE | 2023-12-28 10:50 | A.OFFVIS_ITS ---
Vital Signs 12/28/23 11:07 Height 5 ft 5 in Weight 240 lb BMI 39.9 BP 138/62 Blood Pressure Location Lt brachial Position Sitting Respiration 16 Pulse 68 Pulse Source Pulse Oximeter Pulse Oximetry (%) 99 Oxygen Delivery Method Room Air Intake Visit Reasons: Sciatica Left Side Intake Note: Patient comes in for initial visit was referred by primary care. Reports pain 04/05. Allergies citalopram Allergy (Intermediate, Verified 12/28/23 11:09) palpitations doxepin Allergy (Intermediate, Verified 12/28/23 11:09) palpitations quetiapine [Seroquel] Allergy (Intermediate, Verified 12/28/23 11:09) weight gain trazodone Allergy (Intermediate, Verified 12/28/23 11:09) palpitations venlafaxine Adverse Reaction (Intermediate, Verified 12/28/23 11:09) tachycardia zolpidem Adverse Reaction (Verified 12/28/23 11:09) blurry vision HPI Comments Details: Ciera is very pleasant 48 years old female mostly French-speaking however with good understanding of Salvadorean patient who presents in my office with complains on pain in the lower lumbar spine as well as pain in the neck. She reports that pain in the spine radiates all the way down to her left ankle and pain in the neck radiates down only to upper shoulder. She reports that bending forward aggravates her pain and prolonged sitting makes her pain aggravated as well. She reports that she can not sleep normally from time to time she can not do activities of daily living she can not take care of herself but she can not function normally. 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 She reports that she is self mobile. Weather changes do not aggravate her pain. Mo vements can be aggravating her pain. She tried heat and cold application which she I did not help her pain but she never tried topical medications. Her pain is unpredictable and can not be scaled against the time of the day. She reports her pain in terms of tissue damage as pulsing, throbbing, stabbing, lancinating. She takes Tylenol for her pain. She never had any images of her lumbar spine or other matter of fact any images of cervical spine. She never had physical therapy never had chiropractic manipulations Nevro acupuncture or massage therapy. She never had any injections. Her past medical history significant for controlled asthma, she has single kidney she had nephrectomy as a child. She denies smoking cigarettes denies drinking alcohol she drinks soda as caffeinated beverages and she denies recreational drugs. [facility] Medical History (Updated 12/28/23 @ 11:46 by Roe Taylor MD) Physical exam Right ankle pain UTI (urinary tract infection) Insomnia Pericardial effusion Palpitations Ankle pain Abdominal mass, LUQ (left upper quadrant) Dysphagia Right elbow pain Abdominal pain Pelvic pain Abnormal abdominal ultrasound Abnormal uterine bleeding (AUB) FH: throat cancer Pericardial effusion Pericarditis Primary insomnia Essential hypertension Mild recurrent major depression PATRIC (obstructive sleep apnea) Migraines Morbidly obese Moderate asthma Absence of kidney YARITZA (generalized anxiety disorder) Essential hypertension Transaminitis Numerous moles Obesity Carpal tunnel syndrome Ovarian cyst Surgical History History of right nephrectomy History of esophagogastroduodenoscopy (EGD) H/O colonoscopy History of removal of ovarian cyst (~2016) History of loop electrical excision procedure (LEEP) Family History Maternal Grandmother Diabetes mellitus Maternal Grandfather Heart disease CVD (cardiovascular disease) Father Heart problem Sister Heart murmur Paternal Grandmother Heart problem Mother Thyroid disease Social History Housing: Apartment Alcohol intake: unknown Patient Tobacco Use Status: Never used Tobacco e-Cigarette/Vaping Use: Never Used Second Hand Smoke Exposure: No service: No Current occupational status: unemployed Current occupation: [employer] WORKER Current occupational exposures/hazards: No Gender identity: Female Cognitive needs: No Hearing needs: No Vision needs: Yes Female Reproductive History Menstrual Age of Menarche: 12 Review of Systems Const All systems reviewed & are unremarkable except as noted in HPI and below Eyes Reports no additional complaints, Denies change in vision and Denies other visual disturbances ENT Reports Normal hearing present and Reports neck pain Card Denies chest pain at rest, Denies chest pain with activity, Denies edema, Denies irregular heart rhythm, Denies claudication, Denies dyspnea, Denies dyspnea on exertion, Denies orthopnea, Denies paroxysmal nocturnal dyspnea and Denies slow heart rate Resp Denies cough, Denies dyspnea and Denies dyspnea on exertion Musc Reports as per HPI, Reports back pain and Reports neck pain Neuro Reports no additional complaints, Reports Normal hearing present, Denies Abnormal speech present, Denies confusion and Denies Sensory deficit (Neuro) Psych Reports no additional complaints and Denies confusion Endo Reports no additional complaints Physical Exam Vital Signs: Last Vital Signs Pulse 68 12/28/23 11:07 Resp 16 12/28/23 11:07 BP 138/62 12/28/23 11:07 Pulse Ox 99 12/28/23 11:07 Oxygen Delivery Method Room Air 12/28/23 11:07 BMI result Body Mass Index 39.9 Const General: no acute distress; No confusion Nutritional Appearance: obese morbidly obese Orientation/consciousness: patient oriented x3 and No confusion Eyes General: appearance normal, both eyes and all related structures Pupils: Equal, round and reactive pupils present EOM: EOMs intact bilaterally Neck Neck: Yes full ROM Chest Chest palpation & inspection: normal inspection of the chest Resp Effort & Inspection: normal respiratory effort, able to speak in complete sentences, normal respiratory pattern, no audible wheezes and no cough Cardio Jugular venous distension: no JVD GI Inspection: Yes normal to inspection Back/Spine/Pelvis Other: Able to stand on bilateral tiptoes in bilateral heels demonstrating normal strength of bilateral lower extremities. Has difficulty flexing forward reports pain aggravation. Valsalva maneuver aggravates her pain. Reports difficulty with prolonged sitting. SLR is positive on the left. Bartolome test is negative on the left. Lateral rotation of the hip does not aggravate pain in the groin. Neuro General: patient oriented x3, gait normal and No confusion Cranial nerves: Yes CN's II-XII intact bilaterally, Yes Equal, round and reactive pupils present, Yes Normal hearing present and Yes Ability to bilaterally elevate shoulders present Speech: No Abnormal speech present Gait exam (Neuro): Normal gait present Motor exam (neuro): 5/5 motor strength present throughout Sensory Exam: No Sensory deficit (Neuro) Extrem General: No pedal edema Psych Speech and movement: Normal speech and movement present Affect: normal affect Attitude: cooperative Thought process: Normal thought process present Thought content: Normal thought content present Insight: Good insight present (Psych) Judgement: Good judgement present (Psych) Assessment & Plan Assessment & Plan (1) Spondylosis of cervical spine: Code(s): M47.812 - Spondylosis without myelopathy or radiculopathy, cervical region Category: Medical (2) Spondylosis of lumbar region without myelopathy or radiculopathy: Code(s): M47.816 - Spondylosis without myelopathy or radiculopathy, lumbar region Category: Medical (3) Disc degeneration, lumbar: Code(s): M51.36 - Other intervertebral disc degeneration, lumbar region Category: Medical (4) Radiculopathy, lumbar region: Code(s): M54.16 - Radiculopathy, lumbar region Category: Medical (5) Vertebrogenic low back pain: Code(s): M54.51 - Vertebrogenic low back pain Category: Medical Plan I briefly examined the cervical area of this patient and most likely her pain is coming from facet joints on the neck. We will address this issue with later appointments. I will send this patient for the MRI of the lumbar spine. I will start her on gabapentin 100 mg t.i.d.. Risks and benefits of gabapentin were described to the patient including risk of swelling, risk of dizziness drowsiness, risk of depression. Patient understood the risks. I recommend her to obtain Aspercreme with lidocaine and applied to the painful areas in her body including her neck and including her back. I also recommend her for pain exacerbation OTC ibuprofen on rare occasion and only when her pain is very severe. She has reduced kidney function but she never had elevated creatinine so therefore her kidney function in my opinion would allow her to take nonsteroid anti-inflammatory drugs on p.r.n. basis. I will also send her for physical therapy for lower back pain and I will schedule her for the appointment with me after she completes physical therapy. Orders: Orders PT Evaluation and Treatment Today M47.816 - Spondylosis without myelopathy or radiculopathy, lumbar region, M51.36 - Other intervertebral disc degeneration, lumbar region, M54.16 - Radiculopathy, lumbar region, M54.51 - Vertebrogenic low back pain MR lumbar spine wo con Today M47.816 - Spondylosis without myelopathy or radiculopathy, lumbar region, M51.36 - Other intervertebral disc degeneration, lumbar region, M54.16 - Radiculopathy, lumbar region, M54.51 - Vertebrogenic low back pain Medications: New gabapentin 100 mg PO BID 30 days 60 caps 8RF Patient Instructions: I here by testify that I spent 45 minutes in conversation of this patient as well as evaluating her prior CT scan images, diagnostic studies, planning her care and organizing this note. Coding Level of Care Code New Pt Level 4 (49870) Diagnoses Spondylosis of cervical spine M47.812 Spondylosis of lumbar region without myelopathy or radiculopathy M47.816 Disc degeneration, lumbar M51.36 Radiculopathy, lumbar region M54.16 Vertebrogenic low back pain M54.51
[2023-12-28 11:07] VITALS: BP 138/62; PULSE 68; RESP 16; O2SAT 99; BMI 39.9
== END 2023-12-28 11:38 | disposition home or self-care (01) ==
PROVIDERS: PCP Internal Medicine; Visit Provider Anesthesiology
DX: M47.812 Spondylosis without myelopathy or radiculopathy, cervical region (principal); M47.816 Spondylosis without myelopathy or radiculopathy, lumbar region; M51.36 Other intervertebral disc degeneration, lumbar region; M54.16 Radiculopathy, lumbar region; M54.51 Vertebrogenic low back pain
CPT/HCPCS: 99204

== ENCOUNTER → 2023-12-28 10:14 | Outpatient (BNVA) | payer OTHER, SELFPAY | PROVIDERS: PCP Internal Medicine; Visit Provider Anesthesiology | DX: M47.812 Spondylosis without myelopathy or radiculopathy, cervical region (principal); M47.26 Other spondylosis with radiculopathy, lumbar region; M51.36 Other intervertebral disc degeneration, lumbar region; M54.51 Vertebrogenic low back pain | CPT/HCPCS: 99202 ==

== ENCOUNTER 2024-04-05 10:10 | Outpatient (AMB) | payer OTHER, SELFPAY ==
--- OUTSIDE RECORDS SUMMARY | 2024-04-05 10:12 | XMS_ITS | Continuity of Care Document ---
Author Organization [facility] [employer] Address [address] [place] [address], [address] [place] [address]- Care Team Providers Care Windshield Technician Name Role Phone Stanislaw Garsia MD, Fallon Clements Primary Care Physician [id number] Date[facility]01/[facility] - 03/31/23 [facility] [address], [address] [place] [address]- Attending Physician: Nirali Kang MD Allergies, Adverse Reactions, Alerts No Known Allergies Medications Albuterol Albuterol, 0 Refills, Maintenance, 08/10/22 17:40:00 EST Start Date: 08/10/22 Status: Ordered Clonazepam = 1 mg, By Mouth, Daily at bedtime, PRN Anxiety, 0 Refills, Maintenance, 04/05/22 11:47:00 EDT, Partial fill upon patient request if the prescription is for a schedule II opioid drug. Start Date: 04/05/22 Status: Ordered Flovent Diskus Inhalation, 2 times a day, 0 Refills, Maintenance, 08/10/22 17:43:00 EST, Partial fill upon patientrequest if the prescription is for a schedule II opioid drug. Start Date: 08/10/22 Status: Ordered hydroCHLOROthiazide 12.5 mg oral capsule 1 capsule = 12.5 mg, By Mouth, Daily, 0 Refills, Maintenance, 04/05/22 11:45:00 EDT, Partial fill upon patient request if the prescription is for a schedule II opioid drug. Start Date: 04/05/22 Status: Ordered Magnesium Magnesium, 0 Refills, Maintenance, 08/10/22 17:41:00 EST Start Date: 08/10/22 Status: Ordered Zolpidem Daily at bedtime, 0 Refills, Maintenance, 08/10/22 17:41:00 EST, Partial fill upon patient request if the prescription is for a schedule II opioid drug. Start Date: 08/10/22 Status: Ordered Problem List Condition Confirmation Course Effective Dates Status Health St atus Informant Abnormal uterine bleeding (AUB) Confirmed Active Calculus of kidney and ureter Confirmed 01/06/22 Active Carpal tunnel syndrome Confirmed Active Dysmenorrhea Confirmed Active Essential hypertension Confirmed Active YARITZA (generalized anxiety disorder) Confirmed Active Non-Chadian speaking patient, skin grader required Confirmed Active Menopausal state Confirmed Active Migraines Confirmed Active Moderate asthma Confirmed Active Myofascial pain on right side Confirmed Active PATRIC (obstructive sleep apnea) Confirmed Active Primary insomnia Confirmed Active Mild recurrent major depression Confirmed Active Right kidney absent Confirmed 11/11/20 Active No Pap smears in CIS system Confirmed Active Severe obesity (BMI 35.0-39.9) with comorbidity Confirmed Active Social History Social History Type Response Smoking Status Never (less than 100 in lifetime) entered on: 06/17/22 Sex Patient Care team information Care Team Personnel Name: Josh Cheema MD Position: [facility] Renal MD Member Role: Lifetime Consulting Physician Address: Address: [address] [facility], [place] [address]- Name: Stanislaw Garsia MD , Fallon Clements Position: Reference Physician Member Role: PCP Address: Address: [address] [place] [address]- Care Team Related Persons Name: NOLAN TOURE Address: home UNKN Name: PARKER MONTEMAYOR Address: [place] [address]
--- OUTSIDE RECORDS SUMMARY | 2024-04-05 10:12 | XMS_ITS | Continuity of Care Document ---
Author Organization [facility] Address [address] [address]- Care Team Providers Care Guard Lieutenant Name Role Phone Stanislaw Garsia MD, Fallon Clements Primary Care Physician Encounter [facility] [id number] Date(s): 07/16/22 - 08/15/22 [facility] [address] [address]- Attending Physician: Carol Laughlin Admitting Physician: Carol Laughlin Referring Physician: AdmtrCarol Allergies, Adverse Reactions, Alerts No Known Allergies Medications Albuterol Albuterol, 0 Refills, Maintenance, 08/10/22 17:40:00 EST Start Date: 08/10/22 Status: Ordered amiTRIPTYLINE By Mouth, Daily at bedtime, 0 Refills, Maintenance, 08/10/22 17:40:00 EST, Partial fill upon patient request if the prescription is for a schedule II opioid drug. Start Date: 08/10/22 Status: Ordered Clonazepam = 1 mg, By Mouth, Daily at bedtime, PRN Anxiety, 0 Refills, Maintenance, 04/05/22 11:47:00 EDT, Partial fill upon patient request if the prescription is for a schedule II opioid drug. Start Date: 04/05/22 Status: Ordered dexlansoprazole By Mouth, Daily, 0 Refills, Maintenance, 08/10/22 17:42:00 EST, Partial fill upon patient request if the prescription is for a schedule II opioid drug. Start Date: 08/10/22 Status: Ordered Famotidine = 40 mg, By Mouth, Daily, 0 Refills, Maintenance, 04/05/22 11:42:00 EDT, Partial fill upon patient request if the prescription is for a schedule II opioid drug. Start Date: 04/05/22 Status: Ordered Flonase Daily, 0 Refills, Maintenance, 08/10/22 17:42:00 EST, Partial fill upon patient request if the prescription is for a schedule II opioid drug. Start Date: 08/10/22 Status: Ordered Flovent Diskus Inhalation, 2 times [...] opioid drug. Start Date: 04/05/22 Status: Ordered Lidocaine IV Infusion, Once, 0 Refills, Maintenance, 08/10/22 17:42:00 EST, Partial fill upon patient requestif the prescription is for a schedule II opioid drug. Start Date: 08/10/22 Status: Ordered loratadine 10 mg oral tablet 10 mg, 1, tablet, By Mouth, Daily, PRN, Refills 0, Maintenance, Cold Symptoms, 04/05/22 11:46:00 EDT, Partial fill upon patient request if the prescription is for a schedule II opioid drug. Start Date: 04/05/22 Status: Ordered Magnesium Magnesium, 0 Refills, Maintenance, 08/10/22 17:41:00 EST Start Date: 08/10/22 Status: Ordered Metronidazole Maintenance, 08/10/22 17:46:00 EST Start Date: 08/10/22 Status: Ordered norethindrone 5 mg oral tablet See Instructions, TAKE 1 TAB 4X A DAY FOR 2 DAYS,3X A DAY FOR NEXT 2 DAYS,2X A DAY FOR NEXT 2 DAYS,THEN 1 TAB DAILY, # 60 tablet, Refills 0, Maintenance, 08/12/22 12:21:00 EST, Instructions Replace Required Details, Route to Pharmacy Electronically,... Start Date: 08/12/22 Status: Ordered Riboflavin By Mouth, Daily, 0 Refills, Maintenance, 08/10/22 17:43:00 EST, Partial fill upon patient request if the prescription is for a schedule II opioid drug. Start Date: 08/10/22 Status: Ordered Zolpidem Daily [...] Active YARITZA (generalized anxiety disorder) Confirmed Active Non-Eritrean speaking patient, draftsperson required Confirmed Active Menopausal state Confirmed Active [...] Team Personnel Name: Josh Cheema MD Position: [facility] Renal MD Member Role: Lifetime Consulting Physician Address: Address: [address] [facility] [address] [facility], [place] [address]- Name: Stanislaw Garsia MD , Fallon Clements Position: Reference Physician Member Role: PCP Address: Address: [address] [place] [address]- Care Team Related Persons Name: NOLAN TOURE Address: home UNKN Name: PARKER MONTEMAYOR Address: [place] [address]
--- OUTSIDE RECORDS SUMMARY | 2024-04-05 10:12 | XMS_ITS | Continuity of Care Document ---
Author Organization [facility] Address [address] [address]- Care Team Providers Care Projector Booth Operator Name Role Phone Stanislaw Garsia MD, Fallon Clements Primary Care Physician [id number] Date(s): 06/04/22 - 07/04/[facility] [address] [place] [id number] Allergies, Adverse Reactions, Alerts No Known Allergies Medications Clonazepam = 1 mg, By Mouth, Daily at bedtime, PRN Anxiety, 0 Refills, Maintenance, 04/05/22 11:47:00 EDT, Partial fill upon patient request if the prescription is for a schedule II opioid drug. Start Date: 04/05/22 Status: Ordered Famotidine = 40 mg, By Mouth, Daily, 0 Refills, Maintenance, 04/05/22 11:42:00 EDT, Partial fill upon patient request if the prescription is for a schedule II opioid drug. Start Date: 04/05/22 Status: Ordered hydroCHLOROthiazide 12.5 mg oral capsule 1 capsule = 12.5 mg, By Mouth, Daily, 0 Refills, Maintenance, 04/05/22 11:45:00 EDT, Partial fill upon patient request if the prescription is for a schedule II opioid drug. Start Date: 04/05/22 Status: Ordered loratadine 10 mg oral tablet 10 mg, 1, tablet, By Mouth, Daily, PRN, Refills 0, Maintenance, Cold Symptoms, 04/05/22 11:46:00 EDT, Partial fill upon patient request if the prescription is for a schedule II opioid drug. Start Date: 04/05/22 Status: Ordered norethindrone 5 mg oral tablet See Instructions, Take 1 tab PO 4x a day for 2 days, 3x a day for next 2 days, 2x a day for next 2 days, then 1 tablet By Mouth Daily, # 60 tablet, Refills 0, Tot. Refills 0, Maintenance, 06/18/22 11:25:00 EST, Instructions Replace Required Details, R... Start Date: 06/18/22 Status: Ordered tranexamic acid 650 mg oral tablet 2 tablet = 1,300 mg, By Mouth, 3 times a day, take up to 3 times a day for a maximum of 5 days as needed for heavy menstrual bleeding, # 30 tablet, 0 Refills, Maintenance, 06/17/22 14:48:00 EST, Tablet, [id number], 163, cm, 06/17/22 14:08:00 E... Start Date: 06/17/22 Status: Ordered Problem List Condition Confirmation Course Effective Dates Status Health St atus Informant Abnormal uterine bleeding (AUB) Confirmed Active Dysmenorrhea Confirmed Active Non-Greenlandic speaking patient, survey research associate required Confirmed Active Myofascial pain on right side Confirmed Active Obese class II Confirmed Active Post-menopausal bleeding Confirmed Active No Pap smears in CIS system Confirmed Active Social History Social History Type Response Smoking Status Never (less than 100 in lifetime) entered on: 06/17/22 Sex Patient Care team information Care Team Personnel Name: Josh Cheema MD Position: [facility] Renal MD Member Role: Lifetime Consulting Physician Address: Address: [address] [place] [address] [address] [facility] [place] [address]- Name: Stanislaw Garsia MD , Fallon Clements Position: Reference Physician Member Role: PCP Address: Address: [address] [place] [address]- Care Team Related Persons Name: NOLAN TOURE Address: home UNKN Name: PARKER MONTEMAYOR Address: [place] [address]
--- OUTSIDE RECORDS SUMMARY | 2024-04-05 10:12 | XMS_ITS | Continuity of Care Document ---
Author Organization [facility] [employer] Address [address] [place] [address], [address] [place] [address]- Care Team Providers Care Mental Health Case Manager Name Role Phone Stanislaw Garsia MD, Fallon Clements Primary Care Physician [phone] [id number] Date(s): 10/19/22 - 11/18/22 [facility] [employer] [facility] [address] [facility] [place] [address]- Attending Physician: Carol Laughlin Admitting Physician: Carol Laughlin Referring Physician: AdmCarol montejo Allergies, Adverse Reactions, Alerts No Known Allergies [...] Active YARITZA (generalized anxiety disorder) Confirmed Active Non-Kyrgyz speaking patient, insurance account assistant required Confirmed Active Menopausal state Confirmed Active [...] Team Personnel Name: Josh Cheema MD [facility] Renal MD Member Role: Lifetime Consulting Physician Address: Address: [address] [facility] [address] [facility], [place] [address]- Name: Stanislaw Garsia MD , Fallon Clements Position: Reference Physician Member Role: PCP Address: Address: [address] [place] [address]- Care Team Related Persons Name: NOLAN TOURE Address: home UNKN Name: PARKER MONTEMAYOR Address: [place] [address]
--- OUTSIDE RECORDS SUMMARY | 2024-04-05 10:12 | XMS_ITS | Continuity of Care Document ---
Author Organization [facility] [employer] Address [address] [place] [address], [address] [place] [address]- Care Team Providers Care Medicaid Eligibility Specialist Name Role Phone Stanislaw Garsia MD, Fallon Clements Primary Care Physician [phone] [facility] [id number] Date(s): 09/07/22 - 09/14/22 [facility] [address] [facility], [address] [place] [address]- Attending Physician: Nirali Kang MD Allergies, Adverse [...] 17:41:00 EST Start Date: 08/10/22 Status: Ordered Riboflavin By Mouth, Daily, 0 [...] Active YARITZA (generalized anxiety disorder) Confirmed Active Non-Mosotho speaking patient, skip tracer required Confirmed Active Menopausal state Confirmed Active Migraines Confirmed Active Moderate asthma Confirmed Active Myofascial pain on right side Confirmed Active PATRIC (obstructive sleep apnea) Confirmed Active Primary insomnia Confirmed Active Mild recurrent major depression Confirmed Active Right kidney absent Confirmed 11/11/20 Active No Pap smears in CIS system Confirmed Active Severe obesity (BMI 35.0-39.9) with comorbidity Confirmed Active Vital Signs Most recent to oldest [Reference Range]: 1 Height 163 cm (09/07/22 1:10 PM) Social History Social History Type Response Smoking Status Never (less than 100 in lifetime) entered on: 06/17/22 Sex Patient Care team information Care Team Personnel Name: Josh Cheema MD Position: [facility] Renal MD Member Role: Lifetime Consulting Physician Address: Address: [address] [facility] [place] [address]- [place] Name: Stanislaw Garsia MD , Fallon Clements Position: Reference Physician Member Role: PCP Address: Address: [address] [place] [address]- Care Team Related Persons Name: NOLAN TOURE Address: home UNKN Name: PARKER MONTEMAYOR Address: [place] [address]
--- OUTSIDE RECORDS SUMMARY | 2024-04-05 10:12 | XMS_ITS | Continuity of Care Document ---
Author Organization [facility] Address [address] [place] [address], 4t [place] [address]- Care Team Providers Care Commissioned Police Officer Name Role Phone Stanislaw Garsia MD, Fallon Clements Primary Care Physician [facility] NBR [id number] Date(s): 07/07/22 - 08/06/22 [facility] Radha Kongs [facility] [address] [facility], [address] [place] [address]- Allergies, Adverse Reactions, Alerts No Known Allergies [...] List Condition Confirmation Course Effective Dates Status H ealth Status Informant Abnormal uterine bleeding (AUB) Confirmed Active Single kidney Confirmed Active Carpal tunnel syndrome Confirmed Active Dysmenorrhea Confirmed Active Transaminitis Confirmed Active Essential hypertension Confirmed Active YARITZA (generalized anxiety disorder) Confirmed Active Non-Macanese speaking patient, translator interpreter required Confirmed Active Menopausal state Confirmed Active Migraines Confirmed Active Moderate asthma Confirmed Active Myofascial pain on right side Confirmed Active Obese class II Confirmed Active PATRIC (obstructive sleep apnea) Confirmed Active Right elbow pain Confirmed Active Palpitations Confirmed Active Poor historian Confirmed Active Post-menopausal bleeding Confirmed Active Primary insomnia Confirmed Active Mild recurrent major depression Confirmed Active No Pap smears in CIS system Confirmed Active Social History Social History Type Response Smoking Status Never (less than 100 in lifetime) entered on: 06/17/22 Sex Patient Care team information Care Team Personnel Name: Josh Cheema MD Position: [facility] Renal MD Member Role: Lifetime Consulting Physician Address: Address: [address] [facility] [address] [facility] [place] [address]- [place] Name: Stanislaw Garsia MD , Fallon Clements Position: Reference Physician Member Role: PCP Address: Address: [address] [place] [address]- Care Team Related Persons Name: NOLAN TOURE Address: home UNKN Name: PAKRER MONTEMAYOR Address: [place] [address]
--- OUTSIDE RECORDS SUMMARY | 2024-04-05 10:12 | XMS_ITS | Continuity of Care Document ---
Author Organization [facility] Address [address] [place] [address]- Care Team Providers Care Color Checker Name Role Phone Stanislaw Garsia MD, Alee Primary Care Physician [id number] Date(s): 01/12/24 - 02/11/24 [facility] [address] [place] [address]- Allergies, Adverse Reactions, Alerts No Known Allergies Medications Albuterol Albuterol, 0 Refills, Maintenance, 08/10/22 17:40:00 EST Start Date: 08/10/22 Status: Ordered betamethasone topical dipropionate 0.05% cream See Instructions, 1 application topically to the affected area at night x 2 weeks for acute treatment then 1 application topically twice a week for maintenance treatment., # 50 Gm, 1 Refills, Acute 04/18/24 11:18:00 EDT, 01/17/24 11:16:00 EDT, Cream,... Start Date: 01/17/24 Stop Date: 04/18/24 Status: Ordered Clonazepam = 1 mg, By Mouth, Daily at bedtime, PRN Anxiety, 0 Refills, Maintenance, 04/05/22 11:47:00 EDT, Partial fill upon patient request if the prescription is for a schedule II opioid drug. Start Date: 04/05/22 Status: Ordered Estrace Vaginal Cream 0.1 mg/g = 1 Gm, Vaginally, Daily at bedtime, # 14 Gm, 0 Refills, Maintenance, 02/10/24 13:42:00 EDT, [facility]/pharmacy #[id number], Partial fill upon patient request if the prescription is for a schedule II opioid drug., 163, cm, 01/17/24 10:52:00 EDT, Height, 109, kg,... Start Date: 02/10/24 Stop Date: 02/24/24 Status: Ordered Flovent Diskus Inhalation, 2 times [...] 17:41:00 EST Start Date: 08/10/22 Status: Ordered PEG-3350 with Electrolytes Lemon (Eqv-GoLYTELY) oral powder for reconstitution See Instructions, Per GI office instructions that were mailed to pt., # 4,000 mL, 0 Refills, Maintenance, 01/13/24 10:39:00 EDT, [id number], Partial fill upon patient request if the prescription is for a schedule II opioid drug., Per GI office... Start Date: 01/13/24 Status: Ordered Zolpidem Daily at bedtime, 0 [...] Active YARITZA (generalized anxiety disorder) Confirmed Active Non-[place] Citizen speaking patient, wholesale diamond broker required Confirmed Active Menopausal state Confirmed Active Migraines Confirmed Active Moderate asthma Confirmed Active Myofascial pain on right side Confirmed Active PATRIC (obstructive sleep apnea) Confirmed Active Primary insomnia Confirmed Active Mild recurrent major depression Confirmed Active Right kidney absent Confirmed 11/11/20 Active No Pap smears in CIS system Confirmed Active Severe obesity Confirmed Active Social History Social History Type Response Smoking Status Never (less than 100 in lifetime) entered on: 06/17/22 Sex Patient Care team information Care Team Personnel Name: Josh Cheema MD Position: [facility] Renal MD Member Role: Lifetime Consulting Physician Address: Address: [address] [facility] [place] [address]- [place] Name: Stanislaw Garsia MD , Fallon Clements Position: Reference Physician Member Role: PCP Address: Address: [address] [place] [address]- Care Team Related Persons Name: NOLAN TOURE Address: home UNKN Name: PARKER MONTEMAYOR Address: [place] [address]
--- OUTSIDE RECORDS SUMMARY | 2024-04-05 10:13 | XMS_ITS | Continuity of Care Document ---
Author Organization [facility] Address [address] [address]- Care Team Providers Care Engine Research Engineer Name Role Phone Stanislaw Garsia MD, Alee Primary Care Physician [phone] [id number] Date(s): 06/04/22 - 08/05/22 [facility] [address] [address]- Attending Physician: Not on Staff, Attending MD Referring Physician: Leyla Dixon CNM Allergies, Adverse Reactions, Alerts No Known Allergies [...] Active YARITZA (generalized anxiety disorder) Confirmed Active Non-North Korean speaking patient, control room tender required Confirmed Active Menopausal state Confirmed Active [...] Care team information Care Team Personnel Name: Anette ALONSO, Josh Position: [facility] Renal MD Member Role: Lifetime Consulting Physician Address: Address: [address] [facility] [address] [facility] [place], [place] [address]- Name: Stanislaw Garsia MD , Fallon Clements Position: Reference Physician Member Role: PCP Address: Address: [address] [place] [address]- Care Team Related Persons Name: NOLAN TOURE Address: home UNKN Name: MONTEMAYOR, PARKER Address: [place] [address]
--- OUTSIDE RECORDS SUMMARY | 2024-04-05 10:13 | XMS_ITS | Continuity of Care Document ---
Author Organization [facility] Address [address] [place] [address], 4[address] [place] [address]- Care Team Providers Care Top Lift Trimmer Name Role Phone Stanislaw Garsia MD, Fallon Clements Primary Care Physician [id number] Date(s): 10/14/22 - 11/13/22 [facility] [address] [facility], [address]th [place] [address]- Allergies, Adverse Reactions, Alerts No Known Allergies [...] Active YARITZA (generalized anxiety disorder) Confirmed Active Non-Icelandic speaking patient, shift nurse manager required Confirmed Active Menopausal state Confirmed Active [...] Team Personnel Name: Josh Cheema MD Position: [facility] Renal MD Member Role: Lifetime Consulting Physician Address: Address: [address] [place] [address] [address] [facility], [place] [address]- Name: Stanislaw Garsia MD , Fallon Clements Position: Reference Physician Member Role: PCP Address: Address: [address] [place] [address]- Care Team Related Persons Name: NOLAN TOURE Address: home UNKN Name: PARKER MONTEMAYOR Address: [place] [address]
--- OUTSIDE RECORDS SUMMARY | 2024-04-05 10:13 | XMS_ITS | Continuity of Care Document ---
Author Organization [facility]ameyIndustry Dives [facility] Address [address] [place] [address], 4t [place] [address]- Care Team Providers Care Housekeeping Director Name Role Phone Stanislaw Garsia MD, Fallon Clements Primary Care Physician [phone] [facility] [id number] Date(s): 01/17/24 - 01/24/24 [facility] Radha DawsonIndustry Dives [facility] [address] [facility], 4th [place] [address]- Attending Physician: Not on Staff, Attending MD Referring Physician: Stanislaw Garsia MD , Fallon Clements Allergies, Adverse Reactions, Alerts No Known Allergies [...] mL, 0 Refills, Maintenance, 01/13/24 10:39:00 EDT, [facility]/pharmacy #[id number], Partial fill upon patient request if [...] Active YARITZA (generalized anxiety disorder) Confirmed Active Non-Malay speaking patient, aerial photograph interpreter required Confirmed Active Menopausal state Confirmed Active Migraines Confirmed Active Moderate asthma Confirmed Active Myofascial pain on right side Confirmed Active PATRIC (obstructive sleep apnea) Confirmed Active Primary insomnia Confirmed Active Mild recurrent major depression Confirmed Active Right kidney absent Confirmed 11/11/20 Active No Pap smears in CIS system Confirmed Active Severe obesity Confirmed Active Vital Signs Most recent to oldest [Reference Range]: 1 Height 163 cm (01/17/24 10:52 AM) Weight 109 kg (01/17/24 10:52 AM) Pulse Rate [55-90 bpm] 75 bpm (01/17/24 10:52 AM) Body Mass Index [18.5-24.99 kg/m2] 41.03 kg/m2 *>HHI* (01/17/24 10:52 AM) Blood Pressure [90-138/55-84 mm Hg] 111/ 61mm Hg (01/17/24 10:52 AM) Blood pressure sites Arm, right (01/17/24 10:52 AM) Dry Weight 109 kg (01/17/24 10:52 AM) Weight Obtained Via Standing scale (01/17/24 10:52 AM) Dry Weight Obtained Via Standing scale (01/17/24 10:52 AM) Social History Social History Type Response Smoking Status Never (less than 100 in lifetime) entered on: 06/17/22 Sex Patient Care team information Care Team Personnel Name: Anette ALONSO, Josh Position: [facility] Renal MD Member Role: Lifetime Consulting Physician Address: Address: [address] [place] [address] [address] [facility] [place] [address]- Name: Stanislaw Garsia MD , Fallon Clements Position: Reference Physician Member Role: PCP Address: Address: [address] [place] [address]- Care Team Related Persons Name: NOLAN TOURE Address: home UNKN Name: PARKER MONTEMAYOR Address: [place] [address]
--- OUTSIDE RECORDS SUMMARY | 2024-04-05 10:13 | XMS_ITS | Continuity of Care Document ---
Author Organization [facility] Address [address] [address]- Care Team Providers Care Tank Wagon Operator Name Role Phone Stanislaw Garsia MD, Fallon Clements Primary Care Physician [id number] Date(s): 05/31/22 - 06/30/22 [facility] [address] [place] [address] Allergies, Adverse Reactions, Alerts No Known Allergies [...] bleeding (AUB) Confirmed Active Dysmenorrhea Confirmed Active Non-Micronesian speaking patient, chiropractic neurologist required Confirmed Active Myofascial pain on right side Confirmed Active Obese class II Confirmed Active Post-menopausal bleeding Confirmed Active No Pap smears in CIS system Confirmed Active Social History Social History Type Response Smoking Status Never (less than 100 in lifetime) entered on: 06/17/22 Sex Patient Care team information Care Team Personnel Name: Josh Cheema MD Position: [facility] Renal MD Member Role: Lifetime Consulting Physician Address: Address: [address] [place] [address] [address] [facility] [place] [address]- Name: Stanislaw Garsia MD , Fallon Clements Position: Reference Physician Member Role: PCP Address: Address: [address] [place] [address]- Care Team Related Persons Name: NOLAN TOURE Address: home UNKN Name: PARKER MONTEMAYOR Address: [place] [address]
--- OUTSIDE RECORDS SUMMARY | 2024-04-05 10:13 | XMS_ITS | Continuity of Care Document ---
Author Organization [facility] rameyRemote Assistants [facility] Address [address] [place] [address], 4[place] [address]- Care Team Providers Care Photo Tube Assembler Name Role Phone Stanislaw Garsia MD, Fallon Clements Primary Care Physician [id number] Date(s): 04/05/22 - 04/12/22 [facility] Radha Kongs [facility] [address] [facility], 4th [place] [address]- Attending Physician: Marcio Oropeza MD Referring Physician: Bao Sadler MD Allergies, Adverse Reactions, Alerts No Known [...] opioid drug. Start Date: 04/05/22 Status: Ordered Procedures Procedure Date Related Diagnosis Body Site Status Cold knife cone biopsy of cervix Completed Colonoscopy Completed Cyst Completed Kidney Completed Patient Care team information Personnel Name: Stanislaw Garsia MD , Fallon Clements Address: Address: [address] [place] [id number]
--- OUTSIDE RECORDS SUMMARY | 2024-04-05 10:13 | XMS_ITS | Continuity of Care Document ---
Author Organization [facility] Dylan [employer] Address [address] [place] [address], 4[address] [place] [address]- Care Team Providers Care Senior Assistant Manager Name Role Phone Stanislaw Garsia MD, Fallon Clements Primary Care Physician [phone] [id number] Date(s): 10/20/22 - 11/19/22 [facility] Radhagarry DawsonMyTrainers [facility] [address] [facility], 4th [place] [address]- Attending Physician: Carol Laughlin Admitting Physician: Carol [...] Active YARITZA (generalized anxiety disorder) Confirmed Active Non-Mongolian speaking patient, historic interpreter required Confirmed Active Menopausal state Confirmed [...] Team Personnel Name: Josh Cheema MD Position: [facility] Renal MD Member Role: Lifetime Consulting Physician Address: Address: [address] [facility] [address] [facility], [place] [address]- Name: Stanislaw Garsia MD , Fallon Clements Position: Reference Physician Member Role: PCP Address: Address: [address] [place] [address]- Care Team Related Persons Name: NOLAN TOURE Address: home UNKN Name: PARKER MONTEMAYOR Address: [place] [address]
--- OUTSIDE RECORDS SUMMARY | 2024-04-05 10:13 | XMS_ITS | Continuity of Care Document ---
Author Organization [facility] Address [address] [place] [address], 4[address] [place] [address]- Care Team Providers Care Expressive Art Therapist Name Role Phone Stanislaw Garsia MD, Fallon Clements Primary Care Physician [phone] [id number] Date(s): 09/07/22 - 10/07/22 [facility] Radhagarry Kongs [facility] [address] [facility], 4th [place] [address]- Allergies, Adverse Reactions, Alerts No Known Allergies [...] Active YARITZA (generalized anxiety disorder) Confirmed Active Non-Kazakh speaking patient, binder selector required Confirmed Active Menopausal state Confirmed Active [...] Member Role: Lifetime Consulting Physician Address: Address: [address] [place] [address] [address] [facility] [place], [address] Name: Stanislaw Garsia MD , Fallon Clements Position: Reference Physician Member Role: PCP Address: Address: [address] [place] [address]- [place] Care Team Related Persons Name: NOLAN TOURE Address: home [facility] Name: PARKER MONTEMAYOR Address: [place] [address]
--- OUTSIDE RECORDS SUMMARY | 2024-04-05 10:13 | XMS_ITS | Continuity of Care Document ---
Author Organization [facility] Address [address] [address]- Care Team Providers Care Sanding Supervisor Name Role Phone Stanislaw Garsia MD, Fallon Clements Primary Care Physician Encounter [facility] Date(s): 06/17/22 - 07/17/22 [facility] [address] [address]- Allergies, Adverse Reactions, Alerts No Known Allergies [...] Active YARITZA (generalized anxiety disorder) Confirmed Active Non-Swiss speaking patient, guest service manager required Confirmed Active Menopausal state Confirmed [...] Team Personnel Name: Josh Cheema MD Position: [facility] Renal MD Member Role: Lifetime Consulting Physician Address: Address: [address] [facility] [address] [facility] [place] [address]- [place] Name: Stanislaw Garsia MD , Fallon Clements Position: Reference Physician Member Role: PCP Address: Address: [address] [place] [address]- Care Team Related Persons Name: NOLAN TOURE Address: home UNKN Name: PARKER MONTEMAYOR Address: [place] [address]
--- OUTSIDE RECORDS SUMMARY | 2024-04-05 10:13 | XMS_ITS | Continuity of Care Document ---
Author Organization [facility] Address [address] [place] [address]- Care Team Providers Care Bridge Design Engineer Name Role Phone Stanislaw Garsia MD, Alee Primary Care Physician [id number] Date(s): 01/12/24 - 02/11/24 [facility] [address] [place] [address]- Allergies, Adverse Reactions, Alerts No Known Allergies [...] Gm, 0 Refills, Maintenance, 02/10/24 13:42:00 EDT, [facility]/pharmacy #[id number], Partial fill upon patient request if the [...] Active YARITZA (generalized anxiety disorder) Confirmed Active Non-Dominican speaking patient, consulting analyst required Confirmed Active Menopausal state Confirmed Active [...] Team Personnel Name: Josh Cheema MD Position: [facility] Renal MD Member Role: Lifetime Consulting Physician Address: Address: [address] [facility] [place] [address]- [place] Name: Stanislaw aGrsia MD , Fallon Clements Position: Reference Physician Member Role: PCP Address: Address: [address] [place] [address]- Care Team Related Persons Name: NOLAN TOURE Address: home UNKN Name: PARKER MONTEMAYOR Address: [place] [address]
--- OUTSIDE RECORDS SUMMARY | 2024-04-05 10:13 | XMS_ITS | Continuity of Care Document ---
Author Organization [facility] Dylan n[employer] Address [address] [place] [address], 4[address] [place] [address]- Care Team Providers Care Rn Dialysis Name Role Phone Stanislaw Garsia MD, Fallon Clements Primary Care Physician [phone] [id number] Date(s): 03/01/23 - 03/31/23 [facility] Radhagarry DawsonPromobuckets [facility] [address] [facility], 4th [place] [address]- Attending Physician: Craol Laughlin Admitting Physician: Carol Laughlin Referring Physician: [...] Active YARITZA (generalized anxiety disorder) Confirmed Active Non-Greek speaking patient, habilitation training specialist required Confirmed Active Menopausal state Confirmed Active [...] Team Personnel Name: Josh Cheema MD Position: [facility] Renal MD Member Role: Lifetime Consulting Physician Address: Address: [address] [facility] [address] [facility] [place], [place] [address]- Name: Stanislaw Garsia MD , Fallon Clements Position: Reference Physician Member Role: PCP Address: Address: [address] [place] [address]- Care Team Related Persons Name: NOLAN TOURE Address: home UNKN Name: PARKER MONTEMAYOR Address: [place] [address]
--- OUTSIDE RECORDS SUMMARY | 2024-04-05 10:13 | XMS_ITS | Continuity of Care Document ---
Author Organization [facility] Address [address] [place] [address]- Care Team Providers Care Mediator Name Role Phone Stanislaw Garsia MD, Alee Primary Care Physician [phone] En[facility] Date(s): 11/01/23 - 12/01/23 [facility] [address] [place] [address]- Attending Physician: Carol Laughlin Admitting Physician: Carol Laughlin Referring Physician: [id number] Allergies, Adverse Reactions, Alerts No Known Allergies [...] Active YARITZA (generalized anxiety disorder) Confirmed Active Non-Japanese speaking patient, jet inspector required Confirmed Active Menopausal state Confirmed Active [...] Team Personnel Name: Josh Cheema MD Position: [facility] Renal MD Member Role: Lifetime Consulting Physician Address: Address: [address] [place] [address] [address] [facility], [place] [address]- Name: Stanislaw Garsia MD , Fallon Clements Position: Reference Physician Member Role: PCP Address: Address: [address] [place] [address]- Care Team Related Persons Name: NOLAN TOURE Address: home UNKN Name: PARKER MONTEMAYOR Address: [place] [address]
--- OUTSIDE RECORDS SUMMARY | 2024-04-05 10:13 | XMS_ITS | Continuity of Care Document ---
Author Organization [facility] Radha Richardson n[facility] [employer] Address [address] [place] [address], 4t [place] [address]- Care Team Providers Care Electronics Utility Worker Name Role Phone Stanislaw Garsia MD, Fallon Clements Primary Care Physician [id number] Date(s): 02/08/24 - 03/09/24 [facility] DawsonOFERTALDIAs [facility] [address] [facility], 4th [place], [place] [address] Allergies, Adverse Reactions, Alerts No Known Allergies [...] Gm, 0 Refills, Maintenance, 02/10/24 13:42:00 EDT, [id number], Partial fill upon patient request if the [...] mL, 0 Refills, Maintenance, 01/13/24 10:39:00 EDT, [facility]/pharmacy #[id number], Partial fill upon patient request if [...] Active YARITZA (generalized anxiety disorder) Confirmed Active Non-French speaking patient, certified credit counselor required Confirmed Active Menopausal state Confirmed Active [...] Name: Josh Cheema MD Position: [facility] Renal MD Member Role: Lifetime Consulting Physician Address: Address: [address] [facility] [address] [facility] [place] [address]- Name: Fallon Doyle MD Position: Reference Physician Member Role: PCP Address: Address: [address] [place] [address]- Care Team Related Persons Name: NOLAN TOURE Address: home UNKN Name: PARKER MONTEMAYOR Address: [place] [address]
--- OUTSIDE RECORDS SUMMARY | 2024-04-05 10:13 | XMS_ITS | Continuity of Care Document ---
Author Organization [facility] Address [address] [address]- Care Team Providers Care Body Technician Name Role Phone Stanislaw Garsia MD, Fallon Clements Primary Care Physician [id number] Date(s): 07/07/22 - 08/15/22 [facility] [address] [address]- Attending Physician: Not on Staff, Attending MD [...] Active YARITZA (generalized anxiety disorder) Confirmed Active Non-Swedish speaking patient, family dentist required Confirmed Active Menopausal state Confirmed Active [...] Team Personnel Name: Josh Cheema MD Position: [facility] Renal MD Member Role: Lifetime Consulting Physician Address: Address: [address] [place] [address] [address] [facility], [place] [address]- Name: Stanislaw Garsia MD , Fallon Clements Position: Reference Physician Member Role: PCP Address: Address: [address] [place] [address]- Care Team Related Persons Name: NOLAN TOURE Address: home UNKN Name: PARKER MONTEMAYOR Address: [place] [address]
--- OUTSIDE RECORDS SUMMARY | 2024-04-05 10:13 | XMS_ITS | Continuity of Care Document ---
Author Organization [facility] Radhagarry Richardson n[facility] Address [address] [place] [address], [address] [place] [address]- Care Team Providers Care Mortgage Closer Name Role Phone Stanislaw Garsia MD, Fallon Clements Primary Care Physician [id number] Date(s): 08/10/22 - 08/17/22 [facility] [place] Dawson[facility] [address] [facility], 4th [place] [address]- Attending Physician: Nirali Kang MD Referring Physician: Marcio Oropeza MD Allergies, Adverse Reactions, Alerts No Known [...] a schedule II opioid drug. Start Date: 2/14/23 Status: Ordered Zolpidem Daily at bedtime, 0 [...] anxiety disorder) Confirmed Active Non-Greek speaking patient, glost kiln operator required Confirmed Active Menopausal state Confirmed Active [...] oldest [Reference Range]: 1 Height 163 cm (08/10/22 4:35 PM) Weight 104.63 kg (08/10/22 4:35 PM) Pulse Rate [55-90 bpm] 88 bpm (08/10/22 4:35 PM) Body Mass Index [18.5-24.99 kg/m2] 39.38 kg/m2 *>HHI* (08/10/22 4:35 PM) Blood Pressure [90-138/55-84 mm Hg] 123/ 62mm Hg (08/10/22 4:35 PM) Respiratory Rate [16-30 br/min] 22 br/mi n (08/10/22 4:35 PM) Blood pressure sites Arm, right (08/10/22 4:35 PM) Weight Obtained Via Standing scale (08/10/22 4:35 PM) Social History Social History Type Response Smoking Status Never (less than 100 in lifetime) entered on: 06/17/22 Sex Patient Care team information Care Team Personnel Name: Josh Cheema MD Position: [facility] Renal MD Member Role: Lifetime Consulting Physician Address: Address: [address] [facility] [address] [facility], [place] [address]- Name: Stanislaw Garsia MD , Fallon Clements Position: Reference Physician Member Role: PCP Address: Address: [address] [place] [address]- Care Team Related Persons Name: NOLAN TOURE Address: home UNKN Name: PARKER MONTEMAYOR Address: [place] [address]
--- OUTSIDE RECORDS SUMMARY | 2024-04-05 10:13 | XMS_ITS | Continuity of Care Document ---
[facility] Address [address] [place] [address], [address] [address]- Care Team Providers Care Side Laster Name Role Phone Stanislaw Garsia MD, Fallon Clements Primary Care Physician [phone] [facility] [id number] Date(s): 06/17/22 - 06/24/22 [facility] Radhagarry DawsonVtaps [facility] [address] [facility], [address] [place] [address]- Attending Physician: Marcio Oropeza MD Referring Physician: Leyla Dixon CNM Allergies, [...] bleeding (AUB) Confirmed Active Dysmenorrhea Confirmed Active Non-Belgian speaking patient, oven tender required Confirmed Active Myofascial pain on right side Confirmed Active Obese class II Confirmed Active Post-menopausal bleeding Confirmed Active No Pap smears in CIS system Confirmed Active Vital Signs Most recent to oldest [Reference Range]: 1 Height 163 cm (06/17/22 2:08 PM) Weight 103.63 kg (06/17/22 2:08 PM) Body Mass Index [18.5-24.99 kg/m2] 39 kg /m2 *>HHI* (06/17/22 2:08 PM) Blood Pressure [90-138/55-84 mm Hg] 102/ 72mm Hg (06/17/22 2:08 PM) Blood pressure sites Arm, left (06/17/22 2:08 PM) Weight Obtained Via Standing scale (06/17/22 2:08 PM) Social History Social History Type Response Smoking Status Never (less than 100 in lifetime) entered on: 06/17/22 Sex Note * Maricel Jefferson: PERFORM, SIGN, VERIFY Event Display: Patient Education/Instruction Authored Date: [id number] [facility] *[facility] CHEF TEACHER Clinical Summary Name ARLEY HERNANDEZ Age 46 Years 1975 PCP Stanislaw Garsia MD , Fallon Clements PCP Visit Date 06/17/2022 13:50:00 Additional Instructions: Scheduled Appointments?? Future Appointments ?*[facility]??RELOCATION COUNSELOR??NON ?Phone:??--?Fax:??-- ?Appt. Date:??07/06/2022?4:00 PM ?Scheduled Provider:??Nutrition WPS ?*[facility]??CHEF TEACHER ?[address]??[place],??[place],??[address] ?Phone:??--?Fax:??-- ?Appt. Date:??08/10/2022?4:00 PM ?Scheduled Provider:??Nirali Kang MD Follow-Up Instructions ?? Diagnosis Medications: Please continue your medications until treatment is completed or stopped by your provider. Discuss any questions related to medications with your provider. New Medications [id number], [address] [place], [place] [id number], [phone] Tranexamic Acid (tranexamic acid 650 mg oral tablet) 2 tab(s) Oral 3 times a day. take up to 3 times a day for a maximum of 5 days as needed for heavy menstrual bleeding. Refills: 0. Next Dose: Medications to Continue with No Changes These medications were not printed or sent to your pharmacy Clonazepam 1 Milligram Oral Daily at Bedtime as needed Anxiety. Next Dose: Famotidine 40 Milligram Oral Daily. Next Dose: Hydrochlorothiazide (hydroCHLOROthiazide 12.5 mg oral capsule) 1 capsule Oral Daily. Next Dose: Loratadine (loratadine 10 mg oral tablet) 1 tab(s) Oral Daily as needed Cold Symptoms. Next Dose: Allergy Info:?? NKA Medications Given This Visit Future Orders ?No future orders Vital Signs Height 163 cm Weight 103.63 kg BMI 39 kg/m2 Blood Pressure 102 mm Hg/72 mm Hg Temperature Pulse Rate Respiratory Rate 02 Sat Mode of Delivery / You can now view a summary of your hospital visit from the comfort of your home through a free online portal called [employer]. [employer] is a website that allows you to securely view your medical information including discharge summary, medications and follow-up visits. ??You can alsosend a secure electronic message to your doctor???s office to request appointments, renew medications or just ask a question. You can enroll at [email or web address] or register during your next office visit. Disclaimer:?? The information provided is of a general nature and is intended to be used in conjunction with the recommendations and advice of your health care practitioner. ??Every effort has been made to ensure that the information provided is accurate and complete at the time it is provided to you however, as your needs change, or, as new ??information becomes available, different or additional instructions may be required. If you have questions, please consult with your primary care provider or pharmacist, as appropriate. ??This information is not intended to serve as substitution for assessment and evaluation by a qualified health care provider. If you do not have a primary care provider, you may find a [facility] provider by calling [facility] [employer] at [phone]. For information about the plan of care including goals and instructions for your diagnosis, please see the patient education orders section of this document. Patient Education Materials?? The content of this educational material or handout may have been modified, supplemented, or adapted from its original content and format to support your individualized medical care. Please follow instructions discussed with your provider during this visit as well as any education documents you were given today. Patient Care team information Care Team Personnel Name: Anette ALONSO, Josh Position: [facility] Renal MD Member Role: Lifetime Consulting Physician Address: Address: [address] [facility] [address] [facility] [place] [address]- Name: Stanislaw Garsia MD , Fallon Clements Position: Reference Physician Member Role: PCP Address: Address: [address] [place] [address]- Care Team Related Persons Name: NOLAN TOURE Address: home UNKN Name: PARKER MONTEMAYOR Address: [place] [address]
--- OUTSIDE RECORDS SUMMARY | 2024-04-05 10:13 | XMS_ITS | Continuity of Care Document ---
Author Organization [facility] Address [address] [place] [address], [address] [address]- Care Team Providers Care Curbing Stonecutter Name Role Phone Stanislaw Garsia MD, Fallon Clements Primary Care Physician [phone] [id number] Date(s): 10/20/22 - 11/19/22 [facility] [address] [facility], [address] [place] [address]- Allergies, Adverse Reactions, Alerts No Known Allergies [...] Active YARITZA (generalized anxiety disorder) Confirmed Active Non-Sammarinese speaking patient, poultry dresser required Confirmed Active Menopausal state Confirmed Active [...] Team Personnel Name: Josh Cheema MD Position: [facility] Renal MD Member Role: Lifetime Consulting Physician Address: Address: [address] [place] [address] [address] [facility], [place] [address]- Name: Stanislaw Garsia MD , Fallon Clements Position: Reference Physician Member Role: PCP Address: Address: [address] [place] [address]- Care Team Related Persons Name: NOLAN TOURE Address: home [facility] Name: PARKER MONTEMAYOR Address: [place] [address]
--- OUTSIDE RECORDS SUMMARY | 2024-04-05 10:13 | XMS_ITS | Continuity of Care Document ---
Author Organization [facility] Dylan [facility] Address [address] [place] [address], [address] [place] [address]- Care Team Providers Care Business Technology Analyst Name Role Phone Stanislaw Garsia MD, Fallon Clements Primary Care Physician [id number] Date(s): 10/18/22 - 11/19/22 [facility] [address] [facility], [address] [place] [address]- Attending Physician: Nirali Kang MD Referring Physician: Fallon Doyle MD Allergies, Adverse Reactions, Alerts No Known [...] Active YARITZA (generalized anxiety disorder) Confirmed Active Non-Tamazight speaking patient, inventory control manager required Confirmed Active Menopausal state Confirmed [...] Team Personnel Name: Josh Cheema MD Position: [facility] Renal MD Member Role: Lifetime Consulting Physician Address: Address: [address] [facility] [address] [facility], [place] [address]- Name: Stanislaw Garsia MD , Fallon Clements Position: Reference Physician Member Role: PCP Address: Address: [address] [place] [address]- Care Team Related Persons Name: NOLAN TOURE Address: home UNKN Name: PARKER MONTEMAYOR Address: [place] [address]
--- OUTSIDE RECORDS SUMMARY | 2024-04-05 10:13 | XMS_ITS | Continuity of Care Document ---
Author Organization [facility] Radha rameyVerified Identity Passs Address [address] [place] [address], [address]t [place] [address]- Care Team Providers Care Managing Partner [employer] [place] Name Role Phone Stanislaw Garsia MD, Fallon Clements Primary Care Physician [facility] [id number] Date(s): 09/06/23 - 12/28/23 [facility] Radhagarry Kongs [facility] [address] [facility], 4th Floor [place], [place] [address] Attending Physician: Not on Staff, Attending MD Allergies, Adverse Reactions, Alerts No Known [...] Active YARITZA (generalized anxiety disorder) Confirmed Active Non-Bhutanese speaking patient, dust box tender required Confirmed Active Menopausal state Confirmed [...] Team Personnel Name: Josh Cheema MD Position: [facility] Renal MD Member Role: Lifetime Consulting Physician Address: Address: [address] [place] [address] [address] [facility] [place] [address]- Name: Stanislaw Garsia MD , Fallon Clements Position: Reference Physician Member Role: PCP Address: Address: [address] [place] [address]- Care Team Related Persons Name: NOLAN TOURE Address: home UNKN Name: PARKER MONTEMAYOR Address: [place] [address]
--- NOTE | 2024-04-05 10:16 | AM.OFFWIN_ITS ---
Intake Vital Signs 04/05/24 10:20 Height 5 ft 5 in Weight 242 lb BMI 40.3 BP 140/82 H Blood Pressure Location Rt brachial Position Sitting Pulse 78 Pulse Source Pulse Oximeter Pulse Oximetry (%) 98 Oxygen Delivery Method Room Air Intake Visit Reasons: EP-sob, dry mouth, fatigue, urine frequently Intake Note: Patient here for SOB, dry mouth, fatigue which has been present for about 2 weeks and this week it has worsened. Patient Tobacco Use Status: Never used Tobacco Allergies citalopram Allergy (Intermediate, Verified 04/05/24 10:22) palpitations doxepin Allergy (Intermediate, Verified 04/05/24 10:22) palpitations quetiapine [Seroquel] Allergy (Intermediate, Verified 04/05/24 10:22) weight gain trazodone Allergy (Intermediate, Verified 04/05/24 10:22) palpitations venlafaxine Adverse Reaction (Intermediate, Verified 04/05/24 10:22) tachycardia zolpidem Adverse Reaction (Verified 04/05/24 10:22) blurry vision Do you need a note to return to daycare/school/sports/work: No HPI HPI Comments History of Present Illness Details Patient is a 48-year-old female presenting with multiple complaints which she state have worsened over the last 2 weeks. She is complaining of shortness of breath, blurry vision, a dry mouth, fatigue, a dry cough, some nausea, diarrhea 2 days ago but nothing bloody or black in her diarrhea, slight increase in frequency of urination (and drinking more fluids), some abdominal pain. She denies any fevers, head congestion, sinus pain or ear pain. She denies any sick contacts. She denies a personal history of anemia but states that other family members have had anemia before. She states she does not take an allergy pill every day but sometimes she will. She denies any menstrual cycle in the last 2 years. She states she has been eating her or her typical diet but has been drinking more fluids recently. [facility] Medical History (Updated 04/05/24 @ 10:57 by Radha Linton PA-C) Physical exam Right ankle pain UTI (urinary tract infection) Insomnia Pericardial effusion Palpitations Ankle pain Abdominal mass, LUQ (left upper quadrant) Dysphagia Right elbow pain Abdominal pain Pelvic pain Abnormal abdominal ultrasound Abnormal uterine bleeding (AUB) FH: throat cancer Pericardial effusion Pericarditis Primary insomnia Essential hypertension Mild recurrent major depression PATRIC (obstructive sleep apnea) Migraines Morbidly obese Moderate asthma Absence of kidney YARITZA (generalized anxiety disorder) Essential hypertension Transaminitis Numerous moles Obesity Carpal tunnel syndrome Ovarian cyst Surgical History History of right nephrectomy History of esophagogastroduodenoscopy (EGD) H/O colonoscopy History of removal of ovarian cyst (~2017) History of loop electrical excision procedure (LEEP) Family History Maternal Grandmother Diabetes mellitus Maternal Grandfather Heart disease CVD (cardiovascular disease) Father Heart problem Sister Heart murmur Paternal Grandmother Heart problem Mother Thyroid disease Social History Housing: Apartment Alcohol intake: unknown Patient Tobacco Use Status: Never used Tobacco e-Cigarette/Vaping Use: Never Used Second Hand Smoke Exposure: No service: No Current occupational status: unemployed 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 Current occupational exposures/hazards: No Gender identity: Female Cognitive needs: No Hearing needs: No Vision needs: Yes Female Reproductive History Menstrual Age of Menarche: 12 Review of Systems Const All systems reviewed & are unremarkable except as noted in HPI and below Physical Exam Vital Signs: Last Vital Signs Pulse 78 04/05/24 10:20 BP 140/82 H 04/05/24 10:20 Pulse Ox 98 04/05/24 10:20 Oxygen Delivery Method Room Air 04/05/24 10:20 BMI result Body Mass Index 40.3 Const General: cooperative, healthy appearing, comfortable, no acute distress and well developed Orientation/consciousness: patient oriented x3 Limitations: no limitations HEENT Head: Yes normal to inspection Ears: hearing grossly normal bilaterally, TM's normal bilaterally and Abnormal EAC present erythema and edema General nose exam: Normal external nose present Face and sinus: Yes normal facial exam Mouth: Normal oral and palatal mucosa present Throat: Yes cobblestoning Eyes General: appearance normal, both eyes and all related structures Neck Neck: Yes normal visual inspection and Yes full ROM Resp Effort & Inspection: normal respiratory effort and able to speak in complete sentences Auscultation: clear to auscultation bilaterally Cardio Rate: regular rate Rhythm: regular rhythm Heart sounds: normal S1 and S2 Skin General skin exam: no rashes or lesions noted Neuro General: patient oriented x3 Extrem General: Yes normal to inspection and Yes normal gait Results AMB Random Glucose (hemocue) AMB Random Glucose (hemocue) 98 mg/dL Last Edit by LORRAINE Walker o n 04/05/24 10:41 AMB Urinalysis, Automated UA Leukoctes 0 Maged/uL Last Edit by Johnie Aly CCM on 04/05/24 10:43 UA Nitrite Negative Last Edit by Johnie Aly [facility] on 04/05/24 10:43 UA Urobilinogen 0.2 mg/dL Last Edit by Johnie Aly [facility] on 04/05/24 10:43 UA Protein 0 mg/dL Last Edit by Johnie Aly [facility] on 04/05/24 10:43 UA pH 6.0 Last Edit by Johnie Aly [facility] on 04/05/24 10:43 UA Blood 0 Guille/uL Last Edit by Johnie Aly [facility] on 04/05/24 10:43 UA Specific [place] 1.010 Last Edit by Johnie Aly [facility] on 04/05/24 10:43 UA Ketone Negative Last Edit by Johnie lAy CCM on 04/05/24 10:43 UA Bilirubin 0 mg/dL Last Edit by Johnie Aly [facility] on 04/05/24 10:43 UA Glucose 0 mg/dL Last Edit by Johnie Aly [facility] on 04/05/24 10:43 Assessment & Plan Assessment & Plan (1) Fatigue: Code(s): R53.83 - Other fatigue Qualifiers: Fatigue type: unspecified Qualified Code(s): R53.83 - Other fatigue Plan: UA negative, POC in office is 98, vital signs are stable and patient is well- appearing, physical exam was relatively unremarkable. With a constellation of symptoms she has, this does not seem to be any kind of upper respiratory infection, maybe seasonal allergies. Recommended she start taking a daily allergy pill Suspicious for an anemia or thyroid issue. As patient tells me she can not get in with her PCP anytime soon, I will get a basic set of labs to rule out those 2 issues. If everything comes back negative, and her symptoms persist, patient is aware she should follow up with her PCP for further workup. Plan See above Orders: Orders AMB Random Glucose (hemocue) Today Z13.9 - Encounter for screening, unspecified TSH reflex Free T4 Today R53.83 - Other fatigue AMB Urinalysis Automated Today Z13.9 - Encounter for screening, unspecified Complete Blood Count Auto Diff Today R53.83 - Other fatigue Comprehensive Met. Panel Today R53.83 - Other fatigue Coding Level of Care Code Est Pt Level 4 (54685) Diagnoses Fatigue, unspecified type R53.83 Fatigue type: unspecified
[2024-04-05 10:20] VITALS: BP 140/82; PULSE 78; O2SAT 98; BMI 40.3
== END 2024-04-05 10:52 | disposition home or self-care (01) ==
PROVIDERS: PCP Internal Medicine; Visit Provider Physician Assistant
DX: Z13.9 Encounter for screening, unspecified (principal); R53.83 Other fatigue

== ENCOUNTER → 2024-04-05 10:10 | Outpatient (BNVA) | payer OTHER, SELFPAY | PROVIDERS: PCP Internal Medicine; Visit Provider Physician Assistant | DX: R53.83 Other fatigue (principal) | CPT/HCPCS: 81003; 82948; 99212 ==

== ENCOUNTER 2024-04-05 10:52 | Outpatient (REF) | payer OTHER, SELFPAY ==
[2024-04-05 12:58] LABS: MANUAL DIFF FLAG NO
[2024-04-05 13:04] LABS: Basophils Percent Auto 0.5 % (0-2); Eosinophils Absolute Auto 0.1 X10*3/uL (0.0-0.4); Eosinophils Percent Auto 2.2 % (0-4); Hematocrit 40.1 % (37.0-47.0); Hemoglobin 12.9 g/dl (12.0-16.0); Imm Gran Abs Auto 0.03 X10*3/uL (0.00-0.03); Imm Gran Pct Auto 0.5 % (0.0-0.4); Lymphocytes Absolute Auto 2.3 X10*3/uL (1.2-4.9); Lymphocytes Percent Auto 41.3 % (20-40); Mean Corpuscular HGB Conc 32.2 g/dl (31.0-35.0); Mean Corpuscular Hemoglobin 29.4 pg (27.0-33.0); Mean Corpuscular Volume 91.3 fL (80.0-98.0); Mean Platelet Volume 10.7 fL (9.4-12.3); Monocytes Absolute Auto 0.4 X10*3/uL (0.1-1.2); Monocytes Percent Auto 7.8 % (2-11); Neutrophils Absolute Auto 2.6 x10*3/uL (2.0-8.3); Neutrophils Percent Auto 47.7 % (45-73); Platelet Count 266 X10*3/uL (160-400); Red Blood Count 4.39 X10*6/uL (4.20-5.50); Red Cell Distribution Width 13.5 % (11.0-16.0); White Blood Count 5.5 X10*3/uL (4.8-10.8)
[2024-04-05 13:26] LABS: Alanine Aminotransferase 11 U/L (0-31); Albumin Level 4.3 g/dL (3.5-5.0); Alkaline Phosphatase 76 U/L (39-117); Anion Gap 11 (12-20); Aspartate Amino Transferase 16 U/L (5-31); Bilirubin Total 0.4 mg/dL (0.0-1.0); Blood Urea Nitrogen 7 mg/dL (9-16); Calcium 9.5 mg/dL (8.4-10.2); Carbon Dioxide 26 mmol/L (22-29); Chloride 107 mmol/L (96-108); Estimated Glomerular Filt Rate > 60; Glucose Random 93 mg/dL (60-115); Sodium 140 mmol/L (135-145); Total Protein 7.8 g/dL (6.5-8.0)
[2024-04-05 13:35] LABS: TSH reflex Free T4 0.99 uIU/mL (0.32-4.0)
== END 2024-04-05 10:53 | disposition home or self-care (01) ==
LOC: HO.HMGCLDS 10:52
PROVIDERS: PCP Internal Medicine; Visit Provider Physician Assistant
DX: R53.83 Other fatigue (principal)
CPT/HCPCS: 36415; 80053; 84443; 85025

== ENCOUNTER 2024-04-18 10:58 | Outpatient (REF) | payer OTHER, SELFPAY ==
[2024-04-18 14:27] LABS: Influenza A PCR NEGATIVE (Negative); Influenza B PCR NEGATIVE (Negative); Resp Syncy Virus RNA Qual PCR NEGATIVE (Negative); SARS COV2 PCR INHOUSE NEGATIVE (Negative)
== END 2024-04-18 10:59 | disposition home or self-care (01) ==
LOC: HO.LNP 10:58
PROVIDERS: PCP Internal Medicine; Visit Provider Registered Nurse
DX: R10.9 Unspecified abdominal pain (principal); J02.9 Acute pharyngitis, unspecified; J30.1 Allergic rhinitis due to pollen; J06.9 Acute upper respiratory infection, unspecified
CPT/HCPCS: 0241U; 87880; 99212

== ENCOUNTER 2024-04-18 10:58 | Outpatient (AMB) | payer OTHER, SELFPAY ==
--- NOTE | 2024-04-18 11:12 | MHC.OFFWIV ---
Intake Vital Signs 04/18/24 11:14 Height 5 ft 5 in Weight 242 lb BMI 40.3 BP 124/80 Blood Pressure Location Rt brachial Position Sitting Pulse 83 Pulse Source Pulse Oximeter Pulse Oximetry (%) 98 Oxygen Delivery Method Room Air Intake Visit Reasons: EP sharp stomach pain, sore throat Intake Note: Patient here for sharp stomach pain and sore throat that has been present for about 1 week. Patient Tobacco Use Status: Never used Tobacco Allergies citalopram Allergy (Intermediate, Verified 04/18/24 11:15) palpitations doxepin Allergy (Intermediate, Verified 04/18/24 11:15) palpitations quetiapine [Seroquel] Allergy (Intermediate, Verified 04/18/24 11:15) weight gain trazodone Allergy (Intermediate, Verified 04/18/24 11:15) palpitations venlafaxine Adverse Reaction (Intermediate, Verified 04/18/24 11:15) tachycardia zolpidem Adverse Reaction (Verified 04/18/24 11:15) blurry vision Do you need a note to return to daycare/school/sports/work: Yes HPI EP sharp stomach pain, sore throat HPI Details This note is constructed using voice recognition software. While every effort has been made to ensure accuracy, curb supervisor errors may have been included. The patient is a 48 year old female who presents to the clinic today with upper left abdomen pain, sore throat for the last 2 days. She denies fever, does report chills. She notes that she had been seen a few weeks ago and was told that she had redness in her throat at that time, and the throat does feel similar. She reports a dry cough, and a scratchy sensation in the throat. She has some mild sinus congestion. She denies body aches. [facility] Medical History (Updated 04/05/24 @ 10:57 by Radha Linton PA-C) Physical exam Right ankle pain UTI (urinary tract infection) Insomnia Pericardial effusion Palpitations Ankle pain Abdominal mass, LUQ (left upper quadrant) Dysphagia Right elbow pain Abdominal pain Pelvic pain Abnormal abdominal ultrasound Abnormal uterine bleeding (AUB) FH: throat cancer Pericardial effusion Pericarditis Primary insomnia Essential hypertension Mild recurrent major depression PATRIC (obstructive sleep apnea) Migraines Morbidly obese Moderate asthma Absence of kidney YARITZA (generalized anxiety disorder) Essential hypertension Transaminitis Numerous moles Obesity Carpal tunnel syndrome Ovarian cyst Surgical History History of right nephrectomy History of esophagogastroduodenoscopy (EGD) H/O colonoscopy History of removal of ovarian cyst (~2017) History of loop electrical excision procedure (LEEP) Family History Maternal Grandmother Diabetes mellitus Maternal Grandfather Heart disease CVD (cardiovascular disease) Father Heart problem Sister Heart murmur Paternal Grandmother Heart problem Mother Thyroid disease Social History Housing: Apartment Alcohol intake: unknown Patient Tobacco Use Status: Never used Tobacco e-Cigarette/Vaping Use: Never Used Second Hand Smoke Exposure: No service: No Current occupational status: unemployed 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 Current occupational exposures/hazards: No Gender identity: Female Cognitive needs: No Hearing needs: No Vision needs: Yes Female Reproductive History Menstrual Age of Menarche: 12 Review of Systems Const All systems reviewed & are unremarkable except as noted in HPI and below Physical Exam Vital Signs: Last Vital Signs Pulse 83 04/18/24 11:14 BP 124/80 04/18/24 11:14 Pulse Ox 98 04/18/24 11:14 Oxygen Delivery Method Room Air 04/18/24 11:14 BMI result Body Mass Index 40.3 Const General: cooperative, healthy appearing, comfortable and no acute distress Orientation/consciousness: patient oriented x3 Limitations: no limitations HEENT Head: Yes normal to inspection Ears: hearing grossly normal bilaterally, external ears normal and TM abnormal retracted General nose exam: Normal external nose present, No nasal discharge present and Abnormal mucous membranes and turbinates present boggy and pale Face and sinus: Yes normal facial exam and Yes sinuses nontender Mouth: Normal oral and palatal mucosa present and moist mucous membranes Throat: Yes tonsils normal, Yes uvula midline, Yes posterior oropharynx abnormal (Erythema), Yes postnasal drainage and Yes cobblestoning Eyes General: appearance normal, both eyes and all related structures Neck Neck: Yes normal visual inspection Chest Other: Tenderness along left lower rib area intercostal region. Resp Effort & Inspection: normal respiratory effort, able to speak in complete sentences, Actively coughing, no respiratory distress, not tachypneic, no tripod positioning and no use of accessory muscles Auscultation: clear to auscultation bilaterally Cardio Rate: regular rate Rhythm: regular rhythm Heart sounds: normal S1 and S2 GI Inspection: Yes normal to inspection Palpation (GI): Soft to palpation and nontender Percussion: Yes normal to percussion Auscultation: normal bowel sounds Skin General skin exam: no rashes or lesions noted Neuro General: patient oriented x3 Extrem General: Yes normal to inspection and Yes no clubbing, cyanosis or edema Results AMB Rapid Strep AMB Rapid Strep Negative Last Edit by LORRAINE Walkre on 04/18/24 11:47 Assessment & Plan Assessment & Plan (1) Allergic rhinitis: Code(s): J30.9 - Allergic rhinitis, unspecified Qualifiers: Allergic rhinitis seasonality: seasonal Allergic rhinitis trigger: pollen Qualified Code(s): J30.1 - Allergic rhinitis due to pollen Plan: In office rapid strep negative. We also swab for COVID given symptomatology. Physical examination most consistent with allergic rhinitis, coupled with costochondritis from coughing. Supportive measures encouraged and reviewed. Advised patient to try a Flonase nasal spray and second-generation antihistamine such as Zyrtec, Claritin, Casandra or similar. Advised consideration of sinus rinse if needed. Advised patient to follow up with primary care provider with worsening or failure to resolve. Plan See above for full details and plan. Orders: Orders SARS-CoV2/FLU/RSV Today J06.9 - Acute upper respiratory infection, unspecified AMB Rapid Strep Screen Today Z13.9 - Encounter for screening, unspecified Medications: New fluticasone propionate 50 mcg/actuation administer into each nostril 1 spray intranasal BID 16 grams 0RF Coding Level of Care Code Est Pt Level 3 (08546) Diagnoses Seasonal allergic rhinitis due to pollen J30.1 Allergic rhinitis seasonality: seasonal Allergic rhinitis trigger: pollen
[2024-04-18 11:14] VITALS: BP 124/80; PULSE 83; O2SAT 98; BMI 40.3
== END 2024-04-18 11:51 | disposition home or self-care (01) ==
PROVIDERS: PCP Internal Medicine; Visit Provider Registered Nurse
DX: Z13.9 Encounter for screening, unspecified (principal); J30.1 Allergic rhinitis due to pollen

== ENCOUNTER 2024-07-12 12:29 | Outpatient (AMB) | payer OTHER, SELFPAY ==
--- NOTE | 2024-07-12 12:38 | A.OFFPC_ITS ---
Vital Signs 07/12/24 12:40 Height 5 ft 5 in Weight 242 lb BMI 40.3 BP 130/86 Blood Pressure Location Lt brachial Position Sitting Intake Visit Reasons: left breast pain Intake Note: Patient here for left breast pain, dermatology referral request, blurry vision Manager Analysis Required: Yes Manager Analysis Language: Surface To Air Weapons Officer Name: Fallon Garsia MD Accompanied by: Self / Same As Patient Allergies citalopram Allergy (Intermediate, Verified 07/12/24 12:52) palpitations doxepin Allergy (Intermediate, Verified 07/12/24 12:52) palpitations quetiapine [Seroquel] Allergy (Intermediate, Verified 07/12/24 12:52) weight gain trazodone Allergy (Intermediate, Verified 07/12/24 12:52) palpitations venlafaxine Adverse Reaction (Intermediate, Verified 07/12/24 12:52) tachycardia zolpidem Adverse Reaction (Verified 07/12/24 12:52) blurry vision Medication List - Last Reconciled 07/12/24 by Fallon Garsia MD albuterol sulfate 90 mcg/actuation (ProAir HFA) 2 puffs inhalation Q6H PRN 30 days cholecalciferol (vitamin D3) 50 mcg PO DAILY 90 days clonazepam 1 mg PO BEDTIME PRN 30 days dexlansoprazole (Dexilant) 60 mg PO DAILY PRN famotidine 40 mg PO BID fluticasone propionate 50 mcg/actuation 1 spray intranasal BID gabapentin 100 mg PO BID 30 days hydrochlorothiazide 12.5 mg PO DAILY PRN linaclotide (Linzess) 72 mcg PO QAM simethicone 180 mg PO QID 30 days zolpidem 5 mg PO BEDTIME 30 days Tobacco use date assessed: 07/12/24 Dental Screening Dental Screen Date: 07/12/24 Did you have a dental visit in the last 12 months?: No Did you have a dental problem in the last 6 months where you did not have access to dental care?: No Was dental information given to patient?: Patient has dentist HPI HPI Comments History of Present Illness Details This is a 48-year-old female with mild major depression, anxiety, insomnia, hypertension, GERD and chronic idiopathic constipation that comes today complaining of left breast pain at 10:00 o'clock that started about 2 months ago intermittent in nature. Denies any nipple discharge or retraction. No changes in skin of the breast. Has not had a mammogram in over a year. Depression with anxiety and insomnia are follow by Psychiatry and has been stable. Blood pressure well controlled with hydrochlorothiazide. GERD stable with PPIs. Constipation well controlled with Linzess. She follow with Gastroenterology at [facility] for GERD and constipation. She is morbidly obese was advised to do diet and exercise to reach BMI goal less than 30. [facility] [place] Medical History (Updated 07/12/24 @ 13:04 by Fallon Garsia MD) Physical exam Right ankle pain UTI (urinary tract infection) Insomnia Pericardial effusion Palpitations Ankle pain Abdominal mass, LUQ (left upper quadrant) Dysphagia Right elbow pain Abdominal pain Pelvic pain Abnormal abdominal ultrasound Abnormal uterine bleeding (AUB) FH: throat cancer Pericardial effusion Pericarditis Primary insomnia Essential hypertension Mild recurrent major depression PATRIC (obstructive sleep apnea) Migraines Morbidly obese Moderate asthma Absence of kidney YARITZA (generalized anxiety disorder) Essential hypertension Transaminitis Numerous moles Obesity Carpal tunnel syndrome Ovarian cyst Surgical History History of right nephrectomy History of esophagogastroduodenoscopy (EGD) H/O colonoscopy History of removal of ovarian cyst (~2017) History of loop electrical excision procedure (LEEP) Family History Maternal Grandmother Diabetes mellitus Maternal Grandfather Heart disease CVD (cardiovascular disease) Father Heart problem Sister Heart murmur Paternal Grandmother Heart problem Mother Thyroid disease Social History Housing: Apartment Alcohol intake: unknown Patient Tobacco Use Status: Never used Tobacco e-Cigarette/Vaping Use: Never Used Second Hand Smoke Exposure: No service: No Current occupational status: unemployed 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 1. Little interest or pleasure in doing things: not at all 2. Feeling down, depressed, or hopeless: several days 3. Trouble falling or staying asleep, or sleeping too much: several days 4. Feeling tired or having little energy: several days 5. Poor appetite or overeating: several days 6. Feeling bad about yourself - or that you are a failure or have let yourself or your family down: several days 7. Trouble concentrating on things, such as reading the newspaper or watching television: not at all 8. Moving or speaking so slowly that other people could have noticed. Or the opposite - being so fidgety or restless that you have been moving around a lot more than usual: not at all 9. Thoughts that you would be better off or of hurting yourself in some way: not at all Total score: 5 Depression Screening Interpretation: Positive Depression Screening Follow-up: Existing condition, In treatment, Community Mental Health Worker F/U and Follow- up Visit Requested Depression Screening Done: Yes 41239 - PHQ-9 Billing: Yes Source: Developed by Drs. Benjamin Wilson, Maria A Elder, Pastor Melvin and colleagues, with an educational teddy from [employer] Thrive Questionnaire Date Thrive assessed: 07/12/24 I am a: Patient What is your living situation today?: I have a steady place to live Within the past 12 months, did the food you bought not last and you didn't have the money to get more?: Never true Within the past 12 months, did you worry whether your food would run out before you got money to buy more?: Never true Do you have trouble paying for medicines?: No Do you have trouble getting transportation to medical appointments?: No Do you have trouble paying your heating and electricity bill?: No Do you have trouble taking care of your child, family member or friend?: No Do you have trouble with day-to-day activities such as bathing, preparing meals, shopping, managing finances, etc.?: No Are you currently unemployed and looking for a job?: No Are you interested in more education?: No Please select the resources that you would like help with: None Currently or been in a relationship where the following occur: No concerns repor samira THRIVE Score: 0 AUDIT C Alcohol Use Questionnaire (AUDIT-C) 1. How often do you have a drink containing alcohol?: Never Total Score: 0 Score Reviewed/Action Taken: No YARITZA-7 AMB Questionnaire YARITZA-7 Date YARITZA - 7 assessed: 07/12/24 Feeling nervous, anxious, or on edge: 1 = Several days Not being able to stop or control worryin = Not at all Worrying too much about different things: 1 = Several days Trouble relaxin = Not at all Being so restless that it is hard to sit still: 0 = Not at all Becoming easily annoyed or irritable: 1 = Several days Feeling afraid as if something awful might happen: 0 = Not at all Total YARITZA-7 score (0-4 normal; 5-9 mild; 10-14 moderate; 15-21 severe): 3 Source: Developed by Drs. Benjamin Wilson, Maria A Elder, Pastor Melvin and colleagues, with an educational teddy from [employer] YARITZA-7 Assessment Billing YARITZA-7 Assessment Tool: YARITZA-7 Assessment 90772 Review of Systems Const All systems reviewed & are unremarkable except as noted in HPI and below Card Denies chest pain at rest, Denies chest pain with activity, Denies edema, Denies irregular heart rhythm, Denies claudication, Denies dyspnea, Denies dyspnea on exertion, Denies orthopnea, Denies paroxysmal nocturnal dyspnea and Denies slow heart rate Resp Denies cough, Denies dyspnea and Denies dyspnea on exertion Physical exam (Primary Care) Vital Signs: Last Vital Signs BP 130/86 07/12/24 12:40 BMI result Body Mass Index 40.3 BMI Assessment/Plan discussion: High BMI High, discussed plan: lifestyle, weight reduction, dietary and physical activity Tobacco/Smoking Status: Tobacco use Status Tobacco use date assessed 07/12/24 07/12/24 12:43 Patient Tobacco Use Status Never used Tobacco 07/12/24 12:43 e-Cigarette/Vaping Use Never Used 07/12/24 12:43 PHQ-9: PHQ-9 Score PHQ-9: Total score 5 07/12/24 12:44 Depression Screening Interpretation: Positive Depression Screening Follow-up: Existing condition, In treatment, Community Mental Health Worker F/U and Follow- up Visit Requested Thrive Assessment: Date of Thrive Assessment Date Thrive assessed 07/12/24 07/12/24 12:43 Currently or been in a relationship where the following occur: No concerns reported Chest Breast/axilla inspection: normal inspection of the breasts and normal inspection of the axillae Breast/axilla palpation: normal palpation of the axillae and abnormal palpation of the breast (Left breast pain at 10:00 o'clock) Resp Effort & Inspection: normal respiratory effort Auscultation: clear to auscultation bilaterally Cardio Jugular venous distension: no JVD Rate: regular rate Rhythm: regular rhythm Heart sounds: S1 normal heart sound present and S2 normal heart sound present Extrem General: Yes full ROM Coding Level of Care Code Est Pt Level 4 (41587) Complex EM visit Add On G2211 Diagnoses Breast pain, left N64.4 Mild recurrent major depression F33.0 Morbidly obese E66.01 YARITZA (generalized anxiety disorder) F41.1 Essential hypertension I10 Chronic idiopathic constipation K59.04 GERD (gastroesophageal reflux disease) K21.9 Additional Codes YARITZA-7 Assessment Billing - YARITZA-7 Assessment Tool: YARITZA-7 Assessment 70760 ([id number]) PHQ-9 - 29695 - PHQ-9 Billing: Yes ([id number]) Time Spent (min) 22 Assessment & Plan Assessment & Plan (1) Breast pain, left: Code(s): N64.4 - Mastodynia Category: Medical (2) Mild recurrent major depression: Code(s): F33.0 - Major depressive disorder, recurrent, mild Category: Medical (3) Morbidly obese: Code(s): E66.01 - Morbid (severe) obesity due to excess calories Category: Medical (4) YARITZA (generalized anxiety disorder): Comment: Patient is aware that benzodiazepines still chest clonazepam and lorazepam can cause addiction, sedation and dementia. Code(s): F41.1 - Generalized anxiety disorder Category: Medical (5) Essential hypertension: Code(s): I10 - Essential (primary) hypertension Category: Medical (6) Chronic idiopathic constipation: Code(s): K59.04 - Chronic idiopathic constipation Category: Medical (7) GERD (gastroesophageal reflux disease): Code(s): K21.9 - Gastro-esophageal reflux disease without esophagitis Category: Medical Plan Will order ultrasound of the breast and diagnostic mammogram for her left breast pain. Continue hydrochlorothiazide for hypertension. Blood pressure goal is equal or less than 130/80. Continue PPIs and Linzess but GERD and constipation. Follow-up with Gastroenterology. For depression with anxiety and insomnia follow-up with psychiatry. Orders: Orders MM diagnostic mammo BI Today N64.4 - Mastodynia US breast cyst asp RT Today N64.4 - Mastodynia Medications: Changed From hydrochlorothiazide 12.5 mg PO DAILY PRN I10 - Essential (primary) hypertension To hydrochlorothiazide 12.5 mg PO DAILY 90 days 90 tabs 1RF I10 - Essential (primary) hypertension Discontinued gabapentin Discontinued Reason: Patient no longer taking 100 mg PO BID 30 days 60 caps 8RF
[2024-07-12 12:40] VITALS: BP 130/86; BMI 40.3
== END 2024-07-12 13:10 | disposition home or self-care (01) ==
PROVIDERS: PCP Internal Medicine; Visit Provider Internal Medicine
DX: N64.4 Mastodynia (principal); F33.0 Major depressive disorder, recurrent, mild; E66.01 Morbid (severe) obesity due to excess calories; Z68.41 Body mass index [BMI] 40.0-44.9, adult; I10 Essential (primary) hypertension; F41.1 Generalized anxiety disorder; K59.04 Chronic idiopathic constipation; K21.9 Gastro-esophageal reflux disease without esophagitis

== ENCOUNTER → 2024-07-12 12:29 | Outpatient (BNVA) | payer OTHER, SELFPAY | PROVIDERS: PCP Internal Medicine; Visit Provider Internal Medicine | DX: N64.4 Mastodynia (principal); F33.0 Major depressive disorder, recurrent, mild; F41.1 Generalized anxiety disorder; E66.01 Morbid (severe) obesity due to excess calories; K59.04 Chronic idiopathic constipation; K21.9 Gastro-esophageal reflux disease without esophagitis | CPT/HCPCS: 96127; 99212 ==

== ENCOUNTER 2024-09-21 09:44 | Outpatient (AMB) | payer OTHER, SELFPAY ==
--- NOTE | 2024-09-21 10:19 | A.OFFVIS_ITS ---
Vital Signs 09/21/24 10:20 Height 5 ft 5 in Weight 234 lb 2.095 oz BMI 39.0 BP 100/70 Blood Pressure Location Lt brachial Position Sitting Pulse 68 Intake Visit Reasons: hs pt 2 year f/up chest pain Director Of Laboratory Operations Required: Yes Director Of Laboratory Operations Services: Director Of Laboratory Operations Present Director Of Laboratory Operations Name: Racquel Rendon [id number] Accompanied by: Self / Same As Patient Allergies citalopram Allergy (Intermediate, Verified 07/12/24 12:52) palpitations doxepin Allergy (Intermediate, Verified 07/12/24 12:52) palpitations quetiapine [Seroquel] Allergy (Intermediate, Verified 07/12/24 12:52) weight gain trazodone Allergy (Intermediate, Verified 07/12/24 12:52) palpitations venlafaxine Adverse Reaction (Intermediate, Verified 07/12/24 12:52) tachycardia zolpidem Adverse Reaction (Verified 07/12/24 12:52) blurry vision Medication List - Last Reconciled 09/21/24 by KENNA Medina albuterol sulfate 90 mcg/actuation (ProAir HFA) 2 puffs inhalation Q6H PRN 30 days cholecalciferol (vitamin D3) 50 mcg PO DAILY 90 days clonazepam 1 mg PO BEDTIME PRN 30 days dexlansoprazole (Dexilant) 60 mg PO DAILY PRN famotidine 40 mg PO BID fluticasone propionate 50 mcg/actuation 1 spray intranasal BID hydrochlorothiazide 12.5 mg PO DAILY 90 days linaclotide (Linzess) 72 mcg PO QAM simethicone 180 mg PO QID 30 days zolpidem 5 mg PO BEDTIME 30 days HPI HPI hs pt 2 year f/up chest pain: Details: Ciera is a 49-year-old female with past medical history of morbid obesity, hypertension, sleep apnea, pericarditis/trace pericardial effusion who presents for follow-up. Today she reports that she has been having pressure in her chest that occurs randomly. It can radiate through to her back and over her shoulder. She has no clear triggers or alleviating factors. She does have shortness of breath when she walks distances or climb stairs. No PND, orthopnea or edema. She can feel her heart pounding at times. No lightheadedness, presyncope, syncope. Compliant with meds. Active during the day but no routine exercise. [facility] Medical History (Updated 09/21/24 @ 11:12 by Barb Cochran HOME APPLIANCE TECH-C) Physical exam Right ankle pain UTI (urinary tract infection) Insomnia Pericardial effusion Palpitations Ankle pain Abdominal mass, LUQ (left upper quadrant) Dysphagia Right elbow pain Abdominal pain Pelvic pain Abnormal abdominal ultrasound Abnormal uterine bleeding (AUB) FH: throat cancer Pericardial effusion Pericarditis Primary insomnia Essential hypertension Mild recurrent major depression PATRIC (obstructive sleep apnea) Migraines Morbidly obese Moderate asthma Absence of kidney YARITZA (generalized anxiety disorder) Essential hypertension Transaminitis Numerous moles Obesity Carpal tunnel syndrome Ovarian cyst Surgical History History of right nephrectomy History of esophagogastroduodenoscopy (EGD) H/O colonoscopy History of removal of ovarian cyst (~2016) History of loop electrical excision procedure (LEEP) Family History Maternal Grandmother Diabetes mellitus Maternal Grandfather Heart disease CVD (cardiovascular disease) Father Heart problem Sister Heart murmur Paternal Grandmother Heart problem Mother Thyroid disease Social History Housing: Apartment Alcohol intake: unknown Patient Tobacco Use Status: Never used Tobacco e-Cigarette/Vaping Use: Never Used Second Hand Smoke Exposure: No service: No Current occupational status: unemployed 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 [employer] Current occupational exposures/hazards: No Gender identity: Female Cognitive needs: No Hearing needs: No Vision needs: Yes Female Reproductive History Menstrual Age of Menarche: 12 Review of Systems Const All systems reviewed & are unremarkable except as noted in HPI and below Denies chills, Denies fatigue, Denies fever(s), Denies weight gain and Denies weight loss ENT Denies dizziness Card Details: chest pressure, randomly Denies chest pain, Denies leg edema, Denies lightheadedness, Denies palpitations, Reports dyspnea on exertion, Denies orthopnea and Denies other Resp Denies cough and Reports dyspnea on exertion GI Denies hematochezia and Denies change in stool character Musc Denies abnormal gait, Denies muscle weakness, Denies numbness, Denies radiating pain into limb and Denies tingling Neuro Denies abnormal gait, Denies dizziness, Denies numbness and Denies tingling Endo Denies fatigue and Denies palpitations Physical Exam Vital Signs: Last Vital Signs Pulse 68 09/21/24 10:20 BP 100/70 09/21/24 10:20 BMI result Body Mass Index 39.0 Const Other: obese General: cooperative, healthy appearing, comfortable and no acute distress Orientation/consciousness: patient oriented x3 Neck Neck: Yes normal visual inspection and Yes no JVD Resp Effort & Inspection: normal respiratory effort Auscultation: clear to auscultation bilaterally, no rales, no rhonchi and no wheezes Cardio Rate: regular rate Rhythm: regular rhythm Heart sounds: S1 normal heart sound present, S2 normal heart sound present, no gallops, no murmurs and no rubs Neuro General: patient oriented x3 Extrem General: Yes normal to inspection Psych Appearance: grossly normal Mental Status: mental status grossly normal Speech and movement: Normal speech and movement present Office Procedures EKG Details: Today, read by me, Normal sinus rhythm, rate 68, Qtc 433ms [id number], Complete Assessment & Plan Assessment & Plan (1) Chest discomfort: Code(s): R07.89 - Other chest pain Category: Medical Plan: Atypical sounding chest discomfort, shortness of breath with exertion and pounding heart. Cardiac risks of hypertension, morbid obesity. EKG done today shows normal sinus rhythm, no acute ST or T-wave abnormalities, rate 68. Last echocardiogram 07/29/2022 showed normal EF, trace pericardial effusion. Will check a exercise stress test to evaluate for ischemia. Will update echocardiogram to assess EF, wall motion and pericardial effusion. Will check a Holter monitor to evaluate for any arrhythmia. (2) Shortness of breath: Code(s): R06.02 - Shortness of breath Category: Medical Plan: As above. Evaluating for cardiac causes. If testing is negative, shortness of breath may be related to obesity, deconditioning. (3) Pericardial effusion: Code(s): I31.3 - Pericardial effusion (noninflammatory) Category: Medical Plan: Trace effusion noted on prior echo. Will be updating echo as above. (4) Essential hypertension: Code(s): I10 - Essential (primary) hypertension Category: Medical Plan: Running on low side today. Asymptomatic. She is on hydrochlorothiazide. Reviewed the need for good hydration. Plan Time spent on chart review, documentation, interview and assessment Orders: Orders CA echo transthoracic complete Today R06.02 - Shortness of breath, R07.89 - Other chest pain ECG 3 day holter monitor Today R06.02 - Shortness of breath, R07.89 - Other chest pain CA stress test Today R07.89 - Other chest pain Coding Level of Care Code Est Pt Level 4 (48167) Complex EM visit Add On G2211 Diagnoses Chest discomfort R07.89 Shortness of breath R06.02 Pericardial effusion I31.3 Essential hypertension I10 CPT Codes EKG - CPT: 46576-[id number], Complete ([id number]) Time Spent (min) 30
[2024-09-21 10:20] VITALS: BP 100/70; PULSE 68; BMI 39.0
== END 2024-09-21 10:59 | disposition home or self-care (01) ==
LOC: HO.HCS 09:45
PROVIDERS: PCP Internal Medicine; Visit Provider Nurse Practitioner Family
DX: R07.89 Other chest pain (principal); R06.02 Shortness of breath; I31.39 Other pericardial effusion (noninflammatory); I10 Essential (primary) hypertension
CPT/HCPCS: 93010; 99214; G2211

== ENCOUNTER → 2024-09-21 09:44 | Outpatient (BNVA) | payer OTHER, SELFPAY | PROVIDERS: PCP Internal Medicine; Visit Provider Nurse Practitioner Family | DX: R07.89 Other chest pain (principal); R06.02 Shortness of breath; I31.39 Other pericardial effusion (noninflammatory); I10 Essential (primary) hypertension | CPT/HCPCS: 93005; 99212 ==

== ENCOUNTER 2024-09-25 10:26 | Outpatient (REF) | payer OTHER, SELFPAY ==
[2024-09-25 11:13] LABS: Appearance Urine Clear; Color Urine Yellow; Glucose Urine UA Negative (Negative); Leukocyte Esterase Urine Negative (Negative); Nitrite Urine Negative (Negative); PH 5.5 (5.0-9.0); Urine Blood Negative (Negative); Urine Ketones Negative (Negative); Urine Protein Negative (Neg-Trace)
[2024-09-25 11:39] LABS: Anion Gap 10 (12-20); Blood Urea Nitrogen 7 mg/dL (9-16); Calcium 9.2 mg/dL (8.4-10.2); Carbon Dioxide 25 mmol/L (22-29); Chloride 110 mmol/L (96-108); Estimated Glomerular Filt Rate > 60; Glucose Random 89 mg/dL (60-115); Sodium 141 mmol/L (135-145)
--- OUTSIDE RECORDS SUMMARY | 2024-09-25 12:20 | XMS_ITS | Clinical Summary ---
Author Organization [facility] ity Address [address] [place] [address] Care Team Providers Care Senior Linux Unix Administrator Name Role Phone Fallon Garsia MD Primary Care Provider [phone] Social History Tobacco Use Types Packs/Day Years Used Date Smoking Tobacco: Never Assessed Comments Unknown Sex and Gender Information Value Date Recorded Sex Assigned at Not on file Legal Sex Female 11:13 PM EST Gender Identity Not on file Sexual Orientation Not on file Plan of Treatment Health Maintenance Due Date Last Done Comments Breast Cancer Screening 1974 DTaP,Tdap,and Td Vaccines (1 - Tdap) 1993 Hepatitis B Vaccines (1 of 3 - 19+ 3-dose series) 1993 Cervical Cancer Screening: P ap Smear 09/18/1995 COVID-19 Vaccine ( - 2023-2 5 season) 2024 Influenza Vaccine (#1) 2024 Pneumococcal Vaccine: 50+ Ye ars (1 of 1 - PCV) 2024 Zoster Vaccines (1 of 2) 2024 HIB Vaccines Aged Out No longer eligi ble based on patient's age to complete this topic HPV Vaccines Aged Out No longer eligi ble based on patient's age to complete this topic Hepatitis A Vaccines Aged Out No long er eligible based on patient's age to complete this topic IPV Vaccines Aged Out No longer eligi ble based on patient's age to complete this topic MMR Vaccines Aged Out No longer eligi ble based on patient's age to complete this topic Meningococcal ACWY Vaccine Aged Out N o longer eligible based on patient's age to complete this topic Meningococcal B Vacine Aged Out No lo nger eligible based on patient's age to complete this topic Pneumococcal Vaccine: Pediat rics (0 to 5 Years) and At-Risk Patients (6 to 64 Years) Aged Out No longer eligible b ased on patient's age to complete this topic RSV Immunization Patients Un marie 20 months Aged Out No longer eligible b ased on patient's age to complete this topic Varicella Vaccines Aged Out No longer eligible based on patient's age to complete this topic Care Teams Senior Linux Unix Administrator Relationship Specialty Start Date End Date Fallon Garsia MD [address] [place] [address] , [address] [facility] Physician Associ D/B/A: [facility] CUAUHTEMOC Batista PCP - General Internal Medicine 02/24/21
--- OUTSIDE RECORDS SUMMARY | 2024-09-25 12:20 | XMS_ITS | Clinical Summary ---
Author Organization [facility] Address [address] [facility] [address] [place] [address] Phone Care Team Providers Care Leasing Property Manager Name Role Phone Fallon Doyle MD Primary Care Provider [phone] Allergies Active Allergy Reactions Criticality Noted Date Comments Citalopram Palpitations Low 11/11/2020 Doxepin Palpitations Low 11/11/2020 Quetiapine Other (see comments) 11/11/2020 Trazodone Palpitations Low 11/11/2020 Medications Flovent HFA 44 MCG/ACT inhaler 10/20/2020 Act charleen clonazePAM (KlonoPIN) 1 MG tablet 12/08/2021 Active zolpidem (AMBIEN) 5 MG tablet 01/05/2022 Active tiZANidine (ZANAFLEX) 2 MG tablet Take 1 tablet (2 mg total) by mouth every 8 (eight) hours if needed for muscle spasms 15 tablet 1 06/21/2023 Active Active Problems Problem Noted Date Diagnosed Date Carpal tunnel syndrome 10/11/2022 Abnormal uterine bleeding 10/11/2022 Essential hypertension 10/11/2022 Generalized anxiety disorder 10/11/2022 Menopausal syndrome 10/11/2022 Migraine 10/11/2022 Moderate asthma 10/11/2022 Myofascial pain 10/11/2022 Obstructive sleep apnea syndrome 10/11/2022 Severe obesity 10/11/2022 Recurrent major depressive episodes, mild 2022 Primary insomnia 10/11/2022 Calculus of kidney and ureter 01/06/2022 Right kidney absent 11/11/2020 Family History Medical History Relation Comments Heart disease Father CAD Hypertension Father Relation Status Comments Father Mother Alive Social History Tobacco Use Types Packs/Day Years Used Date Smoking Tobacco: Never Smokeless Tobacco: Never Tobacco Cessation:Counseling Given: No Alcohol Use Standard Drinks/Week Comments No 0 (1 standard drink = 0.6 oz pur e alcohol) Comments Unknown Sex and Gender Information Value Date Recorded Sex Assigned at Not on file Legal Sex Female 4:56 PM EST Gender Identity Not on file Sexual Orientation Not on file Last Filed Vital Signs Vital Sign Reading Time Taken Comments Blood Pressure 110/60 06/21/2023 3:03 PM EST Pulse 90 06/21/2023 3:03 PM EST Temperature - - Respiratory Rate - - Oxygen Saturation 97% 10/13/2022 3:52 PM EDT Inhaled Oxygen Concentration - - Weight 109 kg (241 lb) 06/21/2023 3:03 PM EST Height - - Body Mass Index - - Plan of Treatment Health Maintenance Due Date Last Done Comments Breast Cancer Screening 1974 Pneumococcal Vaccine: Pediat rics (0 to 5 Years) and At-Risk Patients (6 to 64 Years) (1 of 2 - PCV) 1980 Hepatitis B Vaccine (1 of 3 - 19+ 3-dose series) 09/17 Colorectal Cancer Screening: Annual FOBT 09/18/2023 Colorectal Cancer Screening: Colonoscopy 09/18/2023 Colorectal Cancer Screening: Sigmoidoscopy 09/18/2023 Influenza Vaccine (#1) 2024 Insurance [facility] MEDICAID [facility] Care Teams Leasing Property Manager Relationship Specialty Start Date End Date Fallon Doyle MD [address] [place], [place] PCP - General 07/07/20
== END 2024-09-25 10:27 | disposition home or self-care (01) ==
LOC: HO.LAB 10:26
PROVIDERS: PCP Internal Medicine; Visit Provider Internal Medicine Hypertension Specialist
DX: R31.29 Other microscopic hematuria (principal)
CPT/HCPCS: 36415; 80048; 81003

== ENCOUNTER 2024-09-27 15:43 | Outpatient (AMB) | payer OTHER, SELFPAY ==
--- NOTE | 2024-09-27 16:06 | HO.NEPHOV_ITS ---
Vital Signs 09/27/24 16:08 Height 5 ft 5 in Weight 237 lb 4 oz BMI 39.5 BP 100/60 Blood Pressure Location Rt brachial Position Sitting Pulse 72 Pulse Source Pulse Oximeter Pulse Oximetry (%) 97 Oxygen Delivery Method Room Air Intake Visit Reasons: Dr Tierney pt see workload msg Director Of Acquisitions Required: Yes Director Of Acquisitions Language: Manager Bakery Services: Director Of Acquisitions Offered & Declined ([facility] gang mower operator services refused) Accompanied by: Self / Same As Patient Allergies citalopram Allergy (Intermediate, Verified 09/27/24 16:07) palpitations doxepin Allergy (Intermediate, Verified 09/27/24 16:07) palpitations quetiapine [Seroquel] Allergy (Intermediate, Verified 09/27/24 16:07) weight gain trazodone Allergy (Intermediate, Verified 09/27/24 16:07) palpitations venlafaxine Adverse Reaction (Intermediate, Verified 09/27/24 16:07) tachycardia zolpidem Adverse Reaction (Verified 09/27/24 16:07) blurry vision HPI Comments Details: I saw this 49 year old woman with acquired solitary left kidney was seen today as an urgent visit for evaluation of left flank pain. She has H/O intermittent chronic left flank pain for few years. She has history of kidney stone. Recent urinalysis was unremarkable. She had right nephrectomy for nonfunctioning kidney as per patient. Her renal function has been normal. She has no leg edema, fever, rash, dysuria, hematuria, nausea, vomiting.She has not taken any NSAID's. Otherwise she feels well [facility] Medical History (Updated 09/27/24 @ 16:24 by Alfredo Rheman MD) Physical exam Right ankle pain UTI (urinary tract infection) Insomnia Pericardial effusion Palpitations Ankle pain Abdominal mass, LUQ (left upper quadrant) Dysphagia Right elbow pain Abdominal pain Pelvic pain Abnormal abdominal ultrasound Abnormal uterine bleeding (AUB) FH: throat cancer Pericardial effusion Pericarditis Primary insomnia Essential hypertension Mild recurrent major depression PATRIC (obstructive sleep apnea) Migraines Morbidly obese Moderate asthma Absence of kidney YARITZA (generalized anxiety disorder) Essential hypertension Transaminitis Numerous moles Obesity Carpal tunnel syndrome Ovarian cyst Surgical History History of right nephrectomy History of esophagogastroduodenoscopy (EGD) H/O colonoscopy History of removal of ovarian cyst (~2017) History of loop electrical excision procedure (LEEP) Family History Maternal Grandmother Diabetes mellitus Maternal Grandfather Heart disease CVD (cardiovascular disease) Father Heart problem Sister Heart murmur Paternal Grandmother Heart problem Mother Thyroid disease Social History Housing: Apartment Alcohol intake: unknown Patient Tobacco Use Status: Never used Tobacco e-Cigarette/Vaping Use: Never Used Second Hand Smoke Exposure: No service: No Current occupational status: unemployed 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 Current occupational exposures/hazards: No Gender identity: Female Cognitive needs: No Hearing needs: No Vision needs: Yes Female Reproductive History Menstrual Age of Menarche: 12 Review of Systems Const All systems reviewed & are unremarkable except as noted in HPI and below Physical Exam Vital Signs: Last Vital Signs Pulse 72 09/27/24 16:08 BP 100/60 09/27/24 16:08 Pulse Ox 97 09/27/24 16:08 Oxygen Delivery Method Room Air 09/27/24 16:08 BMI result Body Mass Index 39.5 Const General: comfortable and no acute distress Orientation/consciousness: patient oriented x3 HEENT Head: Yes normocephalic Mouth: Normal oral and palatal mucosa present Eyes EOM: EOMs intact bilaterally Neck Neck: Yes supple Resp Auscultation: clear to auscultation bilaterally Cardio Jugular venous distension: no JVD Rate: regular rate GI Palpation (GI): Soft to palpation Auscultation: normal bowel sounds General: Yes no CVA tenderness Back/Spine/Pelvis Back: no CVA tenderness Skin General skin exam: no rashes or lesions noted Neuro General: patient oriented x3 and moves all extremities Extrem General: Yes no pedal edema Results Reviewed Nephrology Results: Sodium 141 mmol/L (135-145) 09/25/24 Potassium 4.0 mmol/L (3.3-5.1) 09/25/24 Chloride 110 mmol/L (96-108) H 09/25/24 Carbon Dioxide 25 mmol/L (22-29) 09/25/24 BUN 7 mg/dL (9-16) L 09/25/24 Creatinine 0.67 mg/dL (0.5-1.4) 09/25/24 Calcium 9.2 mg/dL (8.4-10.2) 09/25/24 Urine Protein Negative mg/dL (Neg-Trace) 09/25/24 Assessment & Plan Assessment & Plan (1) Solitary kidney, acquired: Code(s): Z90.5 - Acquired absence of kidney Category: Medical (2) Left flank pain: Code(s): R10.9 - Unspecified abdominal pain Category: Medical Plan 49-year-old woman with a history of acquired solitary left kidney who is 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 Her renal functions are normal. She has no evidence of renal stones by imaging done about a year ago. Renal ultrasound in 2021 showed mild dilatation of the left renal pelvis; nutcracker syndrome had been a possibility. No significant hematuria & so loin pain hematuria syndrome unlikely. Recent Urinalysis- benign. She maintains good hydration and avoids NSAID's. I have ordered CT scan abdomen without IV contrast. She is at risk for hyperfiltartion injury. All concerns addressed. Has a follow up with Dr Niall zhou. Further management is pending evolving data. Orders: Orders CT abdomen pelvis wo IV con Today R10.9 - Unspecified abdominal pain, Z90.5 - Acquired absence of kidney Coding Level of Care Code Est Pt Level 4 (30435) Diagnoses Solitary kidney, acquired Z90.5 Left flank pain R10.9
[2024-09-27 16:08] VITALS: BP 100/60; PULSE 72; O2SAT 97; BMI 39.5
--- OUTSIDE RECORDS SUMMARY | 2024-09-27 16:57 | XMS_ITS | Clinical Summary ---
Author Organization [facility] ity Address [address] [place] [address] Care Team Providers Care Locate Technician Name Role Phone Fallon Garsia MD Primary Care Provider [phone] Social History Tobacco Use Types Packs/Day Years [...] age to complete this topic Care Teams Locate Technician Relationship Specialty Start Date End Date Fallon Garsia MD [address] [place] [address] , [address] [facility] Physician Associ D/B/A: [facility] CUAUHTEMOC Batista PCP - General Internal Medicine 02/24/21
--- OUTSIDE RECORDS SUMMARY | 2024-09-27 16:57 | XMS_ITS | Clinical Summary ---
Author Organization [facility] Address [address] [facility] [address] [place] [address] Phone Care Team Providers Care Flight Inspector Name Role Phone Fallon Doyle MD Primary Care Provider [phone] Allergies Active Allergy Reactions Criticality Noted Date [...] Sigmoidoscopy 09/18/2023 Influenza Vaccine (#1) 2024 Insurance [facility] [place] [address] [facility] [place] [address] Care Teams Flight Inspector Relationship Specialty Start Date End Date Fallon Doyle MD [address] [place], [place] PCP - General 07/07/20
--- OUTSIDE RECORDS SUMMARY | 2024-09-27 16:57 | XMS_ITS | Data Portability ---
Author Organization [place] - [facility] [address] Address [address] [place] [address] Assessment No assessment recorded. Plan of Treatment Reminders Order Date Submit Date Provider Last Modified By Organization Details Last Modified Time Details Appointments None record ed. Lab None record ed. Referral None record ed. Procedures None record ed. Surgeries None record ed. Imaging None record ed. Medication Orders None record ed. Patient TargetsNo targets recorded. Patient InstructionsNo instructions recorded. Reason for Referral None Reported. Procedures Surgical History Date Name Laterality Status Provider Name and Address Organization Details Recorded Time 4 OC-UDS Send Out Template NON DOT completed OLINDA DARREN [place] [facility] 10/25/2023 13:29:24 4 OC- Physical completed Presley Zabala MD [address] [place] [address], [id number] [place] [facility] 10/25/2023 14:56:54 Imaging Results None recorded. Procedure Notes None recorded. Medical Equipment None Reported. Vitals None Recorded Social History None recorded. Functional Status None recorded. Mental Status None recorded. Family History Nothing Reported. Medical History No medical history recorded. Gynecological HistoryNo gynecological history recorded. Obstetrics History GPAL:G 0 P 0 0 0 0 Past Encounters Encounter ID Performer Location Encounter Start Date Encounter Closed Date Diagnosis/Indication Diagnosis SNOMED-CT Code Diagnosis ICD10 Code Diagnosis [place] [id number] [place] [address] [address] 10/25/2023 12:26:12 10/25/2023 15:00:20 History and physical examination, occupation 463755043 Z02.1 [id number] [place] [address] [address] 01/02/2024 17:41:57 01/02/2024 19:47:18 History and physical examination, occupation [id number] Z02.1 Health Concerns Section Related Observation LastModified by Organization Detai ls LastModified Time None Recorded Concern Status LastModified by Organization Details LastModified Time None Recorded Advance Directives Directive None Recorded Payers Encounter Date Sequence Insurance Name Policy Number Policy Manzano Covered Member ID Manzano Member ID Guarantor Name 10/25/2023 OC-ESCREEN [employer] en [[id number]] [employer] Ana Maria Elmore 01/02/2024 OC-ESCREEN [employer] en [[id number]] [employer] nAa Maria Elmore OBGyn Episode No OBEpisode recorded.
== END 2024-09-27 16:28 | disposition home or self-care (01) ==
LOC: HO.HKAS 15:44
PROVIDERS: PCP Internal Medicine; Visit Provider Internal Medicine Nephrology
DX: Z90.5 Acquired absence of kidney (principal); R10.9 Unspecified abdominal pain
CPT/HCPCS: 99214

== ENCOUNTER → 2024-09-27 15:43 | Outpatient (BNVA) | payer OTHER, SELFPAY | PROVIDERS: PCP Internal Medicine; Visit Provider Internal Medicine Nephrology | DX: R10.9 Unspecified abdominal pain (principal); Z90.5 Acquired absence of kidney | CPT/HCPCS: 99212 ==

== ENCOUNTER 2024-10-09 10:15 | Outpatient (AMB) | payer OTHER, SELFPAY ==
[2024-10-09 10:23] VITALS: BP 122/80; PULSE 84; O2SAT 97; BMI 39.5
--- NOTE | 2024-10-09 10:23 | HO.NEPHOV ---
Vital Signs 10/09/24 10:23 Height 5 ft 5 in Weight 237 lb 4 oz BMI 39.5 BP 122/80 Blood Pressure Location Rt brachial Position Sitting Pulse 84 Pulse Source Pulse Oximeter Pulse Oximetry (%) 97 Oxygen Delivery Method Room Air Intake Visit Reasons: Kidney Concern f/u/ Conf Allergies citalopram Allergy (Intermediate, Verified 10/09/24 10:25) palpitations doxepin Allergy (Intermediate, Verified 10/09/24 10:25) palpitations quetiapine [Seroquel] Allergy (Intermediate, Verified 10/09/24 10:25) weight gain trazodone Allergy (Intermediate, Verified 10/09/24 10:25) palpitations venlafaxine Adverse Reaction (Intermediate, Verified 10/09/24 10:25) tachycardia zolpidem Adverse Reaction (Verified 10/09/24 10:25) blurry vision Medication List - Last Reconciled 10/09/24 by Stefano Tierney MD albuterol sulfate 90 mcg/actuation (ProAir HFA) 2 puffs inhalation Q6H PRN 30 days cholecalciferol (vitamin D3) 50 mcg PO DAILY 90 days clonazepam 1 mg PO BEDTIME PRN 30 days dexlansoprazole (Dexilant) 60 mg PO DAILY PRN famotidine 40 mg PO BID fluticasone propionate 50 mcg/actuation 1 spray intranasal BID hydrochlorothiazide 12.5 mg PO DAILY 90 days linaclotide (Linzess) 72 mcg PO QAM simethicone 180 mg PO QID 30 days zolpidem 5 mg PO BEDTIME 30 days HPI Comments Details: . [age] year old woman with a history of solitary left kidney he is here for evaluation of left flank pain. He has had the chronic left flank pain for few years. She has a history of kidney stones but recent imaging did not reveal any kidney stones. She was in the ER in August with similar pain at that time urinalysis showed microhematuria with some leukocytes. However urine culture was essentially negative. She was not treated with antibiotics. Subsequent urinalysis was essentially unremarkable. She has a history of right nephrectomy for renal stones/infection and it was a nonfunctioning kidney as per patient. Renal function has been stable with a EGFR of 130 NM mild per minute and serum creatinine 0.65. She has hyper filtration in the solitary functioning kidney which is not unusual. Today she has no dysuria, urgency or hematuria. She has left loin pain which is nonradiating not colicky. No leg edema no fever no rash. She was seeing a different glazier apprentice prior to this and she is decided to switch providers for better care. 11/24/23 c/o Back pain going down her legs Pain is chronic No urinary symptoms 10/09/24 c/o pain on left side of the back- chronic PFSH Medical History Physical exam Right ankle pain UTI (urinary tract infection) Insomnia Pericardial effusion Palpitations Ankle pain Abdominal mass, LUQ (left upper quadrant) Dysphagia Right elbow pain Abdominal pain Pelvic pain Abnormal abdominal ultrasound Abnormal uterine bleeding (AUB) FH: throat cancer Pericardial effusion Pericarditis Primary insomnia Essential hypertension Mild recurrent major depression PATRIC (obstructive sleep apnea) Migraines Morbidly obese Moderate asthma Absence of kidney YARITZA (generalized anxiety disorder) Essential hypertension Transaminitis Numerous moles Obesity Carpal tunnel syndrome Ovarian cyst Surgical History History of right nephrectomy History of esophagogastroduodenoscopy (EGD) H/O colonoscopy History of removal of ovarian cyst (~2017) History of loop electrical excision procedure (LEEP) Family History Maternal Grandmother Diabetes mellitus Maternal Grandfather Heart disease CVD (cardiovascular disease) Father Heart problem Sister Heart murmur Paternal Grandmother Heart problem Mother Thyroid disease Social History Housing: Apartment Alcohol intake: unknown Patient Tobacco Use Status: Never used Tobacco e-Cigarette/Vaping Use: Never Used Second Hand Smoke Exposure: No service: No Current occupational status: unemployed 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 Current occupational exposures/hazards: No Gender identity: Female Cognitive needs: No Hearing needs: No Vision needs: Yes Female Reproductive History Menstrual Age of Menarche: 12 Physical Exam Vital Signs: Last Vital Signs Pulse 84 10/09/24 10:23 BP 122/80 10/09/24 10:23 Pulse Ox 97 10/09/24 10:23 Oxygen Delivery Method Room Air 10/09/24 10:23 BMI result Body Mass Index 39.5 Const General: comfortable Nutritional Appearance: well nourished Orientation/consciousness: patient oriented x3 HEENT Head: No normal to inspection Mouth: moist mucous membranes Neck Neck: Yes supple and Yes no JVD Resp Auscultation: clear to auscultation bilaterally, no rales and rub present Cardio Jugular venous distension: no JVD Palpation: no palpable S3 and no palpable S4 Heart sounds: no rubs GI Palpation (GI): Soft to palpation and nontender Percussion: No Fluid wave present General: Yes no CVA tenderness Back/Spine/Pelvis Back: no CVA tenderness Skin General skin exam: no rashes or lesions noted Neuro General: patient oriented x3 Extrem General: Yes no pedal edema and No clubbing Results Reviewed Nephrology Results: Sodium 141 mmol/L (135-145) 09/25/24 Potassium 4.0 mmol/L (3.3-5.1) 09/25/24 Chloride 110 mmol/L (96-108) H 09/25/24 Carbon Dioxide 25 mmol/L (22-29) 09/25/24 BUN 7 mg/dL (9-16) L 09/25/24 Creatinine 0.67 mg/dL (0.5-1.4) 09/25/24 Calcium 9.2 mg/dL (8.4-10.2) 09/25/24 Urine Protein Negative mg/dL (Neg-Trace) 09/25/24 Assessment & Plan Assessment & Plan (1) Essential hypertension: Code(s): I10 - Essential (primary) hypertension Category: Medical (2) Microscopic hematuria: Code(s): R31.29 - Other microscopic hematuria Category: Medical Plan . 49-year-old woman with a history of solitary left kidney and status post left nephrectomy has chronic left flank pain. No hematuria. No evidence of renal stones by imaging done about a year ago. Renal ultrasound in 2021 showed mild dilatation of the left renal pelvis; nutcracker syndrome is a possibility. No significant hematuria therefore loin pain hematuria syndrome is unlikely. Urinalysis- benign Renal ultrasonogram - was unremarkable in the past Await CT scan encouraged her to take simple analgesics like Tylenol as needed. Coding Level of Care Code Est Pt Level 4 (58047) Diagnoses Essential hypertension I10 Microscopic hematuria R31.29
--- OUTSIDE RECORDS SUMMARY | 2024-10-09 12:09 | XMS_ITS | Clinical Summary ---
Author Organization [facility] ity Address [address] [place] [id number] Care Team Providers Care Testing Analyst Name Role Phone Fallon Garsia MD Primary Care Provider [phone] Social History Tobacco Use Types Packs/Day Years [...] Vaccine ( - 2023-2 5 season) 2024 Pneumococcal Vaccine: 50+ Ye ars (1 of 1 - PCV) 2024 Zoster Vaccines (1 of 2) 2024 Influenza Vaccine (Season Ended) 2025 HIB Vaccines Aged Out No longer eligi [...] age to complete this topic Meningococcal B Vaccine Aged Out No l onger eligible based on patient's age to complete [...] age to complete this topic Care Teams Testing Analyst Relationship Specialty Start Date End Date Fallon Garsia MD [address] [place] [address] , [address] [facility] D/B/A: [facility] CUAUHTEMOC Batista PCP - General Internal Medicine 02/24/21
--- OUTSIDE RECORDS SUMMARY | 2024-10-09 12:09 | XMS_ITS | Data Portability ---
Author Organization [place] - [facility] [address] Address [address] [place] [address] Assessment No assessment recorded. Plan of Treatment [...] 4 OC- Physical completed Presley Zabala MD [address] [place] [address], [id number] [place] [facility] 10/25/2023 14:56:54 Imaging [...] SNOMED-CT Code Diagnosis ICD10 Code Diagnosis Note [id number] [place] [address] [id number] 10/25/2023 12:26:12 10/25/2023 15:00:20 History and physical examination, occupation [id number] Z02.1 [id number] LUIZ HERNANDEZ NP [address] [id number] 01/02/2024 17:41:57 01/02/2024 19:47:18 History and physical examination, occupation [id number] Z02.1 Health Concerns Section Related Observation LastModified by Organization Detai ls LastModified Time None Recorded Concern Status LastModified by Organization Details LastModified Time None Recorded Advance Directives Directive None Recorded Payers Encounter Date Sequence Insurance Name Policy Number Policy Manzano Covered Member ID Manzano Member ID Guarantor Name 10/25/2023 OC-ESCREEN Oc-Es[employer] en [[id number]] [employer] Ana Maria Elmore 01/02/2024 OC-ESCREEN Oc-Escre en [[id number]] [employer] Ana Maria Elmore OBGyn Episode No OBEpisode recorded.
--- OUTSIDE RECORDS SUMMARY | 2024-10-09 12:09 | XMS_ITS | Clinical Summary ---
Author Organization [facility] Address [address] [facility] [address] [place] [address] Phone Care Team Providers Care Business Office Manager Name Role Phone Fallon Doyle MD Primary Care Provider [phone] Allergies Active Allergy Reactions Criticality Noted Date [...] Last Done Comments Breast Cancer Screening 1975 Hepatitis B Vaccine (1 of 3 - 19+ 3-dose series) 09/17 Pneumococcal Vaccine: 50+ Years (1 of 2 - PCV) 994 Colorectal Cancer Screening: Annual FOBT 09/18/2023 Colorectal Cancer Screening: Colonoscopy 09/18/2023 Colorectal Cancer Screening: Sigmoidoscopy 09/18/2023 Influenza Vaccine (Season Ended) 2025 Insurance [facility] Medicaid [facility] Medicaid Care Teams Business Office Manager Relationship Specialty Start Date End Date Fallon Doyle MD [address] [place] [address] PCP - General 07/07/20
== END 2024-10-09 10:45 | disposition home or self-care (01) ==
LOC: HO.HKA 10:15
PROVIDERS: PCP Internal Medicine; Visit Provider Internal Medicine Hypertension Specialist
DX: I10 Essential (primary) hypertension (principal); R31.29 Other microscopic hematuria
CPT/HCPCS: 99214

== ENCOUNTER → 2024-10-09 10:15 | Outpatient (BNVA) | payer OTHER, SELFPAY | PROVIDERS: PCP Internal Medicine; Visit Provider Internal Medicine Hypertension Specialist | DX: I10 Essential (primary) hypertension (principal); R31.29 Other microscopic hematuria; R10.9 Unspecified abdominal pain; Z87.442 Personal history of urinary calculi; Z90.5 Acquired absence of kidney | CPT/HCPCS: 99212 ==

== ENCOUNTER 2024-10-17 19:56 | Emergency (ER) | payer OTHER, SELFPAY ==
--- NOTE | ~2024-10-17 | CT_ITS ---
CLINICAL HISTORY: left abdominal pain, R G colitis v. diverticuliti CT abdomen and pelvis without contrast Comparison: None Findings: No consolidation or effusion. The heart is borderline enlarged. The liver is enlarged. The liver appears normal in contour. The gallbladder and solid organs are otherwise within normal limits. The right kidney is surgically absent. No radiopaque left renal calculi are identified. No left hydronephrosis or left hydroureter. No bowel obstruction, pneumoperitoneum, or pneumatosis. Pelvic contents unremarkable. The bladder is underdistended. No focal bladder wall thickening. Normal appendix. No acute fracture visualized. Vacuum disc phenomenon present at L5-S1. IMPRESSION: 1. No acute inflammatory process identified within the abdomen or pelvis. 2. Hepatomegaly. This document has been electronically signed by: Keron Membreno MD on 10/18/2024 01:58:42
[2024-10-17 20:13] VITALS: BP 115/50; PULSE 70; RESP 16; TEMP 36.8; O2SAT 96; BMI 39.2
--- NOTE | 2024-10-17 20:15 | ED.ABDPAIN ---
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 Herbert HPI narrative: 49-year-old female came in for evaluation of left-sided abdominal pain started since yesterday, at 3 times episode of nonbloody watery diarrhea that is started to improve now patient was seen and evaluated at a walk-in clinic was told is a viral syndrome then patient went to [facility] ED had blood workup drawn there and decided to leave and come to [facility] for further evaluation, patient is complaining of left-sided abdominal pain described as burning pain a radiates to the epigastric area, no nausea, no vomiting chest reported nonbloody watery diarrhea, no blood in the stool. no dysuria, no frequency urination, no fever, no chills, no sick contacts, no vaginal discharge or bleed. Only past intra-abdominal surgical history is significant for right nephrectomy patient do not know the reason of the surgery. Related Data Home Medications ?Medication ?Instructions ?Recorded ?Confirmed dexlansoprazole 60 mg 60 mg PO DAILY PRN 11/03/23 10/09/24 capsule,biphase delayed release (Dexilant) Previous Rx's ?Medication ?Instructions ?Recorded clonazepam 1 mg tablet 1 mg PO BEDTIME PRN anxiety 30 11/08/22 days #30 tabs albuterol sulfate 90 mcg/actuation 2 puff inhalation Q6H PRN 02/15/23 aerosol inhaler (ProAir HFA) shortness of breath or wheezing 30 days #6.7 grams linaclotide 72 mcg capsule 72 mcg PO QAM #30 caps 02/23/23 (Linzess) famotidine 40 mg tablet 40 mg PO BID #180 tabs 04/25/23 simethicone 180 mg capsule 180 mg PO QID 30 days #120 caps 05/12/23 zolpidem 5 mg tablet 5 mg PO BEDTIME 30 days #30 tabs 09/23/23 fluticasone propionate 50 1 spray intranasal BID #16 grams 04/18/24 mcg/actuation nasal spray,suspension hydrochlorothiazide 12.5 mg tablet 12.5 mg PO DAILY 90 days #90 tabs 07/12/24 cholecalciferol (vitamin D3) 50 50 mcg PO DAILY 90 days #90 caps 10/17/24 mcg (2,000 unit) capsule Allergies Allergy/AdvReac Type Severity Reaction Status Date / Time citalopram Allergy Intermediate palpitation Verified 10/17/24 20:18 s doxepin Allergy Intermediate palpitation Verified 10/17/24 20:18 s quetiapine [Seroquel] Allergy Intermediate weight gain Verified 10/17/24 20:18 trazodone Allergy Intermediate palpitation Verified 10/17/24 20:18 s venlafaxine AdvReac Intermediate tachycardia Verified 10/17/24 20:18 zolpidem AdvReac blurry Verified 10/17/24 20:18 vision Review of Systems Review of Systems All other systems are reviewed and are negative Constitutional: Reports as per HPI and Reports no additional constitutional complaints Eyes: Reports as per HPI and Reports no additional eye complaints Reports system reviewed and no additional complaints, except as documented Cardiovascular: Reports as per HPI and Reports no additional cardiovascular complaints Respiratory: Reports as per HPI and Reports no additional respiratory complaints Gastrointestinal: Reports as per HPI and Reports no additional gastrointestinal complaints Genitourinary: Reports no additional female genitourinary complaints Musculoskeletal: Reports no additional musculoskeletal complaints Skin/Breast: Reports system reviewed and no additional complaints, except as docu Psychiatric: Reports no additional psychiatric complaints Endocrine: Reports no additional endocrine complaints Hematologic/Lymphatic: Reports no additional hematologic/lymphatic complaints Allergic/Immunologic: Reports no additional allergic/immunologic complaints Reports system reviewed and no additional complaints, except as documented and Reports Abnormal speech present [facility] Past Medical History Medical History Physical exam Right ankle pain UTI (urinary tract infection) Insomnia Pericardial effusion Palpitations Ankle pain Abdominal mass, LUQ (left upper quadrant) Dysphagia Right elbow pain Abdominal pain Pelvic pain Abnormal abdominal ultrasound Abnormal uterine bleeding (AUB) FH: throat cancer Pericardial effusion Pericarditis Primary insomnia Essential hypertension Mild recurrent major depression PATRIC (obstructive sleep apnea) Migraines Morbidly obese Moderate asthma Absence of kidney YARITZA (generalized anxiety disorder) Essential hypertension Transaminitis Numerous moles Obesity Carpal tunnel syndrome Ovarian cyst Surgical History History of right nephrectomy History of esophagogastroduodenoscopy (EGD) H/O colonoscopy History of removal of ovarian cyst (~2017) History of loop electrical excision procedure (LEEP) Family History Family History Maternal Grandmother Diabetes mellitus Maternal Grandfather Heart disease CVD (cardiovascular disease) Father Heart problem Sister Heart murmur Paternal Grandmother Heart problem Mother Thyroid disease Social History Social History Housing: Apartment Alcohol intake: unknown Patient Tobacco Use Status: Never used Tobacco Smoked in Last 30 Days: No e-Cigarette/Vaping Use: Never Used Second Hand Smoke Exposure: No Use of substances other than those prescribed or required for medical reasons: No Advance Directives: No Advance Directives Information Provided: Yes Do you have a plan to hurt others: No Plan Patient : No service: No Current occupational status: unemployed 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 Blood pressure elevated. Heart rate normal. Respiratory rate normal. Temperature normal. Oxygen saturation normal. Appearance: Alert. Oriented X3. No acute distress. Head: Normal external exam. Normocephalic. Atraumatic. No Madden signs noted. No raccoon eyes noted Eyes: PERRLA. EOMI. Conjunctiva and sclera normal. Eyelids normal. ENT: TM's Normal. Pharynx normal. Uvula midline. Moist mucous membranes. No trismus noted. No drooling noted. No muffled voice noted. Neck: Normal inspection. Neck supple. FROM. No adenopathy. Thyroid Normal. No meningeal signs. No neck mass noted. CVS: Normal heart rate and rhythm. Heart sound normal. No murmurs noted. Pulses normal throughout. Respiratory: No respiratory distress. Painless inspiration. Breath sounds normal. No wheezes/rales/rhonchi noted. Chest nontender. No accessory muscle usage noted or decreased air movement noted. Abdomen: Soft , mild epigastric tenderness, mild left upper quadrant tenderness, no guarding, no rebound tenderness.Bowel sounds normal in all 4 quadrants. No distention noted. No organomegaly noted. No visible injury noted. Back: No CVA tenderness. Full range of motion noted. Skin: Skin warm and dry. Normal skin color. Normal skin turgor. No rashes/lesions/lacerations noted. Extremities: No lower extremity edema. Extremities exhibit normal range of motion. Extremities nontender. Neuro: Oriented X 3. Cranial nerve exam: II-XII are grossly intact No motor deficit. No sensory deficit. Reflexes normal. Course Course Course Narrative: This is a Rapid Medical Exam performed in triage by Cristiana Cruz PA-C. Full HPI, ROS and PE to be performed by primary ED provider. 49-year-old female with a past medical history of pericarditis, HTN, PATRIC, migraines, asthma, presenting to the ED c/o left-sided abdominal pain & diarrhea x yesterday. Was seen at [facility] today and had labs drawn however LWBS. denies N/V, brbpr, urinary sx PE: Abdomen is soft with mild left-sided tenderness, no rebound or guarding Plan: labs, UA Reevaluation(s) Reevaluation #1: Feels better, able to tolerate p.o. intake, CT abdomen pelvis is unremarkable for acute pathology. Time: 03:00 Medical Decision Making Differential Diagnosis Differential Diagnoses: The differential diagnosis associated with the presentation includes ( Colitis, diverticulitis, electrolyte derangement, severe anemia, Gastroenteritis, enteritis , gastritis.) Admission/Observation Consideration of admission/observation: Escalation of care including admission/observation considered Lab Data MDM Lab Attestation statement: I reviewed the patient's lab results. 10/17/24 20:28 10/17/24 20:28 Labs: Lab Results 10/17/24 10/18/24 Range/Units 20:28 00:16 WBC 8.2 (4.8-10.8) X10*3/uL RBC 4.21 (4.20-5.50) X10*6/uL Hgb 12.3 (12.0-16.0) g/dl Hct 37.6 (37.0-47.0) % MCV 89.3 (80.0-98.0) fL MCH 29.2 (27.0-33.0) pg MCHC 32.7 (31.0-35.0) g/dl RDW 13.5 (11.0-16.0) % Plt Count 205 (160-400) X10*3/uL MPV 10.4 (9.4-12.3) fL Immature Gran % (Auto) 0.4 (0.0-0.4) % Neut % (Auto) 48.2 (45-73) % Lymph % (Auto) 37.6 (20-40) % [place] % (Auto) 11.0 (2-11) % Eos % (Auto) 2.1 (0-4) % Baso % (Auto) 0.7 (0-2) % Lymph # (Auto) 3.1 (1.2-4.9) X10*3/uL [place] # (Auto) 0.9 (0.1-1.2) X10*3/uL Eos # (Auto) 0.2 (0.0-0.4) X10*3/uL Baso # (Auto) 0.1 (0.0-0.2) X10*3/uL Abs Immat Gran (auto) 0.03 (0.00-0.03) X10*3/uL Absolute Neuts (auto) 4.0 (2.0-8.3) x10*3/uL Absolute Nucleated RBC 0.000 (0.0-0.012) X10*3/uL Nucleated RBC % (auto) 0.0 (0.0-0.2) /100WBC Sodium 139 (135-145) mmol/L Potassium 3.7 (3.3-5.1) mmol/L Chloride 108 (96-108) mmol/L Carbon Dioxide 23 (22-29) mmol/L Anion Gap 12 (12-20) BUN 8 L (9-16) mg/dL Creatinine 0.68 (0.5-1.4) mg/dL Estim Creat Clear Calc 120.2 Estimated GFR > 60 Random Glucose 93 (60-115) mg/dL Calcium 9.3 (8.4-10.2) mg/dL Magnesium 2.0 (1.6-2.6) mg/dL Total Bilirubin 0.3 (0.0-1.0) mg/dL Direct Bilirubin 0.1 (0.0-0.5) mg/dL AST 19 (5-31) U/L ALT 14 (0-31) U/L Alkaline Phosphatase 74 (39-117) U/L Total Protein 7.2 (6.5-8.0) g/dL Albumin 4.0 (3.5-5.0) g/dL Lipase 18 (8-78) U/L Urine Color Yellow Urine Appearance Clear Urine pH 6.0 (5.0-9.0) Ur Specific [place] <= 1.005 (1.005-1.025) Urine Protein Negative (Neg-Trace) mg/dL Urine Glucose (UA) Negative (Negative) mg/dL Urine Ketones Negative (Negative) mg/dL Urine Blood Negative (Negative) Urine Nitrite Negative (Negative) Ur Leukocyte Esterase Trace H (Negative) Urine RBC 0-2 (0-2) /HPF Urine WBC 0-5 (0-5) /HPF Ur Squamous Epith Cells 3-5 (0-2) /HPF Urine Bacteria None Seen (None Seen) Hyaline Casts 0-2 (0-2) /LPF Urine Test NEGATIVE (NEGATIVE) Independent Interpretation I performed an independent interpretation of an: CT Scan ( Abdomen pelvis:) Radiology Impression Discussion of test interpretation with radiology: I have reviewed the radiologist's reading. Medications Administered Discontinued Medications Generic Name Dose Route Start Last Admin Trade Name Freq PRN Reason Stop Dose Admin Al Hydroxide/Mg Hydroxide 30 ml 10/18/24 00:26 10/18/24 01:10 Magnesium Hydrox/Alum Hydrox 30 Ml Oral.Susp PO 10/18/24 00:27 30 ml ONCE ONE Administration Famotidine 20 mg 10/18/24 00:26 10/18/24 01:10 Famotidine/Pf 20 Mg/2 Ml Vial IVPUSH 10/18/24 00:27 20 mg ONCE ONE Administration Sodium Chloride 1,000 mls @ 999 mls/hr 10/18/24 00:26 10/18/24 01:05 Ns IV 10/18/24 01:26 999 mls/hr .Q1H1M ONE Administration Discharge Plan Discharge Clinical Impression: Diarrhea Patient Disposition: Home, Self-Care Instructions: Acute Diarrhea (ED) Prescriptions: No Action clonazepam 1 mg tablet 1 mg PO BEDTIME PRN (Reason: anxiety) 30 Days Qty: 30 0RF Rx Instructions: administer 30 minutes before bedtime famotidine 40 mg tablet 40 mg PO BID Qty: 180 1RF zolpidem 5 mg tablet 5 mg PO BEDTIME 30 Days Qty: 30 0RF cholecalciferol (vitamin D3) 50 mcg (2,000 unit) capsule 50 mcg PO DAILY 90 Days Qty: 90 0RF albuterol sulfate [ProAir HFA] 90 mcg/actuation HFA aerosol inhaler 2 puff inhalation Q6H PRN (Reason: shortness of breath or wheezing) 30 Days Qty: 6.7 6RF Linzess 72 mcg capsule 72 mcg PO QAM Qty: 30 3RF fluticasone propionate 50 mcg/actuation spray,suspension 1 spray intranasal BID Qty: 16 0RF Rx Instructions: administer into each nostril hydrochlorothiazide 12.5 mg tablet 12.5 mg PO DAILY 90 Days Qty: 90 1RF simethicone 180 mg capsule 180 mg PO QID 30 Days Qty: 120 3RF Rx Instructions: after meals dexlansoprazole [Dexilant] 60 mg capsule,biphase delayed releas 60 mg PO DAILY PRN Referrals: Fallon Doyle MD [Primary Care Provider] - Print Language: Citizen [place]
--- OUTSIDE RECORDS SUMMARY | 2024-10-17 20:33 | XMS_ITS | Clinical Summary ---
Author Organization [facility] Address [address] [place] [address] Phone Care Team Providers Care Certified Meeting Professional Name Role Phone Fallon Garsia MD Primary Care Provider [phone] Allergies No known active allergies Encounters Date Type Department Care Team Description 10/17/2024 10:24 AM EDT - 10/17/2024 6:58 PM EDT Emergency [facility] Emergency [address] [place] [address] Discharge Disposition: Home or Self Care from Last 3 Months Social History Tobacco Use Types Packs/Day Years Used Date Smoking Tobacco: Never Assessed Comments Unknown Sex and Gender Information Value Date Recorded Sex Assigned at Female 10/17/2024 6:57 PM EDT Legal Sex Female 11:13 PM EST Gender Identity Female 10/17/2024 6:57 PM EDT Sexual Orientation Straight 10/17/2024 6: 57 PM EDT Last Filed Vital Signs Vital Sign Reading Time Taken Comments Blood Pressure 120/69 10/17/2024 10:50 AM EDT Pulse 69 10/17/2024 10:50 AM EDT Temperature 36.6 ??C (97.9 ??F) 10/17/2024 10:50 AM E DT Respiratory Rate 18 10/17/2024 10:50 AM EDT Oxygen Saturation 98% 10/17/2024 10:50 AM EDT Inhaled Oxygen Concentration - - Weight 108 kg (237 lb) 10/17/2024 10:50 AM EDT Height 165.1 cm (5' 5 ) 10/17/2024 10:50 AM EDT Body Mass Index 39.44 10/17/2024 10:50 AM EDT Plan of Treatment Health Maintenance Due Date Last Done Comments Breast Cancer Screening 1974 Hepatitis B Vaccines (1 of 3 - 19+ 3-dose series) 1993 Cervical Cancer Screening: Pap Smear 09/18/1995 COVID-19 Vaccine (3 - 2023- season) 2024 11/29/2020, 11/01/2020 Pneumococcal Vaccine: 50+ Years (1 of 1 - PCV) 2024 Zoster Vaccines (1 of 2) 2024 DTaP,Tdap,and Td Vaccines (2 - Td or Tdap) 06/12/2028 06/12/2018 Influenza Vaccine Completed 07/26/2024, , 03/27/2020, Additional history exists HIB Vaccines Aged Out No longer eligi [...] age to complete this topic Pneumococcal Vaccine: Pediatrics (0 to 5 Years) and At-Risk Patients (6 to 64 Years) Aged Out No longer eligible based on patient's age to complete this topic RSV Immunization Patients Under 20 months Aged Out No longer eligible based on patient's age to complete this topic Varicella Vaccines Aged Out No longer eligible based on patient's age to complete this topic Procedures Procedure Name Priority Date/Time Associated Diagnosis Comments CBC WITH AUTO DIFFERENTIAL STAT 10/17/2024 11:56 AM EDT LIPASE STAT 10/17/2024 11:56 AM EDT COMPREHENSIVE METABOLIC PANEL STAT 10/17/2024 11:56 AM EDT CBC AND DIFFERENTIAL STAT 10/17/2024 11:56 AM EDT from Last 3 Months Results * CBC auto differential (10/17/2024 11:56 AM EDT) [facility] WBC 6.7 4.8 - 10.8 K/mcL LAB HEMETOLOGY METHOD 10/17/2024 12:41 PM [facility] RBC 4.30 3.80 - 4.80 M/mcL LAB HEMETOLOGY METHOD 10/17/2024 12:41 PM [facility] Hemoglobin 12.7 11.5 - 16.0 g/dL LAB HEMETOLOGY METHOD [facility] Hematocrit 39.5 35.0 - 47.0 % LAB HEMETOLOGY METHOD 10/17/2024 12:41 PM [facility] MCV 91.0 79.0 - 98.0 FL LAB HEMETOLOGY METHOD 10/17/2024 12:41 PM [facility] MCH 29.3 27.0 - 32.0 pcg LAB HEMETOLOGY METHOD 10/17/2024 12:41 PM [facility] MCHC 32.2 32.0 - 37.0 g/dL LAB HEMETOLOGY METHOD 10/17/2024 12:41 PM [facility] RDW 13.3 11.0 - 15.0 % LAB HEMETOLOGY METHOD 10/17/2024 12:41 PM [facility] Platelets 288 130 - 400 K/mcL LAB HEMETOLOGY METHOD 10/17/2024 12:41 PM [facility] MPV 10.9 7.0 - 11.0 FL LAB HEMETOLOGY METHOD 10/17/2024 12:41 PM [facility] NRBC 0.0 <1.0 % LAB HEMETOLOGY METHOD 10/17/2024 12:41 PM [facility] NRBC Absolute 0.00 <0.10 K/mcL LAB HEMETOLOGY METHOD 10/17/2024 12:41 PM [facility] Neutrophils Relative 49.4 % LAB HEMETOLOGY METHOD 10/17/2024 12:41 PM [facility] Lymphocytes Relative 38.8 % LAB HEMETOLOGY METHOD 10/17/2024 12:41 PM [facility] Monocytes Relative 8.9 % LAB HEMETOLOGY METHOD 10/17/2024 12:41 PM [facility] Eosinophils Relative 1.8 % LAB HEMETOLOGY METHOD 10/17/2024 12:41 PM [facility] Basophils Relative 0.7 % LAB HEMETOLOGY METHOD 10/17/2024 12:41 PM [facility] Immature Granulocytes Relative 0.4 % LAB HEMETOLOGY METHOD 10/17/2024 12:41 PM [facility] Neutrophils Absolute 3.31 1.50 - 7.00 K/mcL LAB HEMETOLOGY METHOD 10/17/2024 12:41 PM [facility] Lymphocytes Absolute 2.61 1.00 - 5.00 K/mcL LAB HEMETOLOGY METHOD 10/17/2024 12:41 PM [facility] Monocytes Absolute 0.60 0.20 - 1.00 K/mcL LAB HEMETOLOGY METHOD 10/17/2024 12:41 PM [facility] Eosinophils Absolute 0.12 0.00 - 0.50 K/mcL LAB HEMETOLOGY METHOD 10/17/2024 12:41 PM [facility] Basophils Absolute 0.05 0.00 - 0.20 K/mcL LAB HEMETOLOGY METHOD 10/17/2024 12:41 PM [facility] Immature Granulocytes Absolute 0.03 0.00 - 0.03 K/mcL LAB HEMETOLOGY METHOD 10/17/2024 12:41 PM [facility] Blood Venous blood specimen / Unknown Venipuncture / Unknown 10/17/2024 11:56 AM EDT 10/17/2024 12:26 PM EDT us Abel Monaco MD LAB BLOOD ORDERABLES Final Res ult [facility] [address] [place] [address], [place] [phone] * Lipase (10/17/2024 11:56 AM EDT) Pathologist [facility] Lipase 22 13 - 75 unit/L LAB CHEMISTRY METHOD 10/17/2024 1:13 PM EDT [facility] Blood Venous blood specimen / Unknown Venipuncture / Unknown 10/17/2024 11:56 AM EDT 10/17/2024 12:26 PM EDT us Abel Monaco MD LAB BLOOD ORDERABLES Final Res ult Performing Organization Address City/[facility]/ZIP Co de Phone Number [facility] [address] [place] [address], [place] [phone] * Comprehensive metabolic panel (10/17/2024 11:56 AM EDT) [facility] Sodium 137 133 - 145 mmol/L LAB CHEMISTRY METHOD 10/17/2024 1:23 PM EDT [facility] Potassium 3.9 3.5 - 5.5 mmol/L LAB CHEMISTRY METHOD 10/17/2024 1:23 PM EDT [facility] Chloride 106 96 - 110 mmol/L LAB CHEMISTRY METHOD 10/17/2024 1:23 PM EDT [facility] CO2 26 21 - 32 mmol/L LAB CHEMISTRY METHOD 10/17/2024 1:23 PM EDT [facility] Anion Gap 5 3 - 11 LAB CHEMISTRY METHOD 10/17/2024 1:23 PM EDT [facility] Glucose 88 70 - 100 mg/dL LAB CHEMISTRY METHOD 10/17/2024 1:23 PM [facility] BUN 7 5 - 25 mg/dL LAB CHEMISTRY METHOD 10/17/2024 1:23 PM [facility] Creatinine 0.63 0.50 - 1.10 mg/dL LAB CHEMISTRY METHOD 10/17/2024 1:23 PM [facility] eGFR 108 >=60 mL/min/1. 73m2 LAB CHEMISTRY METHOD 10/17/2024 1:23 PM [facility] Comment:Calculation based on the??Chronic Kidney Disease Epidemiology Collaboration (CKD-EPI) equation refit??without adjustment for race. BUN/Creatinine Ratio 11.1 LAB CHEMISTRY METHOD 10/17/2024 1:23 PM [facility] Calcium 9.5 8.5 - 10.5 mg/dL LAB CHEMISTRY METHOD 10/17/2024 1:23 PM [facility] AST (SGOT) 16 10 - 42 unit/L LAB CHEMISTRY METHOD 10/17/2024 1:23 PM [facility] ALT (SGPT) 16 10 - 60 unit/L LAB CHEMISTRY METHOD 10/17/2024 1:23 PM [facility] Alkaline Phosphatase 89 42 - 121 unit/L LAB CHEMISTRY METHOD 10/17/2024 1:23 PM [facility] Total Protein 7.7 6.0 - 8.0 g/dL LAB CHEMISTRY METHOD 10/17/2024 1:23 PM [facility] Albumin 3.8 3.2 - 5.0 g/dL LAB CHEMISTRY METHOD 10/17/2024 1:23 PM [facility] Total Bilirubin 0.4 0.0 - 1.4 mg/dL LAB CHEMISTRY METHOD 10/17/2024 1:23 PM [facility] Blood Venous blood specimen / Unknown Venipuncture / Unknown 10/17/2024 11:56 AM EDT 10/17/2024 12:26 PM EDT us Abel Monaco MD LAB BLOOD ORDERABLES Final Res ult [facility] [address] [place] [address], [place] [phone] from Last [address] [place], [place] [id number] [facility] Care Teams Certified Meeting Professional Relationship Specialty Start Date End Date Fallon Garsia MD 2 [facility] , [facility] [address] [facility] Physician Associ D/B/A: [facility] [place] PCP - General Internal Medicine 02/24/21
--- OUTSIDE RECORDS SUMMARY | 2024-10-17 20:33 | XMS_ITS | Clinical Summary ---
Author Organization [facility] Address [address] [facility] [address] [place] [address] Phone Care Team Providers Care Inspector Air Carrier Name Role Phone Fallon Doyle MD Primary Care Provider Allergies Active Allergy Reactions Criticality Noted Date [...] 09/18/2023 Influenza Vaccine (Season Ended) 2025 Insurance [facility] Medicaid [facility] Medicaid Care Teams Inspector Air Carrier Relationship Specialty Start Date End Date Fallon Doyle MD [address] [facility] [facility] [address] [place] [address] PCP - General 07/07/20
--- OUTSIDE RECORDS SUMMARY | 2024-10-17 20:33 | XMS_ITS | Encounter Summary ---
Author Organization [facility] Address [address] [place] [id number] Care Team Providers Care Delinquency Counselor Name Role Phone Fallon Garsia MD Primary Care Provider [phone] Reason for Visit * Reason Comments Abdominal Pain Encounter Details Date Type Department Care Team (Late st Contact Info) Description 10/17/2024 10:24 AM EDT - 10/17/2024 6:58 PM EDT Emergency [facility] Emergency [address] [place] [address] Discharge Disposition: Home or Self Care Social History Tobacco Use Types Packs/Day Years Used Date Smoking Tobacco: Never Assessed Comments Unknown Sex and Gender Information Value Date Recorded Sex Assigned at Female 10/17/2024 6:57 PM EDT Legal Sex Female 11:13 PM EST Gender Identity Female 10/17/2024 6:57 PM EDT Sexual Orientation Straight 10/17/2024 6: 57 PM EDT documented as of this encounter Last Filed Vital Signs Vital Sign Reading [...] Mass Index 39.44 10/17/2024 10:50 AM EDT documented in this encounter Discharge Disposition Disposition Code Departure Means Destination Home or Self Care documented in this encounter Progress Notes * Fe Crowell RN - 10/17/2024 10:39 AM EDT Upper left quadrant pain since yesterday. Was sent here by urgent care for further eval. Patient does endorse diarrhea. documented in this encounter Plan of Treatment Not on file documented as of this encounter Procedures Procedure Name Priority Date/Time Associated Diagnosis Comments CBC WITH AUTO DIFFERENTIAL STAT 10/17/2024 11:56 AM EDT CBC AND DIFFERENTIAL STAT 10/17/2024 11:56 AM EDT LIPASE STAT 10/17/2024 11:56 AM EDT COMPREHENSIVE METABOLIC PANEL STAT 10/17/2024 11:56 AM EDT documented in this encounter Results * CBC auto differential (10/17/2024 11:56 AM EDT) WBC 6.7 4.8 - 10.8 K/mcL LAB HEMETOLOGY METHOD 10/17/2024 12:41 PM EDT [facility] RBC 4.30 3.80 - 4.80 M/mcL LAB HEMETOLOGY METHOD 10/17/2024 12:41 PM EDT [facility] Hemoglobin 12.7 11.5 - 16.0 g/dL LAB HEMETOLOGY METHOD 10/17/2024 12:41 PM EDT [facility] Hematocrit 39.5 35.0 - 47.0 % LAB HEMETOLOGY METHOD 10/17/2024 12:41 PM EDT [facility] MCV 91.0 79.0 - 98.0 FL LAB HEMETOLOGY METHOD [facility] MCH 29.3 27.0 - 32.0 pcg LAB HEMETOLOGY METHOD 10/17/2024 12:41 PM EDT [facility] MCHC 32.2 32.0 - 37.0 g/dL LAB HEMETOLOGY METHOD 10/17/2024 12:41 PM [facility] RDW 13.3 11.0 - 15.0 % LAB HEMETOLOGY METHOD 10/17/2024 12:41 PM [facility] Platelets 288 130 - 400 K/mcL LAB HEMETOLOGY METHOD 10/17/2024 12:41 PM [facility] MPV 10.9 7.0 - 11.0 FL LAB HEMETOLOGY METHOD 10/17/2024 12:41 PM [facility] NRBC 0.0 <1.0 % LAB HEMETOLOGY METHOD 10/17/2024 12:41 PM [facility] NRBC Absolute 0.00 <0.10 K/mcL LAB HEMETOLOGY METHOD 10/17/2024 12:41 PM [facility] Neutrophils Relative 49.4 % LAB HEMETOLOGY METHOD 10/17/2024 12:41 PM [facility] Lymphocytes Relative 38.8 % LAB HEMETOLOGY METHOD 10/17/2024 12:41 PM [facility] Monocytes Relative 8.9 % LAB HEMETOLOGY METHOD 10/17/2024 12:41 PM [facility] Eosinophils Relative 1.8 % LAB HEMETOLOGY METHOD 10/17/2024 12:41 PM [facility] Basophils Relative 0.7 % LAB HEMETOLOGY METHOD 10/17/2024 12:41 PM [facility] Immature Granulocytes Relative 0.4 % LAB HEMETOLOGY METHOD 10/17/2024 12:41 PM [facility] Neutrophils Absolute 3.31 1.50 - 7.00 K/mcL LAB HEMETOLOGY METHOD 10/17/2024 12:41 PM EDT [facility] Lymphocytes Absolute 2.61 1.00 - 5.00 K/mcL LAB HEMETOLOGY METHOD 10/17/2024 12:41 PM EDT [facility] Monocytes Absolute 0.60 0.20 - 1.00 K/mcL LAB HEMETOLOGY METHOD 10/17/2024 12:41 PM EDT [facility] Eosinophils Absolute 0.12 0.00 - 0.50 K/mcL LAB HEMETOLOGY METHOD 10/17/2024 12:41 PM EDT [facility] Basophils Absolute 0.05 0.00 - 0.20 K/mcL LAB HEMETOLOGY METHOD 10/17/2024 12:41 PM EDT [facility] Immature Granulocytes Absolute 0.03 0.00 - 0.03 K/mcL LAB HEMETOLOGY METHOD 10/17/2024 12:41 PM EDT [facility] Blood Venous blood specimen / Unknown Venipuncture / Unknown 10/17/2024 11:56 AM EDT 10/17/2024 12:26 PM EDT us Abel Monaco MD LAB BLOOD ORDERABLES Final Res ult [facility] [address] [place] [address], * Lipase (10/17/2024 11:56 AM EDT) Lipase 22 13 - 75 unit/L LAB CHEMISTRY METHOD 10/17/2024 1:13 PM EDT [facility] Blood Venous blood specimen / Unknown Venipuncture / Unknown 10/17/2024 11:56 AM EDT 10/17/2024 12:26 PM EDT us Abel Monaco MD LAB BLOOD ORDERABLES Final Res ult [facility] [address] [place] [address], [place] [phone] * Comprehensive metabolic panel (10/17/2024 11:56 AM EDT) Sodium 137 133 - 145 mmol/L LAB CHEMISTRY METHOD 10/17/2024 1:23 PM [facility] Potassium 3.9 3.5 - 5.5 mmol/L LAB CHEMISTRY METHOD 10/17/2024 1:23 PM [facility] Chloride 106 96 - 110 mmol/L LAB CHEMISTRY METHOD 10/17/2024 1:23 PM [facility] CO2 26 21 - 32 mmol/L LAB CHEMISTRY METHOD 10/17/2024 1:23 PM [facility] Anion Gap 5 3 - 11 LAB CHEMISTRY METHOD 10/17/2024 1:23 PM [facility] Glucose 88 70 - 100 mg/dL LAB CHEMISTRY METHOD 10/17/2024 1:23 PM [facility] BUN 7 5 - 25 mg/dL LAB CHEMISTRY METHOD 10/17/2024 1:23 PM [facility] Creatinine 0.63 0.50 - 1.10 mg/dL LAB CHEMISTRY METHOD 10/17/2024 1:23 PM [facility] eGFR 108 >=60 mL/min/1. 73m2 LAB CHEMISTRY METHOD 10/17/2024 1:23 PM [facility] Comment:Calculation based on the??Chronic Kidney Disease Epidemiology Collaboration (CKD-EPI) equation refit??without adjustment for race. BUN/Creatinine Ratio 11.1 LAB CHEMISTRY METHOD 10/17/2024 1:23 PM [facility] Calcium 9.5 8.5 - 10.5 mg/dL LAB CHEMISTRY METHOD 10/17/2024 1:23 PM [facility] AST (SGOT) 16 10 - 42 unit/L LAB CHEMISTRY METHOD 10/17/2024 1:23 PM EDT [facility] ALT (SGPT) 16 10 - 60 unit/L LAB CHEMISTRY METHOD 10/17/2024 1:23 PM EDT [facility] Alkaline Phosphatase 89 42 - 121 unit/L LAB CHEMISTRY METHOD 10/17/2024 1:23 PM EDT [facility] Total Protein 7.7 6.0 - 8.0 g/dL LAB CHEMISTRY METHOD 10/17/2024 1:23 PM EDT [facility] Albumin 3.8 3.2 - 5.0 g/dL LAB CHEMISTRY METHOD 10/17/2024 1:23 PM EDT [facility] Total Bilirubin 0.4 0.0 - 1.4 mg/dL LAB CHEMISTRY METHOD 10/17/2024 1:23 PM EDT [facility] Blood Venous blood specimen / Unknown Venipuncture / Unknown 10/17/2024 11:56 AM EDT 10/17/2024 12:26 PM EDT us Abel Monaco MD LAB BLOOD ORDERABLES Final Res ult [facility] [address] [place] [address], documented in this encounter Visit Diagnoses Not on filedocumented in this encounter Orders Diet Count Last Ordered Date First Orde red Date ADULT NPO DIET 1 10/17/2024 documented in this encounter Care Teams Delinquency Counselor Relationship Specialty Start Date End Date Fallon Garsia MD 2 [facility] , [address] Physician Associ D/B/A: [facility] [place] PCP - General Internal Medicine 02/24/21 documented as of this encounter
[2024-10-17 20:34] LABS: Basophils Absolute Auto 0.1 X10*3/uL (0.0-0.2); Basophils Percent Auto 0.7 % (0-2); Eosinophils Absolute Auto 0.2 X10*3/uL (0.0-0.4); Eosinophils Percent Auto 2.1 % (0-4); Hematocrit 37.6 % (37.0-47.0); Hemoglobin 12.3 g/dl (12.0-16.0); Imm Gran Abs Auto 0.03 X10*3/uL (0.00-0.03); Imm Gran Pct Auto 0.4 % (0.0-0.4); Lymphocytes Absolute Auto 3.1 X10*3/uL (1.2-4.9); Lymphocytes Percent Auto 37.6 % (20-40); MANUAL DIFF FLAG NO; Mean Corpuscular HGB Conc 32.7 g/dl (31.0-35.0); Mean Corpuscular Hemoglobin 29.2 pg (27.0-33.0); Mean Corpuscular Volume 89.3 fL (80.0-98.0); Mean Platelet Volume 10.4 fL (9.4-12.3); Monocytes Absolute Auto 0.9 X10*3/uL (0.1-1.2); Neutrophils Percent Auto 48.2 % (45-73); Platelet Count 205 X10*3/uL (160-400); Red Blood Count 4.21 X10*6/uL (4.20-5.50); Red Cell Distribution Width 13.5 % (11.0-16.0); White Blood Count 8.2 X10*3/uL (4.8-10.8)
[2024-10-17 20:48] LABS: Alanine Aminotransferase 14 U/L (0-31); Alkaline Phosphatase 74 U/L (39-117); Anion Gap 12 (12-20); Aspartate Amino Transferase 19 U/L (5-31); Bilirubin Direct 0.1 mg/dL (0.0-0.5); Bilirubin Total 0.3 mg/dL (0.0-1.0); Blood Urea Nitrogen 8 mg/dL (9-16); Calcium 9.3 mg/dL (8.4-10.2); Carbon Dioxide 23 mmol/L (22-29); Chloride 108 mmol/L (96-108); Creatinine Clr Calc Pharmacy 120.2; Estimated Glomerular Filt Rate > 60; Glucose Random 93 mg/dL (60-115); Lipase 18 U/L (8-78); Potassium 3.7 mmol/L (3.3-5.1); Sodium 139 mmol/L (135-145); Total Protein 7.2 g/dL (6.5-8.0)
[2024-10-17 23:53] VITALS: BP 114/52; PULSE 61; RESP 16; TEMP 36.4; O2SAT 97
[2024-10-18 00:22] LABS: Appearance Urine Clear; Color Urine Yellow; Glucose Urine UA Negative (Negative); Leukocyte Esterase Urine Trace (Negative); Nitrite Urine Negative (Negative); Specific Gravity - Urine <= 1.005 (1.005-1.025); UMIC TRIGGER UACC YES; Urine Blood Negative (Negative); Urine Ketones Negative (Negative); Urine Protein Negative (Neg-Trace)
[2024-10-18 00:24] LABS: UPreg QC Valid YES; Urine Pregnancy NEGATIVE (NEGATIVE)
[2024-10-18 00:27] LABS: Bacteria Urine None Seen (None Seen); Hyaline Casts Urine 0-2 /LPF (0-2); RBC Urine 0-2 /HPF (0-2); WBC Urine 0-5 /HPF (0-5)
[2024-10-18] MEDS: 0.9 % Sodium Chloride 1,000 ML 999 ML IV (01:05)
[2024-10-18] MEDS: Magnesium Hydrox/Alum Hydrox 30 ML ORAL.SUSP PO (01:10)
[2024-10-18] MEDS: Famotidine/PF 20 MG/2 ML VIAL IVPUSH (01:10)
[2024-10-18 02:31] VITALS: BP 117/58; PULSE 65; RESP 16; TEMP 36.4; O2SAT 98
[2024-10-18 02:42] VITALS: BP 117/58; PULSE 65; RESP 16; TEMP 36.4; O2SAT 98
== END 2024-10-18 02:42 | disposition home or self-care (01) ==
PROVIDERS: Physician Assistant; Emergency Provider Emergency Medicine; PCP Internal Medicine
DX: R19.7 Diarrhea, unspecified (principal); R10.9 Unspecified abdominal pain; I10 Essential (primary) hypertension
CPT/HCPCS: 36415; 74176; 80048; 80076; 81001; 81025; 83690; 83735; 85025; 96361; 96374; 99284; J1308

== ENCOUNTER → 2024-10-18 00:25 | Outpatient (BNV) | payer OTHER, SELFPAY | PROVIDERS: Emergency Provider Emergency Medicine; PCP Internal Medicine; Visit Provider Radiology Diagnostic Radiology | DX: R16.0 Hepatomegaly, not elsewhere classified (principal); R10.9 Unspecified abdominal pain | CPT/HCPCS: 74176 ==

== ENCOUNTER 2024-10-24 13:21 | Outpatient (REF) | payer OTHER, SELFPAY ==
--- NOTE | ~2024-10-24 | MM_ITS ---
EXAMINATION: MM DIAGNOSTIC DIGITAL BREAST TOMOSYNTHESIS, BILATERAL Limited left breast ultrasound. CLINICAL INFORMATION: Left breast pain. COMPARISON: Mammography: Comparison is made with relevant prior exams. TECHNIQUE: Digital breast mammography with tomosynthesis is performed in both the craniocaudal and mediolateral oblique views along with computer-aided detection (CAD). FINDINGS: The breasts are heterogeneously dense, which may obscure small masses (ACR BI-RADS breast composition Category c). There are no significant masses, abnormal calcifications, or other abnormalities. Targeted color Doppler ultrasound scanning in the left breast at the area of patient's pain upper inner quadrant scanning from 12-5 o'clock as well as retroareolar demonstrates normal fibronodular breast tissue. There is no sonographic abnormality. Results are provided to the patient at time of visit by the technologist. MM/MM tomosynthesis diagnostic BI IMPRESSION: Right: Negative. Left: No mammographic or sonographic abnormality to account for the patient's left breast pain. Recommend clinical evaluation and follow-up. ASSESSMENT: BI-RADS BI-RADS 1 - Negative RECOMMENDATION: 1 year F/U This patient's information was entered into a reminder system with a target due date for their next mammogram. Electronically signed by: Destiny Viera DO 10/24/2024 03:01 PM PAT
--- OUTSIDE RECORDS SUMMARY | 2024-10-24 14:43 | XMS_ITS | Clinical Summary ---
Author Organization [facility] Address [address] [place] [address] Phone Care Team Providers Care Elevator Installer Apprentice Name Role Phone Fallon Garsia MD Primary Care Provider Allergies No known active allergies Encounters Date Type Department Care Team Description 10/17/2024 10:24 AM EDT - 10/17/2024 6:58 PM EDT Emergency [facility] Emergency [address] [place] [address] Discharge Disposition: Left Against Medical Advice from Last 3 Months Social History Tobacco [...] of 3 - 19+ 3-dose series) 1993 Pneumococcal Vaccine: 50+ Years (1 of 2 - PCV) 1993 Pneumococcal Vaccine: Pediatrics (0 to 5 Years) and At-Risk Patients (6 to 64 Years) (1 of 2 - PCV) 1993 Cervical Cancer Screening: Pap Smear 09/18/1995 COVID-19 Vaccine (3 - season) 2024 11/29/2020, 11/01/2020 Zoster Vaccines (1 of 2) 2024 Cholesterol Screening (Lipid Panel) 10/18/2024 Colorectal Cancer Screening: Colonoscopy 10/18/2024 Depression Screening 10/18/2024 HIV Screening 10/18/2024 Hepatitis C Screening 10/18/2024 Social Influencers of Health Screening 10/18/2024 Hypertension/CHF/CAD Annual BMP Blood Test 10/17/2025 10/17/2024 DTaP,Tdap,and Td Vaccines (2 - Td or [...] LAB HEMETOLOGY METHOD 10/17/2024 12:41 PM EDT [facility] RBC 4.30 3.80 - 4.80 M/mcL LAB HEMETOLOGY METHOD 10/17/2024 12:41 PM EDT [facility] Hemoglobin 12.7 11.5 - 16.0 g/dL LAB HEMETOLOGY METHOD 10/17/2024 12:41 PM [facility] Hematocrit 39.5 35.0 - 47.0 % LAB [facility]OLOG[facility] MCV 91.0 79.0 - 98.0 FL LAB HEMETOLOGY METHOD 10/17/2024 12:41 PM [facility] MCH 29.3 27.0 - 32.0 pcg LAB HEMETOLOGY METHOD 10/17/2024 12:41 PM [facility] MCHC 32.2 32.0 - 37.0 g/dL LAB HEMETOLOGY METHOD 10/17/2024 12:41 PM EDT [facility] RDW 13.3 11.0 - 15.0 % LAB HEMETOLOGY METHOD 10/17/2024 12:41 PM [facility] Platelets 288 130 - 400 K/mcL LAB HEMETOLOGY METHOD 10/17/2024 12:41 PM [facility] MPV 10.9 7.0 - 11.0 FL LAB HEMETOLOGY METHOD [facility] NRBC 0.0 <1.0 % LAB HEMETOLOGY METHOD 10/17/2024 12:41 PM [facility] NRBC Absolute 0.00 <0.10 K/mcL LAB HEMETOLOGY METHOD 10/17/2024 12:41 PM [facility] Neutrophils Relative 49.4 % LAB HEMETOLOGY METHOD 10/17/2024 12:41 PM [facility] Lymphocytes Relative 38.8 % LAB HEMETOLOGY METHOD 10/17/2024 12:41 PM [facility] Monocytes Relative 8.9 % LAB HEMETOLOGY METHOD 10/17/2024 12:41 PM [facility] Eosinophils Relative 1.8 % LAB HEMETOLOGY METHOD 10/17/2024 12:41 PM [facility] Basophils Relative 0.7 % LAB HEMETOLOGY METHOD 10/17/2024 12:41 PM [facility] Immature Granulocytes Relative 0.4 % LAB HEMETOLOGY METHOD 10/17/2024 12:41 PM [facility] Neutrophils Absolute 3.31 1.50 - 7.00 K/mcL LAB HEMETOLOGY METHOD 10/17/2024 12:41 PM [facility] Lymphocytes Absolute 2.61 1.00 - 5.00 K/mcL LAB HEMETOLOGY METHOD 10/17/2024 12:41 PM [facility] Monocytes Absolute 0.60 0.20 - 1.00 K/mcL LAB HEMETOLOGY METHOD 10/17/2024 12:41 PM [facility] Eosinophils Absolute 0.12 0.00 - 0.50 K/mcL LAB HEMETOLOGY METHOD 10/17/2024 12:41 PM [facility] Basophils Absolute 0.05 0.00 - 0.20 K/mcL LAB HEMETOLOGY METHOD 10/17/2024 12:41 PM EDT [facility] Immature Granulocytes Absolute 0.03 0.00 - 0.03 K/mcL LAB HEMETOLOGY METHOD 10/17/2024 12:41 PM EDT [facility] Blood Venous blood specimen / Unknown Venipuncture / Unknown 10/17/2024 11:56 AM EDT 10/17/2024 12:26 PM EDT us Abel Monaco MD LAB BLOOD ORDERABLES Final Res ult Performing Organization Address [facility]/ZIP Co de Phone Number [facility] [address] [place] [address], [place] [phone] * Lipase (10/17/2024 11:56 AM EDT) Lipase 22 13 - 75 unit/L LAB CHEMISTRY METHOD 10/17/2024 1:13 PM EDT [facility] Blood Venous blood specimen / Unknown Venipuncture / Unknown 10/17/2024 11:56 AM EDT 10/17/2024 12:26 PM EDT Abel Monaco MD LAB BLOOD ORDERABLES Final Res ult Performing Organization Address [facility]/ZIP Co de Phone Number [facility] [address] [place] [address], [place] [phone] * Comprehensive metabolic panel (10/17/2024 11:56 AM EDT) Sodium 137 133 - 145 mmol/L LAB CHEMISTRY METHOD 10/17/2024 1:23 PM EDT [facility] Potassium 3.9 3.5 - 5.5 mmol/L LAB CHEMISTRY METHOD 10/17/2024 1:23 PM EDT [facility] Chloride 106 96 - 110 mmol/L LAB CHEMISTRY METHOD 10/17/2024 1:23 PM EDT [facility] CO2 26 21 - 32 mmol/L LAB CHEMISTRY METHOD 10/17/2024 1:23 PM [facility] Anion Gap 5 3 - 11 LAB CHEMISTRY METHOD 10/17/2024 1:23 PM [facility] Glucose 88 70 - 100 mg/dL LAB CHEMISTRY METHOD 10/17/2024 1:23 PM [facility] BUN 7 5 - 25 mg/dL LAB CHEMISTRY METHOD 10/17/2024 1:23 PM [facility] Creatinine 0.63 0.50 - 1.10 mg/dL LAB CHEMISTRY METHOD 10/17/2024 1:23 PM [facility] eGFR 108 >=60 mL/min/1. 73m2 LAB CHEMISTRY METHOD 10/17/2024 1:23 PM [facility] Comment:Calculation based on the??Chronic Kidney Disease Epidemiology Collaboration (CKD-EPI) equation refit??without adjustment for race. BUN/Creatinine Ratio 11.1 LAB CHEMISTRY METHOD 10/17/2024 1:23 PM [facility] Calcium 9.5 8.5 - 10.5 mg/dL LAB CHEMISTRY METHOD 10/17/2024 1:23 PM [facility] AST (SGOT) 16 10 - 42 unit/L LAB CHEMISTRY METHOD 10/17/2024 1:23 PM [facility] ALT (SGPT) 16 10 - 60 unit/L LAB CHEMISTRY METHOD 10/17/2024 1:23 PM [facility] Alkaline Phosphatase 89 42 - 121 unit/L LAB CHEMISTRY METHOD 10/17/2024 1:23 PM [facility] Total Protein 7.7 6.0 - 8.0 g/dL LAB CHEMISTRY METHOD 10/17/2024 1:23 PM [facility] Albumin 3.8 3.2 - 5.0 g/dL LAB CHEMISTRY METHOD 10/17/2024 1:23 PM [facility] Total Bilirubin 0.4 0.0 - 1.4 mg/dL LAB CHEMISTRY METHOD 10/17/2024 1:23 PM EDT [facility] Blood Venous blood specimen / Unknown Venipuncture / Unknown 10/17/2024 11:56 AM EDT 10/17/2024 12:26 PM EDT us Abel Monaco MD LAB BLOOD ORDERABLES Final Res ult [facility] [address] [place] [address], [place] [phone] from [place] [address] [place] [id number] [facility] Care Teams Elevator Installer Apprentice Relationship Specialty Start Date End Date Fallon Garsia MD 2 [facility] , [address] Physician Associ D/B/A: [facility] CUAUHTEMOC Batista PCP - General Internal Medicine 02/24/21
--- OUTSIDE RECORDS SUMMARY | 2024-10-24 14:43 | XMS_ITS | Clinical Summary ---
Author Organization [facility] Address [address] [facility] [address] [place] [address] Phone Care Team Providers Care Food Service Associate Name Role Phone Fallon Doyle MD Primary Care Provider [phone] Allergies Active Allergy Reactions Criticality Noted Date [...] 09/18/2023 Influenza Vaccine (Season Ended) 2025 Insurance [employer] Medicaid [employer] Medicaid Care Teams Food Service Associate Relationship Specialty Start Date End Date Fallon Doyle MD [address] [place] [address] PCP - General 07/07/20
--- OUTSIDE RECORDS SUMMARY | 2024-10-24 14:43 | XMS_ITS | Data Portability ---
Author Organization [place] - [facility] , [id number] Address [address] [place] [address] Assessment No assessment recorded. Plan of Treatment [...] 4 OC- Physical completed Presley Zabala MD [address] [place] [address], [phone] [place] - [facility] 10/25/2023 14:56:54 Imaging [...] SNOMED-CT Code Diagnosis ICD10 Code Diagnosis Note [id number] [place] [address] [address] 10/25/2023 12:26:12 10/25/2023 15:00:20 History and physical examination, occupation 861953222 Z02.1 [id number] [place] [address] [address] 01/02/2024 17:41:57 01/02/2024 19:47:18 History and physical examination, occupation [id number] Z02.1 Health Concerns Section Related Observation LastModified by Organization Detai ls LastModified Time None Recorded Concern Status LastModified by Organization Details LastModified Time None Recorded Advance Directives Directive None Recorded Payers Encounter Date Sequence Insurance Name Policy Number Policy Manzano Covered Member ID Manzano Member ID Guarantor Name 10/25/2023 OC-ESCREEN Oc[employer]Escre en [[id number]] [employer] Ana Maria Elmore 01/02/2024 OC-ESCREEN Oc-Escre en [[id number]] [employer] Ana Maria Elmore OBGyn Episode No OBEpisode recorded.
== END 2024-10-24 13:22 | disposition home or self-care (01) ==
LOC: HO.MAMMO 13:21
PROVIDERS: PCP Internal Medicine; Visit Provider Internal Medicine
DX: N64.4 Mastodynia (principal)
CPT/HCPCS: 76642; 77062; 77066

== ENCOUNTER → 2024-10-24 13:30 | Outpatient (BNV) | payer OTHER, SELFPAY | PROVIDERS: PCP Internal Medicine; Visit Provider Internal Medicine | DX: N64.4 Mastodynia (principal) | CPT/HCPCS: 76642; 77062; 77066 ==

== ENCOUNTER → 2024-11-01 08:01 | Outpatient (REF) | payer OTHER, SELFPAY ==
--- OUTSIDE RECORDS SUMMARY | 2024-11-01 08:03 | XMS_ITS | Clinical Summary ---
Author Organization [facility] Address [address] [facility] [address] [place] [address] Phone Care Team Providers Care Cab Driver Name Role Phone Fallon Doyle MD Primary Care Provider [phone] Allergies Active Allergy Reactions Criticality Noted Date [...] 09/18/2023 Influenza Vaccine (Season Ended) 2025 Insurance [facility] Medicaid [facility] Medicaid Care Teams Cab Driver Relationship Specialty Start Date End Date Fallon Doyle MD [address] [place] [address] PCP - General 07/07/20
--- OUTSIDE RECORDS SUMMARY | 2024-11-01 08:03 | XMS_ITS | Data Portability ---
Author Organization [place] - [facility] , [address] Address [address] [place] [address] Assessment No assessment recorded. Plan of Treatment [...] 4 OC- Physical completed Presley Zabala MD [address] [place] [address], [phone] [place] - [facility] 10/25/2023 14:56:54 [...] SNOMED-CT Code Diagnosis ICD10 Code Diagnosis Note [id number] [place] [address] [address] 10/25/2023 12:26:12 10/25/2023 15:00:20 History and physical examination, occupation [id number] Z02.1 [id number] [place] [address] [address] 01/02/2024 17:41:57 01/02/2024 19:47:18 History and physical examination, occupation [id number] Z02.1 Health Concerns Section Related Observation LastModified by Organization Detai ls LastModified Time None Recorded Concern Status LastModified by Organization Details LastModified Time None Recorded Advance Directives Directive None Recorded Payers Insurance Date Sequence Insurance Name Policy Number Policy Manzano Covered Member ID Manzano Member ID Guarantor Name 01/02/2024 OC-ESCREEN Oc-Escre en [[id number]] [employer] Ana Maria Elmore OBGyn Episode No OBEpisode recorded.
--- OUTSIDE RECORDS SUMMARY | 2024-11-01 08:03 | XMS_ITS | Clinical Summary ---
Author Organization [facility] Address [address] [place] [address] Phone Care Team Providers Care Artist Representative Name Role Phone Fallon Garsia MD Primary Care Provider [phone] Allergies No known active allergies Encounters Date Type Department Care Team Description 10/17/2024 10:24 AM EDT - 10/17/2024 6:58 PM EDT Emergency [facility] Emergency [address] [place] [address] Discharge Disposition: Left Against Medical [...] LAB HEMETOLOGY METHOD 10/17/2024 12:41 PM EDT [facility] RBC 4.30 3.80 - 4.80 M/mcL LAB HEMETOLOGY METHOD 10/17/2024 12:41 PM EDT [facility] Hemoglobin 12.7 11.5 - 16.0 g/dL LAB HEMETOLOGY METHOD 10/17/2024 12:[address] [facility] Hematocrit 39.5 35.0 - 47.0 % LAB HEMETOLOGY METHOD 10[facility]17[facility]24 [facility] MCV 91.0 79.0 - 98.0 FL LAB HEMETOLOGY METHOD 10/17/2024 12:[address] [facility] MCH 29.3 27.0 - 32.0 pcg LAB HEMETOLOGY METHOD 10/17/2024 12:[address] [facility] MCHC 32.2 32.0 - 37.0 g/dL LAB HEMETOLOGY METHOD 10/17/2024 12:41 PM EDT [facility] RDW 13.3 11.0 - 15.0 % LAB HEMETOLOGY METHOD 10/17/2024 12:[address] [facility] Platelets 288 130 - 400 K/mcL LAB HEMETOLOGY METHOD 10/17/2024 12:[address] [facility] MPV 10.9 7.0 - 11.0 FL LAB HEMETOLOGY METHOD 10/17[facility]24 [facility] NRBC 0.0 <1.0 % LAB HEMETOLOGY METHOD 10/17/2024 12:[address] [facility] NRBC Absolute 0.00 <0.10 K/mcL LAB HEMETOLOGY METHOD 10/17/2024 12:[address] [facility] Neutrophils Relative 49.4 % LAB HEMETOLOGY METHOD 10/17/2024 12:[address] [facility] Lymphocytes Relative 38.8 % LAB HEMETOLOGY METHOD 10/17/2024 12:[address] [facility] Monocytes Relative 8.9 % LAB HEMETOLOGY METHOD 10/17/2024 12:[address] [facility] Eosinophils Relative 1.8 % LAB HEMETOLOGY METHOD 10/17/2024 12:[address] [facility] Basophils Relative 0.7 % LAB HEMETOLOGY METHOD 10/17/2024 12:[address] [facility] Immature Granulocytes Relative 0.4 % LAB HEMETOLOGY METHOD 10/17/2024 12:[address] [facility] Neutrophils Absolute 3.31 1.50 - 7.00 K/mcL LAB HEMETOLOGY METHOD 10/17/2024 12:[address] [facility] Lymphocytes Absolute 2.61 1.00 - 5.00 K/mcL LAB HEMETOLOGY METHOD 10/17/2024 12:[address] [facility] Monocytes Absolute 0.60 0.20 - 1.00 K/mcL LAB HEMETOLOGY METHOD 10/17/2024 12:[address] [facility] Eosinophils Absolute 0.12 0.00 - 0.50 K/mcL LAB HEMETOLOGY METHOD 10/17/2024 12:[address] [facility] Basophils Absolute 0.05 0.00 - 0.20 K/mcL LAB HEMETOLOGY METHOD 10/17/2024 12:41 PM EDT [facility] Immature Granulocytes Absolute 0.03 0.00 - 0.03 K/mcL LAB HEMETOLOGY METHOD 10/17/2024 12:41 PM EDT [facility] Blood Venous blood specimen / Unknown Venipuncture / Unknown 10/17/2024 11:56 AM EDT 10/17/2024 12:26 PM EDT us Abel Monaco MD LAB BLOOD ORDERABLES Final Res ult Performing Organization Address [facility]/ZIP Co de Phone Number [facility] [address] [place] [address], [place] [phone] * Lipase (10/17/2024 11:56 AM EDT) Lipase 22 13 - 75 unit/L LAB CHEMISTRY METHOD 10/17/2024 1:13 PM EDT [facility] Blood Venous blood specimen / Unknown Venipuncture / Unknown 10/17/2024 11:56 AM EDT 10/17/2024 12:26 PM EDT Abel Monaco MD LAB BLOOD ORDERABLES Final Res ult Performing Organization Address [facility]/ZIP Co de Phone Number [facility] [address] [place] [address], [place] [phone] * Comprehensive metabolic panel (10/17/2024 11:56 AM EDT) Sodium 137 133 - 145 mmol/L LAB CHEMISTRY METHOD 10/17/2024 1:23 PM EDT [facility] Potassium 3.9 3.5 - 5.5 mmol/L LAB CHEMISTRY METHOD 10/17/2024 1:23 PM EDT [facility] Chloride 106 96 - 110 mmol/L LAB CHEMISTRY METHOD 10/17/2024 1:23 PM EDT [facility] CO2 26 21 - 32 mmol/L LAB CHEMISTRY METHOD 10/17/2024 1:[address] [facility] Anion Gap 5 3 - 11 LAB CHEMISTRY METHOD 10/17/2024 1:[address] [facility] Glucose 88 70 - 100 mg/dL LAB CHEMISTRY METHOD 10/17/2024 1:[address] [facility] BUN 7 5 - 25 mg/dL LAB CHEMISTRY METHOD 10/17/2024 1:[address] [facility] Creatinine 0.63 0.50 - 1.10 mg/dL LAB CHEMISTRY METHOD 10/17/2024 1:[address] [facility] eGFR 108 >=60 mL/min/1. 73m2 LAB CHEMISTRY METHOD 10/17/2024 1:[address] [facility] Comment:Calculation based on the??Chronic Kidney Disease Epidemiology Collaboration (CKD-EPI) equation refit??without adjustment for race. BUN/Creatinine Ratio 11.1 LAB CHEMISTRY METHOD 10/17/2024 1:[address] [facility] Calcium 9.5 8.5 - 10.5 mg/dL LAB CHEMISTRY METHOD 10/17/2024 1:[address] [facility] AST (SGOT) 16 10 - 42 unit/L LAB CHEMISTRY METHOD 10/17/2024 1:[address] [facility] ALT (SGPT) 16 10 - 60 unit/L LAB CHEMISTRY METHOD 10/17/2024 1:[address] [facility] Alkaline Phosphatase 89 42 - 121 unit/L LAB CHEMISTRY METHOD 10/17/2024 1:[address] [facility] Total Protein 7.7 6.0 - 8.0 g/dL LAB CHEMISTRY METHOD 10/17/2024 1:[address] [facility] Albumin 3.8 3.2 - 5.0 g/dL LAB CHEMISTRY METHOD 10/17/2024 1:[address] [facility] Total Bilirubin 0.4 0.0 - 1.4 mg/dL LAB CHEMISTRY METHOD 10/17/2024 1:23 PM EDT [facility] Blood Venous blood specimen / Unknown Venipuncture / Unknown 10/17/2024 11:56 AM EDT 10/17/2024 12:26 PM EDT us Abel Monaco MD LAB BLOOD ORDERABLES Final Res ult [facility] [address] [place] [address], [place] [phone] from Last [address] [place] [id number] [facility] [place] [address] Care Teams Artist Representative Relationship Specialty Start Date End Date Fallon Garsia MD 2 [facility] , [address] Physician Associ D/B/A: [facility] CUAUHTEMOC Batista PCP - General Internal Medicine 02/24/21
--- NOTE | 2024-11-01 08:06 | CA_ITS ---
Acquisition Time: 2024-11-01 09:05:27 Total Exercise Time: 00:05:01 Test Indications: CP,Dyspnea Medications: SEE EMAR Protocol: SALVATORE Max HR: 155 BPM 91% of Pred: 170 BPM Max BP: 150/70 mmHG Max Work Load: 7.0 METS Exercise stress test with exercise 5 mins 1 sec of Salvatore Protocol, achieving 91% MPHR, with reports of 7/10 left sided chest pressure at baseline that is reproducible but reported SOB and 4/10 burning mid chest pain with exercise. Without any arrythmias, with normotensive response to exercise. Without EKG changes meeting criteria for ischemia. In recovery, breathing returned to baseline and left sided chest pressure improved to 3/10. Burning chest pain resolved quickly in easrly recovery. Will order stress echo to further evaluate her CP. Tets reviewed with Dr. Morris. Referred By: Barb Cochran Electronically Signed By: Evan Maciel
--- NOTE | 2024-11-01 08:06 | CA_ITS ---
Transthoracic Echocardiogram Patient (Last, First, Middle): Ana Maria Elmore, Gender: Female Date of : 1975 Age: 49 Procedure Date: 11/01/2024 Procedure Type: Transthoracic Echocardiogram Location: OP Height: 162.56 cm Weight: 107.5 kg BSA: 2.10 m2 Heart Rate: bpm BP: 108 / 78 mmHg Pan Reclaim Processor: TO Referring MD: Barb Cochran ENVIRONMENTAL SCIENCE TECHNICIANLi Symptoms: R06.02 - Shortness of breath Study Quality: Fair/Contrast ECG Rhythm: Sinus Conclusions: - The left ventricular systolic function is normal. The calculated ejection fraction is 64% by biplane method. - No obvious valvular pathology seen on this study. Findings Procedure Information Contrast agent, definity, is being given per protocol without apparent complications. Left Ventricle Normal left ventricular cavity size. There is normal left ventricular wall thickness. The left ventricular systolic function is normal. The calculated ejection fraction is 64% by biplane method. There is no evidence of regional wall motion abnormalities. Diastolic function is normal for age. Right Ventricle Normal right ventricular cavity size and systolic function. Atria Both atria are normal in size. Aortic Valve There is a normal trileaflet aortic valve. There is no aortic valve stenosis. There is no aortic valve regurgitation. Mitral Valve The mitral valve appears normal. There is no mitral valve regurgitation. There is no mitral valve stenosis. Pulmonic Valve The pulmonic valve is likely normal. Tricuspid Valve There is trace tricuspid valve regurgitation. There is no evidence of pulmonary hypertension. Great Vessels The asc aorta is normal in size. Venous The inferior vena cava is normal in size and collapses greater than 50% with inspiration. Pericardium/Pleural There is a small loculated pericardial effusion overlying the left ventricle and right atrium. Prior Study Comparison No significant change compared to prior study dated: 07/29/2022. Recommendations, Care & Conclusions No obvious valvular pathology seen on this study. Measurements 2D Linear Measurements IVSd: 0.72 0.6-0.9/0.6-1.0 cm LVIDd: 5.51 3.9-5.3/4.2-5.9 cm LVIDd Index: 2.62 2.4-3.2/2.2-3.1 cm/m2 LVIDs: 3.36 2.0-3.6 cm LVPWd: 0.83 0.7-1.1 cm LA Diam: 3.10 2.7-3.8/3.0-4.0 cm LAIDs Index: 1.48 1.5-2.3 cm/m2 LV Mass: 191.84 67-162/88-224 g LV Mass Index: 91.35 43-95/49-115 g/m2 LVOT Diam: 2.20 3.0+(-)1.3 cm 2D Systolic Function EF 4C: 65.90 >55% EF 2C: 62.90 >55% EF BiP: 63.90 >55% Mitral Valve MV Pk E: 0.78 MV PK A: 0.67 MV Decel Time: 137.00 E/A: 1.20 E'Lateral: 7.29 E'Medial: 6.09 E/E' Med: 12.70 E/E' Lat: 10.60 PHT: 40.00 MVA PHT: 5.50 Decel Dauphin: 5.65 Aortic Valve AoV Pk Dieter: 1.33 AoV Mn Dieter: 0.92 AoV VTI: 0.29 AoV Pk Grad: 7.00 Aov Mn Grad: 4.00 SHAKILA Cont.VTI: 2.76 LVOT LVOT Pk Dieter: 1.01 LVOT Mn Dieter: 0.62 LVOT VTI: 0.21 LVOT Pk Grad: 4.00 LVOT Mn Grad: 2.00 LVOT Diam: 2.20 LVOT Area: 3.80 Diastolic Function MV Pk E: 0.78 MV Pk A: 0.67 E/A: 1.20 E'Medial: 6.09 E/E' Med: 12.70 E' Laterial: 7.29 E/E' Lat: 10.60 Right Ventricle TAPSE (mm): 18.70 TVS' Dieter: 11.10 Tricuspid Valve RA Press: 3.00 Great Vessels Aorta Sinus of Valsalva: 3.33 2.0-3.[address] Ridge: 2.49 1.7-3.4 cm Ao Asc: 3.00 2.1-3.4 cm Updated in Other Vendor System with Status of Final Nato Morris MD electronically signed on 11/03/2024 10:35:52 AM with status of Final
== END ==
LOC: HO.CARD 08:01
PROVIDERS: PCP Internal Medicine; Visit Provider Nurse Practitioner Family
DX: R07.89 Other chest pain (principal); R06.02 Shortness of breath
CPT/HCPCS: 93017; 93306; Q9957

== ENCOUNTER → 2024-11-01 08:06 | Outpatient (BNV) | payer OTHER, SELFPAY | PROVIDERS: PCP Internal Medicine | DX: I31.39 Other pericardial effusion (noninflammatory) (principal) | CPT/HCPCS: 93016; 93018; 93350; 93352 ==

== ENCOUNTER → 2024-11-05 13:12 | Outpatient (REF) | payer OTHER, SELFPAY ==
--- NOTE | ~2024-11-05 | CT_ITS ---
EXAMINATION: CT ABDOMEN PELVIS WITHOUT IV CONTRAST HISTORY: R10.9 - Unspecified abdominal pain COMPARISON: Comparison is made with the prior examination dated 10/18/2024. TECHNIQUE: CT scan of the abdomen and pelvis was performed without contrast using standard departmental protocol. Coronal and sagittal reformatted images were generated and reviewed. Oral contrast material was not administered at the request of the referring physician. This CT exam was performed with one or more of the following dose reduction techniques: automated exposure control, adjustment of the mA and/or kV according to patient size, use of iterative reconstruction technique. DLP: 1127 mGy-cm FINDINGS: LOWER CHEST: The visualized lung bases are clear. There is no pleural effusion. CARDIOVASCULATURE: The heart is normal in size. There is no pericardial effusion. LIVER: The liver is normal in size and contour. The liver has an unremarkable unenhanced appearance. GALLBLADDER / BILE DUCTS: The gallbladder is unremarkable. There is no intra or extrahepatic biliary ductal dilatation. SPLEEN: The spleen is normal in size and has an unremarkable unenhanced appearance. PANCREAS: The pancreas has an unremarkable unenhanced appearance. ADRENAL GLANDS: Unremarkable. KIDNEYS/RETROPERITONEUM: The patient is status post right nephrectomy. There is compensatory hypertrophy of the left kidney. There is no evidence of left nephrolithiasis or hydronephrosis. LYMPH NODES: No retroperitoneal lymphadenopathy is identified in the abdomen or pelvis. VASCULATURE: The abdominal aorta is normal in caliber. MESENTERY/PERITONEUM: No free fluid. No masses. There is no free intraperitoneal gas. STOMACH: There is a moderate amount of debris in the stomach. SMALL BOWEL: The small bowel is normal in caliber. COLON: There is a moderate amount of stool throughout the colon. APPENDIX: Normal. URINARY BLADDER/PELVIC ORGANS: The urinary bladder is collapsed, limiting evaluation. The uterus has an unremarkable unenhanced appearance. BONES / SOFT TISSUES: There is degenerative disc disease at the L5-S1 level. CT/CT abdomen pelvis wo IV con IMPRESSION: Moderate amount of debris in the stomach. Moderate amount of stool throughout the colon. No inflammatory process is identified. Electronically signed by: Benjamin Mccain MD 11/05/2024 01:56 PM EDT
--- OUTSIDE RECORDS SUMMARY | 2024-11-05 13:30 | XMS_ITS | Clinical Summary ---
Author Organization [facility] Address [address] [facility] [address] [place] [address] Phone Care Team Providers Care Highway Administrative Engineer Name Role Phone Fallon Doyle MD Primary Care Provider [phone] Allergies Active Allergy Reactions Criticality Noted Date [...] 09/18/2023 Influenza Vaccine (Season Ended) 2025 Insurance [facility] Medicaid [facility] Medicaid Care Teams Highway Administrative Engineer Relationship Specialty Start Date End Date Fallon Doyle MD [address] [place] [address] PCP - General 07/07/20
--- OUTSIDE RECORDS SUMMARY | 2024-11-05 13:30 | XMS_ITS | Data Portability ---
Author Organization [place] - [facility] , [address] Address [address] [place] [address] Assessment No assessment recorded. Plan of Treatment [...] 4 OC- Physical completed Presley Zabala MD [address] [place] [address], [id number] [place] - [facility] 10/25/2023 14:56:54 [...] SNOMED-CT Code Diagnosis ICD10 Code Diagnosis Note [id number] [place] [address] [address] 10/25/2023 12:26:12 10/25/2023 15:00:20 History and physical examination, occupation [id number] Z02.1 [id number] [place] [address] [address] 01/02/2024 17:41:57 01/02/2024 19:47:18 History and physical examination, occupation [id number] Z02.1 Health Concerns Section Related Observation LastModified by Organization Detai ls LastModified Time None Recorded Concern Status LastModified by Organization Details LastModified Time None Recorded Advance Directives Directive None Recorded Payers Insurance Date Sequence Insurance Name Policy Number Policy Manzano Covered Member ID Manzano Member ID Guarantor Name 01/02/2024 OC-ESCREEN Oc-Escre en [[id number]] [employer] Ana Maria Elmore OBGyn Episode No OBEpisode recorded.
--- OUTSIDE RECORDS SUMMARY | 2024-11-05 13:30 | XMS_ITS | Clinical Summary ---
Author Organization [facility] Address [address] [place] [address] Phone Care Team Providers Care Public Health Advisor Name Role Phone Fallon Garsia MD Primary Care Provider [phone] Allergies No known active allergies Encounters Date Type Department Care Team Description 10/17/2024 10:24 AM EDT - 10/17/2024 6:58 PM EDT Emergency [facility] Emergency [address] [place] [address] Discharge Disposition: Left Against Medical [...] LAB HEMETOLOGY METHOD 10/17/2024 12:41 PM EDT [facility] RBC 4.30 3.80 - 4.80 M/mcL LAB HEMETOLOGY METHOD 10/17/2024 12:41 PM EDT [facility] Hemoglobin 12.7 11.5 - 16.0 g/dL LAB HEMETOLOGY METHOD 10/17/2024 12:41 PM [facility] Hematocrit 39.5 35.0 - 47.0 % LAB [facility] MCV 91.0 79.0 - 98.0 FL LAB HEMETOLOGY METHOD 10/17/2024 12:41 PM [facility] MCH 29.3 27.0 - 32.0 pcg LAB HEMETOLOGY METHOD 10/17/2024 12:41 PM [facility] MCHC 32.2 32.0 - 37.0 g/dL LAB HEMETOLOGY METHOD 10/17/2024 12:41 PM EDT [facility] RDW 13.3 11.0 - 15.0 % LAB HEMETOLOGY METHOD 10/17/2024 12:41 PM [facility] Platelets 288 130 - 400 K/mcL LAB HEMETOLOGY METHOD 10/17/2024 12:41 PM [facility] MPV 10.9 7.0 - 11.0 FL LAB [facility]ETOLOGY [facility] NRBC 0.0 <1.0 % LAB HEMETOLOGY METHOD 10/17/2024 12:41 PM [facility] NRBC Absolute 0.00 <0.10 K/mcL LAB HEMETOLOGY METHOD 10/17/2024 12:41 PM [facility] Neutrophils Relative 49.4 % LAB HEMETOLOGY METHOD 10/17/2024 12:41 PM [facility] Lymphocytes Relative 38.8 % LAB HEMETOLOGY METHOD 10/17/2024 12:41 PM [facility] Monocytes Relative 8.9 % LAB HEMETOLOGY METHOD 10/17/2024 12:41 PM [facility] Eosinophils Relative 1.8 % LAB HEMETOLOGY METHOD 10/17/2024 12:41 PM [facility] Basophils Relative 0.7 % LAB HEMETOLOGY METHOD 10/17/2024 12:41 PM [facility] Immature Granulocytes Relative 0.4 % LAB HEMETOLOGY METHOD 10/17/2024 12:41 PM [facility] Neutrophils Absolute 3.31 1.50 - 7.00 K/mcL LAB HEMETOLOGY METHOD 10/17/2024 12:41 PM [facility] Lymphocytes Absolute 2.61 1.00 - 5.00 K/mcL LAB HEMETOLOGY METHOD 10/17/2024 12:41 PM [facility] Monocytes Absolute 0.60 0.20 - 1.00 K/mcL LAB HEMETOLOGY METHOD 10/17/2024 12:41 PM [facility] Eosinophils Absolute 0.12 0.00 - 0.50 K/mcL LAB HEMETOLOGY METHOD 10/17/2024 12:41 PM [facility] Basophils Absolute 0.05 0.00 - 0.20 K/mcL LAB HEMETOLOGY METHOD 10/17/2024 12:41 PM EDT [facility] Immature Granulocytes Absolute 0.03 0.00 - 0.03 K/mcL LAB HEMETOLOGY METHOD 10/17/2024 12:41 PM EDT [facility] Blood Venous blood specimen / Unknown Venipuncture / Unknown 10/17/2024 11:56 AM EDT 10/17/2024 12:26 PM EDT us Abel Monaco MD LAB BLOOD ORDERABLES Final Res ult Performing Organization Address [facility]/ZIP Co de Phone Number [facility] [address] [place] [address], [place] [phone] * Lipase (10/17/2024 11:56 AM EDT) Lipase 22 13 - 75 unit/L LAB CHEMISTRY METHOD 10/17/2024 1:13 PM EDT [facility] Blood Venous blood specimen / Unknown Venipuncture / Unknown 10/17/2024 11:56 AM EDT 10/17/2024 12:26 PM EDT Abel Monaco MD LAB BLOOD ORDERABLES Final Res ult Performing Organization Address [facility]/ZIP Co de Phone Number [facility] [address] [place] [address], [place] [phone] * Comprehensive metabolic panel (10/17/2024 11:56 AM EDT) Sodium 137 133 - 145 mmol/L LAB CHEMISTRY METHOD 10/17/2024 1:23 PM EDT [facility] Potassium 3.9 3.5 - 5.5 mmol/L LAB CHEMISTRY METHOD 10/17/2024 1:23 PM EDT [facility] Chloride 106 96 - 110 mmol/L LAB CHEMISTRY METHOD 10/17/2024 1:23 PM EDT [facility] CO2 26 21 - 32 mmol/L LAB CHEMISTRY METHOD 10/17/2024 1:23 PM [facility] Anion Gap 5 3 - 11 LAB CHEMISTRY METHOD 10/17/2024 1:23 PM [facility] Glucose 88 70 - 100 mg/dL LAB CHEMISTRY METHOD 10/17/2024 1:23 PM [facility] BUN 7 5 - 25 mg/dL LAB CHEMISTRY METHOD 10/17/2024 1:23 PM [facility] Creatinine 0.63 0.50 - 1.10 mg/dL LAB CHEMISTRY METHOD 10/17/2024 1:23 PM [facility] eGFR 108 >=60 mL/min/1. 73m2 LAB CHEMISTRY METHOD 10/17/2024 1:23 PM [facility] Comment:Calculation based on the??Chronic Kidney Disease Epidemiology Collaboration (CKD-EPI) equation refit??without adjustment for race. BUN/Creatinine Ratio 11.1 LAB CHEMISTRY METHOD 10/17/2024 1:23 PM [facility] Calcium 9.5 8.5 - 10.5 mg/dL LAB CHEMISTRY METHOD 10/17/2024 1:23 PM [facility] AST (SGOT) 16 10 - 42 unit/L LAB CHEMISTRY METHOD 10/17/2024 1:23 PM [facility] ALT (SGPT) 16 10 - 60 unit/L LAB CHEMISTRY METHOD 10/17/2024 1:23 PM [facility] Alkaline Phosphatase 89 42 - 121 unit/L LAB CHEMISTRY METHOD 10/17/2024 1:23 PM [facility] Total Protein 7.7 6.0 - 8.0 g/dL LAB CHEMISTRY METHOD 10/17/2024 1:23 PM [facility] Albumin 3.8 3.2 - 5.0 g/dL LAB CHEMISTRY METHOD 10/17/2024 1:23 PM [facility] Total Bilirubin 0.4 0.0 - 1.4 mg/dL LAB CHEMISTRY METHOD 10/17/2024 1:23 PM EDT [facility] Blood Venous blood specimen / Unknown Venipuncture / Unknown 10/17/2024 11:56 AM EDT 10/17/2024 12:26 PM EDT us Abel Monaco MD LAB BLOOD ORDERABLES Final Res ult [facility] [address] [place] [address], [place] [phone] from Last [address] [id number] [facility] Care Teams Public Health Advisor Relationship Specialty Start Date End Date Fallon Garsia MD 2 [facility] , [address] Physician Associ D/B/A: [facility] CUAUHTEMOC Batista PCP - General Internal Medicine 02/24/21
== END ==
LOC: HO.CARD 13:12
PROVIDERS: PCP Internal Medicine; Visit Provider Internal Medicine Nephrology
DX: R10.9 Unspecified abdominal pain (principal); R07.89 Other chest pain; Z90.5 Acquired absence of kidney
CPT/HCPCS: 74176

== ENCOUNTER → 2024-11-05 13:16 | Outpatient (BNV) | payer OTHER, SELFPAY | PROVIDERS: PCP Internal Medicine; Visit Provider Radiology Diagnostic Radiology | DX: K56.41 Fecal impaction (principal) | CPT/HCPCS: 74176 ==

== ENCOUNTER → 2024-11-06 10:34 | Outpatient (BNVA) | payer SELFPAY | PROVIDERS: PCP Internal Medicine; Visit Provider Physician Assistant Medical | DX: Z02.79 Encounter for issue of other medical certificate (principal) ==

== ENCOUNTER 2024-12-13 09:28 | Outpatient (AMB) | payer OTHER, SELFPAY ==
[2024-12-13 09:35] VITALS: BP 112/80; BMI 39.9
--- NOTE | 2024-12-13 09:35 | A.OFFPC_ITS ---
Vital Signs 12/13/24 09:35 Height 5 ft 5 in Weight 240 lb BMI 39.9 BP 112/80 Blood Pressure Location Lt brachial Position Sitting Intake Visit Reasons: Annual Exam Intake Note: Patient here for a physical exam Synchro Assembler Required: No Accompanied by: Self / Same As Patient Allergies citalopram Allergy (Intermediate, Verified 12/13/24 09:45) palpitations doxepin Allergy (Intermediate, Verified 12/13/24 09:45) palpitations quetiapine (Seroquel) Allergy (Intermediate, Verified 12/13/24 09:45) weight gain trazodone Allergy (Intermediate, Verified 12/13/24 09:45) palpitations venlafaxine Adverse Reaction (Intermediate, Verified 12/13/24 09:45) tachycardia zolpidem Adverse Reaction (Verified 12/13/24 09:45) blurry vision Medication List - Last Reconciled 12/13/24 by Fallon Garsia MD albuterol sulfate 90 mcg/actuation (ProAir HFA) 2 puffs inhalation Q6H PRN 30 days cholecalciferol (vitamin D3) 50 mcg PO DAILY 90 days clonazepam 1 mg PO BEDTIME PRN 30 days dexlansoprazole (Dexilant) 60 mg PO DAILY PRN famotidine 40 mg PO BID fluticasone propionate 50 mcg/actuation 1 spray intranasal BID hydrochlorothiazide 12.5 mg PO DAILY 90 days linaclotide (Linzess) 72 mcg PO QAM simethicone 180 mg PO QID 30 days zolpidem 5 mg PO BEDTIME 30 days Tobacco use date assessed: 07/12/24 Dental Screening Dental Screen Date: 07/12/24 HPI HPI Comments History of Present Illness Details The patient is a 49-year-old female presenting with a physical examination and preventative care. She has a history of a solitary left kidney and follows with nephrology for this condition. She is also under cardiology care with a repeat echocardiogram pending. 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 She also had a colonoscopy this year at [facility], where polyps were found, and she is being monitored for Helicobacter pylori infection. Her Pap smear in 2020 was negative for HPV. Her mammogram in September of this year was negative. The patient is obese and has been advised to consider diet and exercise, including intermittent fasting and 30 minutes of exercise five days a week. She experiences anxiety but does not have major depression. - Tdap vaccination last administered in 2017, next due in 2027 - Mammogram conducted in September, results negative - Colonoscopy in 2020 showed dual adenom a, follow-up in 3 to 5 years - Pap smear in 2020 was HPV negative - Advised diet and exercise, including i ntermittent fasting and 30 minutes of exercise five days a week PFSH Medical History (Updated 12/13/24 @ 10:14 by Fallon Garsia MD) Physical exam Right ankle pain UTI (urinary tract infection) Insomnia Pericardial effusion Palpitations Ankle pain Abdominal mass, LUQ (left upper quadrant) Dysphagia Right elbow pain Abdominal pain Pelvic pain Abnormal abdominal ultrasound Abnormal uterine bleeding (AUB) FH: throat cancer Pericardial effusion Pericarditis Primary insomnia Essential hypertension Mild recurrent major depression PATRIC (obstructive sleep apnea) Migraines Morbidly obese Moderate asthma Absence of kidney YARITZA (generalized anxiety disorder) Essential hypertension Transaminitis Numerous moles Obesity Carpal tunnel syndrome Ovarian cyst Surgical History History of right nephrectomy History of esophagogastroduodenoscopy (EGD) H/O colonoscopy History of removal of ovarian cyst (~2016) History of loop electrical excision procedure (LEEP) Family History Maternal Grandmother Diabetes mellitus Maternal Grandfather Heart disease CVD (cardiovascular disease) Father Heart problem Sister Heart murmur Paternal Grandmother Heart problem Mother Thyroid disease Social History (Updated 12/13/24 @ 09:56 by Fallon Garsia MD) Housing: Apartment Alcohol intake: never Patient Tobacco Use Status: Never used Tobacco e-Cigarette/Vaping Use: Never Used Second Hand Smoke Exposure: No service: No Current occupational status: unemployed 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 Benjamin L. Maria A Wilson, Pastor Melvin and colleagues, with an educational teddy from [employer]. Review of Systems Const All systems reviewed & are unremarkable except as noted in HPI and below Card Denies chest pain at rest, Denies chest pain with activity, Denies edema, Denies irregular heart rhythm, Denies claudication, Denies dyspnea, Denies dyspnea on exertion, Denies orthopnea, Denies paroxysmal nocturnal dyspnea and Denies slow heart rate Resp Denies cough, Denies dyspnea and Denies dyspnea on exertion GI Denies abdominal pain, Denies change in bowel habits, Denies excessive flatus, Denies nausea and Denies vomiting Physical exam (Primary Care) Vital Signs: Last Vital Signs BP 112/80 12/13/24 09:35 BMI result Body Mass Index 39.9 BMI Assessment/Plan discussion: High BMI High, discussed plan: lifestyle, weight reduction, dietary and physical activity Tobacco/Smoking Status: Tobacco use Status Tobacco use date assessed 07/12/24 12/13/24 09:40 Patient Tobacco Use Status Never used Tobacco 12/13/24 09:56 e-Cigarette/Vaping Use Never Used 12/13/24 09:56 Thrive Assessment: Date of Thrive Assessment Date Thrive assessed 07/12/24 12/13/24 09:40 HENRI Head: Yes normal to inspection, Yes normocephalic and Yes atraumatic Ears: external ears normal Eyes General: appearance normal, both eyes and all related structures Eyelids: Yes eyelids normal Conjunctivae: conjunctivae normal Neck Neck: Yes normal visual inspection and Yes supple Resp Effort & Inspection: normal respiratory effort Auscultation: clear to auscultation bilaterally Cardio Jugular venous distension: no JVD Rate: regular rate Rhythm: regular rhythm Heart sounds: S1 normal heart sound present and S2 normal heart sound present GI Inspection: Yes normal to inspection Palpation (GI): Soft to palpation and nontender Auscultation: normal bowel sounds Skin General skin exam: no rashes or lesions noted Neuro General: no focal motor deficits Extrem General: Yes full ROM Psych Appearance: grossly normal Coding Level of Care Code Est Pt Prev Care 40-64y(39456) Diagnoses Physical exam Z00.00 Mild recurrent major depression F33.0 Time Spent (min) 30 Assessment & Plan Assessment & Plan (1) Physical exam: Code(s): Z00.00 - Encounter for general adult medical examination without abnormal findings Category: Medical (2) Mild recurrent major depression: Code(s): F33.0 - Major depressive disorder, recurrent, mild Category: Medical Plan The patient will continue to follow up with nephrology for her solitary left kidney and cardiology for her pending echocardiogram. She is advised to maintain her preventative care schedule, including the next Tdap vaccination in 2027 and a follow-up colonoscopy in 3 to 5 years. Diet and exercise modifications are recommended to address obesity, with a focus on intermittent fasting and regular physical activity. She will continue to be monitored for Helicobacter pylori infection following her recent colonoscopy findings. Patient was informed and verbally consented to the use of an ambient scribe for clinic note documentation during this visit. Orders: Orders Comprehensive [place]. Panel Fast Today Z00.00 - Encounter for general adult medical examination without abnormal findings Lipid Panel Today E78.5 - Hyperlipidemia, unspecified Vitamin D 25-OH Total Today E55.9 - Vitamin D deficiency, unspecified Medications: Discontinued linaclotide (Linzess) Discontinued Reason: Patient Completed Course 72 mcg PO QAM 30 caps 3RF K59.04 - Chronic idiopathic constipation dexlansoprazole (Dexilant) Discontinued Reason: Patient Refused 60 mg PO DAILY PRN A04.8 - Other specified bacterial intestinal infections Patient Instructions: - Continue follow-up with nephrology and cardiology. - Schedule next Tdap vaccination for 2027. - Plan for a follow-up colonoscopy in 3 to 5 years. - Follow diet and exercise recommendations, including intermittent fasting and 30 minutes of exercise five days a week.
--- OUTSIDE RECORDS SUMMARY | 2024-12-13 10:14 | XMS_ITS | Data Portability ---
Author Organization [place] - [facility] , [address] Address [address] [place] [address] Assessment No assessment recorded. Plan of Treatment [...] 4 OC- Physical completed Presley Zabala MD [address] [place] [address], [phone] [place] - [...] SNOMED-CT Code Diagnosis ICD10 Code Diagnosis Note [id number] [place] [address] [address] 10/25/2023 12:26:12 10/25/2023 15:00:20 History and physical examination, occupation 438559476 Z02.1 [id number] [place] [address] [address] 01/02/2024 17:41:57 01/02/2024 19:47:18 History and physical examination, occupation [id number] Z02.1 Health Concerns Section Related Observation LastModified by Organization Detai ls LastModified Time None Recorded Concern Status LastModified by Organization Details LastModified Time None Recorded Advance Directives Directive None Recorded Payers Insurance Date Sequence Insurance Name Policy Number Policy Manzano Covered Member ID Manzano Member ID Guarantor Name 01/02/2024 OC-ESCREEN Oc-Escre en [[id number]] [employer] Ana Maria Elmore OBGyn Episode No OBEpisode recorded.
== END 2024-12-13 10:11 | disposition home or self-care (01) ==
LOC: HO.HMCH 09:28
PROVIDERS: PCP Internal Medicine; Visit Provider Internal Medicine
DX: Z00.00 Encounter for general adult medical examination without abnormal findings (principal); F33.0 Major depressive disorder, recurrent, mild

== ENCOUNTER → 2024-12-13 09:28 | Outpatient (BNVA) | payer OTHER, SELFPAY | PROVIDERS: PCP Internal Medicine; Visit Provider Internal Medicine | DX: Z00.00 Encounter for general adult medical examination without abnormal findings (principal); F33.0 Major depressive disorder, recurrent, mild; E78.5 Hyperlipidemia, unspecified; E55.9 Vitamin D deficiency, unspecified; K59.04 Chronic idiopathic constipation; A04.8 Other specified bacterial intestinal infections; Z90.5 Acquired absence of kidney | CPT/HCPCS: 99396 ==

== ENCOUNTER 2025-05-13 09:40 | Outpatient (AMB) | payer OTHER, SELFPAY ==
[2025-05-13 10:03] VITALS: BP 124/72; PULSE 82; O2SAT 98; BMI 39.7
--- NOTE | 2025-05-13 10:03 | AM.OFFWIN_ITS ---
Intake Vital Signs 05/13/25 10:03 Height 5 ft 4.5 in Weight 235 lb BMI 39.7 BP 124/72 Blood Pressure Location Lt brachial Position Sitting Pulse 82 Pulse Source Pulse Oximeter Pulse Oximetry (%) 98 Oxygen Delivery Method Room Air Intake Visit Reasons: EP-lumbar spine pain Intake Note: Patient presents c/o right sided buttock pain that radiates down right leg x1 week & worsening. Patient Tobacco Use Status: Never used Tobacco Allergies citalopram Allergy (Intermediate, Verified 05/13/25 10:07) palpitations doxepin Allergy (Intermediate, Verified 05/13/25 10:07) palpitations quetiapine (Seroquel) Allergy (Intermediate, Verified 05/13/25 10:07) weight gain trazodone Allergy (Intermediate, Verified 05/13/25 10:07) palpitations venlafaxine Adverse Reaction (Intermediate, Verified 05/13/25 10:07) tachycardia zolpidem Adverse Reaction (Verified 05/13/25 10:07) blurry vision Medication List - Last Reconciled 05/13/25 by Marilee Maxwell NP albuterol sulfate 90 mcg/actuation (ProAir HFA) 2 puffs inhalation Q6H PRN 30 days cholecalciferol (vitamin D3) 50 mcg PO DAILY 90 days clonazepam 1 mg PO BEDTIME PRN 30 days famotidine 40 mg PO BID hydrochlorothiazide 12.5 mg PO DAILY 90 days Do you need a note to return to daycare/school/sports/work: Yes HPI HPI Comments History of Present Illness Details 49-year-old female presents to the walk- in clinic with right-sided lower back pain radiating down the right lower extremity for the past 1 week. Pain worsens with sitting or walking. 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 She has tried Advil with minimal relief and lidocaine patches without improvement. Denies numbness, tingling, weakness, bowel/bladder incontinence or retention, saddle anesthesia, or other red-flag symptoms. [facility] Medical History (Updated 05/13/25 @ 10:52 by Marilee Maxwell NP) Low back pain radiating to lower extremity Physical exam Right ankle pain UTI (urinary tract infection) Insomnia Pericardial effusion Palpitations Ankle pain Abdominal mass, LUQ (left upper quadrant) Dysphagia Right elbow pain Abdominal pain Pelvic pain Abnormal abdominal ultrasound Abnormal uterine bleeding (AUB) FH: throat cancer Pericardial effusion Pericarditis Primary insomnia Essential hypertension Mild recurrent major depression PATRIC (obstructive sleep apnea) Migraines Morbidly obese Moderate asthma Absence of kidney YARITZA (generalized anxiety disorder) Essential hypertension Transaminitis Numerous moles Obesity Carpal tunnel syndrome Ovarian cyst Surgical History History of right nephrectomy History of esophagogastroduodenoscopy (EGD) H/O colonoscopy History of removal of ovarian cyst (~2017) History of loop electrical excision procedure (LEEP) Family History Maternal Grandmother Diabetes mellitus Maternal Grandfather Heart disease CVD (cardiovascular disease) Father Heart problem Sister Heart murmur Paternal Grandmother Heart problem Mother Thyroid disease Social History (Updated 12/13/24 @ 09:56 by Fallon Garsia MD) Housing: Apartment Alcohol intake: never Patient Tobacco Use Status: Never used Tobacco e-Cigarette/Vaping Use: Never Used Second Hand Smoke Exposure: No service: No Current occupational status: unemployed 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 Current occupational exposures/hazards: No Gender identity: Female Cognitive needs: No Hearing needs: No Vision needs: Yes Female Reproductive History Menstrual Age of Menarche: 12 Review of Systems Const All systems reviewed & are unremarkable except as noted in HPI and below Physical Exam Vital Signs: Last Vital Signs Pulse 82 05/13/25 10:03 BP 124/72 05/13/25 10:03 Pulse Ox 98 05/13/25 10:03 Oxygen Delivery Method Room Air 05/13/25 10:03 BMI result Body Mass Index 39.7 Const Orientation/consciousness: patient oriented x3 Back/Spine/Pelvis Other: Right lumbar paraspinal tenderness; positive straight-leg raise on right. No midline spinal tenderness. Back: back tenderness Thoracic/Lumbar Spine: paraspinal muscle tenderness, thoraco-lumbar spasm on the right in the lower lumbar and lumbar spinal tenderness Neuro General: patient oriented x3, gait normal and moves all extremities Assessment & Plan Assessment & Plan (1) Low back pain radiating to lower extremity: Code(s): M54.50 - Low back pain, unspecified; M79.606 - Pain in leg, unspecified Plan: Acute right-sided low back pain with Radicular symptoms ? likely lumbar radiculopathy/sciatica. Muscle strain/spasm also possible given occupation involving prolonged sitting. Muscle relaxant cyclobenzaprine 5 mg PRN for muscle spasms. Apply heat to lumbar area 15?20 min several times daily. Gentle stretching and mobility exercises; avoid prolonged sitting. Continue lidocaine patches. Rest and encouraged to avoid lifting/twisting. Medications: New cyclobenzaprine 5 mg PO BEDTIME 20 tabs 0RF M54.50 - Low back pain, unspecified, M79.606 - Pain in leg, unspecified acetaminophen 1,000 mg (2 x 500 mg) PO Q6H 30 caps 0RF pain M54.50 - Low back pain, unspecified, M79.606 - Pain in leg, unspecified lidocaine 5% leave on most painful area for up to 12 hrs 1 patch topical DAILY 30 ea 0RF M54.50 - Low back pain, unspecified, M79.606 - Pain in leg, unspecified Discontinued zolpidem Discontinued Reason: Patient Completed Course 5 mg PO BEDTIME 30 days 30 tabs 0RF simethicone after meals Discontinued Reason: Patient Completed Course 180 mg PO QID 30 days 120 caps 3RF fluticasone propionate 50 mcg/actuation administer into each nostril Discontinued Reason: Patient Completed Course 1 spray intranasal BID 16 grams 0RF Coding Level of Care Code Est Pt Level 4 (20240) Diagnoses Low back pain radiating to lower extremity M54.50; M79.606 Time Spent (min) 20
== END 2025-05-13 10:57 | disposition home or self-care (01) ==
PROVIDERS: PCP Internal Medicine; Visit Provider Nurse Practitioner Family
DX: M54.50 Low back pain, unspecified (principal); M79.606 Pain in leg, unspecified

== ENCOUNTER → 2025-05-13 09:40 | Outpatient (BNVA) | payer OTHER, SELFPAY | PROVIDERS: PCP Internal Medicine; Visit Provider Nurse Practitioner Family | DX: M54.50 Low back pain, unspecified (principal); M79.606 Pain in leg, unspecified | CPT/HCPCS: 99212 ==

== ENCOUNTER 2025-06-03 16:36 | Outpatient (AMB) | payer OTHER, SELFPAY ==
[2025-06-03 16:40] VITALS: BP 130/72; PULSE 78; O2SAT 98; BMI 40.2
--- NOTE | 2025-06-03 16:40 | MHC.PC.OV ---
Vital Signs 06/03/25 16:40 Height 5 ft 4.5 in Weight 238 lb BMI 40.2 BP 130/72 Blood Pressure Location Lt brachial Position Sitting Pulse 78 Pulse Source Pulse Oximeter Pulse Oximetry (%) 98 Oxygen Delivery Method Room Air Intake Visit Reasons: EDF Reading Intervention Teacher Required: No Accompanied by: Self / Same As Patient Allergies citalopram Allergy (Intermediate, Verified 06/03/25 16:41) palpitations doxepin Allergy (Intermediate, Verified 06/03/25 16:41) palpitations quetiapine (Seroquel) Allergy (Intermediate, Verified 06/03/25 16:41) weight gain trazodone Allergy (Intermediate, Verified 06/03/25 16:41) palpitations venlafaxine Adverse Reaction (Intermediate, Verified 06/03/25 16:41) tachycardia zolpidem Adverse Reaction (Verified 06/03/25 16:41) blurry vision Tobacco use date assessed: 07/12/24 Dental Screening Dental Screen Date: 07/12/24 HPI HPI Comments History of Present Illness Details The patient is a 49 year old female presenting for follow-up of back pain that has moved to the right leg. The patient was previously seen on May 28 for this issue and was diagnosed with sciatica. She was prescribed methylprednisolone (Medrol dosepak) during that visit. The patient reports allergies to citalopram, doxepin, Seroquel, trazodone, venlafaxine, and zolpidem. Her current medications include Tylenol, albuterol inhaler, vitamin D, clonazepam, and hydrochlorothiazide 12.5 mg. She is followed by a museum specialist for a kidney condition. She is morbidly obese and was advise to do diet and exercise. [facility] Medical History Low back pain radiating to lower extremity Physical exam Right ankle pain UTI (urinary tract infection) Insomnia Pericardial effusion Palpitations Ankle pain Abdominal mass, LUQ (left upper quadrant) Dysphagia Right elbow pain Abdominal pain Pelvic pain Abnormal abdominal ultrasound Abnormal uterine bleeding (AUB) FH: throat cancer Pericardial effusion Pericarditis Primary insomnia Essential hypertension Mild recurrent major depression PATRIC (obstructive sleep apnea) Migraines Morbidly obese Moderate asthma Absence of kidney YARITZA (generalized anxiety disorder) Essential hypertension Transaminitis Numerous moles Obesity Carpal tunnel syndrome Ovarian cyst Surgical History History of right nephrectomy History of esophagogastroduodenoscopy (EGD) H/O colonoscopy History of removal of ovarian cyst (~2017) History of loop electrical excision procedure (LEEP) Family History Maternal Grandmother Diabetes mellitus Maternal Grandfather Heart disease CVD (cardiovascular disease) Father Heart problem Sister Heart murmur Paternal Grandmother Heart problem Mother Thyroid disease Social History Housing: Apartment Alcohol intake: never Patient Tobacco Use Status: Never used Tobacco Tobacco use type: Cigarette e-Cigarette/Vaping Use: Never Used Second Hand Smoke Exposure: No service: No Current occupational status: unemployed 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 1. Little interest or pleasure in doing things: not at all 2. Feeling down, depressed, or hopeless: not at all 3. Trouble falling or staying asleep, or sleeping too much: several days 4. Feeling tired or having little energy: several days 5. Poor appetite or overeating: not at all 6. Feeling bad about yourself - or that you are a failure or have let yourself or your family down: not at all 7. Trouble concentrating on things, such as reading the newspaper or watching television: not at all 8. Moving or speaking so slowly that other people could have noticed. Or the opposite - being so fidgety or restless that you have been moving around a lot more than usual: not at all 9. Thoughts that you would be better off or of hurting yourself in some way: not at all Total score: 2 Source: Developed by Drs. Benjamin Wilson, Maria A Elder, Pastor Melvin and colleagues, with an educational teddy from [employer]. Thrive Questionnaire Date Thrive assessed: 06/01/25 I am a: Patient What is your living situation today?: I have a steady place to live Within the past 12 months, did the food you bought not last and you didn't have the money to get more?: I choose not to answer this question Within the past 12 months, did you worry whether your food would run out before you got money to buy more?: I choose not to answer this question Do you have trouble paying for medicines?: I choose not to answer this question Do you have trouble getting transportation to medical appointments?: I choose not to answer this question Do you have trouble paying your heating and electricity bill?: I choose not to answer this question Do you have trouble taking care of your child, family member or friend?: I choose not to answer this question Do you have trouble with day-to-day activities such as bathing, preparing meals, shopping, managing finances, etc.?: I choose not to answer this question Are you currently unemployed and looking for a job?: I choose not to answer this question Are you interested in more education?: I choose not to answer this question Please select the resources that you would like help with: None Currently or been in a relationship where the following occur: No concerns reported THRIVE Score: 0 AUDIT C Alcohol Use Questionnaire (AUDIT-C) 1. How often do you have a drink containing alcohol?: Never 2. How many drinks containing alcohol do you have on a typical day when you are drinking?: 1 or 2 3. How often do you have six or more drinks on one occasion?: Never Total Score: 0 YARITZA-7 AMB Questionnaire YARITZA-7 Date YARITZA - 7 assessed: 07/12/24 Feeling nervous, anxious, or on edge: 0 = Not at all Not being able to stop or control worryin = Not at all Worrying too much about different things: 0 = Not at all Trouble relaxin = Not at all Being so restless that it is hard to sit still: 0 = Not at all Becoming easily annoyed or irritable: 0 = Not at all Feeling afraid as if something awful might happen: 0 = Not at all Total YARITZA-7 score (0-4 normal; 5-9 mild; 10-14 moderate; 15-21 severe): 0 Source: Developed by Drs. Benjamin Wilson, Maria A Elder, Pastor Melvin and colleagues, with an educational teddy from [employer]. Review of Systems Const All systems reviewed & are unremarkable except as noted in HPI and below Card Denies chest pain at rest, Denies chest pain with activity, Denies edema, Denies irregular heart rhythm, Denies claudication, Denies dyspnea, Denies dyspnea on exertion, Denies orthopnea, Denies paroxysmal nocturnal dyspnea and Denies slow heart rate Resp Denies cough, Denies dyspnea and Denies dyspnea on exertion Physical exam (Primary Care) Vital Signs: Last Vital Signs Pulse 78 06/03/25 16:40 BP 130/72 06/03/25 16:40 Pulse Ox 98 06/03/25 16:40 Oxygen Delivery Method Room Air 06/03/25 16:40 BMI result Body Mass Index 40.2 BMI Assessment/Plan discussion: High BMI High, discussed plan: lifestyle, weight reduction, dietary and physical activity Tobacco/Smoking Status: Tobacco use Status Tobacco use date assessed 07/12/24 06/03/25 16:41 Patient Tobacco Use Status Never used Tobacco 06/03/25 16:41 Tobacco use type Cigarette 06/03/25 16:41 e-Cigarette/Vaping Use Never Used 06/03/25 16:41 PHQ-9: PHQ-9 Score PHQ-9: Total score 2 06/03/25 17:00 Thrive Assessment: Date of Thrive Assessment Date Thrive assessed 06/01/25 06/03/25 16:41 Currently or been in a relationship where the following occur: No concerns reported Resp Effort & Inspection: normal respiratory effort Auscultation: clear to auscultation bilaterally Cardio Jugular venous distension: no JVD Rate: regular rate Rhythm: regular rhythm Heart sounds: S1 normal heart sound present and S2 normal heart sound present Back/Spine/Pelvis Thoracic/Lumbar Spine: straight leg raise positive right at 60 degrees Extrem General: Yes full ROM Coding Level of Care Code Est Pt Level 3 (70795) Diagnoses Right sided sciatica M54.31 Morbid obesity with BMI of 40.0-44.9, adult E66.01; Z68.41 Time Spent (min) 19 Assessment & Plan Assessment & Plan (1) Right sided sciatica: Code(s): M54.31 - Sciatica, right side Category: Medical (2) Morbid obesity with BMI of 40.0-44.9, adult: Code(s): E66.01 - Morbid (severe) obesity due to excess calories; Z68.41 - Body mass index [BMI] 40.0-44.9, adult Category: Medical Plan Plan 1. Sciatica, Right Side The patient presents with persistent sciatica with pain radiating to the right leg. Referrals will be made to pain management and physical therapy for further evaluation and treatment. 2. Morbid obesity Start diet and exercise. BMI goal is less than 30. Orders: Orders XR lumbar spine 2-3V Today M54.31 - Sciatica, right side PT Evaluation and Treatment Today M54.31 - Sciatica, right side Referrals Pain Management Referral M54.31 - Sciatica, right side
--- OUTSIDE RECORDS SUMMARY | 2025-06-04 02:18 | XMS_ITS | Clinical Summary ---
Author Organization [facility] Address [address] [place] [address] Phone Care Team Providers Care Drop Wire Aliner Name Role Phone Fallon Garsia MD Primary Care Provider [phone] Allergies No known active allergies Social History Tobacco Use Types Packs/Day Years [...] 69 10/17/2024 10:50 AM EDT Temperature 36.6 C (97.9 F) 10/17/2024 10:50 AM EDT Respiratory Rate 18 10/17/2024 10:50 AM EDT Oxygen Saturation 98% 10/17/2024 10:50 AM EDT Inhaled Oxygen Concentration - - Weight 108 kg (237 lb) 10/17/2024 10:50 AM EDT Height 165.1 cm (5' 5 ) 10/17/2024 10:50 AM EDT Body Mass Index 39.44 10/17/2024 10:50 AM EDT Plan of Treatment Health Maintenance Due Date Last Done Comments Breast Cancer Screening 1974 Colorectal Cancer Screening: Colonoscopy 1974 Hepatitis B Vaccines (1 of 3 - 19+ 3-dose series) 1993 Pneumococcal Vaccine: 50+ Years (1 of 2 - PCV) 1993 Cervical Cancer Screening: Pap Smear 09/18/1995 Depression Screening 06/27/2024 RSV Immunization Adult Patients (1 - Risk 50-74 years 1-dose series) 2024 Zoster Vaccines (1 of 2) 2024 Cholesterol Screening (Lipid Panel) 10/18/2024 HIV Screening 10/18/2024 Hepatitis C Screening 10/18/2024 Social Influencers of Health Screening 10/18/2024 COVID-19 Vaccine (3 - season) 2025 11/29/2020, 11/01/2020 Influenza Vaccine (#1) 2025 , 02/23/2021, 03/27/2020, Additional history exists Hypertension/CHF/CAD Annual BMP Blood Test 10/17/2025 10/17/2024 DTaP,Tdap,and Td Vaccines (2 - Td or Tdap) 06/12/2028 06/12/2018 HIB Vaccines Aged Out No longer eligi [...] Procedure Name Priority Date/Time Associated Diagnosis Comments COMPREHENSIVE METABOLIC PANEL STAT 10/17/2024 11:56 AM EDT from Last 3 Months or Most Recently Relevant to Health Maintenance Results * Comprehensive metabolic panel (10/17/2024 11:56 AM EDT) Sodium 137 133 - 145 mmol/L LAB CHEMISTRY METHOD 10/17/2024 1:23 PM EDT [facility] Potassium 3.9 3.5 - 5.5 mmol/L LAB CHEMISTRY METHOD 10/17/2024 1:23 PM [facility] Chloride 106 96 - 110 mmol/L LAB CHEMISTRY METHOD 10/17/2024 1:23 PM [facility] CO2 26 21 - 32 mmol/L LAB CHEMISTRY METHOD 10/17/2024 1:23 PM [facility] Anion Gap 5 3 - 11 LAB CHEMISTRY METHOD 10/17/2024 1:23 PM [facility] Glucose 88 70 - 100 mg/dL LAB CHEMISTRY METHOD 10/17/2024 1:23 PM [facility] BUN 7 5 - 25 mg/dL LAB CHEMISTRY METHOD 10/17/2024 1:23 PM [facility] Creatinine 0.63 0.50 - 1.10 mg/dL LAB CHEMISTRY METHOD 10/17/2024 1:23 PM [facility] eGFR 108 >=60 mL/min/1. 73m2 LAB CHEMISTRY METHOD 10/17/2024 1:23 PM [facility] Comment:Calculation based on the Chronic Kidney Disease Epidemiology Collaboration (CKD-EPI) equation refit without adjustment for race. BUN/Creatinine Ratio 11.1 LAB CHEMISTRY METHOD 10/17/2024 1:23 PM [facility] Calcium 9.5 8.5 - 10.5 mg/dL LAB CHEMISTRY METHOD 10/17/2024 1:23 PM [facility] AST (SGOT) 16 10 - 42 unit/L LAB CHEMISTRY METHOD 10/17/2024 1:23 PM [facility] ALT (SGPT) 16 10 - 60 unit/L LAB CHEMISTRY METHOD 10/17/2024 1:23 PM [facility] Alkaline Phosphatase 89 42 - 121 unit/L LAB CHEMISTRY METHOD 10/17/2024 1:23 PM [facility] Total Protein 7.7 6.0 - 8.0 g/dL LAB CHEMISTRY METHOD 10/17/2024 1:23 PM EDT [facility] Albumin 3.8 3.2 - 5.0 g/dL LAB CHEMISTRY METHOD 10/17/2024 1:23 PM EDT [facility] Total Bilirubin 0.4 0.0 - 1.4 mg/dL LAB CHEMISTRY METHOD 10/17/2024 1:23 PM EDT [facility] Blood Venous blood specimen / Unknown Venipuncture / Unknown 10/17/2024 11:56 AM EDT 10/17/2024 12:26 PM EDT us Abel Monaco MD LAB BLOOD ORDERABLES Final Res ult [facility] [address] [place] [address], [place] [phone] from Last 3 Months or Most Recently Relevant to Health [place] [address] [place] [id number] [facility] Care Teams Drop Wire Aliner Relationship Specialty Start Date End Date Fallon Garsia MD 2 [facility] , [address] Physician Associ D/B/A: [facility] [id number] Batista PCP - General Internal Medicine 02/24/21
== END 2025-06-03 17:10 | disposition home or self-care (01) ==
LOC: HO.HMCH 16:37
PROVIDERS: PCP Internal Medicine; Visit Provider Internal Medicine
DX: M54.31 Sciatica, right side (principal); E66.01 Morbid (severe) obesity due to excess calories; Z68.41 Body mass index [BMI] 40.0-44.9, adult

== ENCOUNTER → 2025-06-03 16:36 | Outpatient (BNVA) | payer OTHER, SELFPAY | PROVIDERS: PCP Internal Medicine; Visit Provider Internal Medicine | DX: M54.31 Sciatica, right side (principal); E66.01 Morbid (severe) obesity due to excess calories; Z68.41 Body mass index [BMI] 40.0-44.9, adult; Z79.899 Other long term (current) drug therapy; Z88.8 Allergy status to other drugs, medicaments and biological substances | CPT/HCPCS: 99212 ==